=== PATIENT | female | born 1955 | race Caucasian/White ===

== ENCOUNTER → 2019-12-09 11:30 | Outpatient (BNVA) | payer MEDICARE, SELFPAY | PROVIDERS: Family Provider Physician Assistant Medical; Visit Provider Nurse Practitioner Family | DX: E11.9 Type 2 diabetes mellitus without complications (principal); I10 Essential (primary) hypertension; E78.2 Mixed hyperlipidemia; E55.9 Vitamin D deficiency, unspecified; E03.9 Hypothyroidism, unspecified; F32.9 Major depressive disorder, single episode, unspecified | CPT/HCPCS: 80053; 80061; 81001; 82306; 83036; 84443; 85025 ==

== ENCOUNTER → 2020-02-29 11:05 | Outpatient (BNVA) | payer MEDICARE, SELFPAY | PROVIDERS: Family Provider Physician Assistant Medical; Visit Provider Nurse Practitioner Family | DX: E03.9 Hypothyroidism, unspecified (principal); E11.65 Type 2 diabetes mellitus with hyperglycemia; Z79.4 Long term (current) use of insulin; M19.90 Unspecified osteoarthritis, unspecified site; E78.2 Mixed hyperlipidemia | CPT/HCPCS: 80053; 80061; 83036; 84443; 84550; 85025 ==

== ENCOUNTER → 2020-07-15 10:08 | Outpatient (BNVA) | payer MEDICARE, SELFPAY | PROVIDERS: Family Provider Physician Assistant Medical; PCP Nurse Practitioner Family; Visit Provider Nurse Practitioner Family | DX: M10.9 Gout, unspecified (principal); E03.9 Hypothyroidism, unspecified; E11.9 Type 2 diabetes mellitus without complications; M19.90 Unspecified osteoarthritis, unspecified site; K21.9 Gastro-esophageal reflux disease without esophagitis; Z79.4 Long term (current) use of insulin | CPT/HCPCS: 80053; 83036; 84443; 84550; 85025 ==

== ENCOUNTER → 2020-09-12 10:08 | Outpatient (BNVA) | payer MEDICARE, SELFPAY | PROVIDERS: Family Provider Physician Assistant Medical; PCP Nurse Practitioner Family; Visit Provider Family Medicine | DX: M06.9 Rheumatoid arthritis, unspecified (principal); M19.90 Unspecified osteoarthritis, unspecified site; M26.629 Arthralgia of temporomandibular joint, unspecified side; M72.0 Palmar fascial fibromatosis [Dupuytren] | CPT/HCPCS: 73120; 85651; 86431 ==

== ENCOUNTER → 2020-12-28 13:26 | Outpatient (BNVA) | payer MEDICARE, SELFPAY | PROVIDERS: Family Provider Physician Assistant Medical; PCP Nurse Practitioner Family; Visit Provider Nurse Practitioner Family | DX: R32 Unspecified urinary incontinence (principal); F32.9 Major depressive disorder, single episode, unspecified | CPT/HCPCS: 81003 ==

== ENCOUNTER → 2021-02-28 11:36 | Outpatient (BNVA) | payer MEDICARE, SELFPAY | PROVIDERS: Family Provider Physician Assistant Medical; PCP Nurse Practitioner Family; Visit Provider Nurse Practitioner Family | DX: F32.9 Major depressive disorder, single episode, unspecified (principal); E78.2 Mixed hyperlipidemia; E11.65 Type 2 diabetes mellitus with hyperglycemia; Z79.4 Long term (current) use of insulin; B37.3 Candidiasis of vulva and vagina; N39.0 Urinary tract infection, site not specified; Z12.31 Encounter for screening mammogram for malignant neoplasm of breast; E55.9 Vitamin D deficiency, unspecified; M10.9 Gout, unspecified; E03.9 Hypothyroidism, unspecified | CPT/HCPCS: 80053; 80061; 81003; 82306; 83036; 84443; 84550; 85025; 87086 ==

== ENCOUNTER 2021-03-02 10:25 | Outpatient (CLI) | payer MEDICARE, SELFPAY ==
--- NOTE | 2021-03-02 11:00 | MM_ITS ---
WS: [id number] BILATERAL SCREENING DIGITAL MAMMOGRAM WITH CAD HISTORY: Z12.31 - Encounter for screening mammogram for malignant ... COMPARISON: 10/07/2018 and 09/03/2018 Bilateral CC and MLO views submitted. Computer aided detection analyzed. Breast composition: There are scattered areas of fibroglandular density. No suspicious masses, microc alcifications or architectural distortion. Stable 6 mm nodule in the anterior RIGHT breast. MM/[place] [id number] IMPRESSION: BI-RADS: 2-Benign FOLLOW UP: 1 Year Follow-up
== END 2021-03-02 10:26 | disposition home or self-care (01) ==
LOC: RADSHAW 10:31
PROVIDERS: Family Provider Physician Assistant Medical; PCP Nurse Practitioner Family; Visit Provider Nurse Practitioner Family
DX: Z12.31 Encounter for screening mammogram for malignant neoplasm of breast (principal)
CPT/HCPCS: 77067

== ENCOUNTER → 2021-03-28 11:27 | Outpatient (BNVA) | payer MEDICARE, SELFPAY | PROVIDERS: Family Provider Physician Assistant Medical; PCP Nurse Practitioner Family; Visit Provider Nurse Practitioner Family | DX: I10 Essential (primary) hypertension (principal); E03.9 Hypothyroidism, unspecified; E78.2 Mixed hyperlipidemia; F32.9 Major depressive disorder, single episode, unspecified; M10.9 Gout, unspecified; E55.9 Vitamin D deficiency, unspecified; E11.65 Type 2 diabetes mellitus with hyperglycemia; R10.9 Unspecified abdominal pain; M06.9 Rheumatoid arthritis, unspecified; Z79.4 Long term (current) use of insulin | CPT/HCPCS: 74018 ==

== ENCOUNTER 2021-06-03 14:39 | Inpatient (IN) | payer MEDICARE, SELFPAY ==
--- NOTE | 2021-06-03 14:42 | CTR_ITS ---
PROCEDURE INFORMATION: Exam: CT Head Without Contrast Exam date and time: 06/03/2021 2:42 PM Age: 66 years old Clinical indication: Altered mental status/memory loss; Confusion or disorientation; Patient HX: AMS; Additional info: AMS, headache TECHNIQUE: Imaging protocol: Computed tomography of the head without contrast. Radiation optimization: All CT scans at this facility use at least one of these dose optimization techniques: automated exposure control; mA and/or kV adjustment per patient size (includes targeted exams where dose is matched to clinical indication); or iterative reconstruction. COMPARISON: No relevant prior studies available. RADIATION DOSE METRICS: Total DLP (mGy-cm): 798.51 FINDINGS: Brain: No intracranial hemorrhage. Atrophy and mild patchy decreased attenuation of the periventricular white matter which is nonspecific but compatible with chronic microvascular ischemic change. Normal barreto-white differentiation. No abnormal mass effect or midline shift. No extra-axial fluid collection. Cerebral ventricles: Mild ventriculomegaly in the setting of atrophy. No evidence of acute hydrocephalus. Paranasal sinuses: Visualized sinuses are unremarkable. No fluid levels. Mastoid air cells: Visualized mastoid air cells are well aerated. Bones/joints: No acute fracture. Soft tissues: Unremarkable. CT/CT head wo con* [id number] IMPRESSION: 1. No acute findings. 2. Periventricular white matter changes consistent with chronic microvascular ischemic change. Radiation Dose CTDIVOL = (mGy): DLP = 798.51 (mGy-cm)
--- NOTE | 2021-06-03 14:43 | ECG_ITS ---
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 Measurements Intervals [place] Rate: 81 P: 56 WV: 144 QRS: 63 QRSD: 96 T: 90 QT: 399 QTc: 466 Interpretive Statements SINUS RHYTHM ANTEROSEPTAL MYOCARDIAL INFARCTION , PROBABLY OLD [40+ ms Q WAVE IN V1-V4] Compared to ECG 01/07/2018 13:08:07 No significant changes Electronically Signed On 06-05-2021 19:16:55 CDT by Marimar Luevano M.D. [id number]
--- NOTE | 2021-06-03 14:47 | CTR_ITS ---
PROCEDURE INFORMATION: Exam: CT Abdomen And Pelvis With Contrast Exam date and time: 06/03/2021 2:47 PM Age: 66 years old Clinical indication: Nausea and vomiting; Prior surgery; Surgery date: 6+ months; Surgery type: Cabg; Patient HX: C/O abd pain w n/v; Additional info: Evaluate for abd pathologies TECHNIQUE: Imaging protocol: Computed tomography of the abdomen and pelvis with contrast. Radiation optimization: All CT scans at this facility use at least one of these dose optimization techniques: automated exposure control; mA and/or kV adjustment per patient size (includes targeted exams where dose is matched to clinical indication); or iterative reconstruction. Contrast material: OMNI 300; Contrast volume: 95 ml; Contrast route: INTRAVENOUS (IV); COMPARISON: CR XR KUB [id number] 03/28/2021 11:50 AM RADIATION DOSE METRICS: Total DLP (mGy-cm): 1857.51 FINDINGS: Limitations: The study is limited due to patient respiratory motion. Lungs: The lung bases appear unremarkable. Liver: Irregularity of the liver, consistent with hepatic cirrhosis. No focal liver lesion demonstrated. Gallbladder and bile ducts: The gallbladder is surgically absent. No biliary dilatation. Pancreas: The pancreas is normal in appearance. No pancreatic duct dilatation. Spleen: There is splenomegaly present. The spleen measures 17 cm in length. Adrenal glands: The adrenal glands appear within normal limits. Kidneys and ureters: 2.3 cm simple appearing left renal cyst. No solid renal masses. No hydronephrosis. Stomach and bowel: No acute gastric abnormality demonstrated. The small bowel is unremarkable as demonstrated. No acute abnormality/inflammatory change of the colon. Appendix: No evidence of appendicitis. Intraperitoneal space: No pneumoperitoneum. No significant fluid collection. Vasculature: The aorta is atherosclerotic. No aortic aneurysm. Lymph nodes: No pathologically enlarged lymph nodes are demonstrated. Urinary bladder: The urinary bladder is unremarkable in appearance. The urinary bladder is unremarkable in appearance. Reproductive: Uterus and adnexa appear unremarkable. Bones/joints: Degenerative spine changes are noted. No fracture or other acute osseous abnormality. Soft tissues: Diastasis of the rectus muscles noted creating a shallow umbilical hernia. There is no bowel obstruction associated. CT/CT abdomen pelvis w con* [id number] IMPRESSION: 1. The study is limited due to patient respiratory motion. 2. Irregularity of the liver, consistent with hepatic cirrhosis. No focal liver lesion demonstrated. Portal vein is patent. Mild splenomegaly splenomegaly. No ascites. 3. There is splenomegaly present. The spleen measures 17 cm in length. 4. Diastasis of the rectus muscles noted creating a shallow umbilical hernia. There is no bowel obstruction associated. COMMENTS: Consistent with the [employer]'s Incidental Findings Committee white paper (J Am Jonathan Radiol 2018): Any incidental renal lesion less than 1 cm or classified as too small to characterize, or any incidental cystic renal lesion characterized as simple-appearing, is likely benign. No follow-up imaging is recommended for these lesions per consensus recommendations based on imaging criteria. Radiation Dose CTDIVOL = (mGy): DLP = 1857.51 (mGy-cm)
[2021-06-03 14:53] VITALS: BP 162/94; PULSE 91; RESP 15; TEMP 36.4; O2SAT 94; BMI 35.4
--- NOTE | 2021-06-03 14:54 | W.ED.GENADLT ---
HPI - General Adult General: Chief complaint: General Medical Stated complaint: high blood sugar, abd pain, HASSAN Time Seen by Provider: 06/03/21 14:40 History of Present Illness: HPI narrative: Patient is a 66-year-old female with history of diabetes, hypertension, CHF, CABG who presents the emergency room with complaints of abdominal pain and headache. Patient says that both symptoms started 3 days ago. It is unclear how they started. Patient says that he has been having diffuse abdominal pain worse in the left lower quadrant. Patient says that she has had multiple episodes nausea and vomiting. Since then, patient endorses severe headache around the same time. Denies any falls or injuries. Patient says that the headache is worse compared to her prior headaches. Patient denies any melena or hematochezia, is not on blood thinners. No complaints of chest pain shortness of breath, malaise, or other or abdominal complaints. Called EMS earlier today in room, patient had a glucose of 370. Onset: 3 days ago Duration:3 days Location:home Severity:severe Review of Systems Narrative: Constitutional: No fever, no chills. HEENT: No vision changes CV: No chest pain, no palpitations PULM: no cough, no dyspnea. GI: +abdominal pain, +N/+V/-D. : No dysuria MSKEL: No muscle pain SKIN: No new rashes, no lesions. NEURO:+headache, no focal weakness. HEME: No visible bruises PSYCH: Normal mood PFSH ED PFSH: Medical History Abdominal pain Anticoagulated Anxiety and depression Arthritis Breast cancer screening by mammogram Diabetes mellitus, type II Essential hypertension GERD (gastroesophageal reflux disease) Gout Hypothyroid Infected abrasion of thumb Mixed hyperlipidemia Mixed hyperlipidemia Type 2 diabetes mellitus with hyperglycemia Urinary tract infection Vaginal yeast infection Yeast vaginitis Surgical History History of arthroscopy of left shoulder History of open heart surgery quad bypass Social History Smoking and tobacco status: never smoked Second hand smoke exposure: No Smoking risk assessment/counseling performed?: No Alcohol intake: never Desire information about alcohol rehabilitation?: No Counseling given: No Desire information about substance/drug rehabilitation?: No Counseling given: No Female Reproductive History: Date of last menstrual period: 12/15/20 Physical Exam Narrative: EXAM NARRATIVE: Head: Atraumatic Eyes: PERRL, conjunctiva without injection ENT: Mucous membrane moist NECK: Supple, ROM intact LUNGS: LCTAB, no crackles/rhonchi CV: RRR ABDOMEN: Soft, nontender in all quadrants EXTREMITY: Normal ROM SKIN: No rash or erythema NEURO: Awake and alert, no focal motor deficits, 5-5 in all extremities, neurovascular sensation intact distally, cranial nerves II through XII intact PSYCH: Normal mood and affect Course Vital Signs: Vital signs: Vital Signs Temperature 98.6 F 06/05/21 12:46 Pulse Rate 73 06/05/21 12:46 Respiratory Rate 17 06/05/21 12:46 Blood Pressure 168/72 06/05/21 12:46 Pulse Oximetry 94 06/05/21 12:46 MDM - General Adult MDM Narrative: Medical decision making narrative: Male with a history of diabetes, hypertension, CHF, CABG presenting to the emergency room with acute onset of diffuse abdominal pain and headache. On exam, patient is hemodynamically stable. Patient is noted to be hypoxemic satting at 90% on room air. Lungs appear to be decreased on exam. She has diffuse tenderness worse in the left lower quadrant. Neuro exam intact. Given consternation of symptoms, differential diagnosis broad. Will work-up patient for altered mental status and intra-abdominal pathologies. Patient is placed on 2 L oxygen with improvement in O2 sat greater than 95% EKG showing regular sinus rhythm at HT of [81]. Normal axis. No ST elevations/depressions to suggest coronary occlusion. Normal [place], QRS, QT intervals. Troponin is noted to be [address] brain negative for any acute intracranial bleed. CT of the pelvis showed cirrhosis. Ammonia level within normal limit today. Patient is UA is did not show any signs of leukocytosis. At this point time, patient continues to be altered. It is unclear what is the source of altered mental status. Disposition: Admission for serial reevaluation. Lab Data: Labs: Lab Results 06/03/21 06/03/21 06/03/21 Range/Units 16:00 16:00 16:26 WBC 4.8 (4.0-10.0) 10^3/ uL RBC 4.36 (4.1-5.3) 10^6/u L Hgb 11.6 (11.5-15.3) g/dL Hct 35.6 L (37.0-47.0) % MCV 81.7 (81-99) fl MCH 26.6 L (28.0-34.0) pg MCHC 32.6 (30.0-36.0) g/dL RDW 14.4 (12.1-15.1) % Plt Count 131 (130-400) 10^3/c mm MPV 9.8 (7.4-10.4) fL Neut % (Auto) 74.1 % Lymph % (Auto) 18.4 % Whitfield % (Auto) 5.0 % Eos % (Auto) 1.7 % Baso % (Auto) 0.6 % Neut # (Auto) 3.54 (1.8-7.7) 10^3/u L Lymph # (Auto) 0.9 (0.8-4.8) 10^3/u L Whitfield # (Auto) 0.2 (0.2-0.9) 10^3/u L Eos # (Auto) 0.1 (0.0-0.8) 10^3/u L Baso # (Auto) 0.0 (0.0-0.1) 10^3/u L Nucleated RBC % (a uto) 0 % Nucleated RBCs # 0.0 /100WBC PT (12.1-14.9) SECO NDS INR (0.8-1.2) APTT (23.9-36.7) SECO NDS Sodium (136-145) mmol/L Potassium (3.5-5.1) mmol/L Chloride (98-107) mmol/L Carbon Dioxide (22-29) mmol/L Anion Gap (5-19) BUN (8-23) mg/dL Creatinine (0.5-0.9) mg/dL GFR Calculation (90-130) mL/min Glucose (65-115) mg/dL Calculated Osmolal ity (285-295) mOsm/k g Lactate (0.5-2.2) mmol/L Calcium (8.5-10.5) mg/dL Total Bilirubin (0.15-1.2) mg/dL AST (0-32) U/L ALT (0-33) U/L Alkaline Phosphata se (35-105) IU/L Ammonia (11-51) umol/L Troponin T Gen 5 n g/L (0-10) ng/L Troponin T Baselin e (0-10) ng/L Total Protein (6.6-8.7) g/dL Albumin (3.5-5.2) g/dL Globulin (1.3-4.6) g/dL Lipase (13-60) U/L TSH (0.27-4.20) uIU/ mL Urine Color (Yellow) Urine Appearance (CLEAR) Urine pH (5-7) Ur Specific Gravit y (1.005-1.030) Urine Protein (Negative) Urine Glucose (UA) (Normal) Urine Ketones (Negative) Urine Blood (Negative) Urine Nitrate (Negative) Urine Bilirubin (Negative) Urine Urobilinogen (Negative) mg/dL Ur Leukocyte Elda ase (Negative) Urine RBC (0-2) /hpf Urine WBC (0-5) /hpf Ur Squamous Epith Cells (0-5) /hpf Amorphous Sediment Urine Bacteria (NONE) /hpf Urine Yeast /hpf Urine Opiates Scre en (Negative) ng/mL Ur Barbiturates Sc reen (Negative) ng/mL Ur Phencyclidine S crn (Negative) ng/mL Ur Amphetamines Sc reen (Negative) ng/mL U Benzodiazepines Scrn (Negative) ng/mL Urine Cocaine Scre en (Negative) ng/mL U Marijuana (THC) Screen (Negative) ng/mL Ethyl Alcohol (0-10) mg/dL SARS-CoV-2 RNA (RT -PCR) Not detected (NOT DETECTED) SARS-CoV-2 Ag (Rap id) Negative (Negative) 06/03/21 06/03/21 06/03/21 Range/Units 16:26 16:26 16:26 WBC (4.0-10.0) 10^3/ uL RBC (4.1-5.3) 10^6/u L Hgb (11.5-15.3) g/dL Hct (37.0-47.0) % MCV (81-99) fl MCH (28.0-34.0) pg MCHC (30.0-36.0) g/dL RDW (12.1-15.1) % Plt Count (130-400) 10^3/c mm MPV (7.4-10.4) fL Neut % (Auto) % Lymph % (Auto) % Whitfield % (Auto) % Eos % (Auto) % Baso % (Auto) % Neut # (Auto) (1.8-7.7) 10^3/u L Lymph # (Auto) (0.8-4.8) 10^3/u L Whitfield # (Auto) (0.2-0.9) 10^3/u L Eos # (Auto) (0.0-0.8) 10^3/u L Baso # (Auto) (0.0-0.1) 10^3/u L Nucleated RBC % (a uto) % Nucleated RBCs # /100WBC PT 14.30 (12.1-14.9) SECO NDS INR 1.08 (0.8-1.2) APTT 29.4 (23.9-36.7) SECO NDS Sodium 139 (136-145) mmol/L Potassium 3.4 L (3.5-5.1) mmol/L Chloride 98 (98-107) mmol/L Carbon Dioxide 27 (22-29) mmol/L Anion Gap 17.4 (5-19) BUN 9 (8-23) mg/dL Creatinine 0.6 (0.5-0.9) mg/dL GFR Calculation 100.0 (90-130) mL/min Glucose 292 H (65-115) mg/dL Calculated Osmolal ity 297 H (285-295) mOsm/k g Lactate 2.0 (0.5-2.2) mmol/L Calcium 8.4 L (8.5-10.5) mg/dL Total Bilirubin 1.1 (0.15-1.2) mg/dL AST 22 (0-32) U/L ALT 10 (0-33) U/L Alkaline Phosphata se 129 H (35-105) IU/L Ammonia (11-51) umol/L Troponin T Gen 5 n g/L (0-10) ng/L Troponin T Baselin e (0-10) ng/L Total Protein 6.3 L (6.6-8.7) g/dL Albumin 3.6 (3.5-5.2) g/dL Globulin 2.7 (1.3-4.6) g/dL Lipase 55 (13-60) U/L TSH (0.27-4.20) uIU/ mL Urine Color (Yellow) Urine Appearance (CLEAR) Urine pH (5-7) Ur Specific Gravit y (1.005-1.030) Urine Protein (Negative) Urine Glucose (UA) (Normal) Urine Ketones (Negative) Urine Blood (Negative) Urine Nitrate (Negative) Urine Bilirubin (Negative) Urine Urobilinogen (Negative) mg/dL Ur Leukocyte Elda ase (Negative) Urine RBC (0-2) /hpf Urine WBC (0-5) /hpf Ur Squamous Epith Cells (0-5) /hpf Amorphous Sediment Urine Bacteria (NONE) /hpf Urine Yeast /hpf Urine Opiates Scre en (Negative) ng/mL Ur Barbiturates Sc reen (Negative) ng/mL Ur Phencyclidine S crn (Negative) ng/mL Ur Amphetamines Sc reen (Negative) ng/mL U Benzodiazepines Scrn (Negative) ng/mL Urine Cocaine Scre en (Negative) ng/mL U Marijuana (THC) Screen (Negative) ng/mL Ethyl Alcohol (0-10) mg/dL SARS-CoV-2 RNA (RT -PCR) (NOT DETECTED) SARS-CoV-2 Ag (Rap id) (Negative) 06/03/21 06/03/21 06/03/21 Range/Units 16:26 18:45 18:45 WBC (4.0-10.0) 10^3/ uL RBC (4.1-5.3) 10^6/u L Hgb (11.5-15.3) g/dL Hct (37.0-47.0) % MCV (81-99) fl MCH (28.0-34.0) pg MCHC (30.0-36.0) g/dL RDW (12.1-15.1) % Plt Count (130-400) 10^3/c mm MPV (7.4-10.4) fL Neut % (Auto) % Lymph % (Auto) % Whitfield % (Auto) % Eos % (Auto) % Baso % (Auto) % Neut # (Auto) (1.8-7.7) 10^3/u L Lymph # (Auto) (0.8-4.8) 10^3/u L Whitfield # (Auto) (0.2-0.9) 10^3/u L Eos # (Auto) (0.0-0.8) 10^3/u L Baso # (Auto) (0.0-0.1) 10^3/u L Nucleated RBC % (a uto) % Nucleated RBCs # /100WBC PT (12.1-14.9) SECO NDS INR (0.8-1.2) APTT (23.9-36.7) SECO NDS Sodium (136-145) mmol/L Potassium (3.5-5.1) mmol/L Chloride (98-107) mmol/L Carbon Dioxide (22-29) mmol/L Anion Gap (5-19) BUN (8-23) mg/dL Creatinine (0.5-0.9) mg/dL GFR Calculation (90-130) mL/min Glucose (65-115) mg/dL Calculated Osmolal ity (285-295) mOsm/k g Lactate (0.5-2.2) mmol/L Calcium (8.5-10.5) mg/dL Total Bilirubin (0.15-1.2) mg/dL AST (0-32) U/L ALT (0-33) U/L Alkaline Phosphata se (35-105) IU/L Ammonia (11-51) umol/L Troponin T Gen 5 n g/L (0-10) ng/L Troponin T Baselin e 56 H (0-10) ng/L Total Protein (6.6-8.7) g/dL Albumin (3.5-5.2) g/dL Globulin (1.3-4.6) g/dL Lipase (13-60) U/L TSH (0.27-4.20) uIU/ mL Urine Color Yellow (Yellow) Urine Appearance Clear (CLEAR) Urine pH 6 (5-7) Ur Specific Gravit y 1.015 (1.005-1.030) Urine Protein 1+ H (Negative) Urine Glucose (UA) 4+ H (Normal) Urine Ketones 1+ H (Negative) Urine Blood Trace H (Negative) Urine Nitrate Negative (Negative) Urine Bilirubin Neg (Negative) Urine Urobilinogen 1 H (Negative) mg/dL Ur Leukocyte Elda ase Negative (Negative) Urine RBC None (0-2) /hpf Urine WBC 0-4 H (0-5) /hpf Ur Squamous Epith Cells 5-10 H (0-5) /hpf Amorphous Sediment Not Reportable Urine Bacteria Trace (NONE) /hpf Urine Yeast 1+ H /hpf Urine Opiates Scre en Negative (Negative) ng/mL Ur Barbiturates Sc reen Negative (Negative) ng/mL Ur Phencyclidine S crn Negative (Negative) ng/mL Ur Amphetamines Sc reen Negative (Negative) ng/mL U Benzodiazepines Scrn Negative (Negative) ng/mL Urine Cocaine Scre en Negative (Negative) ng/mL U Marijuana (THC) Screen Negative (Negative) ng/mL Ethyl Alcohol (0-10) mg/dL SARS-CoV-2 RNA (RT -PCR) (NOT DETECTED) SARS-CoV-2 Ag (Rap id) (Negative) 06/03/21 06/03/21 06/03/21 Range/Units 20:05 20:13 20:13 WBC (4.0-10.0) 10^3/ uL RBC (4.1-5.3) 10^6/u L Hgb (11.5-15.3) g/dL Hct (37.0-47.0) % MCV (81-99) fl MCH (28.0-34.0) pg MCHC (30.0-36.0) g/dL RDW (12.1-15.1) % Plt Count (130-400) 10^3/c mm MPV (7.4-10.4) fL Neut % (Auto) % Lymph % (Auto) % Whitfield % (Auto) % Eos % (Auto) % Baso % (Auto) % Neut # (Auto) (1.8-7.7) 10^3/u L Lymph # (Auto) (0.8-4.8) 10^3/u L Whitfield # (Auto) (0.2-0.9) 10^3/u L Eos # (Auto) (0.0-0.8) 10^3/u L Baso # (Auto) (0.0-0.1) 10^3/u L Nucleated RBC % (a uto) % Nucleated RBCs # /100WBC PT (12.1-14.9) SECO NDS INR (0.8-1.2) APTT (23.9-36.7) SECO NDS Sodium (136-145) mmol/L Potassium (3.5-5.1) mmol/L Chloride (98-107) mmol/L Carbon Dioxide (22-29) mmol/L Anion Gap (5-19) BUN (8-23) mg/dL Creatinine (0.5-0.9) mg/dL GFR Calculation (90-130) mL/min Glucose (65-115) mg/dL Calculated Osmolal ity (285-295) mOsm/k g Lactate (0.5-2.2) mmol/L Calcium (8.5-10.5) mg/dL Total Bilirubin (0.15-1.2) mg/dL AST (0-32) U/L ALT (0-33) U/L Alkaline Phosphata se (35-105) IU/L Ammonia 34 (11-51) umol/L Troponin T Gen 5 n g/L 54 H (0-10) ng/L Troponin T Baselin e (0-10) ng/L Total Protein (6.6-8.7) g/dL Albumin (3.5-5.2) g/dL Globulin (1.3-4.6) g/dL Lipase (13-60) U/L TSH 2.40 (0.27-4.20) uIU/ mL Urine Color (Yellow) Urine Appearance (CLEAR) Urine pH (5-7) Ur Specific Gravit y (1.005-1.030) Urine Protein (Negative) Urine Glucose (UA) (Normal) Urine Ketones (Negative) Urine Blood (Negative) Urine Nitrate (Negative) Urine Bilirubin (Negative) Urine Urobilinogen (Negative) mg/dL Ur Leukocyte Elda ase (Negative) Urine RBC (0-2) /hpf Urine WBC (0-5) /hpf Ur Squamous Epith Cells (0-5) /hpf Amorphous Sediment Urine Bacteria (NONE) /hpf Urine Yeast /hpf Urine Opiates Scre en (Negative) ng/mL Ur Barbiturates Sc reen (Negative) ng/mL Ur Phencyclidine S crn (Negative) ng/mL Ur Amphetamines Sc reen (Negative) ng/mL U Benzodiazepines Scrn (Negative) ng/mL Urine Cocaine Scre en (Negative) ng/mL U Marijuana (THC) Screen (Negative) ng/mL Ethyl Alcohol < 10 (0-10) mg/dL SARS-CoV-2 RNA (RT -PCR) (NOT DETECTED) SARS-CoV-2 Ag (Rap id) (Negative) Discharge Plan Discharge Patient Disposition: Admitted As Inpatient Admit Provider: Luann Pop Clinical Impression: Altered mental status, Elevated troponin, Hyperglycemia Condition: Stable Discharge Diet: Cardiac and Low Fat Discharge Activity: Increase activity as tolerated Coding Level of Care Code ED Soda Drier Feeder for Page Kelly
--- NOTE | 2021-06-03 15:14 | XRR_ITS ---
PROCEDURE INFORMATION: Exam: XR Chest Exam date and time: 06/03/2021 3:14 PM Age: 66 years old Clinical indication: Dyspnea; Additional info: Oxygen TECHNIQUE: Imaging protocol: XR of the chest. Views: 1 view. COMPARISON: CR XR KUB [id number] 03/28/2021 11:50 AM FINDINGS: Lungs: Unremarkable. No consolidation. Pleural spaces: Unremarkable. No pleural effusion. No pneumothorax. Heart/Mediastinum: Unremarkable. No cardiomegaly. Bones/joints: Median sternotomy wires. XR/XR chest 1V portable [id number] IMPRESSION: No acute radiographic findings.
[2021-06-03] MEDS: diphenhydrAMINE 50 mg/mL SDV 1mL IVP (16:08)
[2021-06-03] MEDS: sodium chloride 0.9% 500 ML IV (16:09)
[2021-06-03] MEDS: metoclopramide 5 mg/mL SDV 2 mL IVP (16:09)
[2021-06-03] MEDS: famotidine 20 mg/2 mL INJ IVP (16:09)
[2021-06-03] MEDS: magnesium sulfate premix 2 GM/50 ML PIGGYBACK IV (16:09)
[2021-06-03 16:47] LABS: Basophils % 0.6 %; Eosinophils # 0.1 10^3/uL (0.0-0.8); Eosinophils % 1.7 %; Hematocrit 35.6 % (37.0-47.0); Hemoglobin 11.6 g/dL (11.5-15.3); Lymphocytes # 0.9 10^3/uL (0.8-4.8); Lymphocytes % 18.4 %; Mean Corpuscular HGB Conc 32.6 g/dL (30.0-36.0); Mean Corpuscular Hemoglobin 26.6 pg (28.0-34.0); Mean Corpuscular Volume 81.7 fl (81-99); Mean Platelet Volume 9.8 fL (7.4-10.4); Monocytes # 0.2 10^3/uL (0.2-0.9); Neutrophils # 3.54 10^3/uL (1.8-7.7); Neutrophils % 74.1 %; Nucleated Red Blood Cells % 0 %; Platelet Count 131 10^3/cmm (130-400); Red Blood Count 4.36 10^6/uL (4.1-5.3); Red Cell Distribution Width 14.4 % (12.1-15.1); White Blood Count 4.8 10^3/uL (4.0-10.0)
[2021-06-03 16:53] LABS: INR 1.08 (0.8-1.2)
[2021-06-03 16:55] LABS: Partial Thromboplastin Time 29.4 SECONDS (23.9-36.7)
[2021-06-03 17:01] LABS: Troponin(5th) Baseline 56 ng/L (0-10)
[2021-06-03 17:09] LABS: Alanine Aminotransferase 10 U/L (0-33); Albumin Level 3.6 g/dL (3.5-5.2); Alkaline Phosphatase 129 IU/L (35-105); Anion Gap 17.4 (5-19); Aspartate Amino Transferase 22 U/L (0-32); Blood Urea Nitrogen 9 mg/dL (8-23); Calcium 8.4 mg/dL (8.5-10.5); Carbon Dioxide 27 mmol/L (22-29); Chloride 98 mmol/L (98-107); Globulin 2.7 g/dL (1.3-4.6); Glucose 292 mg/dL (65-115); Lipase 55 U/L (13-60); Osmolality Calculated 297 mOsm/kg (285-295); Potassium 3.4 mmol/L (3.5-5.1); Sodium 139 mmol/L (136-145); Total Bilirubin 1.1 mg/dL (0.15-1.2); Total Protein 6.3 g/dL (6.6-8.7)
[2021-06-03 17:47] LABS: SARS Covid-2 Antigen Negative (Negative)
--- NOTE | 2021-06-03 17:47 | PC.NURSE ---
pt would not tolerate CT well at all. pt tried to roll off CT table. appears very anxious. ED provider notified and medication orders received.
[2021-06-03] MEDS: LORazepam 2 mg/mL INJ 1 mL IVP ×2 (17:50→21:31)
[2021-06-03] MEDS: iohexol 300 mg/mL 100 mL Btl IV (18:28)
[2021-06-03 19:09] LABS: Glucose Urine UA 4+ (Normal); Ketones Urine 1+ (Negative); Protein Urine 1+ (Negative); Specific Gravity, Urine 1.015 (1.005-1.030); Urine Appearance Clear (CLEAR); Urine Color Yellow (Yellow); pH Urine 6 (5-7)
[2021-06-03 19:10] LABS: Add Urine Microscopic? YES; Bilirubin Urine Neg (Negative); Blood Urine Trace (Negative); Leukocyte Esterase Urine Negative (Negative); Nitrate Urine Negative (Negative); Urobilinogen Urine 1 mg/dL (Negative)
[2021-06-03 19:14] LABS: Bacteria Urine TRACE /hpf; WBC Urine 0-4 /hpf (0-5)
[2021-06-03 19:15] LABS: Add Urine Culture? No
[2021-06-03 19:25] VITALS: BP 161/101; PULSE 88; RESP 20; O2SAT 96
[2021-06-03 20:27] LABS: Ammonia 34 umol/L (11-51)
[2021-06-03 20:50] LABS: Troponin T (5th) Once 54 ng/L (0-10)
--- NOTE | 2021-06-03 21:07 | PC.NURSE ---
patient found naked tring to get up screaming with legs in bwteen rails, patient complaining of feet itching, charge nurse informed of need for sitter due to fall risk saftey concern. dr also updated,
[2021-06-03 21:34] VITALS: BP 141/99; PULSE 78; RESP 14; O2SAT 94
--- NOTE | 2021-06-03 21:35 | PC.NURSE ---
patient 02 sats 87% on RA, placed on 2 lt via nc. provider updated.
--- NOTE | 2021-06-03 21:39 | PC.NURSE ---
patient daughter on phone reports mom fell today and had +loc,
--- NOTE | 2021-06-03 21:45 | PC.NURSE ---
daughter updated on plan to admit.
--- NOTE | 2021-06-03 21:59 | PC.NURSE ---
verbal consent for lp from and daughter via phone
[2021-06-03 22:01] LABS: ABG PCO2 42.5 mmHg (35-45); ABG PH Result 7.43 (7.35-7.45); Alveolar-Arterial Oxygen Gradi 4.6 mmHg (5-10); Base Excess ABG 3.2 mmol/L (-2.0-2.0); Blood Gas Sample Site Brachial, right; Blood Gas Sample Type Arterial; Carboxyhemoglobin 1.8 %THgb (0.4-20.1); HGB O2 Sat 91.1 % (95-100); Ionized Calcium Level - ABG 1.1 mmol/L (1.1-1.4); Methemoglobin 0.8 % (0.4-1.5); Oxygen Device ROOM AIR; Oxygen Saturation ABG 93.4; PO2 ABG 62.6 mmHg (80.0-100.0); Potassium Level - ABG 3.1 mmol/L (3.5-5.0); Total Hemoglobin 12.1 g/dL (12-16)
[2021-06-03] MEDS: haloperidol inj 5 mg/mL INJ 1 mL IVP (22:06)
--- NOTE | 2021-06-03 22:09 | PC.NURSE ---
patient found standing on bed. charge nurse and dr updated. Lakhani given.
--- NOTE | 2021-06-03 23:02 | PC.NURSE ---
charge nurse notified of one on one status for conscious sedation
--- NOTE | 2021-06-03 23:14 | PC.NURSE ---
provider canceled lp and conscious sedation.
[2021-06-03 23:19] VITALS: BP 167/103; PULSE 88; RESP 20; O2SAT 94
[2021-06-03 23:57] VITALS: PULSE 84; BMI 36.3
--- NOTE | 2021-06-03 23:58 | PC.NURSE ---
Pt arrived to unit in ER bed transferred to Med surge bed. Patient lethargic and uncooperative. Vitals stable.
[2021-06-04] VITALS (11 sets, daily range): BP systolic 115–161; BP diastolic 57–80; PULSE 66–84; RESP 16–18; TEMP 36.1–37.8; O2SAT 91–98
--- NOTE | 2021-06-04 01:30 | PM.HP ---
Providers/Chief Complaint Admitting Physician: Luann Pop MD Primary Care Provider: LUBNA Meek Chief Complaint: HIGH BLOOD SUGAR History of Present Illness History is obtained by chart review and by talking to patient's daughter as patient currently unable to participate. Linda Joiner is a 66 year old female with a past medical history of arthritis, diabetes, hypertension, hypothyroidism, recurrent UTIs who was brought to the emergency room today with chief complaint of altered mental status. Per her daughter, patient was in her usual state of health until last evening when after eating a dinner of steak she started to complain of left lower quadrant abdominal discomfort and developed nausea and vomiting. No diarrhea. No fever. At around 3 PM today she was getting ready to go to her daughter's house, when she did not emerge from the room for a few minutes, her went in to check in on her and found her slumped on the floor unresponsive. EMS was called and by the time EMS got there patient was able to open her eyes and moving all of her extremities however was extremely confused and not making sense. Per discussion with the ER physician her chief complaint after presenting here with abdominal pain and a headache. She was confused, however noted to be moving all extremities. There was no reported head injury. CT of the abdomen was performed which did not show any acute abnormalities. Ammonia level was within normal limit, incidentally noted cirrhosis onset CT. No recent URI illness, no noted rashes recently. CT head was normal. At the time of my assessment, patient is asleep, difficult to awaken, she has recently received sedation to attempt lumbar puncture, however this attempt was unsuccessful. She is vaccinated for COVID-19 in January 2021. Review of Systems General: Reports: ROS unobtainable due to mental status Medications/Allergies Home Medications Medication Instructions Recorded Confirmed Last Taken Type tizanidine 4 mg tablet mg PO 12/09/19 03/28/21 Unknown History acetaminophen 650 mg 650 mg PO Q12H 11/23/20 03/28/21 Unknown History tablet,extended release blood-glucose meter #1 ea 02/28/21 03/28/21 Unknown Rx allopurinol 100 mg tablet See Rx Instructions .ROUTE 03/28/21 03/28/21 Unknown Rx .COMPLEX 90 Days #90 tab carvedilol 6.25 mg tablet 6.25 mg PO BID 90 Days #180 tab 03/28/21 03/28/21 Unknown Rx cholecalciferol (vitamin D3) 1,250 50,000 unit PO .weekly 90 Days #13 03/28/21 03/28/21 Unknown Rx mcg (50,000 unit) capsule cap clopidogrel 75 mg tablet 75 mg PO DAILY 90 Days #90 tab 03/28/21 03/28/21 Unknown Rx fluconazole 150 mg tablet 150 mg PO DAILY #5 tab 03/28/21 03/28/21 Unknown Rx furosemide 40 mg tablet 40 mg PO BID 90 Days #180 tab 03/28/21 03/28/21 Unknown Rx glipizide 5 mg tablet See Rx Instructions .ROUTE 03/28/21 03/28/21 Unknown Rx .COMPLEX 90 Days #180 tab insulin detemir U-100 100 unit/mL See Rx Instructions .ROUTE 03/28/21 03/28/21 Unknown Rx (3 mL) subcutaneous pen .COMPLEX 90 Days #45 ml isosorbide mononitrate 30 mg See Rx Instructions .ROUTE 03/28/21 03/28/21 Unknown Rx tablet,extended release 24 hr .COMPLEX #90 tab levothyroxine 150 mcg tablet See Rx Instructions .ROUTE 03/28/21 03/28/21 Unknown Rx .COMPLEX #90 tab lisinopril 2.5 mg tablet See Rx Instructions .ROUTE 03/28/21 03/28/21 Unknown Rx .COMPLEX #90 tab lovastatin 40 mg tablet 40 mg PO DAILY 90 Days #90 tab 03/28/21 03/28/21 Unknown Rx metformin 1,000 mg tablet See Rx Instructions .ROUTE 03/28/21 03/28/21 Unknown Rx .COMPLEX #180 tab nabumetone 500 mg tablet 500 mg PO BID PRN 30 Days #60 tab 03/28/21 03/28/21 Unknown Rx pantoprazole 40 mg tablet,delayed See Rx Instructions .ROUTE 03/28/21 03/28/21 Unknown Rx release .COMPLEX #90 tab potassium chloride 10 mEq See Rx Instructions .ROUTE 03/28/21 03/28/21 Unknown Rx capsule,extended release .COMPLEX 90 Days #270 cap sertraline 50 mg tablet 50 mg PO DAILY 90 Days #90 tab 03/28/21 03/28/21 Unknown Rx sitagliptin 50 mg tablet 50 mg PO DAILY 30 Days #30 tab 03/28/21 03/28/21 Unknown Rx Allergies Allergy/AdvReac Type Severity Reaction Status Date / Time cefaclor [From Ceclor] Allergy unknown Verified 03/28/21 10:17 Penicillins Allergy unknown Verified 03/28/21 10:17 Sulfa (Sulfonamide Allergy unknown Verified 03/28/21 10:17 Antibiotics) ciprofloxacin [From Cipro] AdvReac rash Verified 03/28/21 10:17 PFSH Acute PFSH: Medical History Abdominal pain Anticoagulated Anxiety and depression Arthritis Breast cancer screening by mammogram Diabetes mellitus, type II Essential hypertension GERD (gastroesophageal reflux disease) Gout Hypothyroid Infected abrasion of thumb Mixed hyperlipidemia Mixed hyperlipidemia Type 2 diabetes mellitus with hyperglycemia Urinary tract infection Vaginal yeast infection Yeast vaginitis Surgical History History of arthroscopy of left shoulder History of open heart surgery quad bypass Social History Smoking and tobacco status: never smoked Second hand smoke exposure: No Smoking risk assessment/counseling performed?: No Alcohol intake: never Desire information about alcohol rehabilitation?: No Counseling given: No Desire information about substance/drug rehabilitation?: No Counseling given: No Female Reproductive History: Date of last menstrual period: 12/15/20 Vitals/I&O/Wt Last Vital Signs Temp 98.0 F 06/04/21 00:10 Pulse 84 06/04/21 00:10 Resp 18 06/04/21 00:10 BP 122/68 06/04/21 00:10 Pulse Ox 98 06/04/21 00:10 06/03/21 06/03/21 06/04/21 14:59 22:59 06:59 Intake Total 550 / 550 Balance 550 / 550 Weight last 48 hrs Weight 92.986 kg Weight 90.718 kg Physical Exam Narrative: EXAM NARRATIVE: GEN: lethargic,opens eyes to calling name, somnolent CVS: S1S2 N RS: CTA B/L all areas Abd: Soft, nt/nd , bs+ 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 CT head without any acute intracranial events,, chronic microvascular changes noted. Sodium within range at 139, ammonia level not elevated. ABG without hypercapnia Check TSH, urine drug screen, serum alcohol level blood culture and RPR. Patient has no past history of seizure disorder, family did not note any tongue bite, frothing, urinary or bowel incontinence. Possible unwitnessed seizure with postictal state cannot be completely excluded at this time. Monitor closely with serial neuro checks. Check prolactin with a.m. labs Given acuity of symptoms, appears less likely to be encephalitis. LP was attempted, however remained unsuccessful. If no significant improvement in mentation over the next 24 to 48 hours, this may need to be reattempted. Patient had complained of abdominal symptoms prior to presentation, however CT of the abdomen and pelvis without any acute abnormalities. Covid rapid antigen negative, PCR pending, no abnormalities noted on chest x-ray, vaccinated January 2021. Status: Acute (2) Elevated troponin: No acute ST-T wave changes on EKG. Troponin 56, 2-hour at 54, negative delta. Status: Acute Additional A&P Information Diabetes mellitus: Insulin sliding scale Hypothyroidism: Continue home dose of levothyroxine 150 mcg daily, check TSH History of coronary artery disease: Continue carvedilol, clopidogrel, Imdur. Holding Lasix for now, IV hydration with normal saline at 75 cc/h given excessive nausea vomiting, closely monitor volume status. DVT prophylaxis: Lovenox Full code Attestations Medical Necessity Statement*: anticipate >2midnight admission for above care Coding Level of Care Code Acute Financial Sales Consultant for g Fwd Diagnoses Altered mental status R41.82 Elevated troponin R77.8
[2021-06-04 01:47] LABS: Alcohol Level < 10 mg/dL (0-10)
--- NOTE | 2021-06-04 02:50 | CTR_ITS ---
PROCEDURE INFORMATION: Exam: CT Angiography Head With Contrast, Arteriography Exam date and time: 06/04/2021 2:50 AM Age: 66 years old Clinical indication: Other: AMS, dizzy; Additional info: Altered mental status TECHNIQUE: Imaging protocol: Computed tomography angiography of the head with contrast. Exam focused on the arteries. 3D rendering (Not supervised by radiologist): MIP and/or 3D reconstructed images were created by the technologist. Radiation optimization: All CT scans at this facility use at least one of these dose optimization techniques: automated exposure control; mA and/or kV adjustment per patient size (includes targeted exams where dose is matched to clinical indication); or iterative reconstruction. Contrast material: OMNI 350; Contrast volume: 95 ml; Contrast route: INTRAVENOUS (IV); COMPARISON: CT head wo con* [id number] 06/03/2021 6:09 PM RADIATION DOSE METRICS: Total DLP (mGy-cm): 2729.88 FINDINGS: ANTERIOR CIRCULATION: Right internal carotid artery: There is calcification of the carotid siphon with mild stenosis. No aneurysm. Right middle cerebral artery: Unremarkable. No occlusion or significant stenosis. No aneurysm. Right anterior cerebral artery: Unremarkable. No occlusion or significant stenosis. No aneurysm. Left internal carotid artery: There is calcification of the carotid siphon with mild stenosis No aneurysm. Left middle cerebral artery: Unremarkable. No occlusion or significant stenosis. No aneurysm. Left anterior cerebral artery: Unremarkable. No occlusion or significant stenosis. No aneurysm. POSTERIOR CIRCULATION: Right vertebral artery: Unremarkable. No occlusion or significant stenosis. No aneurysm. Left vertebral artery: Unremarkable. No occlusion or significant stenosis. No aneurysm. Basilar artery: Unremarkable. No occlusion or significant stenosis. No aneurysm. Right posterior cerebral artery: Unremarkable. No occlusion or significant stenosis. No aneurysm. Left posterior cerebral artery: Unremarkable. No occlusion or significant stenosis. No aneurysm. Brain: No definite mass, mass effect, or midline shift. Cerebral ventricles: No ventriculomegaly. Bones/joints: Unremarkable. No acute fracture. Soft tissues: Unremarkable. IMPRESSION: There is calcification of the internal carotid artery siphons bilaterally with mild stenosis. No other significant stenosis occlusion or aneurysm seen. PROCEDURE INFORMATION: Exam: CT Angiography Neck With Contrast Exam date and time: 06/04/2021 2:50 AM Age: 66 years old Clinical indication: Other: AMS, dizzy; Additional info: Altered mental status TECHNIQUE: Imaging protocol: Computed tomography angiography of the neck with contrast. 3D rendering (Not supervised by radiologist): MIP and/or 3D reconstructed images were created by the technologist. Radiation optimization: All CT scans at this facility use at least one of these dose optimization techniques: automated exposure control; mA and/or kV adjustment per patient size (includes targeted exams where dose is matched to clinical indication); or iterative reconstruction. Contrast material: OMNI 350; Contrast volume: 95 ml; Contrast route: INTRAVENOUS (IV); COMPARISON: CT head wo con* [id number] 06/03/2021 6:09 PM RADIATION DOSE METRICS: Total DLP (mGy-cm): 2729.88 FINDINGS: Right common carotid artery: No stenosis. No dissection or occlusion. Right internal carotid artery: Mild calcification at the origin but no significant stenosis. No dissection or occlusion. Right external carotid artery: No occlusion or stenosis of the origin. Left common carotid artery: No stenosis. No dissection or occlusion. Left internal carotid artery: Mild calcification at the origin but no significant stenosis. No dissection or occlusion. Left external carotid artery: No occlusion or stenosis of the origin. Right vertebral artery: No stenosis. No dissection or occlusion. Left vertebral artery: No stenosis. No dissection or occlusion. Soft tissues: Normal. No significant soft tissue swelling. Bones/joints: No acute fracture. Heart: There is calcification of the coronary arteries. CT/CT angio headneck* [id number] IMPRESSION: No carotid or vertebral artery stenosis or occlusion. REFERENCES: NASCET CRITERIA. The degree of internal carotid artery stenosis is based on NASCET criteria. Normal is no stenosis. Mild is less than 50% stenosis. Moderate is 50-69% stenosis. Severe is 70% to 99% stenosis. Total occlusion is no detectable patent lumen. Radiation Dose CTDIVOL = (mGy): DLP = 2729.88~2729.88 (mGy-cm)
[2021-06-04] MEDS: sodium chloride 0.9% 1,000 ML 75 ML IV ×2 (03:36→17:33)
[2021-06-04] MEDS: enoxaparin 40 mg/0.4 mL Syringe SUBCUT (03:36)
--- NOTE | 2021-06-04 05:12 | PC.NURSE ---
Shift Report: Patient lethargic majority of shift. woke up once due to incontinence with mild agitation and severe confusion.
[2021-06-04 06:12] LABS: Basophils % 0.7 %; Eosinophils # 0.2 10^3/uL (0.0-0.8); Eosinophils % 4.3 %; Hematocrit 34.2 % (37.0-47.0); Hemoglobin 10.9 g/dL (11.5-15.3); Lymphocytes # 1.5 10^3/uL (0.8-4.8); Lymphocytes % 33.6 %; Mean Corpuscular HGB Conc 31.9 g/dL (30.0-36.0); Mean Corpuscular Hemoglobin 26.6 pg (28.0-34.0); Mean Corpuscular Volume 83.4 fl (81-99); Mean Platelet Volume 9.9 fL (7.4-10.4); Monocytes # 0.3 10^3/uL (0.2-0.9); Monocytes % 6.5 %; Neutrophils # 2.43 10^3/uL (1.8-7.7); Neutrophils % 54.7 %; Nucleated Red Blood Cells % 0 %; Platelet Count 153 10^3/cmm (130-400); Red Cell Distribution Width 14.8 % (12.1-15.1); White Blood Count 4.4 10^3/uL (4.0-10.0)
[2021-06-04 06:38] LABS: Alanine Aminotransferase 8 U/L (0-33); Albumin Level 3.3 g/dL (3.5-5.2); Alkaline Phosphatase 124 IU/L (35-105); Anion Gap 17.3 (5-19); Aspartate Amino Transferase 20 U/L (0-32); Blood Urea Nitrogen 6 mg/dL (8-23); Calcium 8.3 mg/dL (8.5-10.5); Carbon Dioxide 25 mmol/L (22-29); Chloride 100 mmol/L (98-107); Globulin 2.8 g/dL (1.3-4.6); Glomerular Filtration Rate 123.4 mL/min (90-130); Glucose 268 mg/dL (65-115); Osmolality Calculated 295 mOsm/kg (285-295); Potassium 3.3 mmol/L (3.5-5.1); Sodium 139 mmol/L (136-145); Total Bilirubin 1.3 mg/dL (0.15-1.2); Total Protein 6.1 g/dL (6.6-8.7)
[2021-06-04 06:44] LABS: NT Pro B Type Natriuretic Pept 682 pg/mL (0-125)
[2021-06-04 06:47] LABS: Rapid Plasma Reagin Syphilis Nonreactive (Nonreactive)
[2021-06-04 08:34] LABS: Glucose Point of Care 346 mg/dL (70-110)
[2021-06-04] MEDS: isosorbide mononitrate ER 30 mg Tablet PO (09:01)
[2021-06-04] MEDS: clopidogrel 75 mg Tablet PO (09:01)
[2021-06-04] MEDS: carvedilol 6.25 mg Tablet PO ×2 (09:01→17:38)
[2021-06-04] MEDS: pantoprazole DR 40 mg Tablet PO (09:01)
[2021-06-04 09:02] LABS: Prolactin 15.63 ng/mL (4.8-23.3)
[2021-06-04] MEDS: atorvastatin 40 mg Tablet PO (09:02)
[2021-06-04] MEDS: lisinopril 2.5 mg Tablet PO (09:02)
[2021-06-04 10:11] LABS: Amphetamines Screen Urine Negative (Negative); Barbiturates Screen Urine Negative (Negative); Benzodiazepines Screen Urine Negative (Negative); Cocaine Screen Urine Negative (Negative); Opiate Screen Urine Negative (Negative); PCP Screen Urine Negative (Negative); THC Screen Urine Negative (Negative)
[2021-06-04] MEDS: iohexol 350 mg/mL 100 mL Btl IV (10:36)
[2021-06-04 11:08] LABS: Glucose Point of Care 308 mg/dL (70-110)
--- NOTE | 2021-06-04 11:29 | P.PN_ITS ---
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 [facility] She is able to tell me that she came in because of worse abdominal pain and h eadache, she is endorsing headache and frontal area, she is also endorsing tooth infection however no abscess or dental infection noted She was able to get up walk to the bathroom Sandra's Brudzinski sign negative No active neurological deficits Overnight H&P labs and imaging reviewed She endorsed diarrhea and couple of episode of emesis, no fever, endorsing vaccination for COVID-19 Vitals/I&O/Wt Last Vital Signs Temp 100.0 F H 06/04/21 08:00 Pulse 82 06/04/21 09:54 Resp 18 06/04/21 08:00 BP 150/79 06/04/21 08:00 Pulse Ox 91 06/04/21 09:54 06/03/21 06/04/21 06/04/21 22:59 06:59 14:59 Intake Total 550 / 550 Balance 550 / 550 Weight last 48 hrs Weight 92.986 kg Weight 90.718 kg Physical Exam Narrative: EXAM NARRATIVE: Patient is awake alert oriented x3 GCS 15 Extremely lethargic and fatigued No neurological deficit Brudzinski Kernig signs negative No signs of encephalopathy at the time my evaluation Patient is very sensitive to touch, she complains of pain whenever I touch her extremities, Abdomen is soft however she screams in pain at any contact with her skin She is moving all 4 extremities Able to follow my commands S1, S2 sinus rhythm Bilateral breath sounds without adventitious rhonchi or crackles Your extremity no edema Data : 06/04/21 05:21 06/04/21 05:21 Micro: Microbiology 06/04/21 05:25 Blood Culture - Preliminary Blood SPECIMEN COLLECTED 06/04/21 05:21 Blood Culture - Preliminary Blood SPECIMEN COLLECTED A&P Assessment and plan (1) Liver cirrhosis: Status: Acute (2) Hepatosplenomegaly: Status: Acute (3) Altered mental status: Status: Acute (4) Abdominal pain: Status: Acute (5) Headache: Status: Acute (6) Type 2 diabetes mellitus with hyperglycemia: Status: Acute Qualifiers: Diabetes mellitus predatory animal exterminator insulin use: with predatory animal exterminator use Qualified Code(s): E11.65 - Type 2 diabetes mellitus with hyperglycemia; Z79.4 - superintendent container terminal (current) use of insulin Additional A&P Information Metabolic encephalopathy Improved No signs of active neurological deficit No signs of meningitis, or encephalitis, this morning she is awake and alert able to follow my commands NIH is 0 extremely sensitive to pain all over fibromyalgia? We will add rifaximin mean and request C. difficile panel Patient is complaining of diarrhea and headache I do not think MRI head would have any merit at this point She is able to walk to the bathroom on her own independently No signs of myasthenia gravis, or Guillain-Velazquez?, her breathing is fine on room air saturating well She does have diagnosis of hepatosplenomegaly with liver cirrhosis ammonia level is normal I would hold off on lactulose because of diarrhea for now and add ceftriaxone for portal hypertension I would request lumbar puncture only if she becomes febrile, I did notice temperature 100.0 however when this temperature was retook without giving her any Tylenol oral temperature was 98.3 Prolactin normal less likely to be seizure Normal TSH Headache patient is stating that she had some dental infection however I do not see any abscess or pus around her front teeth she is wearing dentures No active runny nose or rhinorrhea I would hold off on adding any antibiotics for now Abdominal pain likely secondary to organomegaly no acute pathological findings noted other than umbilical hernia without any signs of obstruction I do believe her pain is related to neuropathy versus fibromyalgia Alk phosphatase is high with bilirubin will request PABLO and AMA Type 2 diabetes Hyperglycemia noted will start consistent carb diet along insulin sliding scale Full code Consistent carb cardiac diet DVT prophylaxis Lovenox Attestations Medical Necessity Statement*: Anticipating stay in the hospital cross more than 2 midnights Time Spent in Patient Care: 16 - 35 minutes Coding Level of Care Code Acute Ball Assembler for Светланаg Fwd Diagnoses Liver cirrhosis K74.60 Hepatosplenomegaly R16.2 Altered mental status R41.82 Abdominal pain R10.9 Headache R51.9 Type 2 diabetes mellitus with hyperglycemia E11.65; Z79.4 Diabetes mellitus snf insulin use: with predatory animal exterminator use
[2021-06-04 12:14] LABS: Tumor Marker Alpha Fetoprotein 1.8 ng/mL (0-8.3)
[2021-06-04] MEDS: cefTRIAXone 1,000 MG in sodium chloride 0.9% (plus) 50 ML 100 MG IV (12:42)
[2021-06-04] MEDS: duloxetine 30 mg Capsule PO (12:42)
[2021-06-04 12:44] LABS: Estmated Average Glucose 292; Hemoglobin A1C 11.8 % (4.0-6.0)
[2021-06-04] MEDS: acetaminophen 325 mg Tablet 650 MG PO ×2 (15:44→23:35)
[2021-06-04 17:04] LABS: Glucose Point of Care 328 mg/dL (70-110)
[2021-06-04 20:48] LABS: Glucose Point of Care 413 mg/dL (70-110)
[2021-06-05] MEDS: enoxaparin 40 mg/0.4 mL Syringe SUBCUT (02:54)
[2021-06-05 04:00] VITALS: BP 156/82; PULSE 72; RESP 18; TEMP 36.5; O2SAT 89
[2021-06-05] MEDS: levothyroxine 150 mcg Tablet PO (05:45)
[2021-06-05] MEDS: sodium chloride 0.9% 1,000 ML 75 ML IV (05:46)
[2021-06-05 06:22] LABS: Glucose Point of Care 346 mg/dL (70-110)
[2021-06-05 07:36] LABS: Basophils # 0.1 10^3/uL (0.0-0.1); Basophils % 1.2 %; Eosinophils # 0.2 10^3/uL (0.0-0.8); Eosinophils % 5.7 %; Hematocrit 33.1 % (37.0-47.0); Hemoglobin 10.5 g/dL (11.5-15.3); Lymphocytes # 1.6 10^3/uL (0.8-4.8); Lymphocytes % 38.7 %; Mean Corpuscular HGB Conc 31.7 g/dL (30.0-36.0); Mean Corpuscular Hemoglobin 26.8 pg (28.0-34.0); Mean Corpuscular Volume 84.4 fl (81-99); Monocytes # 0.2 10^3/uL (0.2-0.9); Neutrophils # 1.93 10^3/uL (1.8-7.7); Neutrophils % 48.2 %; Nucleated Red Blood Cells % 0 %; Platelet Count 117 10^3/cmm (130-400); Red Blood Count 3.92 10^6/uL (4.1-5.3); Red Cell Distribution Width 15.1 % (12.1-15.1)
[2021-06-05 08:00] VITALS: BP 174/80; PULSE 76; RESP 16; TEMP 36.8; O2SAT 92
[2021-06-05 08:14] LABS: Procalcitonin 0.14 ng/mL (0-0.5)
[2021-06-05 08:26] LABS: Alanine Aminotransferase 8 U/L (0-33); Albumin Level 3.3 g/dL (3.5-5.2); Alkaline Phosphatase 105 IU/L (35-105); Anion Gap 17.3 (5-19); Aspartate Amino Transferase 19 U/L (0-32); Blood Urea Nitrogen 8 mg/dL (8-23); C Reactive Protein 18.3 mg/L (0.0-4.9); Calcium 8.2 mg/dL (8.5-10.5); Carbon Dioxide 22 mmol/L (22-29); Chloride 101 mmol/L (98-107); Globulin 2.7 g/dL (1.3-4.6); Glomerular Filtration Rate 123.4 mL/min (90-130); Glucose 289 mg/dL (65-115); Osmolality Calculated 293 mOsm/kg (285-295); Potassium 3.3 mmol/L (3.5-5.1); Sodium 137 mmol/L (136-145); Total Bilirubin 1.1 mg/dL (0.15-1.2)
[2021-06-05] MEDS: atorvastatin 40 mg Tablet PO (08:42)
[2021-06-05] MEDS: lisinopril 2.5 mg Tablet PO (08:42)
[2021-06-05] MEDS: carvedilol 6.25 mg Tablet PO (08:42)
[2021-06-05] MEDS: pantoprazole DR 40 mg Tablet PO (08:43)
[2021-06-05] MEDS: isosorbide mononitrate ER 30 mg Tablet PO (08:43)
[2021-06-05] MEDS: clopidogrel 75 mg Tablet PO (08:43)
[2021-06-05] MEDS: duloxetine 30 mg Capsule PO (08:43)
[2021-06-05 10:57] LABS: Glucose Point of Care 421 mg/dL (70-110)
[2021-06-05 11:35] VITALS: BP 168/72; PULSE 73; RESP 17; TEMP 37; O2SAT 94
--- NOTE | 2021-06-05 11:39 | PM.DCS ---
Discharge Providers Date of Admission: 06/03/21 21:00 Date of Discharge: June 05, 2021 Attending Provider at Admission: Luann Pop MD Attending Provider at Discharge: Terry Guerra MD Primary Care Provider: LUBNA Meek Diagnoses at Discharge Discharge Diagnosis (1) Liver cirrhosis: Status: Acute (2) Hepatosplenomegaly: Status: Acute (3) Altered mental status: Status: Acute (4) Abdominal pain: Status: Acute (5) Headache: Status: Acute (6) Type 2 diabetes mellitus with hyperglycemia: Status: Acute Qualifiers: Diabetes mellitus assisted insulin use: with remote computer terminal operator use Qualified Code(s): E11.65 - Type 2 diabetes mellitus with hyperglycemia; Z79.4 - terminal clerk (current) use of insulin Reason for Visit Reason for Visit: HIGH BLOOD SUGAR Hospital Course Hospital Course History of Present Illness by Dr. Pop History is obtained by chart review and by talking to patient's daughter as patient currently unable to participate. Linda Joiner is a 66 year old female with a past medical history of arthritis, diabetes, hypertension, hypothyroidism, recurrent UTIs who was brought to the emergency room today with chief complaint of altered mental status. Per her daughter, patient was in her usual state of health until last evening when after eating a dinner of steak she started to complain of left lower quadrant abdominal discomfort and developed nausea and vomiting. No diarrhea. No fever. At around 3 PM today she was getting ready to go to her daughter's house, when she did not emerge from the room for a few minutes, her went in to check in on her and found her slumped on the floor unresponsive. EMS was called and by the time EMS got there patient was able to open her eyes and moving all of her extremities however was extremely confused and not making sense. Per discussion with the ER physician her chief complaint after presenting here with abdominal pain and a headache. She was confused, however noted to be moving all extremities. There was no reported head injury. CT of the abdomen was performed which did not show any acute abnormalities. Ammonia level was within normal limit, incidentally noted cirrhosis onset CT. No recent URI illness, no noted rashes recently. CT head was normal. At the time of my assessment, patient is asleep, difficult to awaken, she has recently received sedation to attempt lumbar puncture, however this attempt was unsuccessful. She is vaccinated for COVID-19 in January 2021. Hospital course patient was admitted for management of altered mental status. However at the time of my evaluation next day patient mentation improved she was able to answer my question appropriately, she did not meet any criteria for meningitis or encephalitis, she did have multiple tender points all over her body. Her mentation improved,& her energy was much better on 06/05, no neurological deficits, she remained afebrile, she was diagnosed with liver cirrhosis and splenomegaly I requested hepatitis panel, alpha-fetoprotein level, updated to follow-up with a research soil scientist outpatient. Her ammonia level was normal. Prolactin unremarkable. I do suspect her encephalopathy was related to underlying liver cirrhosis. Cdiff ruled out Rifaximin was added along ceftriaxone during hospitalization. Antimitochondrial antibody and PABLO pending. She did experience hyperglycemia however no signs of DKA, patient was eager to go home on 06/05, after discussing her hospital course with her decision was made to discharge her home. Covid PCR is pending, she is vaccinated and does not have any signs of COVID-19 pneumonia, she is not requiring oxygen and remained afebrile. Her isolated reading of Temp 100.0 was a false reading. Physical Exam Narrative: EXAM NARRATIVE: Patient is awake alert oriented x3 GCS 15 No neurological deficit Brudzinski Kernig signs negative No signs of encephalopathy at the time my evaluation Patient is very sensitive to touch, she complains of pain whenever I touch her extremities, Abdomen is soft however she screams in pain at any contact with her skin She is moving all 4 extremities Able to follow my commands S1, S2 sinus rhythm Bilateral breath sounds without adventitious rhonchi or crackles conversive good mood Discharge Data Data Completed and Pending: Completed Studies During Hospitalization Category Date Time Status CT abdomen pelvis w con* [id number] Urge nt Cat Scan 06/03/21 14:[address] angio headneck * [id number] Rout ine Cat Scan 06/04/21 02:[address] head wo con* [id number] Urgent Cat Scan 06/03/21 14:42 Completed XR chest 1V bella ble [id number] Urgent Exams 06/03/21 15:14 Completed Pending at discharge Category Date Time Status Blood Culture AM LABS Lab 06/04/21 05:25 Results Hepatitis Panel C omprehensive Routi ne Lab 06/05/21 11:34 Ordered Mitochondrial AB Screen Stat Lab 06/04/21 05:21 Received [facility] PABLO Profile S tat Lab 06/04/21 05:21 Received [facility] SARS-CoV-2 RNA Routine Lab 06/03/21 16:00 Received Labs from last 24 hours 06/05/21 06/05/21 06/05/21 10:50 06:57 06:57 WBC 4.0 RBC 3.92 L Hgb 10.5 L Hct 33.1 L MCV 84.4 MCH 26.8 L MCHC 31.7 RDW 15.1 Plt Count 117 L MPV 10.0 Neut % (Auto) 48.2 Lymph % (Auto) 38.7 Lander % (Auto) 6.0 Eos % (Auto) 5.7 Baso % (Auto) 1.2 Neut # (Auto) 1.93 Lymph # (Auto) 1.6 Lander # (Auto) 0.2 Eos # (Auto) 0.2 Baso # (Auto) 0.1 Nucleated RBC % (a uto) 0 Nucleated RBCs # 0.0 Sodium 137 Potassium 3.3 L Chloride 101 Carbon Dioxide 22 Anion Gap 17.3 BUN 8 Creatinine 0.5 GFR Calculation 123.4 Glucose 289 H POC Glucose 421 H Estimat Average Gl ucose Hemoglobin A1c Calculated Osmolal ity 293 Calcium 8.2 L Total Bilirubin 1.1 AST 19 ALT 8 Alkaline Phosphata se 105 C-Reactive Protein 18.3 H Total Protein 6.0 L Albumin 3.3 L Globulin 2.7 Tumor Marker AFP Procalcitonin 0.14 SS-A/Ro IgG Antibo dy SS-B/La IgG Antibo dy Anti-nRNP/Sm IgG A b Scl-70 Scleroderma Ab Mitochondrial DNA Scrn 06/05/21 06/04/21 06/04/21 06:16 20:39 16:57 WBC RBC Hgb Hct MCV MCH MCHC RDW Plt Count MPV Neut % (Auto) Lymph % (Auto) Lander % (Auto) Eos % (Auto) Baso % (Auto) Neut # (Auto) Lymph # (Auto) Lander # (Auto) Eos # (Auto) Baso # (Auto) Nucleated RBC % (a uto) Nucleated RBCs # Sodium Potassium Chloride Carbon Dioxide Anion Gap BUN Creatinine GFR Calculation Glucose POC Glucose 346 H 413 H 328 H Estimat Average Gl ucose Hemoglobin A1c Calculated Osmolal ity Calcium Total Bilirubin AST ALT Alkaline Phosphata se C-Reactive Protein Total Protein Albumin Globulin Tumor Marker AFP Procalcitonin SS-A/Ro IgG Antibo dy SS-B/La IgG Antibo dy Anti-nRNP/Sm IgG A b Scl-70 Scleroderma Ab Mitochondrial DNA Scrn 06/04/21 06/04/21 06/04/21 05:21 05:21 05:21 WBC RBC Hgb Hct MCV MCH MCHC RDW Plt Count MPV Neut % (Auto) Lymph % (Auto) Lander % (Auto) Eos % (Auto) Baso % (Auto) Neut # (Auto) Lymph # (Auto) Lander # (Auto) Eos # (Auto) Baso # (Auto) Nucleated RBC % (a uto) Nucleated RBCs # Sodium Potassium Chloride Carbon Dioxide Anion Gap BUN Creatinine GFR Calculation Glucose POC Glucose Estimat Average Gl ucose Hemoglobin A1c Calculated Osmolal ity Calcium Total Bilirubin AST ALT Alkaline Phosphata se C-Reactive Protein Total Protein Albumin Globulin Tumor Marker AFP 1.8 Procalcitonin SS-A/Ro IgG Antibo dy Pending SS-B/La IgG Antibo dy Pending Anti-nRNP/Sm IgG A b Pending Scl-70 Scleroderma Ab Pending Mitochondrial DNA Scrn Pending 06/04/21 05:21 WBC RBC Hgb Hct MCV MCH MCHC RDW Plt Count MPV Neut % (Auto) Lymph % (Auto) Lander % (Auto) Eos % (Auto) Baso % (Auto) Neut # (Auto) Lymph # (Auto) Lander # (Auto) Eos # (Auto) Baso # (Auto) Nucleated RBC % (a uto) Nucleated RBCs # Sodium Potassium Chloride Carbon Dioxide Anion Gap BUN Creatinine GFR Calculation Glucose POC Glucose Estimat Average Gl ucose 292 Hemoglobin A1c 11.8 H Calculated Osmolal ity Calcium Total Bilirubin AST ALT Alkaline Phosphata se C-Reactive Protein Total Protein Albumin Globulin Tumor Marker AFP Procalcitonin SS-A/Ro IgG Antibo dy SS-B/La IgG Antibo dy Anti-nRNP/Sm IgG A b Scl-70 Scleroderma Ab Mitochondrial DNA Scrn Vitals: Last Vital Signs Temp 98.6 F 06/05/21 11:35 Pulse 73 06/05/21 11:35 Resp 17 06/05/21 11:35 BP 168/72 06/05/21 11:35 Pulse Ox 94 06/05/21 11:35 Discharge Plan Discharge Patient Disposition: Home Condition: Stable Prescriptions: New Xifaxan 550 mg Tablet 550 mg PO BID 30 Days Qty: 60 RF: 0 lactulose 10 gram packet 10 g PO BID Qty: 30 RF: 0 potassium chloride 10 mEq capsule, extended release 10 meq PO DAILY 4 Days Qty: 4 RF: 0 Continued acetaminophen [Tylenol Arthritis Pain] 650 mg tablet extended release 650 mg PO Q12H RF: 0 (DME) blood-glucose meter Kit See Rx Instructions .ROUTE .MEDSUPPLY Qty: 1 RF: 0 clopidogrel 75 mg tablet 75 mg PO DAILY 90 Days Qty: 90 RF: 1 carvedilol 6.25 mg tablet 6.25 mg PO BID 90 Days Qty: 180 RF: 1 allopurinol 100 mg tablet See Rx Instructions .ROUTE .COMPLEX 90 Days Qty: 90 RF: 1 cholecalciferol (vitamin D3) 1,250 mcg (50,000 unit) capsule 50,000 unit PO .weekly 90 Days Qty: 13 RF: 1 Levemir FlexTouch U-100 Insuln 100 unit/mL (3 mL) insulin pen See Rx Instructions .ROUTE .COMPLEX 90 Days Qty: 45 RF: 2 isosorbide mononitrate 30 mg tablet extended release 24 hr See Rx Instructions .ROUTE .COMPLEX Qty: 90 RF: 1 levothyroxine 150 mcg tablet See Rx Instructions .ROUTE .COMPLEX Qty: 90 RF: 1 lisinopril 2.5 mg tablet See Rx Instructions .ROUTE .COMPLEX Qty: 90 RF: 1 lovastatin 40 mg tablet 40 mg PO DAILY 90 Days Qty: 90 RF: 1 metformin 1,000 mg tablet See Rx Instructions .ROUTE .COMPLEX Qty: 180 RF: 1 nabumetone 500 mg tablet 500 mg PO BID PRN (Reason: pain (scale score 4-6)) 30 Days Qty: 60 RF: 0 pantoprazole 40 mg tablet,delayed release (DR/EC) See Rx Instructions .ROUTE .COMPLEX Qty: 90 RF: 1 potassium chloride 10 mEq capsule, extended release See Rx Instructions .ROUTE .COMPLEX 90 Days Qty: 270 RF: 1 sertraline 50 mg tablet 50 mg PO DAILY 90 Days Qty: 90 RF: 1 Januvia 50 mg tablet 50 mg PO DAILY 30 Days Qty: 30 RF: 0 Changed furosemide 40 mg tablet 40 mg PO DAILY 90 Days Qty: 180 RF: 1 Discontinued glipizide 5 mg tablet See Rx Instructions .ROUTE .COMPLEX 90 Days Qty: 180 RF: 1 Discharge Orders: Discharge Order (Routine); Ordered 06/05/21 Ordered By: Terry Guerra Referrals: DL Love, [facility] [Primary Care Provider] - 06/09/21 10:15 am Discharge Diet: Cardiac and Low Fat Discharge Activity: Increase activity as tolerated Patient Instructions: Potassium Chloride (By mouth), Lactulose (By mouth), Rifaximin (By mouth), Opioid Safety Activity Restrictions/Additional Instructions: You have liver cirrhosis for which I have started you on rifaximin and lactulose to prevent toxin buildup which can cause mentation change, Your hepatitis panel and PABLO, AMA panel is pending Discharge Attestations Time Spent in Discharge Care*: less than 30 min Quality Metrics Clinical Quality Measures During this hospital stay, did patient experience: None Coding Level of Care Code Acute Chg FW DC note Diagnoses Liver cirrhosis K74.60 Hepatosplenomegaly R16.2 Altered mental status R41.82 Abdominal pain R10.9 Headache R51.9 Type 2 diabetes mellitus with hyperglycemia E11.65; Z79.4 Diabetes mellitus assisted insulin use: with assisted use
[2021-06-05 12:46] VITALS: BP 168/72; PULSE 73; RESP 17; TEMP 37; O2SAT 94
[2021-06-05 12:56] LABS: Hepatitis A Antibody IgM Non-Reactive (Nonreactive); Hepatitis B Core AB, Total Non-Reactive (Nonreactive); Hepatitis B Surface Antigen Non-Reactive (Nonreactive); Hepatitis C Virus Antibody Non-Reactive (Nonreactive)
[2021-06-05 12:57] LABS: Hepatitis B Surface AB < 3.5 (11.5-1000)
[2021-06-05 14:02] LABS: Quest SARS-CoV-2 RNA NOT DETECTED (NOT DETECTED)
--- NOTE | 2021-06-05 23:44 | PC.NURSE ---
Home medications: Per Sonia in ER the pt home medications have been found in the ED. They will call the pt and arrange picking them up.
--- NOTE | 2021-06-06 10:07 | PC.SOCIAL ---
discharge follow up call made. patient reports she is having some confusion, but feeling better. patient reports she had a fall at home, no loss of consciousness, has bruising to her arms and abrasions. Nurse practitioner came to the pts house to assess pt. Patient was seen in our ED, discharged back home. Patient is taking medications as prescribed from hospital discharge. Patient is aware of follow up appointment with PCP. Patient denies any needs or concerns.
[2021-06-06 16:11] LABS: Anti-Double Strand DNA AB <1 IU/mL; Jo-1 Antibody <1.0 NEG AI (<1.0 NEG); SM/RNP Antibodies <1.0 NEG AI (<1.0 NEG); SS-B/LA IGG <1.0 NEG AI (<1.0 NEG); Scleroderma Ab(Scl-70) Ab <1.0 NEG AI (<1.0 NEG); Ss-A/Ro Igg <1.0 NEG AI (<1.0 NEG)
--- NOTE | 2021-06-06 16:33 | PC.SOCIAL ---
Attempted PA on Xifaxin and it was approved but co pay is over $400 pt not able to get medication. Lactulose was sent in as Kristalose since packets ordered and not approved by insurance. Asked that lactulose be filled as liquid form and insurance should cover. Dr Guerra updated on this information and agreeable. Patient indicated can not afford Xifaxin copay and wont be taking it. She will check with [facility] to see if Lactulose liquid will be covered and will discuss with DL on Saturday at appt regarding medications and what she was not able to take.
== END 2021-06-05 12:55 | disposition home or self-care (01) | DRG 441 ==
LOC: ER 21:34 → MEDSURG 22:14
PROVIDERS: Admitting Provider Student in an Organized Health Care Education/Training Program; Emergency Provider Emergency Medicine; PCP Nurse Practitioner Family; Visit Provider Internal Medicine
DX: K72.90 Hepatic failure, unspecified without coma (principal); G92 Toxic encephalopathy; K76.6 Portal hypertension; E11.65 Type 2 diabetes mellitus with hyperglycemia; I11.0 Hypertensive heart disease with heart failure; I50.9 Heart failure, unspecified; Z95.1 Presence of aortocoronary bypass graft; F41.8 Other specified anxiety disorders; K21.9 Gastro-esophageal reflux disease without esophagitis; M10.9 Gout, unspecified; E03.9 Hypothyroidism, unspecified; E78.2 Mixed hyperlipidemia; Z87.440 Personal history of urinary (tract) infections; M19.90 Unspecified osteoarthritis, unspecified site; R16.2 Hepatomegaly with splenomegaly, not elsewhere classified; R51.9 Headache, unspecified; Z79.02 Long term (current) use of antithrombotics/antiplatelets; Z79.84 Long term (current) use of oral hypoglycemic drugs
CPT/HCPCS: 36415; 36416; 70450; 70496; 70498; 71045; 74177; 80051; 80053; 80306; 80307; 81001; 82105; 82140; 82330; 82805; 82962; 83036; 83516; 83605; 83690; 83880; 84145; 84146; 84443; 84484; 85025; 85610; 85730; 86140; 86225; 86235; 86592; 86705; 86706; 86709; 86803; 87040; 87340; 87426; 87493; 87635; 93005; 96365; 96372; 96375; 96376; 99285; J0696; J1200; J1630; J1650; J1815; J2060; J2765; J3475; J3490; J7030; J7040; Q9967

== ENCOUNTER 2021-07-06 03:32 | Inpatient (IN) | payer MEDICARE, SELFPAY ==
[2021-07-06] VITALS (39 sets, daily range): BP systolic 85–126; BP diastolic 40–81; PULSE 67–86; RESP 15–33; TEMP 36.8–37.8; O2SAT 90–100; BMI 42.5; BMI 36.1
--- NOTE | 2021-07-06 03:35 | ED_ITS ---
Documented by User: Elbert Sommers MD 07/08/21 04:43 HPI - Altered Mental Status General: Chief Complaint: Altered Mental Status Stated Complaint: hyperglycemia Time Seen by Provider: 07/06/21 03:34 History of Present Illness: HPI narrative: Ms. Barakat is a 66-year-old lady with complex past medical history including hypertension, hyperlipidemia, thyroid disorder, diabetes on insulin who presents emergency department due to altered mental status. Upon initial arrival patient's mental status prohibits significant history. Per EMS report they found her to be hyperglycemic and hypotensive, 1 L of Plasma-Lyte in route. Supplemental history provided by family indicates that she does have a history of episodes of confusion however now has never been this bad. Overall the course of symptoms has been worsening. Intensity is moderate to severe. No other known specific exacerbating or alleviating factors identified. Review of Systems General: Reports: 10 or more systems reviewed and unremarkable except in HPI and below PFSH ED PFSH: Medical History Abdominal pain Anticoagulated Anxiety and depression Arthritis Breast cancer screening by mammogram Diabetes mellitus, type II Essential hypertension GERD (gastroesophageal reflux disease) Gout Hypothyroid Infected abrasion of thumb Mixed hyperlipidemia Mixed hyperlipidemia Type 2 diabetes mellitus with hyperglycemia Urinary tract infection Vaginal yeast infection Yeast vaginitis Surgical History History of arthroscopy of left shoulder History of open heart surgery quad bypass Social History Second hand smoke exposure: No Smoking risk assessment/counseling performed?: No Alcohol intake: never Desire information about alcohol rehabilitation?: No Counseling given: No Desire information about substance/drug rehabilitation?: No Counseling given: No Female Reproductive History: Date of last menstrual period: 12/15/20 Physical Exam Narrative: EXAM NARRATIVE: GENERAL/CONSTITUTIONAL -ill appearance appearing. No acute distress Eyes - PERRL, no conjunctival injection ENMT - Atraumatic external nose and ears. Moist mucous membranes NECK - supple. trachea midline CARDIOVASCULAR - regular rate and rhythm. Peripheral pulses 2+ and equal RESPIRATORY -coarse to auscultation bilaterally. ABDOMEN/GI - Nontender, Nondistended. MSK - Extremities without obvious deformity or tenderness to palpation SKIN - Warm, Dry NEURO - alert but disoriented. Cranial nerves II through XII intact. Moves all extremities equally. PSYCH -impaired cognition and memory. Course ED course: - Patient was seen and evaluated by me at bedside - Patient placed on cardiac monitors, IV access obtained - Initial evaluation notable for confused, somewhat ill appearance, low blood pressure. -Fluids ordered - Labs notable for leukopenia. Metabolic panel with mild evidence of dehydration. Urinalysis concerning for urinary tract infection - Imaging notable for left lower lung opacity. CT head negative. -Antibiotics and fluids given - Upon serial reexamination after treatment the patient was mildly improved with improvement in blood pressure - Based on patient history, evaluation, labs, and imaging as interpreted the most likely cause of the patient's condition is urosepsis - The results of ED evaluation were discussed with the patient including plan for admission due to requirement for level of care not available if discharged to prevent significant worsening/deterioration. -Hospitalist service contacted and agreed admit the patient. - Patient was admitted without further deterioration or significant events. Vital Signs: Vital signs: Vital Signs Temperature 99.0 F 07/08/21 03:58 Pulse Rate 68 07/08/21 03:58 Respiratory Rate 16 07/08/21 03:58 Blood Pressure 130/84 07/08/21 03:58 Pulse Oximetry 93 07/08/21 03:58 MDM - Altered Mental Status Medical Records: Attestation: I reviewed the patient's medical records. Lab Data: Attestation: I reviewed the patient's lab results. Labs: Lab Results 07/06/21 07/06/21 07/06/21 03:41 03:41 03:41 WBC 3.8 10^3/uL L 10^ 3/uL (4.0-10.0) RBC 4.89 10^6/uL 10^6 /uL (4.1-5.3) Hgb 13.0 g/dL g/dL (11.5-15.3) Hct 39.5 % % (37.0-47.0) MCV 80.8 fl L fl (81-99) MCH 26.6 pg L pg (28.0-34.0) MCHC 32.9 g/dL g/dL (30.0-36.0) RDW 15.1 % % (12.1-15.1) Plt Count 150 10^3/cmm 10^3 /cmm (130-400) MPV 11.3 fL H fL (7.4-10.4) Neut % (Auto) 87.5 % % Lymph % (Auto) 9.4 % % [place] % (Auto) 0.8 % % Eos % (Auto) 1.3 % % Baso % (Auto) 0.5 % % Neut # (Auto) 3.35 10^3/uL 10^3 /uL (1.8-7.7) Lymph # (Auto) 0.4 10^3/uL L 10^ 3/uL (0.8-4.8) [place] # (Auto) 0.0 10^3/uL L 10^ 3/uL (0.2-0.9) Eos # (Auto) 0.1 10^3/uL 10^3/ uL (0.0-0.8) Baso # (Auto) 0.0 10^3/uL 10^3/ uL (0.0-0.1) Nucleated RBC % (a uto) 0 % % Nucleated RBCs # 0.0 /100WBC /100W BC Specimen Type Sample Site ABG pH ABG pCO2 ABG pO2 ABG HCO3 ABG Base Excess Abilio Test Hematocrit O2 Delivery Device O2 Liters/Min FiO2 [employer] Consultant ID Sodium 127 mmol/L L mmol /L (136-145) Potassium 3.0 mmol/L L mmol /L (3.5-5.1) Chloride 80 mmol/L L mmol/ L (98-107) Carbon Dioxide 24 mmol/L mmol/L (22-29) Anion Gap 26.0 H (5-19) BUN 31 mg/dL H mg/dL (8-23) Creatinine 1.3 mg/dL H mg/dL (0.5-0.9) GFR Calculation 41.0 mL/min L mL/ min (90-130) Glucose 510 mg/dL H* mg/d L (65-115) Serum Osmolality Calculated Osmolal ity 293 mOsm/kg mOsm/ kg (285-295) Lactate 3.4 mmol/L H mmol /L (0.5-2.2) Calcium 9.3 mg/dL mg/dL (8.5-10.5) Phosphorus 1.5 mg/dL L mg/dL (2.5-4.5) Magnesium 1.2 mg/dL L mg/dL (1.7-2.3) Total Bilirubin 3.8 mg/dL H mg/dL (0.15-1.2) AST 35 U/L H U/L (0-32) ALT 16 U/L U/L (0-33) Alkaline Phosphata se 244 IU/L H IU/L (35-105) Ammonia Troponin T Baselin e Total Protein 6.4 g/dL L g/dL (6.6-8.7) Albumin 3.6 g/dL g/dL (3.5-5.2) Globulin 2.8 g/dL g/dL (1.3-4.6) TSH 2.62 uIU/mL uIU/m L (0.27-4.20) Urine Color Urine Appearance Urine pH Ur Specific Gravit y Urine Protein Urine Glucose (UA) Urine Ketones Urine Blood Urine Nitrate Urine Bilirubin Urine Urobilinogen Ur Leukocyte Elda ase Urine RBC Urine WBC Ur Squamous Epith Cells Amorphous Sediment Urine Bacteria Salicylates < 0.3 mg/dL L mg/ dL (3-10) Acetaminophen < 5.0 ug/mL L ug/ mL (10-30) Ethyl Alcohol < 10 mg/dL mg/dL (0-10) Serum Ketones SARS-CoV-2 Ag (Rap id) 07/06/21 07/06/21 07/06/21 03:41 03:41 03:41 WBC RBC Hgb Hct MCV MCH MCHC RDW Plt Count MPV Neut % (Auto) Lymph % (Auto) [place] % (Auto) Eos % (Auto) Baso % (Auto) Neut # (Auto) Lymph # (Auto) [place] # (Auto) Eos # (Auto) Baso # (Auto) Nucleated RBC % (a uto) Nucleated RBCs # Specimen Type Sample Site ABG pH ABG pCO2 ABG pO2 ABG HCO3 ABG Base Excess Abilio Test Hematocrit O2 Delivery Device O2 Liters/Min FiO2 [employer] Consultant ID Sodium Potassium Chloride Carbon Dioxide Anion Gap BUN Creatinine GFR Calculation Glucose Serum Osmolality 303 mOsm/kg mOsm/ kg (278-305) Calculated Osmolal ity Lactate Calcium Phosphorus Magnesium Total Bilirubin AST ALT Alkaline Phosphata se Ammonia Troponin T Baselin e 258 ng/L H* ng/L (0-10) Total Protein Albumin Globulin TSH Urine Color Urine Appearance Urine pH Ur Specific Gravit y Urine Protein Urine Glucose (UA) Urine Ketones Urine Blood Urine Nitrate Urine Bilirubin Urine Urobilinogen Ur Leukocyte Elda ase Urine RBC Urine WBC Ur Squamous Epith Cells Amorphous Sediment Urine Bacteria Salicylates Acetaminophen Ethyl Alcohol Serum Ketones Negative (Negative) SARS-CoV-2 Ag (Rap id) 07/06/21 07/06/21 07/06/21 04:10 04:35 05:15 WBC RBC Hgb Hct MCV MCH MCHC RDW Plt Count MPV Neut % (Auto) Lymph % (Auto) [place] % (Auto) Eos % (Auto) Baso % (Auto) Neut # (Auto) Lymph # (Auto) [place] # (Auto) Eos # (Auto) Baso # (Auto) Nucleated RBC % (a uto) Nucleated RBCs # Specimen Type Arterial Sample Site Radial, left ABG pH 7.47 H (7.35-7.45) ABG pCO2 42.8 mmHg mmHg (35-45) ABG pO2 114.0 mmHg H mmHg (80.0-100.0) ABG HCO3 31.3 mmol/L H mmo l/L (22-26) ABG Base Excess 6.9 mmol/L H mmol /L (-2.0-2.0) Abilio Test Pos Hematocrit 36.8 % L % (37-47) O2 Delivery Device Nc O2 Liters/Min 2.0 % % FiO2 28.0 % % [employer] Consultant ID Rieri Sodium Potassium Chloride Carbon Dioxide Anion Gap BUN Creatinine GFR Calculation Glucose Serum Osmolality Calculated Osmolal ity Lactate Calcium Phosphorus Magnesium Total Bilirubin AST ALT Alkaline Phosphata se Ammonia 35 umol/L umol/L (11-51) Troponin T Baselin e Total Protein Albumin Globulin TSH Urine Color Yellow (Yellow) Urine Appearance Hazy A (CLEAR) Urine pH 5 (5-7) Ur Specific Gravit y 1.005 (1.005-1.030) Urine Protein 3+ H (Negative) Urine Glucose (UA) 4+ H (Normal) Urine Ketones Negative (Negative) Urine Blood 3+ H (Negative) Urine Nitrate Negative (Negative) Urine Bilirubin Neg (Negative) Urine Urobilinogen Norm mg/dL mg/dL (Negative) Ur Leukocyte Elda ase Negative (Negative) Urine RBC 10-15 /hpf H /hpf (0-2) Urine WBC >100 /hpf H /hpf (0-5) Ur Squamous Epith Cells 0-4 /hpf H /hpf (0-5) Amorphous Sediment Not Reportable Urine Bacteria 4+ /hpf H /hpf (NONE) Salicylates Acetaminophen Ethyl Alcohol Serum Ketones SARS-CoV-2 Ag (Rap id) 07/06/21 05:20 WBC RBC Hgb Hct MCV MCH MCHC RDW Plt Count MPV Neut % (Auto) Lymph % (Auto) [place] % (Auto) Eos % (Auto) Baso % (Auto) Neut # (Auto) Lymph # (Auto) [place] # (Auto) Eos # (Auto) Baso # (Auto) Nucleated RBC % (a uto) Nucleated RBCs # Specimen Type Sample Site ABG pH ABG pCO2 ABG pO2 ABG HCO3 ABG Base Excess Abilio Test Hematocrit O2 Delivery Device O2 Liters/Min FiO2 [employer] Consultant ID Sodium Potassium Chloride Carbon Dioxide Anion Gap BUN Creatinine GFR Calculation Glucose Serum Osmolality Calculated Osmolal ity Lactate Calcium Phosphorus Magnesium Total Bilirubin AST ALT Alkaline Phosphata se Ammonia Troponin T Baselin e Total Protein Albumin Globulin TSH Urine Color Urine Appearance Urine pH Ur Specific Gravit y Urine Protein Urine Glucose (UA) Urine Ketones Urine Blood Urine Nitrate Urine Bilirubin Urine Urobilinogen Ur Leukocyte Elda ase Urine RBC Urine WBC Ur Squamous Epith Cells Amorphous Sediment Urine Bacteria Salicylates Acetaminophen Ethyl Alcohol Serum Ketones SARS-CoV-2 Ag (Rap id) Negative (Negative) EKG Data^: EKG 1: Attestation: I personally reviewed and interpreted this EKG as follows: EKG interpretation date: 07/06/21 EKG interpretation time: 04:15 Interpretation: Twelve-lead EKG shows a regular rhythm at a rate of 84. WA interval 136, QRS duration 94, QTc 415. Interpretation normal axis. Sinus rhythm EKG 2: Attestation: I personally reviewed and interpreted this EKG as follows: EKG interpretation date: 07/06/21 EKG interpretation time: 06:30 Interpretation: Twelve-lead EKG shows a regular rhythm at a rate of 51. WA interval 160, QRS duration 94, QTc 553. Normal axis. Interpretation: Sinus rhythm. Similar to prior. Discharge Plan Discharge Admit Provider: Zo Echols Coding Level of Care Code ED Actuarial Internship for Chg Fwd Documented by User: Zo Echols MD 07/06/21 05:59 HPI - Altered Mental Status General: Chief Complaint: Altered Mental Status Stated Complaint: hyperglycemia Time Seen by Provider: 07/06/21 03:34 PFSH ED PFSH: Medical History Abdominal pain Anticoagulated Anxiety and depression Arthritis Breast cancer screening by mammogram Diabetes mellitus, type II Essential hypertension GERD (gastroesophageal reflux disease) Gout Hypothyroid Infected abrasion of thumb Mixed hyperlipidemia Mixed hyperlipidemia Type 2 diabetes mellitus with hyperglycemia Urinary tract infection Vaginal yeast infection Yeast vaginitis Surgical History History of arthroscopy of left shoulder History of open heart surgery quad bypass Social History Second hand smoke exposure: No Smoking risk assessment/counseling performed?: No Alcohol intake: never Desire information about alcohol rehabilitation?: No Counseling given: No Desire information about substance/drug rehabilitation?: No Counseling given: No Course Vital Signs: Vital signs: Vital Signs Temperature 99.0 F 07/08/21 03:58 Pulse Rate 68 07/08/21 03:58 Respiratory Rate 16 07/08/21 03:58 Blood Pressure 130/84 07/08/21 03:58 Pulse Oximetry 93 07/08/21 03:58 MDM - Altered Mental Status Lab Data: Labs: Lab Results 07/06/21 07/06/21 07/06/21 03:41 03:41 03:41 WBC 3.8 10^3/uL L 10^ 3/uL (4.0-10.0) RBC 4.89 10^6/uL 10^6 /uL (4.1-5.3) Hgb 13.0 g/dL g/dL (11.5-15.3) Hct 39.5 % % (37.0-47.0) MCV 80.8 fl L fl (81-99) MCH 26.6 pg L pg (28.0-34.0) MCHC 32.9 g/dL g/dL (30.0-36.0) RDW 15.1 % % (12.1-15.1) Plt Count 150 10^3/cmm 10^3 /cmm (130-400) MPV 11.3 fL H fL (7.4-10.4) Neut % (Auto) 87.5 % % Lymph % (Auto) 9.4 % % [place] % (Auto) 0.8 % % Eos % (Auto) 1.3 % % Baso % (Auto) 0.5 % % Neut # (Auto) 3.35 10^3/uL 10^3 /uL (1.8-7.7) Lymph # (Auto) 0.4 10^3/uL L 10^ 3/uL (0.8-4.8) [place] # (Auto) 0.0 10^3/uL L 10^ 3/uL (0.2-0.9) Eos # (Auto) 0.1 10^3/uL 10^3/ uL (0.0-0.8) Baso # (Auto) 0.0 10^3/uL 10^3/ uL (0.0-0.1) Nucleated RBC % (a uto) 0 % % Nucleated RBCs # 0.0 /100WBC /100W BC Specimen Type Sample Site ABG pH ABG pCO2 ABG pO2 ABG HCO3 ABG Base Excess Abilio Test Hematocrit O2 Delivery Device O2 Liters/Min FiO2 [employer] S[employer] Consultant ID Sodium 127 mmol/L L mmol /L (136-145) Potassium 3.0 mmol/L L mmol /L (3.5-5.1) Chloride 80 mmol/L L mmol/ L (98-107) Carbon Dioxide 24 mmol/L mmol/L (22-29) Anion Gap 26.0 H (5-19) BUN 31 mg/dL H mg/dL (8-23) Creatinine 1.3 mg/dL H mg/dL (0.5-0.9) GFR Calculation 41.0 mL/min L mL/ min (90-130) Glucose 510 mg/dL H* mg/d L (65-115) Serum Osmolality Calculated Osmolal ity 293 mOsm/kg mOsm/ kg (285-295) Lactate 3.4 mmol/L H mmol /L (0.5-2.2) Calcium 9.3 mg/dL mg/dL (8.5-10.5) Phosphorus 1.5 mg/dL L mg/dL (2.5-4.5) Magnesium 1.2 mg/dL L mg/dL (1.7-2.3) Total Bilirubin 3.8 mg/dL H mg/dL (0.15-1.2) AST 35 U/L H U/L (0-32) ALT 16 U/L U/L (0-33) Alkaline Phosphata se 244 IU/L H IU/L (35-105) Ammonia Troponin T Baselin e Total Protein 6.4 g/dL L g/dL (6.6-8.7) Albumin 3.6 g/dL g/dL (3.5-5.2) Globulin 2.8 g/dL g/dL (1.3-4.6) TSH 2.62 uIU/mL uIU/m L (0.27-4.20) Urine Color Urine Appearance Urine pH Ur Specific Gravit y Urine Protein Urine Glucose (UA) Urine Ketones Urine Blood Urine Nitrate Urine Bilirubin Urine Urobilinogen Ur Leukocyte Elda ase Urine RBC Urine WBC Ur Squamous Epith Cells Amorphous Sediment Urine Bacteria Salicylates < 0.3 mg/dL L mg/ dL (3-10) Acetaminophen < 5.0 ug/mL L ug/ mL (10-30) Ethyl Alcohol < 10 mg/dL mg/dL (0-10) Serum Ketones SARS-CoV-2 Ag (Rap id) 07/06/21 07/06/21 07/06/21 03:41 03:41 03:41 WBC RBC Hgb Hct MCV MCH MCHC RDW Plt Count MPV Neut % (Auto) Lymph % (Auto) [place] % (Auto) Eos % (Auto) Baso % (Auto) Neut # (Auto) Lymph # (Auto) [place] # (Auto) Eos # (Auto) Baso # (Auto) Nucleated RBC % (a uto) Nucleated RBCs # Specimen Type Sample Site ABG pH ABG pCO2 ABG pO2 ABG HCO3 ABG Base Excess Abilio Test Hematocrit O2 Delivery Device O2 Liters/Min FiO2 [employer] Sourcing Consultant ID Sodium Potassium Chloride Carbon Dioxide Anion Gap BUN Creatinine GFR Calculation Glucose Serum Osmolality 303 mOsm/kg mOsm/ kg (278-305) Calculated Osmolal ity Lactate Calcium Phosphorus Magnesium Total Bilirubin AST ALT Alkaline Phosphata se Ammonia Troponin T Baselin e 258 ng/L H* ng/L (0-10) Total Protein Albumin Globulin TSH Urine Color Urine Appearance Urine pH Ur Specific Gravit y Urine Protein Urine Glucose (UA) Urine Ketones Urine Blood Urine Nitrate Urine Bilirubin Urine Urobilinogen Ur Leukocyte Elda ase Urine RBC Urine WBC Ur Squamous Epith Cells Amorphous Sediment Urine Bacteria Salicylates Acetaminophen Ethyl Alcohol Serum Ketones Negative (Negative) SARS-CoV-2 Ag (Rap id) 07/06/21 07/06/21 07/06/21 04:10 04:35 05:15 WBC RBC Hgb Hct MCV MCH MCHC RDW Plt Count MPV Neut % (Auto) Lymph % (Auto) [place] % (Auto) Eos % (Auto) Baso % (Auto) Neut # (Auto) Lymph # (Auto) [place] # (Auto) Eos # (Auto) Baso # (Auto) Nucleated RBC % (a uto) Nucleated RBCs # Specimen Type Arterial Sample Site Radial, left ABG pH 7.47 H (7.35-7.45) ABG pCO2 42.8 mmHg mmHg (35-45) ABG pO2 114.0 mmHg H mmHg (80.0-100.0) ABG HCO3 31.3 mmol/L H mmo l/L (22-26) ABG Base Excess 6.9 mmol/L H mmol /L (-2.0-2.0) Abilio Test Pos Hematocrit 36.8 % L % (37-47) O2 Delivery Device Nc O2 Liters/Min 2.0 % % FiO2 28.0 % % Strategic Sourcing Consultant ID Rieri Sodium Potassium Chloride Carbon Dioxide Anion Gap BUN Creatinine GFR Calculation Glucose Serum Osmolality Calculated Osmolal ity Lactate Calcium Phosphorus Magnesium Total Bilirubin AST ALT Alkaline Phosphata se Ammonia 35 umol/L umol/L (11-51) Troponin T Baselin e Total Protein Albumin Globulin TSH Urine Color Yellow (Yellow) Urine Appearance Hazy A (CLEAR) Urine pH 5 (5-7) Ur Specific Gravit y 1.005 (1.005-1.030) Urine Protein 3+ H (Negative) Urine Glucose (UA) 4+ H (Normal) Urine Ketones Negative (Negative) Urine Blood 3+ H (Negative) Urine Nitrate Negative (Negative) Urine Bilirubin Neg (Negative) Urine Urobilinogen Norm mg/dL mg/dL (Negative) Ur Leukocyte Elda ase Negative (Negative) Urine RBC 10-15 /hpf H /hpf (0-2) Urine WBC >100 /hpf H /hpf (0-5) Ur Squamous Epith Cells 0-4 /hpf H /hpf (0-5) Amorphous Sediment Not Reportable Urine Bacteria 4+ /hpf H /hpf (NONE) Salicylates Acetaminophen Ethyl Alcohol Serum Ketones SARS-CoV-2 Ag (Rap id) 07/06/21 05:20 WBC RBC Hgb Hct MCV MCH MCHC RDW Plt Count MPV Neut % (Auto) Lymph % (Auto) [place] % (Auto) Eos % (Auto) Baso % (Auto) Neut # (Auto) Lymph # (Auto) [place] # (Auto) Eos # (Auto) Baso # (Auto) Nucleated RBC % (a uto) Nucleated RBCs # Specimen Type Sample Site ABG pH ABG pCO2 ABG pO2 ABG HCO3 ABG Base Excess Abilio Test Hematocrit O2 Delivery Device O2 Liters/Min FiO2 Strategic Sourcing Consultant ID Sodium Potassium Chloride Carbon Dioxide Anion Gap BUN Creatinine GFR Calculation Glucose Serum Osmolality Calculated Osmolal ity Lactate Calcium Phosphorus Magnesium Total Bilirubin AST ALT Alkaline Phosphata se Ammonia Troponin T Baselin e Total Protein Albumin Globulin TSH Urine Color Urine Appearance Urine pH Ur Specific Gravit y Urine Protein Urine Glucose (UA) Urine Ketones Urine Blood Urine Nitrate Urine Bilirubin Urine Urobilinogen Ur Leukocyte Elda ase Urine RBC Urine WBC Ur Squamous Epith Cells Amorphous Sediment Urine Bacteria Salicylates Acetaminophen Ethyl Alcohol Serum Ketones SARS-CoV-2 Ag (Rap id) Negative (Negative) Discharge Plan Discharge Admit Provider: Zo Echols Coding Level of Care Code ED Actuarial Internship for g Leticia
--- NOTE | 2021-07-06 03:40 | XRR_ITS ---
PROCEDURE INFORMATION: Exam: XR Chest Exam date and time: 07/06/2021 3:40 AM Age: 66 years old Clinical indication: Prior surgery; Surgery type: Open heart; Patient HX: AMS. Hyperglycemic and hypotensive. TECHNIQUE: Imaging protocol: XR of the chest. Views: 1 view. COMPARISON: CR (CHEST, ) 06/03/2021 3:30 PM FINDINGS: Lungs: Pulmonary vascularity appears upper range of normal, no definite pulmonary edema. Mild left lower lung opacities could represent atelectasis and/or pneumonitis. Visible lungs otherwise appear essentially clear. Pleural spaces: No visible pneumothorax. No definite pleural fluid. Heart/Mediastinum: Heart size is upper range of normal. Bones/joints: Prior median sternotomy. XR/XR chest 1V portable [id number] IMPRESSION: 1. Mild left lower lung opacities could represent atelectasis and/or pneumonitis. 2. Pulmonary vascularity upper range of normal. 3. Other findings discussed above. Radiation Dose CTDIVOL = (mGy): DLP = (mGy-cm)
--- NOTE | 2021-07-06 03:40 | CTR_ITS ---
PROCEDURE INFORMATION: Exam: CT Head Without Contrast Exam date and time: 07/06/2021 3:40 AM Age: 66 years old Clinical indication: Altered mental status/memory loss; Confusion or disorientation; Patient HX: AMS. Lethargy. PT appears somewhat confused. Hypotensive and hyperglycemic. TECHNIQUE: Imaging protocol: Computed tomography of the head without contrast. Radiation optimization: All CT scans at this facility use at least one of these dose optimization techniques: automated exposure control; mA and/or kV adjustment per patient size (includes targeted exams where dose is matched to clinical indication); or iterative reconstruction. COMPARISON: CT head wo con* [id number] 06/03/2021 6:09 PM RADIATION DOSE METRICS: Total DLP (mGy-cm): 1380.65 FINDINGS: Brain: No acute intracranial hemorrhage or mass effect. There is decreased attenuation in the periventricular white matter, likely from microvascular disease. There is a small old lacunar in the left periventricular white matter. No definite acute infarct by CT. MRI could be more sensitive/specific for detection, as clinically directed. Cerebral ventricles: Ventricle size is normal for age. Paranasal sinuses: Included paranasal sinuses are essentially clear. Mastoid air cells: No significant acute finding. Vasculature: Vascular calcifications in the internal carotid and vertebral basilar systems. Bones/joints: No definite acute skull fracture. CT/CT head wo con* [id number] IMPRESSION: 1. No acute intracranial hemorrhage or mass effect. 2. 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 3. No definite acute infarct by CT, see above. 4. Other findings discussed above. Radiation Dose CTDIVOL = (mGy): DLP = 1380.65 (mGy-cm)
--- NOTE | 2021-07-06 03:41 | ECG_ITS ---
[facility] Test Date: 2021-07-06 Pat Name: Linda Joiner Department: Room: Gender: Female [employer] Worker: : 1955 Requested By: Elbert Sommers Order Number: [id number] Sylvie MD: Kin Montero M.D. Measurements Intervals [place] Rate: 84 P: 11 ND: 136 QRS: 29 QRSD: 94 T: 37 QT: 436 QTc: 515 Interpretive Statements SINUS RHYTHM ANTEROSEPTAL MYOCARDIAL INFARCTION , OF INDETERMINATE AGE [40+ ms Q WAVE IN V1-V4] Compared to ECG 06/03/2021 16:37:57 No significant changes Electronically Signed On 07-07-2021 18:38:33 CDT by Kin Montero M.D. [id number]
[2021-07-06 04:07] LABS: Basophils % 0.5 %; Eosinophils # 0.1 10^3/uL (0.0-0.8); Eosinophils % 1.3 %; Hematocrit 39.5 % (37.0-47.0); Lymphocytes # 0.4 10^3/uL (0.8-4.8); Lymphocytes % 9.4 %; Mean Corpuscular HGB Conc 32.9 g/dL (30.0-36.0); Mean Corpuscular Hemoglobin 26.6 pg (28.0-34.0); Mean Corpuscular Volume 80.8 fl (81-99); Mean Platelet Volume 11.3 fL (7.4-10.4); Monocytes % 0.8 %; Neutrophils # 3.35 10^3/uL (1.8-7.7); Neutrophils % 87.5 %; Nucleated Red Blood Cells % 0 %; Platelet Count 150 10^3/cmm (130-400); Red Blood Count 4.89 10^6/uL (4.1-5.3); Red Cell Distribution Width 15.1 % (12.1-15.1); White Blood Count 3.8 10^3/uL (4.0-10.0)
[2021-07-06] MEDS: sodium chloride 0.9% 1,000 ML 999 ML IV ×2 (04:11→06:17)
[2021-07-06 04:17] LABS: Ketone (Acetest) Serum Negative (Negative)
[2021-07-06 04:20] LABS: ABG PCO2 42.8 mmHg (35-45); ABG PH Result 7.47 (7.35-7.45); Arterial Blood Gas Hematocrit 36.8 % (37-47); Base Excess ABG 6.9 mmol/L (-2.0-2.0); Blood Gas Allen Test Pos; Blood Gas Sample Site Radial, left; Blood Gas Sample Type Arterial; HCO3 ABG 31.3 mmol/L (22-26); Oxygen Device NC
[2021-07-06 04:25] LABS: Lactate (Lactic Acid level) 3.4 mmol/L (0.5-2.2)
[2021-07-06 04:29] LABS: Alanine Aminotransferase 16 U/L (0-33); Albumin Level 3.6 g/dL (3.5-5.2); Alkaline Phosphatase 244 IU/L (35-105); Aspartate Amino Transferase 35 U/L (0-32); Blood Urea Nitrogen 31 mg/dL (8-23); Calcium 9.3 mg/dL (8.5-10.5); Carbon Dioxide 24 mmol/L (22-29); Chloride 80 mmol/L (98-107); Globulin 2.8 g/dL (1.3-4.6); Magnesium 1.2 mg/dL (1.7-2.3); Osmolality Calculated 293 mOsm/kg (285-295); Phosphorus 1.5 mg/dL (2.5-4.5); Sodium 127 mmol/L (136-145); Total Bilirubin 3.8 mg/dL (0.15-1.2); Total Protein 6.4 g/dL (6.6-8.7)
[2021-07-06 04:30] LABS: Acetaminophen < 5.0 ug/mL (10-30); Alcohol Level < 10 mg/dL (0-10); Glucose 510 mg/dL (65-115); Salicylate < 0.3 mg/dL (3-10); Troponin(5th) Baseline 258 ng/L (0-10)
[2021-07-06 04:34] LABS: Thyroid Stimulating Hormone 2.62 uIU/mL (0.27-4.20)
[2021-07-06 04:53] LABS: Ammonia 35 umol/L (11-51)
--- NOTE | 2021-07-06 05:11 | CTR_ITS ---
PROCEDURE INFORMATION: Exam: CT Chest With Contrast; Diagnostic Exam date and time: 07/06/2021 5:11 AM Age: 66 years old Clinical indication: Abnormal findings; Abnormal lab test; Abnormal function test of other organs/systems; Abnormal diagnostic tests; Abnormal wbc and abnormal ekg; Prior surgery; Surgery type: Open heart. Gb; Patient HX: Patient AMS. Troponin of 258. Decreased wbc. Glucose of 510. Creatinine of 1.3. Hypotensive. Sadler in place. Patient would not keep arms above head or keep legs supine. Increased tech factors to reduce artifact. ; Additional info: AMS, sepsis TECHNIQUE: Imaging protocol: Diagnostic computed tomography of the chest with contrast. Radiation optimization: All CT scans at this facility use at least one of these dose optimization techniques: automated exposure control; mA and/or kV adjustment per patient size (includes targeted exams where dose is matched to clinical indication); or iterative reconstruction. Contrast material: VISI 320; Contrast volume: 95 ml; Contrast route: INTRAVENOUS (IV); COMPARISON: CR (CHEST, ) 07/06/2021 3:47 AM RADIATION DOSE METRICS: Total DLP (mGy-cm): 3339.86 FINDINGS: Lungs: No consolidation. No masses. Pleural spaces: Unremarkable. No pneumothorax. No pleural effusion. Heart: No cardiomegaly. No pericardial effusion. Aorta: No aortic aneurysm. Lymph nodes: Unremarkable. No enlarged lymph nodes. Bones/joints: Previous median sternotomy. Soft tissues: Unremarkable. IMPRESSION: No acute findings. PROCEDURE INFORMATION: Exam: CT Abdomen And Pelvis With Contrast Exam date and time: 07/06/2021 5:11 AM Age: 66 years old Clinical indication: Abnormal findings; Abnormal lab test; Abnormal function test of other organs/systems; Abnormal diagnostic tests; Abnormal wbc and abnormal ekg; Prior surgery; Surgery type: Open heart. Gb; Patient HX: Patient AMS. Troponin of 258. Decreased wbc. Glucose of 510. Creatinine of 1.3. Hypotensive. Sadler in place. Patient would not keep arms above head or keep legs supine. Increased tech factors to reduce artifact. ; Additional info: AMS, sepsis TECHNIQUE: Imaging protocol: Computed tomography of the abdomen and pelvis with contrast. Radiation optimization: All CT scans at this facility use at least one of these dose optimization techniques: automated exposure control; mA and/or kV adjustment per patient size (includes targeted exams where dose is matched to clinical indication); or iterative reconstruction. Contrast material: VISI 320; Contrast volume: 95 ml; Contrast route: INTRAVENOUS (IV); COMPARISON: CR (CHEST, ) 07/06/2021 3:47 AM RADIATION DOSE METRICS: Total DLP (mGy-cm): 3339.86 FINDINGS: Tubes, catheters and devices: There is a Sadler catheter within the bladder which is collapsed. Liver: Nodular contour of the liver which may be seen with cirrhosis. Gallbladder and bile ducts: Status post cholecystectomy. Pancreas: No ductal dilation. Spleen: Splenomegaly. Adrenal glands: Normal. No mass. Kidneys and ureters: 2 cm simple appearing left renal cyst, no follow up necessary. No hydronephrosis. Stomach and bowel: Minimal scattered air-fluid levels in nondilated loops of small bowel. Findings may be seen with ileus. No high-grade bowel obstruction. Appendix: The appendix is not identified. There are no pericecal or right lower quadrant inflammatory changes. Intraperitoneal space: No free air. No significant fluid collection. Vasculature: Atherosclerotic changes of the aorta. Lymph nodes: No enlarged lymph nodes. Urinary bladder: Unremarkable as visualized. Reproductive: Unremarkable as visualized. Bones/joints: Unremarkable. No acute fracture. Soft tissues: Unremarkable. Other findings: Motion limited examination. CT/CT chest abd pel w con* IMPRESSION: 1. Nodular contour of the liver which may be seen with cirrhosis. 2. Minimal scattered air-fluid levels in nondilated loops of small bowel. Findings may be seen with ileus. COMMENTS: Consistent with the [employer]'s Incidental Findings Committee white paper (J Am Jonathan Radiol 2018): Any incidental renal lesion less than 1 cm or classified as too small to characterize, or any incidental cystic renal lesion characterized as simple-appearing, is likely benign. No follow-up imaging is recommended for these lesions per consensus recommendations based on imaging criteria. Radiation Dose CTDIVOL = (mGy): DLP = 3339.86~3339.86 (mGy-cm)
--- NOTE | 2021-07-06 05:29 | PC.NURSE ---
Removed wet clothing and bed linens. Placed pt in gown and new linens on bed. Initiated hernandez catheter per MD verbal order. Urine sent to lab. Pt continues to be confused; follows directions after multiple requests. in room.
--- NOTE | 2021-07-06 05:41 | ECG_ITS ---
[facility] Test Date: 2021-07-06 Pat Name: Linda Joiner Department: Room: Gender: Female Line Walker: : 1955 Requested By: Elbert Sommers Order Number: [id number] Sylvie MD: Marimar Luevano M.D. Measurements Intervals [place] Rate: 81 P: 29 ME: 160 QRS: 49 QRSD: 94 T: 55 QT: 475 QTc: 553 Interpretive Statements SINUS RHYTHM ANTEROSEPTAL MYOCARDIAL INFARCTION , OF INDETERMINATE AGE [40+ ms Q WAVE IN V1-V4] Compared to ECG 07/06/2021 04:05:23 No significant changes Electronically Signed On 07-07-2021 5:53:33 CDT by Marimar Luevano M.D. [id number]
[2021-07-06 05:53] LABS: Add Urine Culture? Yes; Add Urine Microscopic? YES; Bacteria Urine 4+ /hpf; Bilirubin Urine Neg (Negative); Blood Urine 3+ (Negative); Glucose Urine UA 4+ (Normal); Ketones Urine Negative (Negative); Leukocyte Esterase Urine Negative (Negative); Nitrate Urine Negative (Negative); Protein Urine 3+ (Negative); Specific Gravity, Urine 1.005 (1.005-1.030); Squamous Epithelial Cell Urine 0-4 /hpf (0-5); Urine Appearance Hazy (CLEAR); Urine Color Yellow (Yellow); Urobilinogen Urine Norm (Negative); WBC Urine >100 /hpf (0-5); pH Urine 5 (5-7)
[2021-07-06 06:05] LABS: SARS Covid-2 Antigen Negative (Negative)
[2021-07-06] MEDS: iodixanol 320 mg/mL 100mL Btl IV (06:13)
[2021-07-06] MEDS: insulin regular-human 100 units/1 mL 10 UNIT IVP (06:15)
[2021-07-06] MEDS: lidocaine 1% 5 ML in potassium chloride premix 100 ML 25 ML IV ×2 (06:16→17:22)
[2021-07-06] MEDS: cefTRIAXone 1,000 MG in sodium chloride 0.9% (plus) 50 ML 100 MG IV (06:17)
[2021-07-06] MEDS: magnesium sulfate premix 2 GM/50 ML PIGGYBACK IV ×2 (06:31→17:22)
[2021-07-06 07:12] LABS: Troponin 5 2HR 377.2 ng/L (0-10); Troponin 5 2HR Delta 119.2 ABS# (0-10)
--- NOTE | 2021-07-06 07:51 | PC.NURSE ---
Dr. Carr notified at this time of critical troponin of 377.
[2021-07-06 08:10] LABS: Glucose Point of Care 517 mg/dL (70-110)
[2021-07-06] MEDS: sodium chloride 0.9% 500 ML 999 ML IV (08:21)
--- NOTE | 2021-07-06 09:16 | USCV_ITS ---
Linda Joiner Age: 66 Gender: F : 1955 Exam Date: 07/06/2021 13:20 Ordering Phys: Samuel Carr MD Technologist: Norma Sánchez Exam Location: [facility] Indication: NSTEMI BP: 132 / 90 HR: 70 Rhythm: Sinus Technical Quality: Technically difficult study MEASUREMENTS (Male / Female) Normal Values 2D ECHO LV Diastolic Diameter PLAX 3.7 cm 4.2 - 5.9 / 3.9 - 5.3 cm LV Systolic Diameter PLAX 2.5 cm IVS Diastolic Thickness 1.3 cm 0.6 - 1.0 / 0.6 - 0.9 cm IVS Systolic Thickness 1.8 cm LVPW Diastolic Thickness 1.4 cm 0.6 - 1.0 / 0.6 - 0.9 cm LVPW Systolic Thickness 1.8 cm RV Chamber Size 2.9 cm LVOT Diameter 2.0 cm LV Ejection Fraction 2D Teich 61.0 % LV Ejection Fraction MOD 2C 57.6 % LV Ejection Fraction 2C AL 56.3 % LA Diameter 3.3 cm LA Width 3.8 cm LA Height 5.1 cm RA Width 3.8 cm RA Height 4.2 cm Aorta at Sinotubular Diameter 1.7 cm DOPPLER AV Peak Velocity 157.0 cm/s LVOT Peak Velocity 143.0 cm/s AV Area Cont Eq vti 2.5 cm squared AV Area Cont Eq pk 2.9 cm squared MV Area PHT 5.0 cm squared Mitral E to A Ratio 2.2 MV E' Velocity 58.5 cm/s Mitral E to MV E' Ratio 15.5 Mitral E to LV E' Lateral Ratio 18.0 Mitral E to LV E' Septal Ratio 13.6 TR Peak Velocity 219.7 cm/s TR Peak Gradient 19.3 mmHg TV Peak E Velocity 73.0 cm/s Right Atrial Pressure 8.0 mmHg Pulmonary Artery Systolic Pressu 27.3 mmHg PV Peak Velocity 108.0 cm/s RV Acceleration Time 0.1 s RV Ejection Time 0.3 s RV AcT/ET 0.5 FINDINGS Left Ventricle Normal left ventricular size. Poor ultrasonic windows. Grossly LV systolic function is normal with septal bounce consistent with prior cardiac surgery. Grade 3 diastolic dysfunction. Right Ventricle The right ventricle is normal in size and function. Right Atrium The right atrium is normal in size. Left Atrium The left atrium is normal in size. Mitral Valve Moderate mitral annular calcification without significant stenosis or prolapse. There is trace mitral regurgitation. Aortic Valve Calcified aortic valve without stenosis. There is mild aortic regurgitation. Tricuspid Valve Structurally normal tricuspid valve without significant stenosis or regurgitation. Insufficient TR jet to calculate RVSP. Pulmonic Valve Structurally normal pulmonic valve without significant stenosis. There is no pulmonic regurgitation. Pericardium Normal pericardium without effusion. Aorta Normal ascending aorta dimension. CONCLUSIONS Technically difficult with poor ultrasonic windows. LV systolic function is grossly normal Grade 3 diastolic dysfunction is seen. Trace mitral regurgitation is noted. Mild aortic regurgitation is seen. No current studies are available for comparison Kin Montero MD (Electronically Signed) Final Date: 06 July 2021 18:08 S
--- NOTE | 2021-07-06 09:23 | PM.HP ---
Providers/Chief Complaint Admitting Physician: Zo Echols Primary Care Provider: LUBNA Meek Chief Complaint: hyperglycemia History of Present Illness Linda Joiner is a 66 year old female who presented to the emergency department with confusion. Patient cannot give a history currently. From ER record apparently she was hyperglycemic and hypotensive in route, and received multiple boluses of fluid, starting in route to the hospital. She has had previous hospitalizations for confusion and last discharge June 05. There was concern at that time that it was secondary to hepatic encephalopathy, although I do not believe ammonia was significantly elevated. Family indicates that she has been confused at least 1 week. Blood sugar had ranged high on the meter. She has had some chills but no fever. She has been sleeping a lot and hurting all over. She vomited two or three times yesterday. does not believe she has had any chest pain. No diarrhea. No Covid exposure he is aware of. Review of Systems General: Reports: ROS unobtainable due to mental status (Patient confused and minimally responsive, only opening her eyes to stimula) Medications/Allergies Home Medications Medication Instructions Recorded Confirmed Last Taken Type acetaminophen 650 mg 650 mg PO Q12H 11/23/20 06/09/21 Unknown History tablet,extended release blood-glucose meter #1 ea 02/28/21 06/09/21 Unknown Rx carvedilol 6.25 mg tablet 6.25 mg PO BID 90 Days #180 tab 03/28/21 06/09/21 Unknown Rx clopidogrel 75 mg tablet 75 mg PO DAILY 90 Days #90 tab 03/28/21 06/09/21 Unknown Rx lisinopril 2.5 mg tablet See Rx Instructions .ROUTE 03/28/21 06/09/21 Unknown Rx .COMPLEX #90 tab lovastatin 40 mg tablet 40 mg PO DAILY 90 Days #90 tab 03/28/21 06/09/21 Unknown Rx metformin 1,000 mg tablet See Rx Instructions .ROUTE 03/28/21 06/09/21 Unknown Rx .COMPLEX #180 tab nabumetone 500 mg tablet 500 mg PO BID PRN 30 Days #60 tab 03/28/21 06/09/21 Unknown Rx pantoprazole 40 mg tablet,delayed See Rx Instructions .ROUTE 03/28/21 06/09/21 Unknown Rx release .COMPLEX #90 tab potassium chloride 10 mEq See Rx Instructions .ROUTE 03/28/21 06/09/21 Unknown Rx capsule,extended release .COMPLEX 90 Days #270 cap sertraline 50 mg tablet 50 mg PO DAILY 90 Days #90 tab 03/28/21 06/09/21 Unknown Rx sitagliptin 50 mg tablet 50 mg PO DAILY 30 Days #30 tab 03/28/21 06/09/21 Unknown Rx furosemide 40 mg PO DAILY 90 Days #180 tab 06/05/21 06/09/21 Unknown Rx hydrocodone 5 mg-acetaminophen 325 1 tab PO .q6-8 hrs PRN 5 Days #20 06/09/21 06/09/21 Unknown Rx mg tablet tab allopurinol 100 mg PO DAILY 07/06/21 07/06/21 Unknown History cholecalciferol (vitamin D3) 50,000 unit PO Q7D 07/06/21 07/06/21 Unknown History glipizide 5 mg PO BID 07/06/21 07/06/21 Unknown History insulin detemir U-100 [Levemir 40 unit SUBCUT BID 07/06/21 07/06/21 Unknown History FlexTouch U-100 Insuln] isosorbide mononitrate 30 mg PO DAILY 07/06/21 07/06/21 Unknown History levothyroxine 150 mcg PO DAILY 07/06/21 07/06/21 Unknown History magnesium 1 tab PO DAILY 07/06/21 07/06/21 Unknown History zinc 1 cap PO DAILY 07/06/21 07/06/21 Unknown History Allergies Allergy/AdvReac Type Severity Reaction Status Date / Time cefaclor [From Ceclor] Allergy unknown Verified 06/09/21 10:44 Penicillins Allergy unknown Verified 06/09/21 10:44 Sulfa (Sulfonamide Allergy unknown Verified 06/09/21 10:44 Antibiotics) ciprofloxacin [From Cipro] AdvReac rash Verified 06/09/21 10:44 PFSH Acute PFSH: Medical History Abdominal pain Anticoagulated Anxiety and depression Arthritis Breast cancer screening by mammogram Diabetes mellitus, type II Essential hypertension GERD (gastroesophageal reflux disease) Gout Hypothyroid Infected abrasion of thumb Mixed hyperlipidemia Mixed hyperlipidemia Type 2 diabetes mellitus with hyperglycemia Urinary tract infection Vaginal yeast infection Yeast vaginitis Surgical History History of arthroscopy of left shoulder History of open heart surgery quad bypass Social History Second hand smoke exposure: No Smoking risk assessment/counseling performed?: No Alcohol intake: never Desire information about alcohol rehabilitation?: No Counseling given: No Desire information about substance/drug rehabilitation?: No Counseling given: No Female Reproductive History: Date of last menstrual period: 12/15/20 Vitals/I&O/Wt Last Vital Signs Temp 98.2 F 07/06/21 07:47 Pulse 77 07/06/21 07:47 Resp 18 07/06/21 07:47 BP 94/60 07/06/21 08:38 Pulse Ox 95 07/06/21 07:47 07/05/21 07/06/21 07/06/21 22:59 06:59 14:59 Intake Total 1050 / 1050 1550 / 1550 Balance 1050 / 1050 1550 / 1550 Weight last 48 hrs Weight 108.862 kg Physical Exam Narrative: EXAM NARRATIVE: General exam, opens eyes briefly and then goes back to sleep. Appears confused. Minimally responsive. HEENT: Pupils equally round. Oropharynx clear. Neck is supple no lymphadenopathy or thyromegaly Cardiovascular regular rate and rhythm, no murmur Lungs clear without wheezing or crackles Abdomen is soft. Positive bowel sounds. No obvious organomegaly. exam is deferred Extremities cap refill brisk. Skin no rash Neuro not cooperative but no obvious focal deficits. Sepsis: Is patient septic: Yes Focused sepsis exam performed: Yes Date exam was performed: 07/06/21 Time exam was performed: 09:34 Data : 07/06/21 03:41 07/06/21 03:41 Micro: Microbiology 07/06/21 03:50 Blood Culture - Preliminary Blood SPECIMEN COLLECTED 07/06/21 03:40 Blood Culture - Preliminary Blood SPECIMEN COLLECTED Other data: ABG with pH 7.47, PCO2 42, PO2 of 114 on 2 L Lactate 3.4 Phosphorus 1.5 Magnesium 1.2 Total bili 3.8 AST 35 ALT 16 Alk phos 244 Troponin II 58 with repeat of 377 Ammonia 35 TSH 2.62 Urinalysis greater than 100 white blood cells, 10-15 reds, 4+ bacteria Salicylates and Tylenol level negative. Alcohol level negative. Rapid Covid negative. A&P Assessment and plan (1) Sepsis associated hypotension: Presentation consistent with septic shock. Source of infection is urine. Patient hypotensive. Lactate level elevated. Somewhat leukopenic. Evidence of organ dysfunction with confusion, acute kidney injury. It appears she got multiple boluses of fluid by EMS as well as the emergency department. She is receiving another bolus currently. For now saline at 100 cc an hour Initiate norepinephrine as needed Evaluation with noninvasive monitoring to determine if she is fluid responsive IV antibiotics currently of vancomycin and Primaxin. She is penicillin allergic. Cultures have been drawn. Urine culture has been ordered. Status: Acute (2) Hyperglycemic hyperosmolar nonketotic coma: Insulin drip D5 when appropriate Status: Acute (3) Urinary tract infection: Urine culture Primaxin Status: Acute (4) Non-ST elevation myocardial infarction (NSTEMI): Full dose anticoagulation Aspirin, Plavix No beta-stefania currently secondary to hypotension Cardiology consultation Check echocardiogram Will need cardiac evaluation once sepsis has resolved Check CK, if normal initiate statin. Status: Acute (5) Coronary artery disease: See notations above Status: Acute (6) Hypokalemia: Supplemented in the emergency department. Recheck this afternoon Status: Acute (7) Hypomagnesemia: Supplemented in the emergency department, recheck this afternoon Status: Acute (8) Liver cirrhosis: Ammonia level not elevated Status: Acute Qualifiers: Hepatic cirrhosis type: unspecified hepatic cirrhosis Ascites presence: without ascites Qualified Code(s): K74.60 - Unspecified cirrhosis of liver Additional A&P Information Acute kidney injury. Hydrate. Continue to follow closely. Place Sadler. Full code Lovenox will suffice for DVT prophylaxis Attestations Medical Necessity Statement*: Will need greater than two midnight stay for evaluation and treatment of sepsis with septic shock. Time Spent in Patient Care: Greater than 35 minutes Critical Care Time: Critical Care Time (min): 67 Other Attestations: The high probability of a clinically significant, sudden or life threatening deterioration of the patient's [infectious disease, renal, cardiac, endocrine] system(s) required my full and direct attention, intervention and personal management. The critical care time is as shown. This time is in addition to time spent performing any reported procedures but includes the following: [x] Data and vital sign review and interpretation [x] Patient assessment, examination and intervention [x] Documentation [x] Medication orders and management Coding Level of Care Code Acute [facility] Fwd Diagnoses Sepsis associated hypotension A41.9; I95.9 Hyperglycemic hyperosmolar nonketotic coma E11.01 Urinary tract infection N39.0 Non-ST elevation myocardial infarction (NSTEMI) I21.4 Coronary artery disease I25.10 Hypokalemia E87.6 Hypomagnesemia E83.42 Liver cirrhosis K74.60 Hepatic cirrhosis type: unspecified hepatic cirrhosis Ascites presence: without ascites
--- NOTE | 2021-07-06 09:41 | ECG_ITS ---
[facility] Test Date: 2021-07-06 Pat Name: Linda Joiner Department: Room: [facility] Gender: Female Manager Gaming: : 1955 Requested By: Elbert Sommers Order Number: [id number] Sylvie MD: Marimar Luevano M.D. Measurements Intervals [place] Rate: 76 P: 85 [place]: 153 QRS: 49 QRSD: 94 T: 49 QT: 454 QTc: 514 Interpretive Statements SINUS RHYTHM SEPTAL MYOCARDIAL INFARCTION , OF INDETERMINATE AGE [40+ ms Q WAVE IN V1/V2] Compared to ECG 07/06/2021 06:27:41 No significant changes Electronically Signed On 07-07-2021 5:50:29 CDT by Marimar Luevano M.D. [id number]
--- NOTE | 2021-07-06 09:52 | PC.PHAR ---
pt unable to verify her medications-pts states he knows what medications the pt takes -pts states the pt no longer takes januvia states it was dced-pts states the pt uses levemir flextouch u-100 and uses 40units bid rx last filled on 03/28/21 for 85 units bid-pts states the pt still takes lovastatin 40mg daily rx last filled on 03/29/21 30d/s-pts states the lactulose was dced last filled on 06/21/21-pts states the pt was in [facility] last week and states they discharged the pt with medication that they never filled-called [facility] [phone] medical records states the pt was in the hospital from 06-26-21 to 06-29-21 rabia from [facility] states they will fax what the rx the pt was discharged with still waiting for the fax will make another note if fax comes-notes are made in the pharamcy comments
--- NOTE | 2021-07-06 10:13 | PM.CONSULT ---
Providers/Reason For Consult Consulting Physician/Specialty*: Kin Montero MD/Cardiology Reason for Consult*: NSTEMI Requesting Physician: Dr Carr Attending Physician: Samuel Carr MD Primary Care Provider: LUBNA Meek History of Present Illness History of Present Illness Linda Joiner is a 66 year old female with PMH of CAD s/p CABG and PCIs in past, hypertension and diabetes presented to hospital with complaints of confusion. She had hypoglycemia and hypotension. Found to have sepsis with urinary source. Had similar admission with confusion a month ago as well. This time she has been confused for the last 1 week. Cardiology was consulted as patient had significant troponin elevation to 377. She denies chest pain but she is confused. EKG shows normal sinus rhythm with no acute ST T wave changes. Review of Systems General: Reports: ROS unobtainable due to mental status Meds/Allergies Home Medications and Allergies Home Medications Medication Instructions Recorded Confirmed Last Taken Type acetaminophen 650 mg 650 mg PO Q12H PRN 11/23/20 07/06/21 Unknown History tablet,extended release blood-glucose meter #1 ea 02/28/21 07/06/21 Unknown Rx carvedilol 6.25 mg tablet 6.25 mg PO BID 90 Days #180 tab 03/28/21 07/06/21 Unknown Rx clopidogrel 75 mg tablet 75 mg PO DAILY 90 Days #90 tab 03/28/21 07/06/21 Unknown Rx sertraline 50 mg tablet 50 mg PO DAILY 90 Days #90 tab 03/28/21 07/06/21 Unknown Rx furosemide 40 mg PO DAILY 90 Days #180 tab 06/05/21 07/06/21 Unknown Rx hydrocodone 5 mg-acetaminophen 325 1 tab PO .q6-8 hrs PRN 5 Days #20 06/09/21 07/06/21 Unknown Rx mg tablet tab allopurinol 100 mg PO DAILY 07/06/21 07/06/21 Unknown History cholecalciferol (vitamin D3) 50,000 unit PO Q7D 07/06/21 07/06/21 Unknown History glipizide 5 mg PO BID 07/06/21 07/06/21 Unknown History insulin detemir U-100 [Levemir 40 unit SUBCUT BID 07/06/21 07/06/21 Unknown History FlexTouch U-100 Insuln] isosorbide mononitrate 30 mg PO DAILY 07/06/21 07/06/21 Unknown History levothyroxine 150 mcg PO DAILY 07/06/21 07/06/21 Unknown History lisinopril 2.5 mg PO DAILY 07/06/21 07/06/21 Unknown History lovastatin 40 mg PO DAILY 07/06/21 07/06/21 Unknown History magnesium 1 tab PO DAILY 07/06/21 07/06/21 Unknown History metformin 1,000 mg PO BID 07/06/21 07/06/21 Unknown History pantoprazole 40 mg PO DAILY 07/06/21 07/06/21 Unknown History potassium chloride 10 meq PO DAILY 07/06/21 07/06/21 Unknown History zinc 1 cap PO DAILY 07/06/21 07/06/21 Unknown History Allergies Allergy/AdvReac Type Severity Reaction Status Date / Time cefaclor [From Ceclor] Allergy unknown Verified 07/06/21 09:52 Penicillins Allergy unknown Verified 07/06/21 09:52 Sulfa (Sulfonamide Allergy unknown Verified 07/06/21 09:52 Antibiotics) ciprofloxacin [From Cipro] AdvReac rash Verified 07/06/21 09:52 PFSH Acute PFSH: Medical History Abdominal pain Anticoagulated Anxiety and depression Arthritis Breast cancer screening by mammogram Diabetes mellitus, type II Essential hypertension GERD (gastroesophageal reflux disease) Gout Hypothyroid Infected abrasion of thumb Mixed hyperlipidemia Mixed hyperlipidemia Type 2 diabetes mellitus with hyperglycemia Urinary tract infection Vaginal yeast infection Yeast vaginitis Surgical History History of arthroscopy of left shoulder History of open heart surgery quad bypass Social History Second hand smoke exposure: No Smoking risk assessment/counseling performed?: No Alcohol intake: never Desire information about alcohol rehabilitation?: No Counseling given: No Desire information about substance/drug rehabilitation?: No Counseling given: No Female Reproductive History: Date of last menstrual period: 12/15/20 Vitals/I&O/Wt Last Vital Signs Temp 98.2 F 07/06/21 07:47 Pulse 77 07/06/21 07:47 Resp 18 07/06/21 07:47 BP 94/60 07/06/21 08:38 Pulse Ox 95 07/06/21 07:47 07/05/21 07/06/21 07/06/21 22:59 06:59 14:59 Intake Total 1050 / 1050 1550 / 1550 Balance 1050 / 1050 1550 / 1550 Weight last 48 hrs Weight 240 lb Physical Exam Narrative: EXAM NARRATIVE: General: Confused Neck:No lymphadenopathy Cardiovascular: Regular rate and rhythm, grade 2/6 systolic murmur Lungs: clear to auscultation bilaterally Abdomen: Soft exam is deferred Extremities: Has palpable pulses Urinary Catheter Management^: Sadler: Cath Placed During This Visit: yes Reason for Continuing Indwelling Catheter: Accurate Measurement of Urinary Output in Critically Ill Patients Urinary Catheter Date of Insertion: 07/06/21 Data Micro: Micro: Microbiology 07/06/21 03:50 Blood Culture - Pr eliminary Blood SPECIMEN [facility] 07/06/21 03:40 Blood Culture - Pr eliminary Blood SPECIMEN [facility] A&P Assessment and plan (1) Non-ST elevation myocardial infarction (NSTEMI): Status: Acute (2) Sepsis associated hypotension: Status: Acute (3) Hypokalemia: Status: Acute (4) Diabetes mellitus, type II: Status: Acute Qualifiers: Diabetes mellitus complication status: without complication Diabetes mellitus terminologist insulin use: with terminologist use Qualified Code(s): E11.9 - Type 2 diabetes mellitus without complications; Z79.4 - senior care (current) use of insulin (5) Essential hypertension: Status: Acute Patient has presented with sepsis and UTI. Troponin elevation is significant, can be secondary to demand ischemia but likelihood of significant underlying CAD is high. Continue medical managment of NSTEMI with aspirin, plavix and Lovenox Order echocardiogram Once patient's other conditions improve, will have discussion regarding angiogram with possible PCI Thank you for involving us with care of this patient. We will continue to follow. Please call with questions. 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
[2021-07-06 11:11] LABS: INR 1.26 (0.8-1.2)
[2021-07-06] MEDS: D5-NS 0.45% + KCL 20 mEq 20 MEQ/1,000 ML BAG 100 MEQ IV (11:19)
[2021-07-06] MEDS: sodium chloride 0.9% 1,000 ML 100 ML IV (11:19)
[2021-07-06] MEDS: enoxaparin 120 mg/0.8 mL Syringe 110 MG SUBCUT ×2 (11:21→23:50)
[2021-07-06] MEDS: famotidine 20 mg/2 mL INJ IVP ×2 (11:21→20:51)
[2021-07-06 11:26] LABS: Creatine Phosphokinase 182 U/L (26-192); Lactate (Lactic Acid level) 2.4 mmol/L (0.5-2.2)
[2021-07-06 11:32] LABS: Troponin 5 6HR 295.3 ng/L (0-10); Troponin 5 6HR Delta 37.3 ng/L (0-12)
[2021-07-06] MEDS: vancomycin 1,500 MG/300 ML PIGGYBACK 200 MG IV (11:35)
[2021-07-06 11:43] LABS: Glucose Point of Care 496 mg/dL (70-110)
[2021-07-06] MEDS: insulin regular-human 250 UNIT in sodium chloride 0.9% 250 ML 13.23 UNIT IV (11:59)
--- NOTE | 2021-07-06 12:31 | PC.NURSE ---
)955: Pt arrived to IU.. OTher staff tucked her into bed. 1015: VSS. Iv fluids and K-cheryl infusing without difficulty. Pt drowsy. SR and normotensive noted on monitor 1120: 0930 medications administer now, Pt not in ICU at time meds were due. 1145: Dr Koch, at bedside. Pt more alert requesting drink and food. Notified of critical 6 hrTroponins and Delta values. 1155: Insulin gtt started now.
[2021-07-06] MEDS: acetaminophen 325 mg Tablet 650 MG PO ×2 (13:07→21:12)
[2021-07-06 15:05] LABS: Glucose Point of Care 411 mg/dL (70-110)
[2021-07-06 15:05] LABS: Glucose Point of Care 400 mg/dL (70-110)
[2021-07-06 15:05] LABS: Glucose Point of Care 527 mg/dL (70-110)
[2021-07-06 16:37] LABS: Glucose Point of Care 289 mg/dL (70-110)
[2021-07-06 16:44] LABS: Anion Gap 19.8 (5-19); Blood Urea Nitrogen 32 mg/dL (8-23); Calcium 8.1 mg/dL (8.5-10.5); Carbon Dioxide 24 mmol/L (22-29); Chloride 91 mmol/L (98-107); Glomerular Filtration Rate 44.9 mL/min (90-130); Glucose 297 mg/dL (65-115); Magnesium 1.5 mg/dL (1.7-2.3); Osmolality Calculated 292 mOsm/kg (285-295); Phosphorus 1.7 mg/dL (2.5-4.5); Sodium 132 mmol/L (136-145)
[2021-07-06 16:52] LABS: Potassium 2.8 mmol/L (3.5-5.1)
[2021-07-06] MEDS: oxyCODONE 5 mg IR Tab/Cap PO (18:03)
--- NOTE | 2021-07-06 18:11 | PC.NURSE ---
Blood sugar less than 200mg/dl, D5 0.45NS with potassium IVF started as ordered.
[2021-07-06 18:12] LABS: Glucose Point of Care 193 mg/dL (70-110)
[2021-07-06 18:12] LABS: Glucose Point of Care 229 mg/dL (70-110)
--- NOTE | 2021-07-06 18:33 | PC.NURSE ---
Shift Note: Pt to ICU from low B/P and hyperglycemia today. She has been resting with eyes closed most of shift. She is ore alert, she remembers the day of the week now. She c\o of back pain but continues to scoot down to the lower protion of the bed with the HOB elevated. She had positive blood cultures today and elevated troponins. She is currently reciving IV magnesium and potassium replacements. She is on insulin gtt. She has belched twice but no nausea or vomiting since arrival to ICU. She has had adequate urine output of 900ml/hr, dark yellow in color. Frequent safety and comfort rounds continue. Orders and/or nursing care completed as indicated. Patient monitored for response to intervention and treatment(s). Education provided includes hyperglycemia, infection, insulin, clear liquid diet, gastroparesis. Patient and/or artist representative verbalized understanding.. Will continue to monitor.
--- NOTE | 2021-07-06 19:07 | PC.NURSE ---
No change in insulin gtt rate.
[2021-07-06 20:10] LABS: Glucose Point of Care 180 mg/dL (70-110)
[2021-07-06 20:10] LABS: Glucose Point of Care 173 mg/dL (70-110)
[2021-07-06 22:47] LABS: Anion Gap 16.4 (5-19); Blood Urea Nitrogen 30 mg/dL (8-23); Calcium 8.1 mg/dL (8.5-10.5); Carbon Dioxide 25 mmol/L (22-29); Chloride 96 mmol/L (98-107); Glomerular Filtration Rate 55.5 mL/min (90-130); Glucose 125 mg/dL (65-115); Osmolality Calculated 286 mOsm/kg (285-295); Potassium 3.4 mmol/L (3.5-5.1); Sodium 134 mmol/L (136-145)
[2021-07-07] VITALS (23 sets, daily range): BP systolic 101–139; BP diastolic 58–85; PULSE 62–79; RESP 15–30; TEMP 36.3–36.9; O2SAT 88–95
[2021-07-07] MEDS: insulin glargine 100 units/1 mL 10 UNIT SUBCUT ×2 (00:11→08:19)
[2021-07-07] MEDS: oxyCODONE 5 mg IR Tab/Cap PO (02:19)
[2021-07-07 02:33] LABS: Glucose Point of Care 152 mg/dL (70-110)
[2021-07-07 02:33] LABS: Glucose Point of Care 118 mg/dL (70-110)
[2021-07-07 02:33] LABS: Glucose Point of Care 140 mg/dL (70-110)
[2021-07-07 02:33] LABS: Glucose Point of Care 142 mg/dL (70-110)
[2021-07-07 02:33] LABS: Glucose Point of Care 157 mg/dL (70-110)
[2021-07-07 02:33] LABS: Glucose Point of Care 130 mg/dL (70-110)
[2021-07-07] MEDS: ondansetron 2 mg/ML SDV 2 mL 4 MG IVP ×2 (03:09→11:07)
[2021-07-07 03:53] LABS: Glucose Point of Care 291 mg/dL (70-110)
[2021-07-07 05:02] LABS: Basophils # 0.1 10^3/uL (0.0-0.1); Basophils % 0.6 %; Eosinophils # 0.2 10^3/uL (0.0-0.8); Eosinophils % 2.2 %; Hematocrit 37.1 % (37.0-47.0); Hemoglobin 11.6 g/dL (11.5-15.3); Lymphocytes # 1.2 10^3/uL (0.8-4.8); Lymphocytes % 11.8 %; Mean Corpuscular HGB Conc 31.3 g/dL (30.0-36.0); Mean Corpuscular Hemoglobin 26.7 pg (28.0-34.0); Mean Corpuscular Volume 85.5 fl (81-99); Mean Platelet Volume 11.6 fL (7.4-10.4); Monocytes # 0.6 10^3/uL (0.2-0.9); Monocytes % 6.2 %; Neutrophils # 7.69 10^3/uL (1.8-7.7); Neutrophils % 77.9 %; Nucleated Red Blood Cells % 0 %; Platelet Count 156 10^3/cmm (130-400); Red Blood Count 4.34 10^6/uL (4.1-5.3); Red Cell Distribution Width 15.7 % (12.1-15.1); White Blood Count 9.9 10^3/uL (4.0-10.0)
[2021-07-07 05:16] LABS: Alanine Aminotransferase 14 U/L (0-33); Albumin Level 2.8 g/dL (3.5-5.2); Alkaline Phosphatase 140 IU/L (35-105); Anion Gap 18.3 (5-19); Aspartate Amino Transferase 34 U/L (0-32); Blood Urea Nitrogen 28 mg/dL (8-23); Calcium 8.1 mg/dL (8.5-10.5); Carbon Dioxide 23 mmol/L (22-29); Chloride 95 mmol/L (98-107); Globulin 3.2 g/dL (1.3-4.6); Glomerular Filtration Rate 62.6 mL/min (90-130); Glucose 213 mg/dL (65-115); Magnesium 2.3 mg/dL (1.7-2.3); Osmolality Calculated 288 mOsm/kg (285-295); Potassium 3.3 mmol/L (3.5-5.1); Sodium 133 mmol/L (136-145); Total Bilirubin 1.6 mg/dL (0.15-1.2)
--- NOTE | 2021-07-07 05:40 | PC.NURSE ---
Shift Note Frequent safety and comfort rounds continue. Pt very confused off and on throughout the shift. Pt reported headache and pain in her left hip, pain medication was given. Orders and nursing care completed as indicated. Patient monitored for response to intervention and treatment. Education provided includes pain management. Patient verbalized understanding. Will continue to monitor.
[2021-07-07] MEDS: potassium chloride ER 20 mEq Tablet 40 MEQ PO (08:02)
[2021-07-07] MEDS: sodium chloride 0.9% 1,000 ML 50 ML IV (08:03)
[2021-07-07] MEDS: insulin lispro 100 unit/1 mL SUBCUT ×3 (08:03→22:12)
--- NOTE | 2021-07-07 08:22 | PC.NURSE ---
0820 10units of lantus given r.u. arm. scan was done on a d/c lantus, label had been put in sharps.
[2021-07-07] MEDS: clopidogrel 75 mg Tablet PO (08:45)
[2021-07-07] MEDS: carvedilol 6.25 mg Tablet PO ×2 (08:45→18:41)
[2021-07-07] MEDS: atorvastatin 40 mg Tablet 20 MG PO (08:45)
[2021-07-07] MEDS: pantoprazole DR 40 mg Tablet PO (08:45)
[2021-07-07] MEDS: aspirin 325 mg EC Tablet PO (08:45)
[2021-07-07] MEDS: sertraline 50 mg Tablet PO (08:45)
[2021-07-07] MEDS: acetaminophen 325 mg Tablet 650 MG PO ×2 (08:52→23:19)
[2021-07-07 09:00] LABS: Glucose Point of Care 305 mg/dL (70-110)
[2021-07-07] MEDS: levothyroxine 150 mcg Tablet PO (09:23)
--- NOTE | 2021-07-07 09:50 | P.PN_ITS ---
Subjective Subjective: Interval history: Linda reports she is doing better. No severe pain. Seems slightly confused. Medications: Reviewed: Yes Vitals/I&O/Wt Last Vital Signs Temp 98.3 F 07/07/21 08:00 Pulse 74 07/07/21 09:30 Resp 18 07/07/21 09:30 BP 121/69 07/07/21 09:00 Pulse Ox 90 07/07/21 08:00 07/06/21 07/07/21 07/07/21 22:59 06:59 14:59 Intake Total 1503.294 / 3518.968 1682.842 / 5201.810 Output Total 1750 / 1750 500 / 2250 Balance -246.706 / 0240.477 4636.842 / 2951.810 Weight last 48 hrs Weight 87.725 kg Weight 92.669 kg Weight 108.862 kg Physical Exam Narrative: EXAM NARRATIVE: General exam, alert and oriented but not to month. Appears mildly confused. Neck is supple no lymphadenopathy or thyromegaly Cardiovascular regular rate and rhythm, no murmur Lungs clear without wheezing or crackles Abdomen is soft. Positive bowel sounds. No obvious organomegaly. exam is deferred Extremities cap refill brisk. Urinary Catheter Management^: Sadler: Cath Placed During This Visit: yes Reason for Continuing Indwelling Catheter: Accurate Measurement of Urinary Output in Critically Ill Patients Urinary Catheter Date of Insertion: 07/06/21 Data : 07/07/21 04:20 07/07/21 04:20 Micro: Microbiology 07/06/21 03:50 Blood Culture - Preliminary Blood NEGATIVE TO DATE 07/06/21 03:40 Blood Culture - Preliminary Blood Gram Negative Rods A&P Assessment and plan (1) Sepsis associated hypotension: Presentation consistent with septic shock. Source of infection is urine. Patient hypotensive. Lactate level elevated. Somewhat leukopenic. Evidence of organ dysfunction with confusion, acute kidney injury. It appears she got multiple boluses of fluid by EMS as well as the emergency department. She is receiving another bolus currently. For now saline at 100 cc an hour Initiate norepinephrine as needed Evaluation with noninvasive monitoring to determine if she is fluid responsive IV antibiotics currently of vancomycin and Primaxin. She is penicillin allergic. Cultures have been drawn. Urine culture has been ordered. Today she has markedly improved. No longer hypotensive. Not on norepinephrine. Blood culture growing gram-negative mena. Currently on vancomycin and Primaxin. Awaiting identification. When available discontinue vancomycin. Status: Acute (2) Hyperglycemic hyperosmolar nonketotic coma: Resolved. Discontinue insulin drip Long-acting insulin Sliding scale Status: Acute (3) Urinary tract infection: Urine culture pending Continue Primaxin Status: Acute (4) Non-ST elevation myocardial infarction (NSTEMI): Full dose anticoagulation Continue aspirin and Plavix. Change aspirin to lower dose Resume beta-stefania at this time. Appreciate cardiology consultation Echocardiogram checked, EF preserved. 3/4 diastolic dysfunction When sepsis has resolved completely consider angiogram Initiate statin. CK was normal Repeat blood cultures tomorrow Status: Acute (5) Coronary artery disease: See notations above Status: Acute (6) Hypokalemia: Supplement Status: Acute (7) Hypomagnesemia: Resolved after supplementation Status: Acute (8) Liver cirrhosis: Ammonia level not elevated Status: Acute Qualifiers: Hepatic cirrhosis type: unspecified hepatic cirrhosis Ascites presence: without ascites Qualified Code(s): K74.60 - Unspecified cirrhosis of liver Additional A&P Information Acute kidney injury. With hydration renal function has returned to normal. Full code Lovenox will suffice for DVT prophylaxis Attestations Medical Necessity Statement*: Needs continued hospitalization for IV antibiotics secondary to sepsis and bacteremia. 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
[2021-07-07] MEDS: enoxaparin 100 mg/mL Syringe 90 MG SUBCUT ×2 (10:55→22:33)
[2021-07-07] MEDS: vancomycin 1,500 MG/300 ML PIGGYBACK 150 MG IV (10:56)
--- NOTE | 2021-07-07 11:28 | PC.CHAP ---
Pastoral Care Encounter/Spiritual Assessment Type of Contact [] Declined senior billing consultant visit [] Patient/Family/Request visit [] Outpatient visit [] Follow-up visit [] Physician referral [] Code/Alert [x] Routine visit [] Staff referral [] Actively dying [] Patient sleeping [] Family support [] [] Out of room [] Palliative care [] [] Receiving care in room [] Pre-surgical visit [] Trauma [] Long length of stay [x] ICU visit Relational/Emotional Strength [] Patient feels connected with others/family/visitors/staff [] Distress [] Loneliness/isolation [] Abandonment Spirituality of Patient [] Person of Cielo [] Attends Roman Catholic of their [place]o [] Believes in Prayer [] Reads Bible or Shinto materials [] There are Spiritual issues to be addressed Video Editor Interventions [x] Prayer [x] Active listening [x] Non-anxious presence [x] Spiritual/emotional support [] Crisis/trauma care [] Spiritual counseling [] Bereavement support [] Provided bereavement packet [] Provided Bible/devotional materials [] Provided toy/stuffed animal, coloring book to patient or family member [] Provided Communion [] Anointing/[place] [] Salvation [x] Completed spiritual assessment [] Other: Impact on Illness or Injury [] Angry [] Fearful [] Anxious [] Often cries [] Exhaustion [] Unable to work [] Unable to attend oriental orthodox [] Unable to walk/stand [] Unable to read [] Unable to drive [] Unable to eat/drink [] Unable to sleep [] Unable to be with family [] Patient intubated [] Other: Summary patient setting in charge... didnt care for breakfast much.. praying for healing Time spent with patient 5 mn
--- NOTE | 2021-07-07 11:53 | PC.NURSE ---
transferred to [facility] per w/c with at bedside.
[2021-07-07 15:48] LABS: Osmolality Serum 303 mOsm/kg (278-305)
--- NOTE | 2021-07-07 16:29 | PM.PN ---
Subjective Subjective: Interval history: Patient has been transferred out of ICU. Feeling better. Still confused but better than yesterday. Denies chest pain Vitals/I&O/Wt Last Vital Signs Temp 97.4 F L 07/07/21 16:14 Pulse 67 07/07/21 16:14 Resp 18 07/07/21 16:14 BP 125/79 07/07/21 16:14 Pulse Ox 88 L 07/07/21 16:14 07/07/21 07/07/21 07/07/21 06:59 14:59 22:59 Intake Total 1682.842 / 5201.810 400 / 400 Output Total 500 / 2250 Balance 1182.842 / 2951.810 400 / 400 Weight last 48 hrs Weight 193 lb 6.4 oz Weight 204 lb 4.8 oz Weight 240 lb Physical Exam Narrative: EXAM NARRATIVE: General: Confused Neck:No lymphadenopathy Cardiovascular: Regular rate and rhythm, grade 2/6 systolic murmur Lungs: clear to auscultation bilaterally Abdomen: Soft exam is deferred Extremities: Has palpable pulses Urinary Catheter Management^: Sadler: Cath Placed During This Visit: yes Reason for Continuing Indwelling Catheter: Accurate Measurement of Urinary Output in Critically Ill Patients Urinary Catheter Date of Insertion: 07/06/21 Data : 07/07/21 04:20 07/07/21 04:20 Micro: Microbiology 07/06/21 03:50 Blood Culture - Preliminary Blood Gram Negative Rods 07/06/21 03:40 Blood Culture - Preliminary Blood Gram Negative Rods 07/06/21 05:15 Urine Culture - Preliminary Urine,Clean Catch Gram Negative Rods A&P Assessment and plan (1) Non-ST elevation myocardial infarction (NSTEMI): Status: Acute (2) Sepsis associated hypotension: Status: Acute (3) Hypokalemia: Status: Acute (4) Diabetes mellitus, type II: Status: Acute Qualifiers: Diabetes mellitus ad terminal makeup operator insulin use: with skilled nursing use Diabetes mellitus complication status: without complication Qualified Code(s): E11.9 - Type 2 diabetes mellitus without complications; Z79.4 - jail (current) use of insulin (5) Essential hypertension: Status: Acute Patient presented with sepsis and UTI. Troponin elevation is significant, can be secondary to demand ischemia but likelihood of significant underlying CAD is high. Continue medical managment of NSTEMI with aspirin, plavix and Lovenox ECHO showed normal LV systolic function with grade 3 diastolic dysfunction Patient will need discussion regarding angiogram once is no longer confused. Will also discuss with family Thank you for involving us with care of this patient. We will continue to follow. Please call with questions. Attestations Medical Necessity Statement*: Care expected to cross 2 midnights. 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
[2021-07-07 17:47] LABS: Glucose Point of Care 431 mg/dL (70-110)
--- NOTE | 2021-07-07 19:46 | PC.NURSE ---
07-06-21 0520 Verbal order for hernandez insertion by Dr. Sommers. 16 fr hernandez placed using sterile technique. Pt tolerated well. Secured to leg by stat lock.
[2021-07-07] MEDS: insulin glargine 100 units/1 mL 20 UNIT SUBCUT (22:12)
[2021-07-07 22:26] LABS: Glucose Point of Care 398 mg/dL (70-110)
[2021-07-08] VITALS (9 sets, daily range): BP systolic 127–152; BP diastolic 71–84; PULSE 67–79; RESP 16–20; TEMP 36.4–37.4; O2SAT 92–94
[2021-07-08 06:38] LABS: Glucose Point of Care 336 mg/dL (70-110)
[2021-07-08 07:14] LABS: Basophils # 0.1 10^3/uL (0.0-0.1); Basophils % 0.7 %; Eosinophils # 0.2 10^3/uL (0.0-0.8); Eosinophils % 2.7 %; Hematocrit 36.2 % (37.0-47.0); Hemoglobin 11.7 g/dL (11.5-15.3); Lymphocytes # 0.8 10^3/uL (0.8-4.8); Lymphocytes % 11.2 %; Mean Corpuscular HGB Conc 32.3 g/dL (30.0-36.0); Mean Corpuscular Hemoglobin 27.1 pg (28.0-34.0); Mean Corpuscular Volume 83.8 fl (81-99); Mean Platelet Volume 11.4 fL (7.4-10.4); Monocytes # 0.5 10^3/uL (0.2-0.9); Neutrophils # 5.68 10^3/uL (1.8-7.7); Neutrophils % 77.4 %; Nucleated Red Blood Cells % 0 %; Platelet Count 156 10^3/cmm (130-400); Red Blood Count 4.32 10^6/uL (4.1-5.3); Red Cell Distribution Width 15.7 % (12.1-15.1); White Blood Count 7.3 10^3/uL (4.0-10.0)
[2021-07-08] MEDS: levothyroxine 150 mcg Tablet PO (07:33)
[2021-07-08] MEDS: sertraline 50 mg Tablet PO (07:33)
[2021-07-08] MEDS: aspirin 81 mg EC Tablet PO (07:33)
[2021-07-08] MEDS: clopidogrel 75 mg Tablet PO (07:34)
[2021-07-08] MEDS: insulin lispro 100 unit/1 mL SUBCUT ×4 (07:34→21:44)
[2021-07-08] MEDS: atorvastatin 40 mg Tablet 20 MG PO (07:34)
[2021-07-08] MEDS: carvedilol 6.25 mg Tablet PO ×2 (07:34→17:26)
[2021-07-08] MEDS: pantoprazole DR 40 mg Tablet PO (07:34)
[2021-07-08 07:36] LABS: Alanine Aminotransferase 11 U/L (0-33); Albumin Level 2.7 g/dL (3.5-5.2); Alkaline Phosphatase 163 IU/L (35-105); Aspartate Amino Transferase 25 U/L (0-32); Blood Urea Nitrogen 26 mg/dL (8-23); Calcium 8.3 mg/dL (8.5-10.5); Carbon Dioxide 21 mmol/L (22-29); Chloride 94 mmol/L (98-107); Globulin 3.6 g/dL (1.3-4.6); Glomerular Filtration Rate 62.6 mL/min (90-130); Glucose 316 mg/dL (65-115); Osmolality Calculated 287 mOsm/kg (285-295); Sodium 130 mmol/L (136-145); Total Bilirubin 1.5 mg/dL (0.15-1.2); Total Protein 6.3 g/dL (6.6-8.7)
--- NOTE | 2021-07-08 08:23 | P.PN_ITS ---
Subjective Subjective: Interval history: Patient appears confused. Denies chest pain Vitals/I&O/Wt Last Vital Signs Temp 99.3 F 07/08/21 07:40 Pulse 78 07/08/21 07:40 Resp 20 H 07/08/21 07:40 BP 152/84 07/08/21 07:40 Pulse Ox 93 07/08/21 07:40 07/07/21 07/08/21 07/08/21 22:59 06:59 14:59 Intake Total 100 / 500 100 / 600 1000 / 1000 Output Total 1000 / 1000 Balance 100 / 500 -900 / -400 1000 / 1000 Weight last 48 hrs Weight 211 lb 11.2 oz Weight 193 lb 6.4 oz Weight 204 lb 4.8 oz Physical Exam Narrative: EXAM NARRATIVE: General: Confused Neck:No lymphadenopathy Cardiovascular: Regular rate and rhythm, grade 2/6 systolic murmur Lungs: clear to auscultation bilaterally Abdomen: Soft exam is deferred Extremities: Has palpable pulses Urinary Catheter Management^: Sadler: Cath Placed During This Visit: yes Reason for Continuing Indwelling Catheter: Accurate Measurement of Urinary Output in Critically Ill Patients Urinary Catheter Date of Insertion: 07/06/21 Data : 07/10/21 04:42 07/10/21 04:42 Micro: Microbiology 07/06/21 03:50 Blood Culture - Preliminary Blood Escherichia coli 07/06/21 03:40 Blood Culture - Preliminary Blood Escherichia coli 07/08/21 06:38 Blood Culture - Preliminary Blood SPECIMEN COLLECTED 07/08/21 05:52 Blood Culture - Preliminary Blood SPECIMEN COLLECTED 07/06/21 05:15 Urine Culture - Preliminary Urine,Clean Catch Gram Negative Rods A&P Assessment and plan (1) Non-ST elevation myocardial infarction (NSTEMI): Status: Acute (2) Sepsis associated hypotension: Status: Acute (3) Hypokalemia: Status: Acute (4) Diabetes mellitus, type II: Status: Acute Qualifiers: Diabetes mellitus moth exterminator insulin use: with moth exterminator use Diabetes mellitus complication status: without complication Qualified Code(s): E11.9 - Type 2 diabetes mellitus without complications; Z79.4 - care home (current) use of insulin (5) Essential hypertension: Status: Acute Patient presented with sepsis and UTI. Troponin elevation is significant, can be secondary to demand ischemia but likelihood of significant underlying CAD is high. Continue medical managment of NSTEMI with aspirin, plavix and Lovenox ECHO showed normal LV systolic function with grade 3 diastolic dysfunction Today appears to be more confused than before. Will discuss with patient adnd family the need for ischemic evaluation once other medical issues improve and mentation is at baseline Thank you for involving us with care of this patient. We will continue to follow. Please call with questions. Attestations Medical Necessity Statement*: Care expected to cross 2 midnights. 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
[2021-07-08] MEDS: ondansetron 2 mg/ML SDV 2 mL 4 MG IVP (09:33)
[2021-07-08] MEDS: enoxaparin 100 mg/mL Syringe 90 MG SUBCUT ×2 (10:41→23:50)
[2021-07-08 11:44] LABS: Glucose Point of Care 297 mg/dL (70-110)
--- NOTE | 2021-07-08 12:17 | P.PN_ITS ---
Subjective Subjective: Interval history: Seen and examined this morning. She is still confused. present at bedside and states that there is a questionable diagnosis of cirhossis and patient has been somewhat confused in a waxing waning situation since 1 month. Now with added sepsis, its worse. He is not aware of the patient ever being on lactulose. Patient did not know where she was and kept repeating the same sentence over and over again. Vitals/I&O/Wt Last Vital Signs Temp 98 F 07/08/21 11:46 Pulse 75 07/08/21 11:46 Resp 18 07/08/21 11:46 BP 138/77 07/08/21 11:46 Pulse Ox 93 07/08/21 11:46 07/07/21 07/08/21 07/08/21 22:59 06:59 14:59 Intake Total 100 / 500 100 / 600 1220 / 1220 Output Total 1000 / 1000 Balance 100 / 500 -900 / -400 1220 / 1220 Weight last 48 hrs Weight 96.026 kg Weight 87.725 kg Weight 92.669 kg Physical Exam Narrative: EXAM NARRATIVE: General: Alert but not oriented. HEENT: Normocephalic, atraumatic, EOMI, breathing room air Cardio: Regular rate rhythm, normal S1-S2, no murmurs rubs gallops Respiratory: Good bilateral air entry, no wheezes no rhonchi appreciated GI: Abdomen soft, nontender, nondistended, bowel sounds + Behavior: Confused Extremities: no edema, no cyanosis Urinary Catheter Management^: Sadler: Cath Placed During This Visit: yes Reason for Continuing Indwelling Catheter: Accurate Measurement of Urinary Output in Critically Ill Patients Urinary Catheter Date of Insertion: 07/06/21 Data : 07/08/21 05:52 07/08/21 05:52 Micro: Microbiology 07/06/21 05:15 Urine Culture - Final Urine,Clean Catch Escherichia coli 07/06/21 03:50 Blood Culture - Preliminary Blood Escherichia coli 07/06/21 03:40 Blood Culture - Preliminary Blood Escherichia coli 07/08/21 06:38 Blood Culture - Preliminary Blood SPECIMEN COLLECTED 07/08/21 05:52 Blood Culture - Preliminary Blood SPECIMEN COLLECTED A&P Assessment and plan (1) Essential hypertension: Status: Acute (2) Hyperglycemic hyperosmolar nonketotic coma: Status: Acute (3) Non-ST elevation myocardial infarction (NSTEMI): Status: Acute (4) Coronary artery disease: Status: Acute (5) Liver cirrhosis: Status: Acute Qualifiers: Hepatic cirrhosis type: unspecified hepatic cirrhosis Ascites presence: without ascites Qualified Code(s): K74.60 - Unspecified cirrhosis of liver (6) Sepsis associated hypotension: Status: Acute (7) Urinary tract infection: Status: Acute Additional A&P Information #Sepsis secondary to gram negative bacteremia with E.coli secondary to urinary source/UTI #Questionable Liver Cirhosis #Hx of CAD. NSTEMI this admission #Hyperglycemic hyperosmolar nonketotic coma #Altered mental status - Shock resolved - Off insulin drip, Hyperglyemic coma resolved - Continue patient on primaxin for now - Unsure of her altered mental status. Possibly secondary to underlying cirhosis and sepsis as an additive effect. Will order ammonia. Will check liver ultrasound. - Cardiology following. Patient needs ischemic eval with angiogram prior to discharge. - Will neurologic evaluation after discussion with Dr. Valentino. Will check b12, folate, ammonia, TSH. does state this is sort of her new baseline since 1 month. F: None indicated at this time E: Replete as needed N: Cardiac diet A: As tolerated DVT PPX: Lovenox Attestations Medical Necessity Statement*: Requires inpatient stay for next 48-72 hours for investigation of altered mental status. Will also need angio prior to DC Time Spent in Patient Care: 16 - 35 minutes (>than 50% of time spent in counselling and/or direct pt care on unit) . Coding Level of Care Code Acute Demolition Specialist for [facility] Fwd Diagnoses Essential hypertension I10 Hyperglycemic hyperosmolar nonketotic coma E11.01 Non-ST elevation myocardial infarction (NSTEMI) I21.4 Coronary artery disease I25.10 Liver cirrhosis K74.60 Hepatic cirrhosis type: unspecified hepatic cirrhosis Ascites presence: without ascites Sepsis associated hypotension A41.9; I95.9 Urinary tract infection N39.0
[2021-07-08] MEDS: lanolin oint 7 gm 1 APPLIC TOPICAL (12:23)
[2021-07-08] MEDS: oxyCODONE 5 mg IR Tab/Cap PO (15:15)
[2021-07-08 17:18] LABS: Glucose Point of Care 259 mg/dL (70-110)
[2021-07-08 21:26] LABS: Glucose Point of Care 248 mg/dL (70-110)
[2021-07-08] MEDS: insulin glargine 100 units/1 mL 20 UNIT SUBCUT (21:44)
[2021-07-09] VITALS (8 sets, daily range): BP systolic 107–144; BP diastolic 67–90; PULSE 59–75; RESP 18–20; TEMP 36.4–37.8; O2SAT 92–94
[2021-07-09 06:36] LABS: Glucose Point of Care 251 mg/dL (70-110)
[2021-07-09 06:43] LABS: Basophils # 0.1 10^3/uL (0.0-0.1); Basophils % 0.8 %; Eosinophils # 0.2 10^3/uL (0.0-0.8); Eosinophils % 3.2 %; Hemoglobin 10.8 g/dL (11.5-15.3); Lymphocytes # 1.4 10^3/uL (0.8-4.8); Lymphocytes % 22.2 %; Mean Corpuscular HGB Conc 31.8 g/dL (30.0-36.0); Mean Corpuscular Hemoglobin 26.6 pg (28.0-34.0); Mean Corpuscular Volume 83.7 fl (81-99); Monocytes # 0.6 10^3/uL (0.2-0.9); Monocytes % 9.9 %; Neutrophils % 63.4 %; Nucleated Red Blood Cells % 0 %; Platelet Count 176 10^3/cmm (130-400); Red Blood Count 4.06 10^6/uL (4.1-5.3); Red Cell Distribution Width 15.7 % (12.1-15.1); White Blood Count 6.2 10^3/uL (4.0-10.0)
[2021-07-09 07:05] LABS: Ammonia 46 umol/L (11-51)
[2021-07-09 07:10] LABS: Anion Gap 16.6 (5-19); Blood Urea Nitrogen 18 mg/dL (8-23); Calcium 8.2 mg/dL (8.5-10.5); Carbon Dioxide 23 mmol/L (22-29); Chloride 96 mmol/L (98-107); Glomerular Filtration Rate 83.7 mL/min (90-130); Glucose 234 mg/dL (65-115); Osmolality Calculated 283 mOsm/kg (285-295); Potassium 3.6 mmol/L (3.5-5.1); Sodium 132 mmol/L (136-145)
[2021-07-09] MEDS: insulin lispro 100 unit/1 mL SUBCUT ×4 (07:54→20:54)
[2021-07-09] MEDS: pantoprazole DR 40 mg Tablet PO (08:00)
[2021-07-09] MEDS: atorvastatin 40 mg Tablet 20 MG PO (08:00)
[2021-07-09] MEDS: carvedilol 6.25 mg Tablet PO ×2 (08:01→18:10)
[2021-07-09] MEDS: levothyroxine 150 mcg Tablet PO (08:01)
[2021-07-09] MEDS: clopidogrel 75 mg Tablet PO (08:01)
[2021-07-09] MEDS: sertraline 50 mg Tablet PO (08:01)
[2021-07-09] MEDS: aspirin 81 mg EC Tablet PO (08:01)
[2021-07-09 08:22] LABS: Vitamin B12 358 pg/mL (232-1245)
--- NOTE | 2021-07-09 08:29 | PM.PN ---
Subjective Subjective: Interval history: Seen and examined this morning. Patient still appears to be slightly confused but at least can tell me today that she is in the hospital. says she has a waxing waning picture with confusion. B12 was slightly on the lower side so she was ordered subcu today. Medications: Reviewed: Yes Vitals/I&O/Wt Last Vital Signs Temp 98.4 F 07/09/21 07:35 Pulse 64 07/09/21 07:35 Resp 18 07/09/21 07:35 BP 144/85 07/09/21 07:35 Pulse Ox 93 07/09/21 07:35 07/08/21 07/09/21 07/09/21 22:59 06:59 14:59 Intake Total 640 / 1860 Output Total 800 / 800 400 / 1200 Balance -160 / 1060 -400 / 660 Weight last 48 hrs Weight 94.483 kg Weight 96.026 kg Physical Exam Narrative: EXAM NARRATIVE: General: Alert and oriented x2. HEENT: Normocephalic, atraumatic, EOMI, breathing room air Cardio: Regular rate rhythm, normal S1-S2, no murmurs rubs gallops Respiratory: Good bilateral air entry, no wheezes no rhonchi appreciated GI: Abdomen soft, nontender, nondistended, bowel sounds + Behavior: Confused Extremities: no edema, no cyanosis Urinary Catheter Management^: Sadler: Cath Placed During This Visit: yes Reason for Continuing Indwelling Catheter: Accurate Measurement of Urinary Output in Critically Ill Patients Urinary Catheter Date of Insertion: 07/06/21 Data : 07/09/21 06:27 07/09/21 06:27 Micro: Microbiology 07/08/21 06:38 Blood Culture - Preliminary Blood NEGATIVE TO DATE 07/08/21 05:52 Blood Culture - Preliminary Blood NEGATIVE TO DATE 07/06/21 05:15 Urine Culture - Final Urine,Clean Catch Escherichia coli 07/06/21 03:50 Blood Culture - Preliminary Blood Escherichia coli 07/06/21 03:40 Blood Culture - Preliminary Blood Escherichia coli A&P Assessment and plan (1) Essential hypertension: Status: Acute (2) Hyperglycemic hyperosmolar nonketotic coma: Status: Acute (3) Non-ST elevation myocardial infarction (NSTEMI): Status: Acute (4) Coronary artery disease: Status: Acute (5) Liver cirrhosis: Status: Acute Qualifiers: Hepatic cirrhosis type: unspecified hepatic cirrhosis Ascites presence: without ascites Qualified Code(s): K74.60 - Unspecified cirrhosis of liver (6) Sepsis associated hypotension: Status: Acute (7) Urinary tract infection: Status: Acute Additional A&P Information #Sepsis secondary to gram negative bacteremia with E.coli secondary to urinary source/UTI #Questionable Liver Cirhosis #Hx of CAD. NSTEMI this admission #Hyperglycemic hyperosmolar nonketotic coma #Altered mental status - Shock resolved - Off insulin drip, Hyperglyemic coma resolved - Continue patient on primaxin for now - Unsure of her altered mental status. Possibly secondary to underlying cirhosis and sepsis as an additive effect. Ammonia negative. CT abdomen record reviewed. There is possibility of cirrhosis. Hepatitis panel ordered today. - Cardiology following. Patient needs ischemic eval with angiogram prior to discharge. - Will neurologic evaluation at discharge. I discussed the case with Dr. Valentino over the phone. Will order lumbar puncture inpatient into CSF studies. As an outpatient when patient gets discharged she will need MRI brain without contrast and an outpatient EEG. She will then follow-up with Dr. Valentino as an outpatient in her clinic. #Diabetes mellitus -Sliding scale insulin at this time. F: None indicated at this time E: Replete as needed N: Cardiac diet A: As tolerated DVT PPX: Lovenox Attestations Medical Necessity Statement*: Continue IV antibiotics. Needs angio prior to discharge. Anticipate greater than 48-hour stay at this point. 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
--- NOTE | 2021-07-09 09:36 | PC.SOCIAL ---
IMM UPdate Page 2 of [facility] updated and reviewed. Initialed, timed and dated. Copy left in pts chart.
[2021-07-09] MEDS: cyanocobalamin 1,000 mcg/mL SDV 1000 MCG IM (09:45)
[2021-07-09] MEDS: enoxaparin 100 mg/mL Syringe 90 MG SUBCUT ×2 (10:17→23:05)
[2021-07-09] MEDS: acetaminophen 325 mg Tablet 650 MG PO ×2 (10:18→18:13)
[2021-07-09 12:08] LABS: Glucose Point of Care 228 mg/dL (70-110)
[2021-07-09 13:12] LABS: Hepatitis A Antibody IgM Non-Reactive (Nonreactive); Hepatitis B Core AB, Total Non-Reactive (Nonreactive); Hepatitis B Surface AB 3.5 (11.5-1000); Hepatitis B Surface Antigen Non-Reactive (Nonreactive); Hepatitis C Virus Antibody Non-Reactive (Nonreactive)
[2021-07-09 17:42] LABS: Glucose Point of Care 242 mg/dL (70-110)
--- NOTE | 2021-07-09 20:32 | P.PN_ITS ---
Subjective Subjective: Interval history: Appears less confused Vitals/I&O/Wt Last Vital Signs Temp 98.3 F 07/09/21 16:00 Pulse 75 07/09/21 16:00 Resp 18 07/09/21 16:00 BP 110/67 07/09/21 16:00 Pulse Ox 94 07/09/21 16:00 07/09/21 07/09/21 07/09/21 06:59 14:59 22:59 Intake Total 100 / 1960 220 / 220 100 / 320 Output Total 400 / 1200 650 / 650 Balance -300 / 760 220 / 220 -550 / -330 Weight last 48 hrs Weight 208 lb 4.8 oz Weight 211 lb 11.2 oz Physical Exam Narrative: EXAM NARRATIVE: General: Confused Neck:No lymphadenopathy Cardiovascular: Regular rate and rhythm, grade 2/6 systolic murmur Lungs: clear to auscultation bilaterally Abdomen: Soft exam is deferred Extremities: Has palpable pulses Urinary Catheter Management^: Sadler: Cath Placed During This Visit: yes Reason for Continuing Indwelling Catheter: Accurate Measurement of Urinary Output in Critically Ill Patients Urinary Catheter Date of Insertion: 07/06/21 Data : 07/10/21 04:42 07/10/21 04:42 Micro: Microbiology 07/08/21 06:38 Blood Culture - Preliminary Blood NEGATIVE TO DATE 07/08/21 05:52 Blood Culture - Preliminary Blood NEGATIVE TO DATE A&P Assessment and plan (1) Non-ST elevation myocardial infarction (NSTEMI): Status: Acute (2) Sepsis associated hypotension: Status: Acute (3) Hypokalemia: Status: Acute (4) Diabetes mellitus, type II: Status: Acute Qualifiers: 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 Troponin elevation is significant, can be secondary to demand ischemia but likelihood of significant underlying CAD is high. Continue medical managment of NSTEMI with aspirin, plavix. On Lovenox ECHO showed normal LV systolic function with grade 3 diastolic dysfunction Today appears to be less confused than before. However still does not understand the complete discussion. Will have discussion with patient and family regarding ischemic workup Thank you for involving us with care of this patient. We will continue to follow. Please call with questions. Attestations Medical Necessity Statement*: Care expected to cross 2 midnights. Coding Level of Care Code Acute Traffic I Manager for [employer] Diagnoses Non-ST elevation myocardial infarction (NSTEMI) I21.4 Sepsis associated hypotension A41.9; I95.9 Hypokalemia E87.6 Diabetes mellitus, type II E11.9; Z79.4 Diabetes mellitus [facility] insulin use: with vermin exterminator use Diabetes mellitus complication status: without complication Essential hypertension I10
[2021-07-09 20:36] LABS: Glucose Point of Care 221 mg/dL (70-110)
[2021-07-09] MEDS: insulin glargine 100 units/1 mL 20 UNIT SUBCUT (20:54)
[2021-07-10] VITALS (7 sets, daily range): BP systolic 118–160; BP diastolic 74–84; PULSE 64–82; RESP 18–22; TEMP 36.7–36.9; O2SAT 94–96
[2021-07-10] MEDS: oxyCODONE 5 mg IR Tab/Cap PO (04:45)
[2021-07-10 05:06] LABS: Basophils # 0.1 10^3/uL (0.0-0.1); Basophils % 0.8 %; Eosinophils # 0.3 10^3/uL (0.0-0.8); Eosinophils % 3.8 %; Hematocrit 36.9 % (37.0-47.0); Hemoglobin 11.3 g/dL (11.5-15.3); Lymphocytes # 1.6 10^3/uL (0.8-4.8); Lymphocytes % 24.4 %; Mean Corpuscular HGB Conc 30.6 g/dL (30.0-36.0); Mean Corpuscular Hemoglobin 26.7 pg (28.0-34.0); Mean Corpuscular Volume 87.2 fl (81-99); Mean Platelet Volume 10.6 fL (7.4-10.4); Monocytes # 0.6 10^3/uL (0.2-0.9); Monocytes % 8.8 %; Neutrophils # 4.05 10^3/uL (1.8-7.7); Neutrophils % 61.4 %; Nucleated Red Blood Cells % 0 %; Platelet Count 177 10^3/cmm (130-400); Red Blood Count 4.23 10^6/uL (4.1-5.3); Red Cell Distribution Width 15.8 % (12.1-15.1); White Blood Count 6.6 10^3/uL (4.0-10.0)
[2021-07-10 05:41] LABS: Anion Gap 15.5 (5-19); Blood Urea Nitrogen 15 mg/dL (8-23); Calcium 8.6 mg/dL (8.5-10.5); Carbon Dioxide 24 mmol/L (22-29); Chloride 99 mmol/L (98-107); Glomerular Filtration Rate 83.7 mL/min (90-130); Glucose 187 mg/dL (65-115); Osmolality Calculated 286 mOsm/kg (285-295); Potassium 3.5 mmol/L (3.5-5.1); Sodium 135 mmol/L (136-145)
[2021-07-10 07:01] LABS: Glucose Point of Care 209 mg/dL (70-110)
[2021-07-10] MEDS: insulin lispro 100 unit/1 mL SUBCUT ×4 (07:52→20:43)
--- NOTE | 2021-07-10 08:17 | PM.PN ---
Subjective Subjective: Interval history: Patient is doing well. No complaints of chest pain. Her confusion has resolved. She agreed to undergo left heart cath. Vitals/I&O/Wt Last Vital Signs Temp 98.1 F 07/10/21 04:00 Pulse 64 07/10/21 05:42 Resp 18 07/10/21 04:45 BP 160/82 07/10/21 04:00 Pulse Ox 95 07/10/21 04:00 07/09/21 07/10/21 07/10/21 22:59 06:59 14:59 Intake Total 100 / 320 200 / 520 Output Total 650 / 650 450 / 1100 Balance -550 / -330 -250 / -580 Weight last 48 hrs Weight 207 lb 1.6 oz Weight 208 lb 4.8 oz Physical Exam Narrative: EXAM NARRATIVE: General: Confused Neck:No lymphadenopathy Cardiovascular: Regular rate and rhythm, grade 2/6 systolic murmur Lungs: clear to auscultation bilaterally Abdomen: Soft exam is deferred Extremities: Has palpable pulses Urinary Catheter Management^: Sadler: Cath Placed During This Visit: yes Reason for Continuing Indwelling Catheter: Acute Urinary Retention or Obstruction Urinary Catheter Date of Insertion: 07/06/21 Data : 07/11/21 05:11 07/12/21 04:20 Micro: Microbiology 07/08/21 06:38 Blood Culture - Preliminary Blood NEGATIVE TO DATE 07/08/21 05:52 Blood Culture - Preliminary Blood NEGATIVE TO DATE A&P Assessment and plan (1) Non-ST elevation myocardial infarction (NSTEMI): Status: Acute (2) Sepsis associated hypotension: Status: Acute (3) Hypokalemia: Status: Acute (4) Diabetes mellitus, type II: Status: Acute Qualifiers: Diabetes mellitus snf insulin use: with snf use Diabetes mellitus complication status: without complication Qualified Code(s): E11.9 - Type 2 diabetes mellitus without complications; 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 Troponin elevation is significant, can be secondary to demand ischemia but likelihood of significant underlying CAD is high. Continue medical managment of NSTEMI with aspirin, plavix. On Lovenox. Had a detailed discussion with the patient and her regarding the need of ischemic work-up with angiogram given elevated troponin levels. After discussion they have agreed to it. We will perform angiogram tomorrow. ECHO showed normal LV systolic function with grade 3 diastolic dysfunction Her confusion has improved significantly today. Thank you for involving us with care of this patient. We will continue to follow. Please call with questions. Attestations Medical Necessity Statement*: Care expected to cross 2 midnights. 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
[2021-07-10] MEDS: atorvastatin 40 mg Tablet 20 MG PO (08:18)
[2021-07-10] MEDS: cyanocobalamin 1,000 mcg/mL SDV 1000 MCG IM (08:20)
[2021-07-10] MEDS: pantoprazole DR 40 mg Tablet PO (08:20)
[2021-07-10] MEDS: sertraline 50 mg Tablet PO (08:20)
[2021-07-10] MEDS: carvedilol 6.25 mg Tablet PO ×2 (08:20→17:41)
[2021-07-10] MEDS: levothyroxine 150 mcg Tablet PO (08:20)
[2021-07-10] MEDS: clopidogrel 75 mg Tablet PO (10:58)
[2021-07-10] MEDS: enoxaparin 100 mg/mL Syringe 90 MG SUBCUT (10:58)
[2021-07-10] MEDS: aspirin 81 mg EC Tablet PO (10:58)
[2021-07-10 12:02] LABS: Glucose Point of Care 216 mg/dL (70-110)
--- NOTE | 2021-07-10 12:05 | P.PN_ITS ---
Subjective Subjective: Interval history: This morning patient was awake and alert oriented to time place and person, This patient was evaluated by myself last month when she came in with altered me ntal status, she was diagnosed with grade 1 hepatic encephalopathy She could not afford rifaximin, was discharged on lactulose at home compliance with medication is questionable Lumbar puncture has been canceled, patient is stating that she would like to go for an angiogram later but not during this visit, will follow up with cardiology Hemoglobin A1c around 11.8, normal TSH Alpha-fetoprotein level normal, B12 low normal, autoimmune work-up unremarkable hepatitis surface antibodies positive, 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 Vitals/I&O/Wt Last Vital Signs Temp 98.3 F 07/10/21 08:00 Pulse 65 07/10/21 08:00 Resp 18 07/10/21 08:00 BP 143/78 07/10/21 08:00 Pulse Ox 94 07/10/21 08:00 07/09/21 07/10/21 07/10/21 22:59 06:59 14:59 Intake Total 100 / 320 200 / 520 Output Total 650 / 650 450 / 1100 Balance -550 / -330 -250 / -580 Weight last 48 hrs Weight 93.939 kg Weight 94.483 kg Physical Exam Narrative: EXAM NARRATIVE: Patient was awake and alert this morning No neurological deficit No asterixis GCS 15 No focal deficit EOMI, PERRLA Answering my questions appropriately S1, S2 Abdomen soft with ascites Hepatosplenomegaly Lower extremity trace edema EOMI, PERRLA No signs of meningitis or recurrent colitis Breathing well on room air Urinary Catheter Management^: Sadler: Cath Placed During This Visit: yes, but has since been removed by the nurse Reason for Continuing Indwelling Catheter: Acute Urinary Retention or Obstruction Urinary Catheter Date of Insertion: 07/06/21 Date Urinary Catheter Removed: 07/10/21 Time Urinary Catheter Discontinued: 11:00 Data : 07/10/21 04:42 07/10/21 04:42 Micro: Microbiology 07/08/21 06:38 Blood Culture - Preliminary Blood NEGATIVE TO DATE 07/08/21 05:52 Blood Culture - Preliminary Blood NEGATIVE TO DATE A&P Assessment and plan (1) Hepatic encephalopathy: Status: Acute (2) Non-ST elevation myocardial infarction (NSTEMI): Status: Acute (3) Hyperglycemic hyperosmolar nonketotic coma: Status: Acute (4) Coronary artery disease: Status: Acute (5) Liver cirrhosis: Status: Acute Qualifiers: Hepatic cirrhosis type: unspecified hepatic cirrhosis Ascites presence: without ascites Qualified Code(s): K74.60 - Unspecified cirrhosis of liver (6) Hepatosplenomegaly: Status: Acute Additional A&P Information Altered mental status secondary to grade 1 hepatic encephalopathy Improved No signs of meningitis or encephalitis, autoimmune work-up negative Alpha-fetoprotein level unremarkable History of liver cirrhosis with hepatosplenomegaly Her ammonia level seems to be normal, I do suspect use of antidepressants and opioids to be the cause of altered mental status with underlying liver cirrhosis She did presented with similar presentation a month ago could not afford rifaximin, at home she has been taking lactulose, compliance with medications questionable, Hemoglobin A1c is around 12 No active chest pain Patient is complaining of right and left lower quadrant pain, no worsening of leukocytosis, no fever patient does show low-grade temperature 100.0 We will discontinue Primaxin, urine analysis unremarkable TSH normal, low normal B12, RPR negative, does not need CSF studies at this point Consistent carb diet, sliding scale, NSTEMI: Significant troponin leak, cardiology on board, patient does not want to go for any kind of angiogram at this point, will follow up with cardiology recommendation, she is chest pain-free Full code, remove Sadler catheter today Attestations Medical Necessity Statement*: Plan to discharge her tomorrow Time Spent in Patient Care: 16 - 35 minutes Coding Level of Care Code Acute Cash Room Clerk for [facility] Fwd Diagnoses Hepatic encephalopathy K72.90 Non-ST elevation myocardial infarction (NSTEMI) I21.4 Hyperglycemic hyperosmolar nonketotic coma E11.01 Coronary artery disease I25.10 Liver cirrhosis K74.60 Hepatic cirrhosis type: unspecified hepatic cirrhosis Ascites presence: without ascites Hepatosplenomegaly R16.2
[2021-07-10] MEDS: magnesium hydroxide 30 mL UDC PO (12:55)
[2021-07-10] MEDS: lactulose oral liq 20 gm/30 mL UDC 30 GM PO ×2 (12:55→16:23)
[2021-07-10] MEDS: acetaminophen 325 mg Tablet 650 MG PO ×2 (13:11→23:58)
[2021-07-10 13:17] LABS: Procalcitonin 11.49 ng/mL (0-0.5)
[2021-07-10] MEDS: metoclopramide 5 mg/mL SDV 2 mL 10 MG IVP (16:33)
[2021-07-10 17:21] LABS: Glucose Point of Care 317 mg/dL (70-110)
[2021-07-10 20:11] LABS: Glucose Point of Care 363 mg/dL (70-110)
[2021-07-10] MEDS: insulin glargine 100 units/1 mL 25 UNIT SUBCUT (20:46)
[2021-07-11] VITALS (34 sets, daily range): BP systolic 102–178; BP diastolic 62–90; PULSE 52–98; RESP 14–28; TEMP 36.3–37.2; O2SAT 91–97
[2021-07-11] MEDS: levoFLOXacin 750 mg Tablet PO (05:25)
[2021-07-11 05:58] LABS: Basophils % 0.5 %; Eosinophils # 0.3 10^3/uL (0.0-0.8); Eosinophils % 3.3 %; Hematocrit 35.7 % (37.0-47.0); Hemoglobin 11.4 g/dL (11.5-15.3); Lymphocytes % 27.1 %; Mean Corpuscular HGB Conc 31.9 g/dL (30.0-36.0); Mean Corpuscular Hemoglobin 26.6 pg (28.0-34.0); Mean Corpuscular Volume 83.2 fl (81-99); Mean Platelet Volume 10.6 fL (7.4-10.4); Monocytes # 0.5 10^3/uL (0.2-0.9); Monocytes % 7.1 %; Neutrophils # 4.51 10^3/uL (1.8-7.7); Neutrophils % 60.3 %; Nucleated Red Blood Cells % 0 %; Platelet Count 197 10^3/cmm (130-400); Red Blood Count 4.29 10^6/uL (4.1-5.3); Red Cell Distribution Width 15.5 % (12.1-15.1); White Blood Count 7.5 10^3/uL (4.0-10.0)
[2021-07-11 06:22] LABS: Anion Gap 15.4 (5-19); Blood Urea Nitrogen 11 mg/dL (8-23); C Reactive Protein 91.8 mg/L (0.0-4.9); Calcium 9.1 mg/dL (8.5-10.5); Carbon Dioxide 25 mmol/L (22-29); Chloride 98 mmol/L (98-107); Glucose 226 mg/dL (65-115); Osmolality Calculated 286 mOsm/kg (285-295); Potassium 3.4 mmol/L (3.5-5.1); Sodium 135 mmol/L (136-145)
[2021-07-11 07:07] LABS: Glucose Point of Care 266 mg/dL (70-110)
[2021-07-11] MEDS: ondansetron 2 mg/ML SDV 2 mL 4 MG IVP (08:58)
[2021-07-11] MEDS: atorvastatin 40 mg Tablet 20 MG PO (09:15)
[2021-07-11] MEDS: carvedilol 6.25 mg Tablet PO (09:15)
[2021-07-11] MEDS: sertraline 50 mg Tablet PO (09:15)
[2021-07-11] MEDS: pantoprazole DR 40 mg Tablet PO (09:15)
[2021-07-11] MEDS: cyanocobalamin 1,000 mcg/mL SDV 1000 MCG IM (09:15)
[2021-07-11] MEDS: clopidogrel 75 mg Tablet PO (09:15)
[2021-07-11] MEDS: levothyroxine 150 mcg Tablet PO (09:15)
[2021-07-11] MEDS: acetaminophen 325 mg Tablet 650 MG PO (11:20)
[2021-07-11 11:48] LABS: Glucose Point of Care 299 mg/dL (70-110)
--- NOTE | 2021-07-11 12:13 | PC.SOCIAL ---
IMM update IMM updated with patient. Copy Pg 2 provided. Verbalized an understanding. Initialled, dated, timed, and placed in chart.
--- NOTE | 2021-07-11 13:41 | P.PN_ITS ---
Subjective Subjective: Interval history: Patient was very eager to go home, her angiogram is scheduled on 430, she had breakfast this morning, she will be n.p.o. 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 check with her pharmacy and insurance rifaximin is around 300 for 30-day supply under [employer] B plan Vitals/I&O/Wt Last Vital Signs Temp 98.0 F 07/11/21 11:07 Pulse 63 07/11/21 11:07 Resp 17 07/11/21 11:07 BP 170/78 07/11/21 11:07 Pulse Ox 93 07/11/21 11:07 07/10/21 07/11/21 07/11/21 22:59 06:59 14:59 Intake Total 100 / 340 240 / 580 100 / 100 Balance 100 / 340 240 / 580 100 / 100 Weight last 48 hrs Weight 93.621 kg Weight 93.939 kg Physical Exam Narrative: EXAM NARRATIVE: Patient was resting comfortably in her bed Saturating well on room air Awake alert oriented x3 GCS 15 No active neurological deficit S1, S2 Hepatosplenomegaly Distended abdomen Lower extremity no edema No active asterixis Urinary Catheter Management^: Sadler: Cath Placed During This Visit: yes, but has since been removed by the nurse Reason for Continuing Indwelling Catheter: Acute Urinary Retention or Obs truction Urinary Catheter Date of Insertion: 07/06/21 Date Urinary Catheter Removed: 07/10/21 Time Urinary Catheter Discontinued: 11:00 Data : 07/11/21 05:11 07/11/21 05:11 Micro: Microbiology 07/06/21 03:50 Blood Culture - Final Blood Escherichia coli 07/06/21 03:40 Blood Culture - Final Blood Escherichia coli A&P Assessment and plan (1) Hepatic encephalopathy: Status: Acute (2) Hypokalemia: Status: Acute (3) Non-ST elevation myocardial infarction (NSTEMI): Status: Acute (4) Hyperglycemic hyperosmolar nonketotic coma: Status: Acute (5) Hepatosplenomegaly: Status: Acute (6) Liver cirrhosis: Status: Acute Qualifiers: Hepatic cirrhosis type: unspecified hepatic cirrhosis Ascites presence: without ascites Qualified Code(s): K74.60 - Unspecified cirrhosis of liver (7) Bacteremia: Status: Acute Additional A&P Information Encephalopathy: Related to grade 1 hepatic encephalopathy improved withUse of lactulose and rifaximin Bacteremia: Resolved blood culture -07/08, currently on p.o. Levaquin, plan to discharge on 6-week regimen NSTEMI: Finished ACS protocol, plan for angiogram today Hyperglycemia: I did increase her Lantus however she states hyperglycemia, Liver cirrhosis with hepatosplenomegaly hemoglobin stable N.p.o., resume diet after the procedure DVT prophylaxis Lovenox Hypokalemia: Repleted Attestations Medical Necessity Statement*: Anticipating discharge tomorrow Time Spent in Patient Care: less than 15 minutes Coding Level of Care Code Acute Braille And Talking Books Clerk for [facility] Fwd Diagnoses Hepatic encephalopathy K72.90 Hypokalemia E87.6 Non-ST elevation myocardial infarction (NSTEMI) I21.4 Hyperglycemic hyperosmolar nonketotic coma E11.01 Hepatosplenomegaly R16.2 Liver cirrhosis K74.60 Hepatic cirrhosis type: unspecified hepatic cirrhosis Ascites presence: without ascites Bacteremia R78.81
--- NOTE | 2021-07-11 16:13 | XACV_ITS ---
Exam Room: [facility] Ht: 160 cm Wt: 93 kg BSA: 2.08 m2 Gender: Female : 1955 Any Known Allergies: Other Exam Priority: Routine Procedure(s): Procedure Description: Diagnostic procedure Procedure Description: Left Heart Catheterization Procedure Description: Coronary angiogram Diagnostic Cath Status: Elective Diagnostic Findings * Left main artery: Patent. LAD is mid vessel occlusion. Mid to distal vessel has occluded stents. Left circumflex artery has significant mid to distal vessel diffuse disease. RCA is a small caliber vessel but is patent. PDA is occluded. SVG to PDA is patent. ESPINOZA to LAD is patent. OM likely was not grafted.. * Coronary angiography shows right dominance. Conclusions 1. Severe multivessel [place] coronary artery disease. 2. Patent ESPINOZA to LAD and patent SVG to PDA. 3. Left circumflex artery is not grafted but has diffuse disease from mid to distal vessel. 4. Patient has prior CABG. Recommendations * Aggressive risk factor modification. * Continue aspirin and statin therapy. * Outpatient cardiology follow up in 4 weeks. Interventional RX Recommendation: medical therapy and/or counseling Diagnostic RX Recommendation: medical therapy and/or counseling Pressures Phase:Rest AO : 143 / 37 ( 74 ) @ 4:10:00 PM LV : 138 / -3 / 21 @ 4:09:00 PM 136 / -6 / 19 @ 4:09:00 PM Clinical Evaluation EBL: 5mL-10mL Procedural Details Procedure Consent Obtained. Admit Source: In Patient. Pre-Procedure Time Out. Identified patient by full name and date of as verbalized by the patient/guarantor. Does the consent match the physician's order: Yes. Accurate & Complete Informed Consent: Yes. Inpatient/Outpatient History & Physical on Chart: Yes. If H&P is completed, is and addenduem needed: N/A; If yes, is the addendum complete: N/A. Visualize and Verify Site with Patient/Guarantor: N/A. Relevant Radiology Images available: N/A. Pre-op teaching completed and patient verbalized understanding. The risks, benefits, and alternatives of sedation and/or procedure were discussed by physician. The patient agrees to continue. Procedure started. Correct patient, site and procedure confirmed by cath team. PERRLA. Strong, equal hand project scientist bilaterally. Lungs clear x 5 lobes. IV Site on Arrival: 20 gauge in the right hand. Oxygen started at 2liters/min via nasal canula. bilateral groins was prepped with chloroprep then draped in the usual sterile fashion. right radial was prepped with chloroprep then draped in the usual sterile fashion. Physician notified. Baseline sample Acquired. HR: 58 BPM. Physician arrived. [facility] Clinical Fraility Score: 4: Vulnerable. Chest Pain Symptom Assessment: Atypical Angina. Cardiovascular Instability: No,. Manager Business Planning Indications: NSTEMI. Physician scrubbed in. Immediate Pre-Procedure Time Out. Correct Patient: Yes; Correct Procedure: Yes; Correct Site: Yes; Correct Patient Position: Yes; Correct Supplies: Yes; Dried Flammable Prep: Yes; Blood Products Available: N/A;. Lidocaine 1% infiltrated to the right groin. Arterial access obtained with micropuncture set. A 6 greenlandic JL4 catheter in over wire. Multiple views taken of left coronary artery. Catheter out. A 6 greenlandic JR4 catheter in over wire. Multiple views taken of right coronary artery. SVG's to RCA visualized and patent. ESPINOZA to LAD visualized. EDP Sample taken: LV 136/-7,19; HR: 56 BPM; SpO2: 98%. Pullback taken: LV Off; AO Off; Mean: , Peak to Peak: , SEP: ; HR: 57 BPM; SpO2: 98%. Catheter out. Angioseal placed without complications. No signs or symptoms of hematoma noted. Sterile dressing applied per usual sterile fashion. LOT# [id number]. manual pressure held. Post Procedure: Pulses reassessed and unchanged. PERRLA. Strong, equal hand project scientist bilaterally. No VTE prophylaxis required. Medication's Wasted: Lidocaine 1% = 11 mL. Medication's Wasted: Heparin = 1000 units. Total IV fluids: 75 mL. Contrast type used: Omnipaque 300 mgI/mL, 500 mL bottle. Contrast Material : Omnipaque 153 ml. Post-op diagnosis: severe multivessel [place] CAD. Complications: none. Estimated blood loss: 5mL-10mL. A Angio-Seal VIP ([place]) was successful obtaining hemostatsis at the Right Femoral artery insertion site. Procedure completed. Patient transferred by bed to 1st floor. Vital chart was stopped. Access Site Site: Right Femoral artery Sheath Size: 6 Fr Hemostasis Method: Angio-Seal VIP ([place]) Hemostasis Success: Successful Procedure Medications Start: 4:35 PM Stop: 4:35 PM Medication: Fentanyl Amount: 50 mcg Route: I.V. Start: 4:38 PM Stop: 4:38 PM Medication: Benadryl Amount: 50 mg Route: I.V. Start: 4:40 PM Stop: 4:40 PM Medication: Versed Amount: 1 mg Route: I.V. Start: 4:41 PM Stop: 4:41 PM Medication: Fentanyl Amount: 50 mcg Route: I.V. Start: 4:54 PM Stop: 4:54 PM Medication: Versed Amount: 1 mg Route: I.V. Start: 5:06 PM Stop: 5:06 PM Medication: Fentanyl Amount: 50 mcg Route: I.V. Start: 5:13 PM Stop: 5:13 PM Medication: Fentanyl Amount: 50 mcg Route: I.V. I, the attending physician, have reviewed and verified all procedure medications. Yes, all medications given per verbal order History/Risk Factors Hypertension: Yes Dyslipidemia: Yes Tobacco Use: Never Prior Interventions CABG: Yes Report Signatures Finalized by Kin Montero MD on 07/27/2021 11:26 AM
--- NOTE | 2021-07-11 16:23 | PC.NURSE ---
Report to Henny RYAN on CSU at this time.
--- NOTE | 2021-07-11 16:29 | PC.NURSE ---
Patient to mobile home laborer at this time. Patient will go to CSU RM 105 after Graphics Software Engineer.
--- NOTE | 2021-07-11 16:41 | W.PM.OPSUD ---
Surgery/Procedure H&P Update DATE OF PROCEDURE: July 11, 2021 DATE H&P PERFORMED: 07/06/21 H&P UPDATE INFORMATION: I have reviewed H&P completed within last 30 days, I have examined patient prior to procedure and No changes to prior documentation PREOP DIAGNOSIS: NSTEMI PRIMARY INDICATION FOR PROCEDURE: NSTEMI PLANNED PROCEDURE: Left heart cath with possible percutaneous coronary intervention PATIENT REASSESSED PRIOR TO SEDATION, WITH NO CHANGE NOTED: Yes PHYSICAL EXAM: alert, oriented x 3, clear to auscultation bilaterally and regular rate & rhythm AIRWAY EVAL/ANESTHESIA PLAN: normal airway, ASA III, Monitored Anesthesia, Local Anesthesia, Risks, benefits & alternatives of sedation and/or procedure discussed and Patient agrees to continue as planned
--- NOTE | 2021-07-11 19:27 | PC.NURSE ---
received into room 105 from cardiac public works laborer.report received.pt is alert and awake.denies pain at present.sr-sb on monitor.right femoral sheath was pulled by public works laborer and angioseal applied.right groin drsg is dry and intact.right leg is warm and dry to touch and has brisk capillary refill.palpable dp pulse noted.pt instructed in activity restrictions s/p femoral artery procedure..and instructed to notify staff for any bleeding,pain,numbness,back pain,cp or for any concerns at all.pt verb understanding of instructions.
--- NOTE | 2021-07-11 19:45 | PM.PN ---
Subjective Subjective: Interval history: Patient is doing well. No complaints of chest pain. Patient underwent coronary angiogram today. ESPINOZA to LAD was patent. SVG to RCA was patent. Distal left circumflex artery/OM has diffuse disease. Vitals/I&O/Wt Last Vital Signs Temp 98.4 F 07/11/21 16:00 Pulse 57 L 07/11/21 19:30 Resp 20 H 07/11/21 19:30 BP 142/62 07/11/21 19:30 Pulse Ox 93 07/11/21 19:30 07/11/21 07/11/21 07/11/21 06:59 14:59 22:59 Intake Total 240 / 580 100 / 100 240 / 340 Balance 240 / 580 100 / 100 240 / 340 Weight last 48 hrs Weight 206 lb 6.4 oz Weight 207 lb 1.6 oz Physical Exam Narrative: EXAM NARRATIVE: General: Alert and oriented x3 Neck:No lymphadenopathy Cardiovascular: Regular rate and rhythm, grade 2/6 systolic murmur Lungs: clear to auscultation bilaterally Abdomen: Soft exam is deferred Extremities: Has palpable pulses Urinary Catheter Management^: Sadler: Cath Placed During This Visit: yes, but has since been removed by the nurse Reason for Continuing Indwelling Catheter: Acute Urinary Retention or Obstruction Urinary Catheter Date of Insertion: 07/06/21 Date Urinary Catheter Removed: 07/10/21 Time Urinary Catheter Discontinued: 11:00 Data : 07/11/21 05:11 07/12/21 04:20 Micro: Microbiology 07/06/21 03:50 Blood Culture - Final Blood Escherichia coli 07/06/21 03:40 Blood Culture - Final Blood Escherichia coli A&P Assessment and plan (1) Non-ST elevation myocardial infarction (NSTEMI): Status: Resolved (2) Sepsis associated hypotension: Status: Resolved (3) Hypokalemia: Status: Resolved (4) Diabetes mellitus, type II: Status: Acute Qualifiers: Diabetes mellitus complication status: without complication Diabetes mellitus nursing home insulin use: with nursing home use Qualified Code(s): E11.9 - Type 2 diabetes mellitus without complications; Z79.4 - skilled nursing (current) use of insulin (5) Essential hypertension: Patient presented with sepsis and UTI. Troponin elevation was noted. Given her prior significant coronary artery disease history, she underwent coronary angiogram today which showed patent ESPINOZA to LAD and SVG to RCA. SVG to OM was occluded however left circumflex artery was diffusely diseased.. Medical management for now. Continue Plavix Aggressive risk factor control ECHO showed normal LV systolic function with grade 3 diastolic dysfunction Thank you for involving us with care of this patient. We will continue to follow. Please call with questions. Attestations Medical Necessity Statement*: Care expected to cross 2 midnights. Coding Level of Care Code Acute Pill Machine Operator for [facility] Diagnoses Non-ST elevation myocardial infarction (NSTEMI) I21.4 Sepsis associated hypotension A41.9; I95.9 Hypokalemia E87.6 Diabetes mellitus, type II E11.9; Z79.4 Diabetes mellitus complication status: without complication Diabetes mellitus nursing home insulin use: with nursing home use Essential hypertension I10
[2021-07-11 21:02] LABS: Glucose Point of Care 354 mg/dL (70-110)
[2021-07-11] MEDS: insulin lispro 100 unit/1 mL SUBCUT (21:14)
[2021-07-11] MEDS: lactulose oral liq 20 gm/30 mL UDC 30 GM PO (21:14)
[2021-07-11] MEDS: insulin glargine 100 units/1 mL 30 UNIT SUBCUT (21:15)
[2021-07-12] VITALS (15 sets, daily range): BP systolic 140–167; BP diastolic 75–98; PULSE 61–91; RESP 13–30; TEMP 36.6–36.9; O2SAT 90–98
[2021-07-12] MEDS: ondansetron 2 mg/ML SDV 2 mL 4 MG IVP (00:55)
[2021-07-12] MEDS: acetaminophen 325 mg Tablet 650 MG PO (03:48)
[2021-07-12 05:09] LABS: Anion Gap 16.2 (5-19); Blood Urea Nitrogen 8 mg/dL (8-23); Calcium 8.7 mg/dL (8.5-10.5); Carbon Dioxide 25 mmol/L (22-29); Chloride 99 mmol/L (98-107); Glomerular Filtration Rate 71.8 mL/min (90-130); Glucose 229 mg/dL (65-115); Osmolality Calculated 290 mOsm/kg (285-295); Potassium 3.2 mmol/L (3.5-5.1); Sodium 137 mmol/L (136-145)
[2021-07-12] MEDS: levoFLOXacin 750 mg Tablet PO (05:57)
[2021-07-12 06:46] LABS: Glucose Point of Care 240 mg/dL (70-110)
[2021-07-12] MEDS: pantoprazole DR 40 mg Tablet PO (07:41)
[2021-07-12] MEDS: atorvastatin 40 mg Tablet 20 MG PO (07:41)
[2021-07-12] MEDS: carvedilol 6.25 mg Tablet PO (07:41)
[2021-07-12] MEDS: clopidogrel 75 mg Tablet PO (07:41)
[2021-07-12] MEDS: levothyroxine 150 mcg Tablet PO (07:41)
[2021-07-12] MEDS: aspirin 81 mg EC Tablet PO (07:41)
[2021-07-12] MEDS: sertraline 50 mg Tablet PO (07:41)
[2021-07-12] MEDS: insulin lispro 100 unit/1 mL SUBCUT ×2 (07:42→11:23)
[2021-07-12] MEDS: lactulose oral liq 20 gm/30 mL UDC 30 GM PO (07:42)
[2021-07-12] MEDS: cyanocobalamin 1,000 mcg/mL SDV 1000 MCG IM (07:43)
--- NOTE | 2021-07-12 08:45 | PC.NURSE ---
0700 Report received. Assessment completed. Resting in bed. No c/o pain or SOB. VSS. Cath site to R groin soft and nontender. AAOx4. Denies any needs. Will monitor.
--- NOTE | 2021-07-12 08:54 | PM.PN ---
Subjective Subjective: Interval history: Patient is doing well. She denies any chest pain. Had coronary angiogram yesterday that showed patent ESPINOZA to LAD and SVG to RCA. Left circumflex artery was diffusely diseased and the SVG to OM was occluded. Vitals/I&O/Wt Last Vital Signs Temp 98.5 F 07/12/21 07:00 Pulse 61 07/12/21 07:00 Resp 18 07/12/21 07:00 BP 160/75 07/12/21 07:00 Pulse Ox 98 07/12/21 07:00 07/11/21 07/12/21 07/12/21 22:59 06:59 14:59 Intake Total 440 / 540 360 / 360 Output Total 550 / 550 950 / 1500 Balance -110 / -10 -950 / -960 360 / 360 Weight last 48 hrs Weight 206 lb Weight 206 lb 6.4 oz Physical Exam Narrative: EXAM NARRATIVE: General: Alert and oriented x3 Neck:No lymphadenopathy Cardiovascular: Regular rate and rhythm, grade 2/6 systolic murmur Lungs: clear to auscultation bilaterally Abdomen: Soft exam is deferred Extremities: Has palpable pulses Urinary Catheter Management^: Sadler: Cath Placed During This Visit: yes, but has since been removed by the nurse Reason for Continuing Indwelling Catheter: Acute Urinary Retention or Obstruction Urinary Catheter Date of Insertion: 07/06/21 Date Urinary Catheter Removed: 07/10/21 Time Urinary Catheter Discontinued: 11:00 Data : 07/11/21 05:11 07/12/21 04:20 Micro: Microbiology 07/06/21 03:50 Blood Culture - Final Blood Escherichia coli 07/06/21 03:40 Blood Culture - Final Blood Escherichia coli A&P Assessment and plan (1) Non-ST elevation myocardial infarction (NSTEMI): Status: Resolved (2) Sepsis associated hypotension: Status: Resolved (3) Hypokalemia: Status: Resolved (4) Diabetes mellitus, type II: Status: Acute Qualifiers: Diabetes mellitus longterm insulin use: with computer terminal operator use Diabetes mellitus complication status: without complication Qualified Code(s): E11.9 - Type 2 diabetes mellitus without complications; Z79.4 - USP (current) use of insulin (5) Essential hypertension: Patient presented with sepsis and UTI. Troponin elevation was noted. Given her prior significant coronary artery disease history, she underwent coronary angiogram yesterday which showed patent ESPINOZA to LAD and SVG to RCA. SVG to OM was occluded however left circumflex artery was diffusely diseased. No plans for intervention Medical management for now. Continue Plavix Aggressive risk factor control ECHO showed normal LV systolic function with grade 3 diastolic dysfunction Antibiotic therapy per primary team Thank you for involving us with care of this patient. Patient is stable to be discharged from cardiology standpoint. Please call with questions. Attestations Medical Necessity Statement*: Care expected to cross 2 midnights. Coding Level of Care Code Acute Infusion Therapy Nurse for [facility] Diagnoses Non-ST elevation myocardial infarction (NSTEMI) I21.4 Sepsis associated hypotension A41.9; I95.9 Hypokalemia E87.6 Diabetes mellitus, type II E11.9; Z79.4 Diabetes mellitus longterm insulin use: with computer terminal operator use Diabetes mellitus complication status: without complication Essential hypertension I10
[2021-07-12 11:00] LABS: Glucose Point of Care 263 mg/dL (70-110)
[2021-07-12] MEDS: enoxaparin 40 mg/0.4 mL Syringe SUBCUT (11:23)
--- NOTE | 2021-07-12 11:58 | P.DS_ITS ---
Discharge Providers Date of Admission: 07/06/21 06:03 Date of Discharge: July 12, 2021 Attending Provider at Admission: Zo Echols Attending Provider at Discharge: Terry Guerra MD Primary Care Provider: LUBNA Meek Diagnoses at Discharge Discharge Diagnosis (1) Non-ST elevation myocardial infarction (NSTEMI): Status: Acute (2) Sepsis associated hypotension: Status: Acute (3) Hypokalemia: Status: Acute (4) Diabetes mellitus, type II: Status: Acute Qualifiers: Diabetes mellitus care home insulin use: with care home use Diabetes mellitus complication status: without complication Qualified Code(s): E11.9 - Type 2 diabetes mellitus without complications; Z79.4 - long-term (current) use of insulin (5) Essential hypertension: Status: Acute Reason for Visit Reason for Visit: hyperglycemia Hospital Course Hospital Course 66-year-old female with history of coronary artery disease status post CABG, liver cirrhosis, most recently discharged from the hospital after management of altered mental status which was deemed secondary to hepatic encephalopathy however ammonia level was not high, she does have hepatosplenomegaly without significant ascites, on previous visit her encephalopathy improved with conservative management and use of lactulose rifaximin. This time on 07/06 she presented with chief complaint of worsening confusion. She was diagnosed with sepsis associated with UTI. She was also diagnosed with NSTEMI, hyperglycemia without DKA. She was started on Primaxin, she became bacteremic with E. coli which was pansensitive 07/06, echo did not show any vegetations. Source of E. coli was most likely urinary tract infection. CT abdomen pelvis did not show any infected stone or signs of pyelonephritis. SBP less likely as there is no ascitic fluid. Repeat blood cultures negative to date 07/08. She has remained afebrile. Her coronary angiogram was delayed secondary to her spells of confusion in the hospital however on 07/10 patient mentation improved, at that time lumbar puncture was scheduled which was canceled. Patient did not show any signs of stroke or meningoencephalitis. Asterixis absent throughout hospitalization. She underwent coronary angiogram on 07/11, Dr. Montero mentioned that ESPINOZA to LAD was patent. SVG to RCA was patent. Distal left circumflex artery/OM has diffuse disease Medical management was recommended. Patient is already taking coreg, lisinopril Plavix and statins. Patient does not want to use prolonged IV antibiotics for her bacteremia, decision was made to avoid PICC line placement & use p.o. Levaquin for 4 weeks instead. Of note, her insurance is not providing coverage for rifaximin, she will be discharged on lactulose, Levaquin, she can continue her home medications, I have discontinued glipizide, SSRI, will give her 7-day supply of magnesium supplementation Continue Lasix along with potassium supplementation At the time of discharge she is awake and alert oriented x3 GCS 15 no neurological focal deficit noted Ammonia level unremarkable during this hospitalization, CT abdomen pelvis did reveal ileus however with use of lactulose her symptoms of abdominal pain resolved, she never experienced any nausea or vomiting Physical Exam Narrative: EXAM NARRATIVE: Patient was resting comfortably in her bed Saturating well on room air Awake alert oriented x3 GCS 15 No active neurological deficit S1, S2 Hepatosplenomegaly, Distended abdomen Lower extremity no edema No active asterixis Urinary Catheter Management^: Sadler: Cath Placed During This Visit: yes, but has since been removed by the nurse Reason for Continuing Indwelling Catheter: Acute Urinary Retention or Obstruction Urinary Catheter Date of Insertion: 07/06/21 Date Urinary Catheter Removed: 07/10/21 Time Urinary Catheter Discontinued: 11:00 Discharge Data 2 Data Completed and Pending: Completed Studies During Hospitalization Category Date Time Status CT chest abd pel w con* Urgent Cat Scan 07/06/21 05:[address] head wo con* 7 0450 Urgent Cat Scan 07/06/21 03:40 Completed XR chest 1V bella ble [id number] Urgent Exams 07/06/21 03:40 Completed CV. echo complete * [id number] Routine Ultrasound 07/06/21 09:16 Completed Pending at discharge Category Date Time Status SHAVING MACHINE OPERATOR request for service Routin e Exams 07/11/21 16:13 Taken Albumin CSF Routi ne Lab 07/09/21 15:32 Uncollected Blood Culture AM LABS Lab 07/08/21 06:38 Results CSF Analysis + Ce ll Count Routine Lab 07/09/21 15:32 Uncollected CSF Culture & Gra m Stain Routine Lab 07/09/21 15:32 Uncollected CSF Specific Grav ity Routine Lab 07/09/21 15:32 Uncollected Glucose CSF Routi ne Lab 07/09/21 15:32 Uncollected Total Protein CSF Routine Lab 07/09/21 15:32 Uncollected VDRL on CSF Routi ne Lab 07/09/21 15:32 Uncollected [place] (Serum) Routine Lab 07/09/21 10:05 Received Labs from last 24 hours 07/12/21 07/12/21 07/12/21 10:55 06:39 04:20 Sodium 137 Potassium 3.2 L Chloride 99 Carbon Dioxide 25 Anion Gap 16.2 BUN 8 Creatinine 0.8 GFR Calculation 71.8 L Glucose 229 H POC Glucose 263 H 240 H Calculated Osmolal ity 290 Calcium 8.7 Procalcitonin 2.90 H 07/11/21 19:50 Sodium Potassium Chloride Carbon Dioxide Anion Gap BUN Creatinine GFR Calculation Glucose POC Glucose 354 H Calculated Osmolal ity Calcium Procalcitonin Vitals: Last Vital Signs Temp 98.5 F 07/12/21 07:00 Pulse 61 07/12/21 07:00 Resp 18 07/12/21 07:00 BP 160/75 07/12/21 07:00 Pulse Ox 98 07/12/21 07:00 Discharge Plan Discharge Patient Disposition: Home Condition: Stable Prescriptions: New levofloxacin 750 mg tablet 750 mg PO DAILY 28 Days Qty: 30 RF: 0 lactulose 10 gram/15 mL (15 mL) solution 10 g PO TID Qty: 1440 RF: 0 magnesium chloride 64 mg magnesium tablet 64 mg PO DAILY Qty: 7 RF: 0 Continued acetaminophen [Tylenol Arthritis Pain] 650 mg tablet extended release 650 mg PO Q12H PRN (Reason: Pain) RF: 0 (DME) blood-glucose meter Kit See Rx Instructions .ROUTE .MEDSUPPLY Qty: 1 RF: 0 clopidogrel 75 mg tablet 75 mg PO DAILY 90 Days Qty: 90 RF: 1 carvedilol 6.25 mg tablet 6.25 mg PO BID 90 Days Qty: 180 RF: 1 hydrocodone-acetaminophen 5-325 mg tablet 1 tab PO .q6-8 hrs PRN (Reason: pain) 5 Days Qty: 20 RF: 0 furosemide 40 mg tablet 40 mg PO DAILY 90 Days Qty: 180 RF: 1 isosorbide mononitrate 30 mg tablet extended release 24 hr 30 mg PO DAILY RF: 0 allopurinol 100 mg tablet 100 mg PO DAILY RF: 0 levothyroxine 150 mcg tablet 150 mcg PO DAILY RF: 0 Levemir FlexTouch U-100 Insuln 100 unit/mL (3 mL) insulin pen 40 unit SUBCUT BID RF: 0 cholecalciferol (vitamin D3) 1,250 mcg (50,000 unit) capsule 50,000 unit PO Q7D RF: 0 zinc 1 cap PO DAILY RF: 0 potassium chloride 10 mEq capsule, extended release 10 meq PO DAILY RF: 0 pantoprazole 40 mg tablet,delayed release (DR/EC) 40 mg PO DAILY RF: 0 metformin 1,000 mg tablet 1,000 mg PO BID RF: 0 lisinopril 2.5 mg tablet 2.5 mg PO DAILY RF: 0 lovastatin 40 mg tablet 40 mg PO DAILY 30 Days Qty: 30 RF: 0 Discontinued sertraline 50 mg tablet 50 mg PO DAILY 90 Days Qty: 90 RF: 1 glipizide 5 mg tablet 5 mg PO BID RF: 0 magnesium 1 tab PO DAILY RF: 0 Discharge Orders: Discharge Order (Routine); Ordered 07/12/21 Ordered By: Terry Guerra Referrals: [facility] [Outside] Discharge Diet: Cardiac Discharge Activity: Resume usual activity Patient Instructions: Opioid Safety Discharge Attestations Time Spent in Discharge Care*: less than 30 min Quality Metrics Clinical Quality Measures During this hospital stay, did patient experience: None Coding Level of Care Code Acute [facility] note Diagnoses Non-ST elevation myocardial infarction (NSTEMI) I21.4 Sepsis associated hypotension A41.9; I95.9 Hypokalemia E87.6 Diabetes mellitus, type II E11.9; Z79.4 Diabetes mellitus care home insulin use: with long term acute care registered nurse use Diabetes mellitus complication status: without complication Essential hypertension I10
--- NOTE | 2021-07-12 12:35 | PC.NURSE ---
Discharge Note Patient discharged to personal vehicle via accompanied by this nurse. Discharge instructions reviewed with patient and/or underwriting sales representative. Mobile pharmacy medications and/or prescriptions provided. Belongings/home sent with . Iv removed, cathlon intact.
== END 2021-07-12 12:30 | disposition home health service (06) | DRG 871 ==
LOC: ER 04:38 → MEDSURG 06:40 → ICU 09:26 → MEDSURG 07-07 11:40 → CSU 07-11 17:25
PROVIDERS: Internal Medicine; Admitting Provider Hospitalist; Emergency Provider Emergency Medicine; PCP Nurse Practitioner Family; Visit Provider Internal Medicine
PROC: B2151ZZ Fluoroscopy of Left Heart using Low Osmolar Contrast (ICD-10-PCS; principal; 2021-07-11 16:30)
DX: A41.9 Sepsis, unspecified organism (principal); E11.00 Type 2 diabetes mellitus with hyperosmolarity without nonketotic hyperglycemic-hyperosmolar coma (NKHHC); I21.A1 Myocardial infarction type 2; K72.00 Acute and subacute hepatic failure without coma; T82.855A Stenosis of coronary artery stent, initial encounter; N17.9 Acute kidney failure, unspecified; N39.0 Urinary tract infection, site not specified; I25.10 Atherosclerotic heart disease of native coronary artery without angina pectoris; Z95.5 Presence of coronary angioplasty implant and graft; Z95.1 Presence of aortocoronary bypass graft; Y71.1 Therapeutic (nonsurgical) and rehabilitative cardiovascular devices associated with adverse incidents; I10 Essential (primary) hypertension; I95.9 Hypotension, unspecified; E11.65 Type 2 diabetes mellitus with hyperglycemia; F41.9 Anxiety disorder, unspecified; K21.9 Gastro-esophageal reflux disease without esophagitis; M10.9 Gout, unspecified; E03.9 Hypothyroidism, unspecified; E78.2 Mixed hyperlipidemia; Z87.440 Personal history of urinary (tract) infections; E87.6 Hypokalemia; E83.42 Hypomagnesemia; Z79.84 Long term (current) use of oral hypoglycemic drugs; Z79.4 Long term (current) use of insulin; Z79.891 Long term (current) use of opiate analgesic; Z79.02 Long term (current) use of antithrombotics/antiplatelets; B96.20 Unspecified Escherichia coli [E. coli] as the cause of diseases classified elsewhere
CPT/HCPCS: 36415; 36416; 36600; 51702; 70450; 71045; 71260; 74177; 80048; 80053; 80307; 81001; 82009; 82140; 82533; 82550; 82607; 82746; 82803; 82962; 83605; 83735; 83930; 84100; 84145; 84443; 84484; 85025; 85610; 86140; 86705; 86706; 86709; 86788; 86789; 86803; 87040; 87077; 87086; 87186; 87205; 87340; 87426; 93005; 93306; 93459; 96365; 96366; 96367; 96372; 96375; 99285; C1760; C1769; C1887; C1894; J0696; J0743; J1200; J1644; J1650; J1815 ×2; J2250; J2405; J2765; J3010; J3370; J3420; J3475; J3480; J3490; J7030; J7040; J7050; Q9967

== ENCOUNTER 2021-09-25 14:42 | Emergency (ER) | payer MEDICARE, SELFPAY ==
[2021-09-25 15:21] VITALS: PULSE 66; RESP 18; TEMP 37.2; O2SAT 97; BMI 34.9
--- NOTE | 2021-09-25 15:39 | ED_ITS ---
HPI - Fall General: Chief Complaint: Fall Stated Complaint: FALL/L FLANK PAIN Time Seen by Provider: 09/25/21 15:27 History of Present Illness: HPI Narrative: Patient states she fell a couple weeks ago. Had a bruise across her abdomen now at the end where the bruise was she is got a couple of knots in her skin that are more painful. Patient said she had tripped. Denies any other problems with health presently than what she usually has. MD complaint: fall Onset (ago): week(s) Fall from: standing Fall witnessed: yes, by family Place fall occurred: home Loss of consciousness: None Context: tripped/slipped Severity: mild Associated symptoms-after fall: Reports no associated symptoms; Denies abdominal pain, chest pain or headache(s) Review of Systems Const: Denies: fever(s), chills or body aches Eyes: Denies: change in vision or blurry vision ENMT: Denies: throat pain or nasal congestion Card: Denies: chest pain or dyspnea on exertion Resp: Denies: dyspnea, productive cough or non-productive cough GI: Denies: abdominal pain, nausea or vomiting Musc: Denies: extremity pain Skin/Breast: Reports: skin tenderness (Patient says she has a knot or 2 underneath her skin that is more tender no) and other (Said she had a large bruise from her fall 2 weeks ago.); Denies: rash Neuro: Denies: headache(s) Psych: Denies: anxiety or depression Waldemar/Lymph: Denies: easy bruising PFS ED PFSH: Medical History (Updated 09/25/21 @ 15:39 by LUBNA Garza) Abdominal pain Anticoagulated Anxiety and depression Arthritis Breast cancer screening by mammogram Coronary artery disease Diabetes mellitus, type II Essential hypertension GERD (gastroesophageal reflux disease) Gout Hepatic encephalopathy Hepatosplenomegaly Hypothyroid Infected abrasion of thumb Liver cirrhosis Mixed hyperlipidemia Mixed hyperlipidemia Type 2 diabetes mellitus with hyperglycemia Urinary tract infection Vaginal yeast infection Yeast vaginitis Surgical History History of arthroscopy of left shoulder History of open heart surgery quad bypass Social History Second hand smoke exposure: No Smoking risk assessment/counseling performed?: No Alcohol intake: never Desire information about alcohol rehabilitation?: No Counseling given: No Desire information about substance/drug rehabilitation?: No Counseling given: No Female Reproductive History: Date of last menstrual period: 12/15/20 Physical Exam Const: COMMON NORMALS: no acute distress and patient oriented x3 GENERAL APPEARANCE: cooperative Resp: COMMON NORMALS: normal respiratory effort Extremity: COMMON NORMALS: normal to inspection and full ROM Neuro: COMMON NORMALS: patient oriented x3 Psych: COMMON NORMALS: mental status grossly normal Skin: OTHER: Patient has an area in the third left rib in the subcutaneous tissue feels about size of pea that is tender at the end of worried she had a bruise went across her abdomen. Course Vital Signs: Vital signs: Vital Signs Temperature 98.9 F 09/25/21 15:21 Pulse Rate 66 09/25/21 15:21 Respiratory Rate 18 09/25/21 15:21 Pulse Oximetry 97 09/25/21 15:21 Discharge Plan Discharge Patient Disposition: Home Clinical Impression: Contusion Qualifiers: Encounter type: initial encounter Contusion area: thoracic wall Front or back of thoracic wall: front Thoracic wall location detail: bilateral Qualified Code(s): S20.213A - Contusion of bilateral front wall of thorax, initial encounter Condition: Stable Prescriptions: No Action acetaminophen [Tylenol Arthritis Pain] 650 mg tablet extended release 650 mg PO Q12H PRN (Reason: Pain) RF: 0 (DME) blood-glucose meter Kit See Rx Instructions .ROUTE .MEDSUPPLY Qty: 1 RF: 0 clopidogrel 75 mg tablet 75 mg PO DAILY 90 Days Qty: 90 RF: 1 carvedilol 6.25 mg tablet 6.25 mg PO BID 90 Days Qty: 180 RF: 1 hydrocodone-acetaminophen 5-325 mg tablet 1 tab PO .q6-8 hrs PRN (Reason: pain) 5 Days Qty: 20 RF: 0 glipizide 5 mg tablet 5 mg PO BID RF: 0 sennosides [Senokot] 8.6 mg tablet 8.6 mg PO DAILY RF: 0 sertraline 50 mg tablet 50 mg PO DAILY RF: 0 magnesium oxide 400 mg magnesium capsule 400 mg PO DAILY RF: 0 meclizine 25 mg tablet 25 mg PO TID RF: 0 Levemir FlexTouch U-100 Insuln 100 unit/mL (3 mL) insulin pen 40 unit SUBCUT BID Qty: 15 RF: 2 furosemide 40 mg tablet 40 mg PO DAILY 90 Days Qty: 180 RF: 1 isosorbide mononitrate 30 mg tablet extended release 24 hr 30 mg PO DAILY RF: 0 allopurinol 100 mg tablet 100 mg PO DAILY RF: 0 levothyroxine 150 mcg tablet 150 mcg PO DAILY RF: 0 cholecalciferol (vitamin D3) 1,250 mcg (50,000 unit) capsule 50,000 unit PO Q7D RF: 0 zinc 1 cap PO DAILY RF: 0 pantoprazole 40 mg tablet,delayed release (DR/EC) 40 mg PO DAILY RF: 0 metformin 1,000 mg tablet 1,000 mg PO BID RF: 0 lisinopril 2.5 mg tablet 2.5 mg PO DAILY RF: 0 lovastatin 40 mg tablet 40 mg PO DAILY 30 Days Qty: 30 RF: 0 potassium chloride 10 mEq capsule, extended release 10 meq PO TID RF: 0 Discharge Orders: Discharge ED (Routine); Ordered 09/25/21 Ordered By: Efrain Mccartney Referrals: DL Love, AUTOMOTIVE SHOP FOREMAN [Primary Care Provider] - Discharge Diet: Usual diet Discharge Activity: Increase activity as tolerated Patient Instructions: Contusion in Adults (ED) Activity Restrictions/Additional Instructions: Moist heat to area as needed. Can use Tylenol for discomfort. Follow-up your primary care provider if no significant improvement. Are you can return here. Coding Level of Care Code ED Ic Design Manager for Page Kelly
== END 2021-09-25 16:21 | disposition home or self-care (01) ==
PROVIDERS: Emergency Provider Nurse Practitioner Family; PCP Nurse Practitioner Family
DX: S20.213A Contusion of bilateral front wall of thorax, initial encounter (principal); Z79.84 Long term (current) use of oral hypoglycemic drugs; Z79.02 Long term (current) use of antithrombotics/antiplatelets; Z79.4 Long term (current) use of insulin; I25.10 Atherosclerotic heart disease of native coronary artery without angina pectoris; E11.9 Type 2 diabetes mellitus without complications; I10 Essential (primary) hypertension; E78.2 Mixed hyperlipidemia; W01.0XXA Fall on same level from slipping, tripping and stumbling without subsequent striking against object, initial encounter
CPT/HCPCS: 99281

== ENCOUNTER 2021-11-19 14:02 | Emergency (ER) | payer OTHER, MEDICARE, SELFPAY ==
[2021-11-19 14:15] VITALS: BP 155/64; PULSE 82; RESP 16; TEMP 36.5; O2SAT 94; BMI 33.1
--- NOTE | 2021-11-19 14:18 | CTR_ITS ---
PROCEDURE INFORMATION: Exam: CT Head Without Contrast Exam date and time: 11/19/2021 2:18 PM Age: 66 years old Clinical indication: Altered mental status/memory loss; Confusion or disorientation; Patient HX: Ams/confusion elev blood sugar - best images possible TECHNIQUE: Imaging protocol: Computed tomography of the head without contrast. Radiation optimization: All CT scans at this facility use at least one of these dose optimization techniques: automated exposure control; mA and/or kV adjustment per patient size (includes targeted exams where dose is matched to clinical indication); or iterative reconstruction. COMPARISON: CT head wo con* [id number] 07/06/2021 4:15 AM RADIATION DOSE METRICS: Total DLP (mGy-cm): 1592.17 FINDINGS: Brain: Cerebral volume loss is seen appropriate for age. No hemorrhage. Unremarkable white matter. No mass effect. Cerebral ventricles: Moderate asymmetric ventriculomegaly . The ventricular size is more pronounced than expected for the cerebellar atrophic changes. The ventricles appear increased in volume since prior examination. The potential for normal pressure hydrocephalus should be ruled out. Paranasal sinuses: Visualized sinuses are unremarkable. No fluid levels. Mastoid air cells: Visualized mastoid air cells are well aerated. Bones/joints: Unremarkable. No acute fracture. Soft tissues: There is excessive motion artifact seen. CT/CT head wo con* [id number] IMPRESSION: 1. No acute intracranial abnormality. 2. Asymmetric ventriculomegaly rule out normal pressure hydrocephalus. 3. Excessive motion artifact . 4. Otherwise negative examination
--- NOTE | 2021-11-19 14:18 | XRR_ITS ---
PROCEDURE INFORMATION: Exam: XR Chest Exam date and time: 11/19/2021 2:18 PM Age: 66 years old Clinical indication: Other: AMS TECHNIQUE: Imaging protocol: XR of the chest. Views: 1 view. COMPARISON: CT chest abd pel w con* 07/06/2021 5:56 AM FINDINGS: Lungs: Unremarkable. No consolidation. Pleural spaces: Unremarkable. No pleural effusion. No pneumothorax. Heart/Mediastinum: Unremarkable. No cardiomegaly. Bones/joints: Metallic sternotomy wires are in place. XR/XR chest 1V portable [id number] IMPRESSION: 1. No acute findings. 2. Metallic sternotomy wires are in place.
--- NOTE | 2021-11-19 14:18 | ECG_ITS ---
[facility] Test Date: 2021-11-19 Pat Name: Linda Joiner Department: Room: Gender: Female Coil Wrapper: : 1955 Requested By: Norman Driver Order Number: [id number] Reading MD: Kelsy Saleh M.D. Measurements Intervals [place] Rate: 78 P: 68 OR: 163 QRS: 62 QRSD: 87 T: 76 QT: 394 QTc: 451 Interpretive Statements SINUS RHYTHM SEPTAL MYOCARDIAL INFARCTION , PROBABLY OLD [40+ ms Q WAVE IN V1/V2] Compared to ECG 07/06/2021 10:16:36 No significant changes Electronically Signed On 11-19-2021 21:53:57 SILK SCREEN LAYOUT DRAFTER by Kelsy Saleh M.D. [email or web address]
[2021-11-19 14:20] LABS: Glucose Point of Care > 600 mg/dL (70-110)
[2021-11-19 14:31] LABS: Basophils % 0.7 %; Eosinophils # 0.1 10^3/uL (0.0-0.8); Eosinophils % 2.2 %; Hematocrit 39.4 % (37.0-47.0); Lymphocytes # 1.6 10^3/uL (0.8-4.8); Lymphocytes % 28.8 %; Mean Corpuscular Hemoglobin 27.3 pg (28.0-34.0); Mean Corpuscular Volume 82.8 fl (81-99); Mean Platelet Volume 10.1 fL (7.4-10.4); Monocytes # 0.3 10^3/uL (0.2-0.9); Monocytes % 5.2 %; Neutrophils # 3.48 10^3/uL (1.8-7.7); Neutrophils % 62.9 %; Nucleated Red Blood Cells % 0 %; Platelet Count 145 10^3/cmm (130-400); Red Blood Count 4.76 10^6/uL (4.1-5.3); Red Cell Distribution Width 14.8 % (12.1-15.1); White Blood Count 5.5 10^3/uL (4.0-10.0)
[2021-11-19] MEDS: sodium chloride 0.9% 1,000 ML 999 ML IV (14:31)
[2021-11-19 14:37] LABS: ABG PH Result 7.39 (7.35-7.45); Alveolar-Arterial Oxygen Gradi 2.1 mmHg (5-10); Arterial Blood Gas Hematocrit 38.3 % (37-47); Base Excess ABG 0.4 mmol/L (-2.0-2.0); Blood Gas Allen Test Pos; Blood Gas Sample Type Arterial; Carboxyhemoglobin 1.7 %THgb (0.4-20.1); HCO3 ABG 25.7 mmol/L (22-26); HGB O2 Sat 94.8 % (95-100); Methemoglobin 0.3 % (0.4-1.5); Oxygen Saturation ABG 96.7; PO2 ABG 81.3 mmHg (80.0-100.0); Potassium Level - ABG 3.7 mmol/L (3.5-5.0); Total Hemoglobin 12.5 g/dL (12-16)
[2021-11-19 14:38] LABS: Blood Gas Operator Identificat ED; Blood Gas Sample Site Radial, right; Oxygen Device ROOM AIR
[2021-11-19 14:41] LABS: Ketone (Acetest) Serum Negative (Negative)
[2021-11-19 14:50] LABS: Albumin Level 3.9 g/dL (3.5-5.2); Alkaline Phosphatase 152 IU/L (35-105); Blood Urea Nitrogen 12 mg/dL (8-23); Calcium 9.7 mg/dL (8.5-10.5); Carbon Dioxide 21 mmol/L (22-29); Chloride 90 mmol/L (98-107); Lipase 48 U/L (13-60); Sodium 128 mmol/L (136-145); Total Bilirubin 2.6 mg/dL (0.15-1.2); Total Protein 6.9 g/dL (6.6-8.7)
[2021-11-19 14:56] LABS: Add Urine Microscopic? NO; Charge for UA Resulting for Rev
[2021-11-19 15:00] LABS: Bilirubin Urine Neg (Negative); Blood Urine Neg (Negative); Glucose Urine UA 4+ (Normal); Ketones Urine Negative (Negative); Leukocyte Esterase Urine Negative (Negative); Nitrate Urine Negative (Negative); Protein Urine Neg (Negative); Urine Appearance Clear (CLEAR); Urine Color Straw (Yellow); Urobilinogen Urine Norm (Negative); pH Urine 5 (5-7)
[2021-11-19 15:14] LABS: Troponin T (5th) Once 16 ng/L (0-10)
[2021-11-19 15:27] LABS: Alanine Aminotransferase 12 U/L (0-33); Aspartate Amino Transferase 18 U/L (0-32)
[2021-11-19 15:28] LABS: Glucose 684 mg/dL (65-115); Osmolality Calculated 298 mOsm/kg (285-295)
--- NOTE | 2021-11-19 15:30 | USR_ITS ---
PROCEDURE INFORMATION: Exam: US Abdomen, Limited; Right Upper Quadrant Exam date and time: 11/19/2021 3:30 PM Age: 66 years old Clinical indication: Other: Blood work; Prior surgery; Surgery date: 6+ months; Surgery type: Gb removed; Patient HX: PT states to That she hasn't been taking meds as well as she should. ; Additional info: Please evaluate cbd size TECHNIQUE: Imaging protocol: US abdomen. Real time ultrasound with image documentation. Limited exam focused on the right upper quadrant. COMPARISON: CT chest abd pel w con* 07/06/2021 5:56 AM FINDINGS: Liver: There is hepatomegaly the liver span is 18 cm. No focal hepatic abnormalities Gallbladder: Cholecystectomy Common bile duct: Normal. No stones. 8.5 mm Pancreas: Visualized pancreas is unremarkable. Right kidney: Normal. No mass. No hydronephrosis. 9.8 cm x 5.2 cm x 5.5 cm US/US gall bladder [id number] IMPRESSION: 1. Hepatomegaly 2. Cholecystectomy. 3. Otherwise negative examination
[2021-11-19 15:49] VITALS: BP 155/64; PULSE 73; RESP 20; O2SAT 96
--- NOTE | 2021-11-19 15:50 | W.ED.GENADLT ---
HPI - General Adult General: Chief complaint: Urogenital-Female Stated complaint: high blood sugar Time Seen by Provider: 11/19/21 14:18 History of Present Illness: Patient is a 66-year-old female with history of type 2 diabetes not currently compliant on insulin presenting to the emergency room for concerns of elevated glucose. Per patient's , patient has been urinating more frequently in the last few days. In addition, noticed the patient was confused today. Patient's ports at baseline, patient is able to function well however since this morning, patient has become increasingly confused. Patient denies any nausea/vomiting, diarrhea/melena, hematochezia, abdominal complaints, chest pain, shortness breath, palpitation or lightheadedness. Patient has no cough, runny nose, sore throat, nasal congestion. At the urgent care clinic this morning, patient had a glucose over 600. Onset: earlier today Duration:ongoing Location:home Severity:moderate Associated symptoms: Deny chest pain, dyspnea, nausea, rash, palpitations or vomiting Review of Systems Const: Denies: fever(s) or chills Eyes: Denies: change in vision ENMT: Denies: mouth pain Card: Denies: chest pain or palpitations Resp: Denies: dyspnea or non-productive cough GI: Denies: abdominal pain, nausea, vomiting or diarrhea : Reports: other (+polyuria); Denies: dysuria Musc: Denies: extremity pain Skin/Breast: Denies: rash or new lesions Neuro: Denies: weakness in extremities Psych: Reports: other (Normal mood) Waldemar/Lymph: Denies: easy bruising PFSH ED PFSH: Medical History Abdominal pain Anticoagulated Anxiety and depression Arthritis Breast cancer screening by mammogram Coronary artery disease Diabetes mellitus, type II Essential hypertension GERD (gastroesophageal reflux disease) Gout Hepatic encephalopathy Hepatosplenomegaly Hypothyroid Infected abrasion of thumb Liver cirrhosis Mixed hyperlipidemia Mixed hyperlipidemia Type 2 diabetes mellitus with hyperglycemia Urinary tract infection Vaginal yeast infection Yeast vaginitis Surgical History History of arthroscopy of left shoulder History of open heart surgery quad bypass Social History Smoking and tobacco status: former smoker Second hand smoke exposure: No Smoking risk assessment/counseling performed?: No Alcohol intake: never Desire information about alcohol rehabilitation?: No Counseling given: No Desire information about substance/drug rehabilitation?: No Counseling given: No Female Reproductive History: Date of last menstrual period: 12/15/20 Physical Exam Const: COMMON NORMALS: alert HENMT: COMMON NORMALS: atraumatic HEAD & SCALP: atraumatic MOUTH: moist mucous membranes abnormal Eye: COMMON NORMALS: EOMs intact bilaterally and conjunctivae normal CONJUNCTIVA: Yes conjunctivae normal Neck/C-Spine: COMMON NORMALS: full ROM and supple Resp: COMMON NORMALS: normal respiratory effort and clear to auscultation bilaterally AUSCULTATION: clear to auscultation bilaterally Cardio: COMMON NORMALS: regular rate RATE: regular rate GI: COMMON NORMALS: Soft to palpation and non-tender PALPATION: Yes Soft to palpation Extremity: COMMON NORMALS: full ROM Neuro: SENSORIUM/ORIENTATION: Yes alert MOTOR EXAM: No Abnormal motor strength present and Other motor observations present (no focal motor deficits) OTHER: AAOx2, confused, answering questions properly and following commands Psych: COMMON NORMALS: speech normal SPEECH: Yes normal speech MOOD & AFFECT: Yes euthymic mood Skin: NARRATIVE SKIN EXAM: +erythema with whitish spots on the intertriginous skin folds of the groin Course Vital Signs: Vital signs: Vital Signs Temperature 97.7 F 11/19/21 14:15 Pulse Rate 73 11/19/21 15:49 Respiratory Rate 20 H 11/19/21 15:49 Blood Pressure 202/84 11/19/21 18:30 Pulse Oximetry 93 11/19/21 18:30 MDM - General Adult Medical Decision Making 86-year-old female with history of type 2 diabetes presenting to the emergency room with altered mental status, increased confusion, and polyuria in the setting of elevated glucose. Patient had a glucose over 600 in the field. Glucose of 682 per her blood work. No signs of DKA including normal gap and normal pH. Patient received 2 L fluid, 20 units of insulin with significant improvement in symptoms. Patient's glucose improved. Patient is now AAO x3, conversant and following commands after glucose improvement. On skin exam, patient is found to have tinea in the groin. Finding discussed with . On reassessment, patient becomes more awake and alert. Patient is AOx3, answering all questions, GCS 15. Latest glucose was 384. I have dsicussed with the patient and her that we usually do not discharge patient until glucose gets lower than 300. Upon hearing this, patient electing to leave AMA. Patient counseled regarding risks of leaving including severe morbidity, brain , hypoxia, arrythmia, , chest pain, or any other unwanted consequences of leaving against medical advice today. Patient verbalizes understanding of the risks and still wishes to leave AMA. Signed AMA paperwork. Patient advised that patient is welcome to return at any time. Was instructed that patient may come back if symptoms continue to persist and that emergent adverse conditions have not fully been ruled out. Patient is A&Ox3 and has capacity and is of sound mind to make decisions. Disposition: AMA Lab Data : 11/19/21 14:24 11/19/21 14:24 Radiology Impressions Chest X-Ray 11/19/21 14:18 IMPRESSION: 1. No acute findings. 2. Metallic sternotomy wires are in place. Head CT 11/19/21 14:18 IMPRESSION: 1. No acute intracranial abnormality. 2. Asymmetric ventriculomegaly rule out normal pressure hydrocephalus. 3. Excessive motion artifact . 4. Otherwise negative examination Gallbladder Ultrasound 11/19/21 15:30 IMPRESSION: 1. Hepatomegaly 2. Cholecystectomy. 3. Otherwise negative examination Laboratory Results WBC 5.5 10^3/uL (4.0-10.0) 11/19/21 14:24 RBC 4.76 10^6/uL (4.1-5.3) 11/19/21 14:24 Hgb 13.0 g/dL (11.5-15.3) 11/19/21 14:24 Hct 39.4 % (37.0-47.0) 11/19/21 14:24 MCV 82.8 fl (81-99) 11/19/21 14:24 MCH 27.3 pg (28.0-34.0) L 11/19/21 14:24 MCHC 33.0 g/dL (30.0-36.0) 11/19/21 14:24 RDW 14.8 % (12.1-15.1) 11/19/21 14:24 Plt Count 145 10^3/cmm (130-400) 11/19/21 14:24 MPV 10.1 fL (7.4-10.4) 11/19/21 14:24 Neut % (Auto) 62.9 % 11/19/21 14:24 Lymph % (Auto) 28.8 % 11/19/21 14:24 [place] % (Auto) 5.2 % 11/19/21 14:24 Eos % (Auto) 2.2 % 11/19/21 14:24 Baso % (Auto) 0.7 % 11/19/21 14:24 Neut # (Auto) 3.48 10^3/uL (1.8-7.7) 11/19/21 14:24 Lymph # (Auto) 1.6 10^3/uL (0.8-4.8) 11/19/21 14:24 [place] # (Auto) 0.3 10^3/uL (0.2-0.9) 11/19/21 14:24 Eos # (Auto) 0.1 10^3/uL (0.0-0.8) 11/19/21 14:24 Baso # (Auto) 0.0 10^3/uL (0.0-0.1) 11/19/21 14: Nucleated RBC % (auto) 0 % 11/19/21 14: Nucleated RBCs # 0.0 /100WBC 11/19/21 14:24 Specimen Type Arterial 11/19/21 14:27 Sample Site Radial, right 11/19/21 14:27 ABG pH 7.39 (7.35-7.45) 11/19/21 14: ABG pCO2 43.0 mmHg (35-45) 11/19/21 14:27 ABG pO2 81.3 mmHg (80.0-100.0) 11/19/21 14: ABG HCO3 25.7 mmol/L (22-26) 11/19/21 14: ABG O2 Saturation 96.7 11/19/21 14: ABG Base Excess 0.4 mmol/L (-2.0-2.0) 11/19/21 14:27 Abilio Test Pos 11/19/21 14:27 A-a O2 Gradient 2.1 mmHg (5-10) L 11/19/21 14: Hematocrit 38.3 % (37-47) 11/19/21 14:27 Hgb O2 Saturation 94.8 % (95-100) L 11/19/21 14:27 Carboxyhemoglobin 1.7 %THgb (0.4-20.1) 11/19/21 14:27 Methemoglobin 0.3 % (0.4-1.5) L 11/19/21 14:27 Total Hemoglobin 12.5 g/dL (12-16) 11/19/21 14:27 Sodium 133.0 mmol/L (131-143) 11/19/21 14:27 Potassium 3.7 mmol/L (3.5-5.0) 11/19/21 14:27 Glucose 659.0 mg/dL (70-115) H 11/19/21 14:27 O2 Delivery Device Room air 11/19/21 14:27 FiO2 21.0 % 11/19/21 14:27 Cooky Machine Operator ID Ed 11/19/21 14:27 Sodium 128 mmol/L (136-145) L 11/19/21 14:24 Potassium 4.0 mmol/L (3.5-5.1) 11/19/21 14:24 Chloride 90 mmol/L (98-107) L 11/19/21 14:24 Carbon Dioxide 21 mmol/L (22-29) L 11/19/21 14:24 Anion Gap 21.0 (5-19) H 11/19/21 14:24 BUN 12 mg/dL (8-23) 11/19/21 14:24 Creatinine 0.6 mg/dL (0.5-0.9) 11/19/21 14:24 GFR Calculation 100.0 mL/min (90-130) 11/19/21 14:24 Glucose 684 mg/dL (65-115) H* 11/19/21 14:24 POC Glucose 384 mg/dL (70-110) H 11/19/21 19:11 Calculated Osmolality 298 mOsm/kg (285-295) H 11/19/21 14:24 Calcium 9.7 mg/dL (8.5-10.5) 11/19/21 14:24 Total Bilirubin 2.6 mg/dL (0.15-1.2) H 11/19/21 14:24 AST 18 U/L (0-32) 11/19/21 14:24 ALT 12 U/L (0-33) 11/19/21 14:24 Alkaline Phosphatase 152 IU/L (35-105) H 11/19/21 14:24 Troponin T Gen 5 ng/L 16 ng/L (0-10) H 11/19/21 14:48 Total Protein 6.9 g/dL (6.6-8.7) 11/19/21 14:24 Albumin 3.9 g/dL (3.5-5.2) 11/19/21 14:24 Globulin 3.0 g/dL (1.3-4.6) 11/19/21 14:24 Lipase 48 U/L (13-60) 11/19/21 14:24 Ser , Semi-Qnt 0.50 mIU/mL 11/19/21 14:48 Urine Color Straw (Yellow) 11/19/21 14:40 Urine Appearance Clear (CLEAR) 11/19/21 14:40 Urine pH 5 (5-7) 11/19/21 14:40 Ur Specific [place] 1.010 (1.005-1.030) 11/19/21 14:40 Urine Protein Neg (Negative) 11/19/21 14:40 Urine Glucose (UA) 4+ (Normal) H 11/19/21 14:40 Urine Ketones Negative (Negative) 11/19/21 14:40 Urine Blood Neg (Negative) 11/19/21 14:40 Urine Nitrate Negative (Negative) 11/19/21 14:40 Urine Bilirubin Neg (Negative) 11/19/21 14:40 Urine Urobilinogen Norm mg/dL (Negative) 11/19/21 14:40 Ur Leukocyte Esterase Negative (Negative) 11/19/21 14:40 Serum Ketones Negative (Negative) 11/19/21 14:24 Discharge Plan Discharge Patient Disposition: Left Against Medical Advice Clinical Impression: Acute hyperglycemia, Acute confusion Condition: Stable Prescriptions: New Antifungal (clotrimazole) 1 % cream 1 applic topical BID 28 Days Qty: 30 0RF No Action acetaminophen [Tylenol Arthritis Pain] 650 mg tablet extended release 650 mg PO Q12H PRN (Reason: Pain) 0RF (DME) blood-glucose meter Kit See Rx Instructions .ROUTE .MEDSUPPLY Qty: 1 0RF Rx Instructions: As directed clopidogrel 75 mg tablet 75 mg PO DAILY 90 Days Qty: 90 1RF carvedilol 6.25 mg tablet 6.25 mg PO BID 90 Days Qty: 180 1RF hydrocodone-acetaminophen 5-325 mg tablet 1 tab PO .q6-8 hrs PRN (Reason: pain) 5 Days Qty: 20 0RF glipizide 5 mg tablet 5 mg PO BID 0RF sennosides [Senokot] 8.6 mg tablet 8.6 mg PO DAILY 0RF sertraline 50 mg tablet 50 mg PO DAILY 0RF magnesium oxide 400 mg magnesium capsule 400 mg PO DAILY 0RF meclizine 25 mg tablet 25 mg PO TID PRN (Reason: Dizziness) 0RF Levemir FlexTouch U-100 Insuln 100 unit/mL (3 mL) insulin pen 40 unit SUBCUT BID 90 Days Qty: 72 1RF Rx Instructions: 340 b furosemide 40 mg tablet 40 mg PO DAILY 90 Days Qty: 180 1RF isosorbide mononitrate 30 mg tablet extended release 24 hr 30 mg PO DAILY 0RF allopurinol 100 mg tablet 100 mg PO DAILY 0RF levothyroxine 150 mcg tablet 150 mcg PO DAILY 0RF cholecalciferol (vitamin D3) 1,250 mcg (50,000 unit) capsule 50,000 unit PO Q7D 0RF zinc 50 mg Tablet 50 mg PO DAILY Qty: 0 0RF pantoprazole 40 mg tablet,delayed release (DR/EC) 40 mg PO DAILY 0RF metformin 1,000 mg tablet 1,000 mg PO BID 0RF lisinopril 2.5 mg tablet 2.5 mg PO DAILY 0RF potassium chloride 10 mEq capsule, extended release 10 meq PO TID 0RF lovastatin 40 mg tablet 40 mg PO DAILY 0RF lactulose 10 gram/15 mL Solution 15 ml PO DAILY PRN (Reason: Constipation) 0RF Referrals: Ivan,DL, DRIER OPERATOR HELPER [Primary Care Provider] - Coding Level of Care Code ED Canvas Goods Fabricator for Chg Fwd Exam Comprehensive
[2021-11-19] MEDS: insulin lispro 100 unit/1 mL 10 UNIT SUBCUT (15:52)
[2021-11-19 17:07] LABS: Glucose Point of Care 530 mg/dL (70-110)
[2021-11-19] MEDS: insulin lispro 100 unit/1 mL 15 UNIT SUBCUT (17:39)
[2021-11-19 18:21] LABS: Glucose Point of Care 436 mg/dL (70-110)
[2021-11-19 18:30] VITALS: BP 202/84; O2SAT 93
[2021-11-19 19:15] LABS: Glucose Point of Care 384 mg/dL (70-110)
--- NOTE | 2021-11-19 19:39 | PC.NURSE ---
patient report received, patient and in room. states they need to go home. patient states wanting to go home. does not want to stay. notified.
== END 2021-11-19 20:06 | disposition left against medical advice (07) ==
PROVIDERS: Emergency Provider Emergency Medicine; PCP Nurse Practitioner Family
DX: E11.65 Type 2 diabetes mellitus with hyperglycemia (principal); R41.0 Disorientation, unspecified; Z79.4 Long term (current) use of insulin; Z79.84 Long term (current) use of oral hypoglycemic drugs; Z79.02 Long term (current) use of antithrombotics/antiplatelets; I25.10 Atherosclerotic heart disease of native coronary artery without angina pectoris; I10 Essential (primary) hypertension; E78.2 Mixed hyperlipidemia; Z87.891 Personal history of nicotine dependence
CPT/HCPCS: 36415; 36416; 36600; 70450; 71045; 76705; 80051; 80053; 81000; 81003; 82009; 82330; 82805; 82962; 83690; 84484; 84702; 85025; 93005; 96360; 96372; 99284; J1815; J7030

== ENCOUNTER → 2022-06-12 10:39 | Outpatient (BNVA) | payer MEDICARE, SELFPAY | PROVIDERS: PCP Nurse Practitioner Family; Visit Provider Podiatrist Foot & Ankle Surgery | DX: Z79.4 Long term (current) use of insulin (principal); Z79.84 Long term (current) use of oral hypoglycemic drugs; E11.42 Type 2 diabetes mellitus with diabetic polyneuropathy; L60.3 Nail dystrophy | CPT/HCPCS: 99204 ==

== ENCOUNTER → 2022-11-27 09:26 | Outpatient (BNVA) | payer MEDICARE, SELFPAY | PROVIDERS: PCP Nurse Practitioner Family; Visit Provider Podiatrist Foot & Ankle Surgery | DX: E11.42 Type 2 diabetes mellitus with diabetic polyneuropathy (principal); L60.3 Nail dystrophy; E11.65 Type 2 diabetes mellitus with hyperglycemia; E11.8 Type 2 diabetes mellitus with unspecified complications; Z79.4 Long term (current) use of insulin; Z89.421 Acquired absence of other right toe(s) | CPT/HCPCS: 11721; 11730; 99213 ==

== ENCOUNTER 2023-01-17 18:43 | Inpatient (IN) | payer MEDICARE, SELFPAY ==
[2023-01-17] VITALS (9 sets, daily range): BP systolic 121–208; BP diastolic 71–131; PULSE 75–117; RESP 13–20; TEMP 36.8; O2SAT 94–100; BMI 30.9
--- NOTE | 2023-01-17 18:58 | CTR_ITS ---
PROCEDURE INFORMATION: Exam: CT Head Without Contrast Exam date and time: 01/17/2023 9:13 PM Age: 67 years old Clinical indication: Altered mental status/memory loss; Additional info: AMS TECHNIQUE: Imaging protocol: Computed tomography of the head without contrast. Radiation optimization: All CT scans at this facility use at least one of these dose optimization techniques: automated exposure control; mA and/or kV adjustment per patient size (includes targeted exams where dose is matched to clinical indication); or iterative reconstruction. REPORTING DATA: Count of CT and Cardiac NM exams in prior 12 months: This patient has received 0 known CTs and 0 known cardiac nuclear medicine studies in the 12 months prior to the current study. COMPARISON: CT head wo con* [id number] 11/19/2021 2:56 PM RADIATION DOSE METRICS: Total DLP (mGy-cm): 1175.73 FINDINGS: Brain: There is mild cortical atrophy. Low-density changes in the white matter are consistent with nonspecific small vessel chronic ischemic change. There is no intracranial mass, hemorrhage or edema. Focal low-density in the left periventricular white matter is consistent with chronic lacunar infarct not significantly changed. Cerebral ventricles: No ventriculomegaly. Paranasal sinuses: Visualized sinuses are unremarkable. No fluid levels. Mastoid air cells: Visualized mastoid air cells are well aerated. Bones/joints: Unremarkable. No acute fracture. Soft tissues: Unremarkable. CT/CT head wo con* [id number] IMPRESSION: 1. Atrophy and old lacunar disease. 2. No acute intracranial finding.
--- NOTE | 2023-01-17 18:58 | W.ED.AMS ---
HPI - Altered Mental Status General: Chief Complaint: Altered Mental Status Stated Complaint: AMS Time Seen by Provider: 01/17/23 18:43 Source: EMS Mode of arrival: EMS Limitations: altered mental status History of Present Illness: 3 is limited to that which obtained from EMS crew. Apparently the patient started acting bizarre and having altered mental status approximately noon today. Family eventually called EMS approximately 5 PM and she was transported to our facility. She has a history of dementia as well as diabetes as well as cirrhosis of the liver. No history of trauma today.. MD complaint: altered mental status Onset (ago): hour(s) Review of Systems General: Reports: ROS unobtainable due to mental status PFSH ED PFSH: Medical History Abdominal pain Anticoagulated Anxiety and depression Arthritis Breast cancer screening by mammogram Coronary artery disease Diabetes mellitus, type II Essential hypertension GERD (gastroesophageal reflux disease) Gout Hepatic encephalopathy Hepatosplenomegaly Hypothyroid Infected abrasion of thumb Liver cirrhosis Mixed hyperlipidemia Mixed hyperlipidemia Type 2 diabetes mellitus with hyperglycemia Urinary tract infection Vaginal yeast infection Yeast vaginitis Surgical History History of arthroscopy of left shoulder History of open heart surgery quad bypass Family History Other Heart disease Social History Smoking and tobacco status: former smoker Second hand smoke exposure: No Smoking risk assessment/counseling performed?: No Alcohol intake: never Desire information about alcohol rehabilitation?: No Counseling given: No Substance/Drug Use: never Desire information about substance/drug rehabilitation?: No Counseling given: No Physical Exam Narrative: The patient is alert but will not answer any direct questions. She cries out in nonsensical language and intermittently yells and screams. Const: COMMON NORMALS: alert EXAM LIMITATIONS: altered mental status GENERAL APPEARANCE: combative and appears older than stated age ORIENTATION/CONSCIOUSNESS: Yes awake HENMT: COMMON NORMALS: normocephalic, Normal nasal mucous membranes and turbinates present, moist oral mucous membranes and oropharynx normal HEAD & SCALP: normocephalic NOSE: Normal nasal mucous membranes and turbinates present Eye: COMMON NORMALS: Equal, round and reactive pupils present, conjunctivae normal and no scleral icterus CONJUNCTIVA: Yes conjunctivae normal PUPIL: Yes Equal, round and reactive pupils present Neck/C-Spine: COMMON NORMALS: full ROM, supple and no meningeal signs Chest: COMMONS NORMALS: normal inspection of the chest Resp: COMMON NORMALS: normal respiratory effort, No use of accessory muscles and clear to auscultation bilaterally AUSCULTATION: clear to auscultation bilaterally Cardio: COMMON NORMALS: regular rate, regular rhythm, No murmurs present (Cardio) and Peripheral pulses 2+ throughout RATE: regular rate RHYTHM: regular rhythm HEART SOUNDS: Murmur heart sound present PERIPHERAL PULSES: Peripheral pulses 2+ throughout GI: COMMON NORMALS: Normal to inspection, nondistended, normoactive bowel sounds present, Soft to palpation, non-tender and no masses PALPATION: Yes Soft to palpation Back/Pelvis: COMMON NORMALS: thoracic and lumbar spine normal to inspection and no thoracic nor lumbar tenderness Extremity: COMMON NORMALS: normal to inspection, full ROM, capillary refill normal and no pedal edema Neuro: COMMON NORMALS: moves all extremities SENSORIUM/ORIENTATION: Yes alert and Yes fluctuating sensorium MENINGEAL SIGNS: Yes no meningeal signs GAIT: Yes Unable to assess gait Skin: COMMON NORMALS: no rashes or lesions noted, no wounds, turgor normal and no jaundice GENERAL SKIN EXAM: no rashes or lesions noted and turgor normal Procedures Intubation Time out performed: Yes sedative: Etomidate Mg Given: 25 paralytic: Rocuronium Mg Given: 120 Laryngoscope: fiber optic video scope ET Tube Size: 8 ET Tube Uncuffed: Yes Tube Secured Depth (cm): 21 Tube Secured Location: lips Tube Placement Confirmation: visualized tube passing through cords, equal breath sounds bilaterally, no breath sounds over epigastrium and confirmation by capnometry Patient Tolerated Procedure: well Intubation Complications: none Course Reevaluation(s): Reevaluation #1: Family has arrived and provides additional illuminating information. They state that she has some mild dementia and has had fluctuating sensorium over the years but not to the point she has displayed since approximately noon today. As noted previously her blood sugar was noted to be elevated in excess of 500. They are unaware of any other changes she has not currently an alcohol drinker, she is not any trauma, has not been recently ill. relates that she has been complaining of lower abdominal pain today as well. Patient continues to be uncontrollable, delirious and otherwise unevaluable at this time. I discussed plan for sedation and intubation to allow us to safely and successfully complete her evaluation. Family voiced understanding and agreed to proceed. Time: 20:02 Reevaluation #2: Patient successfully intubated and we will proceed with expedited work-up Time: 20:34 Reevaluation #3: Thus far is benign revealing as to any worrisome etiology to her acute delirium. Time: 22:43 Consultations: Consultation #1: Discussed current findings with Dr. Carr who agreed to evaluate the patient for possible admission. Time: 22:40 Vital Signs: Vital signs: Vital Signs Temperature 98.3 F 01/17/23 18:52 Pulse Rate 75 01/17/23 18:52 Respiratory Rate 14 01/17/23 20:53 Blood Pressure 162/71 01/17/23 18:52 Pulse Oximetry 98 01/17/23 20:53 Oxygen Delivery Me thod Room Air 01/17/23 18:52 Fraction of Inspir ed Oxygen 40 01/17/23 20:29 MDM - Altered Mental Status Medical Decision Making This patient was transported to our emergency department by EMS. She had a history given predominantly by family of progress even and fluctuating delirium and sensorium over the years but today seem to have a episode where she continues to be delirious and ultimately required notification of EMS to transport her to the emergency department. There have been no preceding history of fevers, trauma, substance abuse etc. that might of contributed to her current presentation. At presentation to the emergency department she was alert but nonsensical in her responses and completely unevaluable as to the potential etiology of her presentation. This is necessitated discussion with family regarding sedation and intubation to allow further and evaluation. This consent was obtained after risk-benefit discussion. She was successfully and uneventfully intubated and work-up was engaged. CT scan of the head chest abdomen pelvis did not reveal any obvious worrisome pathology to include no evidence of stroke, bowel obstruction, acute organ perforation etc. Her laboratories did not reveal any evidence of elevated ammonia, acute infection etc. No clear etiology to her delirium was discovered while in the emergency department but clearly she will need to be admitted to the facility for continued evaluation, and observation to see if her sensorium improves. Differential Diagnosis Likely delirium and dementia; Unlikely alcoholic intoxication, hypoglycemia, subarachnoid hemorrhage or sepsis Lab Data I reviewed the patient's lab results. 01/17/23 21:58 01/17/23 21:[address] 01/17/23 18:58 IMPRESSION: 1. Atrophy and old lacunar disease. 2. No acute intracranial finding. Chest X-Ray 01/17/23 20:31 IMPRESSION: 1. Satisfactory position of endotracheal tube. 2. Mild pulmonary vascular congestion. Chest/Abdomen/Pelvis CT 01/17/23 20:31 IMPRESSION: 1. Mild interstitial pulmonary edema. 2. Dependent atelectasis in the lungs bilaterally. 3. There is an endotracheal tube with the tip 2.2 cm above the nathan. 4. There is an enteric tube with the tip in the distal body of the stomach. 5. Incidental/nonacute findings are listed in the report. IMPRESSION: 1. Stable nodular contour of the liver. However, there is hepatomegaly that has decreased, and there is interval development of reticular enhancement in the liver which raises concern for worsening fibrotic changes in the liver. 2. Findings suggesting portal hypertension. There is mild splenomegaly that has decreased. Stable small caliber varices in the left abdomen. 3. There is an enteric tube with the tip in the distal body of the stomach. 4. Incidental/nonacute findings are listed in the report. COMMENTS: Consistent with the [employer]'s Incidental Findings Committee white paper (J Am Jonathan Radiol 2018): Any incidental renal lesion less than 1 cm or classified as too small to characterize, or any incidental cystic renal lesion characterized as simple-appearing, is likely benign. No follow-up imaging is recommended for these lesions per consensus recommendations based on imaging criteria. Laboratory Results WBC 8.5 10^3/uL (4.0-10.0) 01/17/23 21:58 RBC 5.58 10^6/uL (4.1-5.3) H 01/17/23 21:58 Hgb 16.1 g/dL (11.5-15.3) H 01/17/23 21:58 Hct 47.5 % (37.0-47.0) H 01/17/23 21:58 MCV 85.1 fl (81-99) 01/17/23 21:58 MCH 28.9 pg (28.0-34.0) 01/17/23 21:58 MCHC 33.9 g/dL (30.0-36.0) 01/17/23 21:58 RDW 12.9 % (12.1-15.1) 01/17/23 21:58 Plt Count 175 10^3/cmm (130-400) 01/17/23 21:58 MPV 9.8 fL (7.4-10.4) 01/17/23 21:58 Neut % (Auto) 61.6 % 01/17/23 21:58 Lymph % (Auto) 29.8 % 01/17/23 21:58 Cass % (Auto) 5.8 % 01/17/23 21:58 Eos % (Auto) 1.7 % 01/17/23 21:58 Baso % (Auto) 0.7 % 01/17/23 21:58 Neut # (Auto) 5.22 10^3/uL (1.8-7.7) 01/17/23 21:58 Lymph # (Auto) 2.5 10^3/uL (0.8-4.8) 01/17/23 21:58 Cass # (Auto) 0.5 10^3/uL (0.2-0.9) 01/17/23 21:58 Eos # (Auto) 0.1 10^3/uL (0.0-0.8) 01/17/23 21:58 Baso # (Auto) 0.1 10^3/uL (0.0-0.1) 01/17/23 21:58 Nucleated RBC % (auto) 0 % 01/17/23 21:58 Nucleated RBCs # 0.0 /100WBC 01/17/23 21:58 Specimen Type Arterial 01/17/23 20:34 Sample Site Brachial, right 01/17/23 20:34 ABG pH 7.40 (7.35-7.45) 01/17/23 20:34 ABG pCO2 41.1 mmHg (35-45) 01/17/23 20:34 ABG pO2 106.0 mmHg (80.0-100.0) H 01/17/23 20:34 ABG HCO3 25.5 mmol/L (22-26) 01/17/23 20:34 ABG Base Excess 0.6 mmol/L (-2.0-2.0) 01/17/23 20:34 Abilio Test N/a 01/17/23 20:34 Hematocrit 42.6 % (37-47) 01/17/23 20:34 O2 Delivery Device Vent 01/17/23 20:34 FiO2 40.0 % 01/17/23 20:34 PEEP 5.0 cmH20 01/17/23 20:34 Industrial Recruiter ID Alewe 01/17/23 20:34 Sodium 131 mmol/L (136-145) L 01/17/23 21:58 Potassium 3.1 mmol/L (3.5-5.1) L 01/17/23 21:58 Chloride 92 mmol/L (98-107) L 01/17/23 21:58 Carbon Dioxide 21 mmol/L (22-29) L 01/17/23 21:58 Anion Gap 21.1 (5-19) H 01/17/23 21:58 BUN 19 mg/dL (8-23) 01/17/23 21:58 Creatinine 0.6 mg/dL (0.5-0.9) 01/17/23 21:58 GFR Calculation 99.7 mL/min (90-130) 01/17/23 21:58 Glucose 308 mg/dL (65-115) H 01/17/23 21:58 POC Glucose 275 mg/dL (70-110) H 01/17/23 19:02 Calculated Osmolality 286 mOsm/kg (285-295) 01/17/23 21:58 Calcium 9.0 mg/dL (8.5-10.5) 01/17/23 21:58 Magnesium 1.3 mg/dL (1.7-2.3) L 01/17/23 21:58 Total Bilirubin 2.6 mg/dL (0.15-1.2) H 01/17/23 21:58 AST 27 U/L (0-32) 01/17/23 21:58 ALT 20 U/L (0-33) 01/17/23 21:58 Alkaline Phosphatase 160 U/L (35-105) H 01/17/23 21:58 Ammonia 22 umol/L (11-51) 01/17/23 21:58 Troponin T Gen 5 ng/L 73 ng/L (0-10) H 01/17/23 21:58 Total Protein 7.3 g/dL (6.6-8.7) 01/17/23 21:58 Albumin 3.9 g/dL (3.5-5.2) 01/17/23 21:58 Globulin 3.4 g/dL (1.3-4.6) 01/17/23 21:58 TSH 3.43 uIU/mL (0.27-4.20) 01/17/23 21:58 Salicylates < 0.3 mg/dL (3-10) L 01/17/23 21:58 Urine Opiates Screen Positive ng/mL (Negative) H 01/17/23 22:47 Acetaminophen < 5.0 ug/mL (10-30) L 01/17/23 21:58 Ur Barbiturates Screen Negative ng/mL (Negative) 01/17/23 22:47 Ur Phencyclidine Scrn Negative ng/mL (Negative) 01/17/23 22:47 Ur Amphetamines Screen Negative ng/mL (Negative) 01/17/23 22:47 U Benzodiazepines Scrn Negative ng/mL (Negative) 01/17/23 22:47 Urine Cocaine Screen Negative ng/mL (Negative) 01/17/23 22:47 U Marijuana (THC) Screen Negative ng/mL (Negative) 01/17/23 22:47 Ethyl Alcohol < 10 mg/dL (0-10) 01/17/23 21:58 Serum Ketones Negative (Negative) 01/17/23 21:58 Critical Care Time Critical Care Time: Critical Care Time: Yes Total Critical Care Time: 40 Attestation: Critical care time included evaluating the patient, evaluating laboratories, managing mechanical ventilation and medications to include IV drips. Also included obtaining alternative history from family and discussing with consultants. Discharge Plan Discharge Patient Disposition: Admitted As Inpatient Clinical Impression: Acute delirium Condition: Stable Coding Level of Care Code ED Stepdown Nurse for Page Kelly
[2023-01-17 19:16] LABS: Glucose Point of Care 275 mg/dL (70-110)
[2023-01-17] MEDS: etomidate 2 mg/mL INJ SDV 10 mL 24.49 MG IVP (20:16)
[2023-01-17] MEDS: rocuronium 10 mg/mL INJ 5mL IVP (20:19)
[2023-01-17] MEDS: propofol 1,000 MG/100 ML INJ 9.8 MG IV (20:27)
--- NOTE | 2023-01-17 20:31 | XRR_ITS ---
PROCEDURE INFORMATION: Exam: XR Chest Exam date and time: 01/17/2023 9:02 PM Age: 67 years old Clinical indication: Shortness of breath; Prior surgery; Additional info: Post intubation TECHNIQUE: Imaging protocol: Radiologic exam of the chest. Views: 1 view. COMPARISON: CR (CHEST, ) 11/19/2021 2:49 PM FINDINGS: Tubes, catheters and devices: Endotracheal tube is 2.5 cm above the nathan. There is a nasogastric tube extending into the stomach, the tip is not included on this examination. Lungs: There is mild pulmonary venous congestion. No focal infiltrate is identified. Pleural spaces: Unremarkable. No pleural effusion. No pneumothorax. Heart/Mediastinum: Heart is within normal limits of size. Bones/joints: Sternotomy wires and mediastinal surgical clips are present, consistent with previous coronary arterial bypass grafting. XR/XR chest 1V portable [id number] IMPRESSION: 1. Satisfactory position of endotracheal tube. 2. Mild pulmonary vascular congestion.
--- NOTE | 2023-01-17 20:31 | CTR_ITS ---
PROCEDURE INFORMATION: Exam: CT Chest With Contrast; Diagnostic Exam date and time: 01/17/2023 9:16 PM Age: 67 years old Clinical indication: Pain; Other: Unknown patient AMS when arrived; Other: Unknown, patient was AMS when arrived; Additional info: AMS and pain TECHNIQUE: Imaging protocol: Diagnostic computed tomography of the chest with contrast. Sagittal and coronal reformatted images were created and reviewed. Radiation optimization: All CT scans at this facility use at least one of these dose optimization techniques: automated exposure control; mA and/or kV adjustment per patient size (includes targeted exams where dose is matched to clinical indication); or iterative reconstruction. Contrast material: OMNI 350; Contrast volume: 100 ml; Contrast route: INTRAVENOUS (IV); REPORTING DATA: Count of CT and Cardiac NM exams in prior 12 months: This patient has received 0 known CTs and 0 known cardiac nuclear medicine studies in the 12 months prior to the current study. COMPARISON: 1. CT chest abdpel w/*[id number] 07/06/2021 5:56 AM 2. CR (CHEST, ) 01/17/2023 9:02 PM RADIATION DOSE METRICS: Total DLP (mGy-cm): 1540.79 FINDINGS: Tubes, catheters and devices: There is an endotracheal tube with the tip 2.2 cm above the nathan. There is an enteric tube with the tip in the distal body of the stomach. Trachea: Tracheobronchial structures are patent. Lungs: Dependent atelectasis in the lungs bilaterally. Mild interstitial pulmonary edema. Calcified granuloma in the left upper lobe. Pleural spaces: No pneumothorax. No pleural effusion. Heart: Stable moderate enlargement of the heart. Stable calcification of the aortic valve and mitral valve annulus. Coronary arteries: Stable moderate atherosclerotic calcification in the coronary arteries. Esophagus: The esophagus is unremarkable. Mediastinal space: No mediastinal hematoma. No pneumomediastinum. Lymph nodes: No lymphadenopathy. Vasculature: Stable mild atherosclerotic changes in the visualized arteries. No evidence for aortic aneurysm or aortic dissection. Pulmonary arteries are unremarkable. Pulmonary veins are unremarkable. Bones/joints: Multilevel degenerative changes of varying severity in the visualized spine. Poststernotomy changes in the chest. Osseous findings are stable. Soft tissues: No acute abnormality in the extrathoracic soft tissues. PROCEDURE INFORMATION: Exam: CT Abdomen And Pelvis With Contrast Exam date and time: 01/17/2023 9:16 PM Age: 67 years old Clinical indication: Pain; Other: Unknown patient AMS when arrived; Other: Unknown, patient was AMS when arrived; Additional info: AMS and pain TECHNIQUE: Imaging protocol: Computed tomography of the abdomen and pelvis with contrast. Sagittal and coronal reformatted images were created and reviewed. Radiation optimization: All CT scans at this facility use at least one of these dose optimization techniques: automated exposure control; mA and/or kV adjustment per patient size (includes targeted exams where dose is matched to clinical indication); or iterative reconstruction. Contrast material: OMNI 350; Contrast volume: 100 ml; Contrast route: INTRAVENOUS (IV); REPORTING DATA: Count of CT and Cardiac NM exams in prior 12 months: This patient has received 0 known CTs and 0 known cardiac nuclear medicine studies in the 12 months prior to the current study. COMPARISON: CT chest abdpel w/*[id number] 07/06/2021 5:56 AM RADIATION DOSE METRICS: Total DLP (mGy-cm): 1540.79 FINDINGS: Tubes, catheters and devices: There is an enteric tube with the tip in the distal body of the stomach. Liver: Stable nodular contour of the liver. Mild enlargement of the liver measuring 18.7 cm in length, previously measured 20.5 cm in length (series 19, image 29). Interval development of reticular enhancement in the liver. Gallbladder and bile ducts: Stable findings consistent with a previous cholecystectomy. Dilatation of the biliary ducts, not unexpected in a patient who has had a prior cholecystectomy. Pancreas: The pancreas is unremarkable. No pancreatic ductal dilatation. Spleen: Mild enlargement of the spleen measuring 16.8 cm, previously measured 18.4 cm in length (series 20, image 25). Adrenal glands: The right and left adrenal glands are unremarkable. Kidneys and ureters: Focal cortical scarring in the right and left kidneys. Simple cyst in the left kidney measuring 2.2 cm. Findings in the kidneys are stable. The right and left ureters are unremarkable. Stomach and bowel: No acute abnormality in the small bowel. No acute abnormality in the colon. Appendix: Appendix not definitely visualized. No inflammatory changes in the pericecal region however. Intraperitoneal space: No free intraperitoneal air. No ascites. No loculated fluid collections to suggest an abscess. Vasculature: Mild atherosclerotic changes in the visualized arteries. No evidence for aortic aneurysm or aortic dissection. Hepatic veins are poorly opacified and not well-visualized. Portal veins, splenic vein, and SMV are patent. Stable small caliber varices in the left abdomen. Lymph nodes: No lymphadenopathy. Urinary bladder: The bladder is decompressed by a Sadler catheter. Air in the bladder, likely related to Sadler catheter placement. Reproductive: The uterus, right ovary, and left ovary are unremarkable. Bones/joints: Degenerative changes in the spine, sacroiliac joints, and hips. Soft tissues: No acute abnormality in the extra-abdominal soft tissues. CT/CT chest abdpel w/*[id number] IMPRESSION: 1. Mild interstitial pulmonary edema. 2. Dependent atelectasis in the lungs bilaterally. 3. There is an endotracheal tube with the tip 2.2 cm above the nathan. 4. There is an enteric tube with the tip in the distal body of the stomach. 5. Incidental/nonacute findings are listed in the report. IMPRESSION: 1. Stable nodular contour of the liver. However, there is hepatomegaly that has decreased, and there is interval development of reticular enhancement in the liver which raises concern for worsening fibrotic changes in the liver. 2. Findings suggesting portal hypertension. There is mild splenomegaly that has decreased. Stable small caliber varices in the left abdomen. 3. There is an enteric tube with the tip in the distal body of the stomach. 4. Incidental/nonacute findings are listed in the report. COMMENTS: Consistent with the [employer]'s Incidental Findings Committee white paper (J Am Jonathan Radiol 2018): Any incidental renal lesion less than 1 cm or classified as too small to characterize, or any incidental cystic renal lesion characterized as simple-appearing, is likely benign. No follow-up imaging is recommended for these lesions per consensus recommendations based on imaging criteria.
--- NOTE | 2023-01-17 20:34 | PC.NURSE ---
Dr Scott at bedside, patient requiring intubation per Dr Scott. Etomidate and timur used and charted in nov. RT at bedside. OG, hernandez placed. Prop drip ordered for sedation. IV patent.
[2023-01-17] MEDS: sodium chloride 0.9% 500 ML IV (20:40)
[2023-01-17 20:46] LABS: ABG PCO2 41.1 mmHg (35-45); Arterial Blood Gas Hematocrit 42.6 % (37-47); Base Excess ABG 0.6 mmol/L (-2.0-2.0); Blood Gas Sample Site Brachial, right; Blood Gas Sample Type Arterial; HCO3 ABG 25.5 mmol/L (22-26); Oxygen Device VENT
[2023-01-17] MEDS: HYDROmorphone 1 mg/mL INJ 1 mL IVP (20:53)
[2023-01-17] MEDS: iohexol 350 mg/mL 500 mL Btl (per mL) IV (21:24)
[2023-01-17 22:05] LABS: Basophils # 0.1 10^3/uL (0.0-0.1); Basophils % 0.7 %; Eosinophils # 0.1 10^3/uL (0.0-0.8); Eosinophils % 1.7 %; Hematocrit 47.5 % (37.0-47.0); Hemoglobin 16.1 g/dL (11.5-15.3); Lymphocytes # 2.5 10^3/uL (0.8-4.8); Lymphocytes % 29.8 %; Mean Corpuscular HGB Conc 33.9 g/dL (30.0-36.0); Mean Corpuscular Hemoglobin 28.9 pg (28.0-34.0); Mean Corpuscular Volume 85.1 fl (81-99); Mean Platelet Volume 9.8 fL (7.4-10.4); Monocytes # 0.5 10^3/uL (0.2-0.9); Monocytes % 5.8 %; Neutrophils # 5.22 10^3/uL (1.8-7.7); Neutrophils % 61.6 %; Nucleated Red Blood Cells % 0 %; Platelet Count 175 10^3/cmm (130-400); Red Blood Count 5.58 10^6/uL (4.1-5.3); Red Cell Distribution Width 12.9 % (12.1-15.1); White Blood Count 8.5 10^3/uL (4.0-10.0)
[2023-01-17 22:23] LABS: Ammonia 22 umol/L (11-51)
[2023-01-17 22:33] LABS: Alanine Aminotransferase 20 U/L (0-33); Albumin Level 3.9 g/dL (3.5-5.2); Alkaline Phosphatase 160 U/L (35-105); Blood Urea Nitrogen 19 mg/dL (8-23); Carbon Dioxide 21 mmol/L (22-29); Chloride 92 mmol/L (98-107); Creatinine Clr Calc Pharmacy 70.5375; Globulin 3.4 g/dL (1.3-4.6); Glomerular Filtration Rate 99.7 mL/min (90-130); Glucose 308 mg/dL (65-115); Osmolality Calculated 286 mOsm/kg (285-295); Sodium 131 mmol/L (136-145); Thyroid Stimulating Hormone 3.43 uIU/mL (0.27-4.20); Total Bilirubin 2.6 mg/dL (0.15-1.2); Total Protein 7.3 g/dL (6.6-8.7)
[2023-01-17 22:35] LABS: Acetaminophen < 5.0 ug/mL (10-30); Alcohol Level < 10 mg/dL (0-10); Salicylate < 0.3 mg/dL (3-10)
[2023-01-17 22:36] LABS: Anion Gap 21.1 (5-19); Aspartate Amino Transferase 27 U/L (0-32); Potassium 3.1 mmol/L (3.5-5.1)
--- NOTE | 2023-01-17 22:42 | ECG_ITS ---
[facility] Test Date: 2023-01-18 Pat Name: Linda Joiner Department: Room: [facility] Gender: Female Set Painter: : 1955 Requested By: Samuel Stinson Order Number: [id number] Sylvie MD: Kelsy Saleh M.D. Measurements Intervals [place] Rate: 89 P: -13 AL: 174 QRS: 29 QRSD: 94 T: 63 QT: 410 QTc: 501 Interpretive Statements SINUS RHYTHM WITH OCCASIONAL VENTRICULAR PREMATURE COMPLEXES WITH OCCASIONAL SUPRAVENTRICULAR PREMATURE COMPLEXES LOW QRS VOLTAGE IN PRECORDIAL LEADS [QRS DEFLECTION < 1.0 mV IN CHEST LEADS] ANTEROSEPTAL MYOCARDIAL INFARCTION , OF INDETERMINATE AGE [40+ ms Q WAVE IN V1-V4] Compared to ECG 11/19/2021 14:42:44 Ventricular premature complex(es) now present Low QRS voltage now present Myocardial infarct finding still present Electronically Signed On 01-19-2023 16:30:30 CDT by Kelsy Saleh M.D. [id number]
[2023-01-17 22:54] LABS: Ketone (Acetest) Serum Negative (Negative)
[2023-01-17 23:02] LABS: Troponin T (5th) Once 73 ng/L (0-10)
[2023-01-17 23:03] LABS: Amphetamines Screen Urine Negative (Negative); Barbiturates Screen Urine Negative (Negative); Benzodiazepines Screen Urine Negative (Negative); Cocaine Screen Urine Negative (Negative); Opiate Screen Urine Positive (Negative); PCP Screen Urine Negative (Negative); THC Screen Urine Negative (Negative)
[2023-01-17 23:04] LABS: Magnesium 1.3 mg/dL (1.7-2.3)
[2023-01-17 23:10] LABS: Bilirubin Urine Neg (Negative); Blood Urine 2+ (Negative); Glucose Urine UA 4+ (Normal); Ketones Urine 1+ (Negative); Nitrate Urine Positive (Negative); Protein Urine 3+ (Negative); Specific Gravity, Urine 1.015 (1.005-1.030); Urine Appearance Hazy (CLEAR); Urine Color Yellow (Yellow); pH Urine 6 (5-7)
[2023-01-17 23:11] LABS: Add Urine Culture? Yes; Add Urine Microscopic? YES; Bacteria Urine 4+ /hpf; Leukocyte Esterase Urine Negative (Negative); Squamous Epithelial Cell Urine 0-4 /hpf (0-5); Urobilinogen Urine Neg (Negative); WBC Urine 15-25 /hpf (0-5)
--- NOTE | 2023-01-17 23:21 | P.HP_ITS ---
Providers/Chief Complaint Admitting Physician: Samuel Carr MD, hospitalist Primary Care Provider: Deandra Flores MD Chief Complaint: AMS History of Present Illness Linda Joiner is a 67 year old female with known underlying memory problems who presents to the emergency department with increasing agitation and confusion today. Family reports she has baseline confusion, often asking the same questions and significant short-term memory loss. However, today she kept standing up, sitting down and reported help me. She had been complaining lately of something sticking out down below . Family reports she got more and more agitated and was somewhat combative at home, so she was brought to the emergency department. At the emergency department she was intubated and sedated promptly. As patient is intubated I cannot get any history from her. Her family relates she did not seem to be in any chest discomfort lately. She was not weak on one side or the other. She did not appear short of breath. She had no recent infection. They report emotionally she can be somewhat paranoid at times, and has had emotional difficulties all of her life from a traumatic event as a child. They report this seems to be worse around the time of her birthday which is coming up. They do relate she has had some constipation lately. Review of Systems General: Reports: ROS unobtainable due to endotracheal tube Medications/Allergies Home Medications Medication Instructions Recorded Confirmed Last Taken Type blood-glucose meter #1 ea 02/28/21 11/27/22 Unknown Rx carvedilol 6.25 mg tablet 6.25 mg PO BID 90 days #180 tabs 03/28/21 11/27/22 Unknown Rx clopidogrel 75 mg tablet 75 mg PO DAILY 90 days #90 tabs 03/28/21 11/27/22 Unknown Rx furosemide 40 mg tablet 40 mg PO DAILY 90 days #180 tabs 06/05/21 11/27/22 Unkno wn Rx isosorbide mononitrate 30 mg 30 mg PO DAILY 07/06/21 11/27/22 Unknown History tablet,extended release 24 hr levothyroxine 150 mcg tablet 150 mcg PO DAILY 07/06/21 11/27/22 Unknown History lisinopril 2.5 mg tablet 2.5 mg PO DAILY 07/06/21 11/27/22 Unknown History glipizide 5 mg tablet 5 mg PO BID 07/28/21 11/27/22 Unknown History potassium chloride 10 mEq 10 meq PO TID 07/28/21 11/27/22 Unknown History capsule,extended release insulin detemir U-100 100 unit/mL 40 unit (0.4 mL) SUBCUT BID see 09/28/21 11/27/22 Unknown Rx (3 mL) subcutaneous pen (Levemir pharmacy comments 90 days #72 mL FlexTouch U-100 Insulin) lovastatin 40 mg tablet 40 mg PO DAILY 11/19/21 11/27/22 Unknown History aspirin 81 mg tablet,delayed 81 mg PO DAILY 04/05/22 11/27/22 Unknown History release (Ecotrin Low Strength) ergocalciferol (vitamin D2) 1,250 1,250 mcg PO DAILY 04/05/22 11/27/22 Unknown History mcg (50,000 unit) capsule nitroglycerin 0.4 mg sublingual 0.4 mg sublingual Q5M PRN 04/05/22 11/27/22 Unknown History tablet (Nitrostat) oxybutynin chloride 10 mg 10 mg PO DAILY 04/05/22 11/27/22 Unknown History tablet,extended release 24 hr (Ditropan XL) sertraline 50 mg tablet (Zoloft) 50 mg PO DAILY 04/05/22 11/27/22 Unknown Hi story insulin NPH isoph U-100 human 100 10 unit (0.1 mL) SUBCUT BID #10 mL 09/18/22 11/27/22 Unknown Rx unit/mL subcutaneous suspension (Novolin N NPH U-100 Insulin isophane) docusate sodium 100 mg capsule 100 mg PO BID #60 caps 09/19/22 11/27/22 Unknown Rx (Colace) semaglutide 3 mg tablet (Rybelsus) 3 mg PO DAILY 30 days #30 tabs 09/19/22 11/27/22 Unknown Rx doxycycline hyclate 100 mg capsule 100 mg PO BID #14 caps 11/27/22 11/27/22 Unknown Rx mupirocin 2 % topical ointment 1 applic topical BID #15 grams 11/27/22 11/27/22 Unknown Rx Allergies Allergy/AdvReac Type Severity Reaction Status Date / Time cefaclor [From [facility]] Allergy unknown Verified 01/17/23 18:55 cephalexin Allergy Unknown Verified 01/17/23 18:55 codeine Allergy ADR-Vomitin Verified 01/17/23 18:55 g Penicillins Allergy unknown Verified 01/17/23 18:55 Sulfa (Sulfonamide Allergy unknown Verified 01/17/23 18:55 Antibiotics) ciprofloxacin [From Cipro] AdvReac rash Verified 01/17/23 18:55 PFSH Acute PFSH: Medical History (Updated 01/17/23 @ 23:43 by Samuel Carr MD) Abdominal pain Anticoagulated Anxiety and depression Arthritis Breast cancer screening by mammogram Coronary artery disease Diabetes mellitus, type II Essential hypertension GERD (gastroesophageal reflux disease) Gout Hepatic encephalopathy Hepatosplenomegaly Hypothyroid Infected abrasion of thumb Liver cirrhosis Mixed hyperlipidemia Mixed hyperlipidemia Type 2 diabetes mellitus with hyperglycemia Urinary tract infection Vaginal yeast infection Yeast vaginitis Surgical History (Updated 01/17/23 @ 23:24 by Samuel Carr MD) History of arthroscopy of left shoulder History of coronary angioplasty History of open heart surgery quad bypass Family History Other Heart disease Social History Smoking and tobacco status: former smoker Second hand smoke exposure: No Smoking risk assessment/counseling performed?: No Alcohol intake: never Desire information about alcohol rehabilitation?: No Counseling given: No Substance/Drug Use: never Desire information about substance/drug rehabilitation?: No Counseling given: No Vitals/I&O/Wt Last Vital Signs Temp 98.3 F 01/17/23 18:52 Pulse 75 01/17/23 18:52 Resp 14 01/17/23 20:53 BP 162/71 01/17/23 18:52 Pulse Ox 98 01/17/23 20:53 O2 Del Method Room Air 01/17/23 18:52 FiO2 40 01/17/23 20:29 Weight last 48 hrs Weight 81.647 kg Physical Exam Narrative: General exam is an intubated and sedated female, who will move with stimulation. HEENT: Pupils equally round. Atraumatic and normocephalic. Endotracheal and oropharyngeal tube noted. Neck is supple no lymphadenopathy thyromegaly Cardiovascular regular rate and rhythm, no murmur Lungs clear no wheezing or crackles Abdomen is soft. Bowel sounds are noted. No obvious organomegaly. exam demonstrates Sadler. I was told by nursing that no evidence of vaginal prolapse, rectal prolapse was noted Extremities no cyanosis clubbing or edema, cap refill brisk Skin no rash Neuro: Sedated. From description from nursing no focal neurologic deficits were noted. Urinary Catheter Management: Sadler: Cath Placed During This Visit: yes Urinary Catheter Date of Insertion: 01/17/23 Data 01/17/23 21:58 01/17/23 21:58 Other Labs: ABG demonstrates pH 7.4, PCO2 41, PO2 106 on 40% with 5 of PEEP Magnesium which I ordered is low at 1.3. Total bilirubin 2.6. Alk phos 160. Rest of LFTs are normal. Ammonia is 22. Troponin 73 Albumin 3.9 Urinalysis is positive for nitrates, 5-10 reds 15-25 whites, 4+ bacteria Salicylate level is undetectable. Acetaminophen levels undetectable. Opiates are positive. Alcohol level less than 10. Serum ketones negative. CT of chest abdomen and pelvis demonstrated nodular contour of liver, possible portal hypertension Chest x-ray which I reviewed demonstrated satisfactory to position, prior bypass surgery Head CT no acute findings EKG is ordered TSH is normal A&P Assessment and plan (1) Acute delirium: It appears the patient arrived in acute delirium. She was promptly intubated on arrival to the emergency department. She is currently on propofol, and fentanyl for sedation. Will add Precedex, and try to wean the other medication prepping for possible extubation early tomorrow morning. Hopefully the Precedex will treat any potential severe agitation asso ciated with extubation. Ventilator settings were reviewed in detail and no significant adjustments need to occur. (2) Elevated troponin: Patient has an elevated troponin. Check serial troponins and EKG's (3) Urinary tract infection: Patient appears to have a UTI based on urinalysis Urine culture Initiate Rocephin This may contribute somewhat to her decompensation. (4) Dementia: Patient has underlying dementia, likely with behaviors. She may need to be on a medication regimen for this. TSH has been checked and normal B12 will be checked, level pending (5) Diabetes mellitus, type II: Initiate sliding scale insulin. 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 Attestations Medical Necessity Statement*: Will need greater than 2 midnight stay for evaluation and treatment of delirium, UTI requiring mechanical ventilation Critical Care Time: 66The high probability of a clinically significant, sudden or life threatening deterioration of the patient's [neurologic, cardiovascular, respiratory] s ystem(s) required my full and direct attention, intervention and personal management. The critical care time is as shown. This time is in addition to time spent performing any reported procedures but includes the following: [x] Data and vital sign review and interpretation [x] Patient assessment, examination and intervention [x] Documentation [x] Medication orders and management Coding Level of Care Code Critical Care >/= 30 minutes Critical care time (in minutes): 66 The high probability of a clinically significant, sudden or life threatening deterioration, as referenced in this documentation, required my full and direct attention, intervention and personal management. The critical care time shown is in addition to time spent performing any reported separately billable procedures and includes the following: [x] Data and vital sign review and interpretation [x ] Patient assessment, examination and intervention [x] Medication orders and management [x] Patient/Family updates as able [x] Care Coordination and Documentation. Diagnoses Acute delirium R41.0 Elevated troponin R77.8 Urinary tract infection N39.0 Dementia F03.90 Diabetes mellitus, type II E11.9; Z79.4 Diabetes mellitus correction insulin use: with correction use Diabetes mellitus complication status: without complication Time Spent (min) 66
[2023-01-18] VITALS (70 sets, daily range): BP systolic 73–162; BP diastolic 42–139; PULSE 69–103; RESP 14–53; TEMP 36.4–37.4; O2SAT 86–100
[2023-01-18 00:27] LABS: Vitamin B12 681 pg/mL (232-1245)
[2023-01-18 00:28] LABS: Folate Level 16.7 ng/mL (4.8-37.3)
[2023-01-18 00:35] LABS: Troponin 5 2HR Delta 345 ABS# (0-10)
[2023-01-18] MEDS: cefTRIAXone 1,000 MG in sodium chloride 0.9% (plus) 50 ML 100 MG IV ×2 (00:46→23:11)
--- NOTE | 2023-01-18 00:57 | USCV_ITS ---
Linda Joiner Age: 67 Gender: F : 1955 Exam Date: 01/18/2023 03:05 Ordering Phys: Samuel Carr MD Technologist: MAGED [place] [facility] [place]: CABG scar, hx dementia, cirrhosis, DM, on vent in ICU-4 BP: 123 / 74 HR: 80 Rhythm: Sinus Technical Quality: Adequate MEASUREMENTS (Male / Female) Normal Values 2D ECHO LV Diastolic Diameter PLAX 3.5 cm 4.2 - 5.9 / 3.9 - 5.3 cm LV Systolic Diameter PLAX 2.7 cm IVS Diastolic Thickness 1.8 cm 0.6 - 1.0 / 0.6 - 0.9 cm IVS Systolic Thickness 1.9 cm LVPW Diastolic Thickness 1.4 cm 0.6 - 1.0 / 0.6 - 0.9 cm LVPW Systolic Thickness 1.5 cm LVOT Diameter 1.7 cm LV Ejection Fraction 2D Teich 43.1 % LV Ejection Fraction MOD 2C 33.8 % LV Ejection Fraction 2C AL 30.5 % LA Diameter 5.1 cm LA Width 3.9 cm LA Height 5.6 cm RA Width 3.3 cm RA Height 4.5 cm Aorta at Sinotubular Diameter 2.5 cm IVC Diameter 1.9 cm M-MODE Aortic Annulus Diameter 2.5 cm LA Ao Ratio MM 2.0 MV E Point Septal Separation 1.2 cm DOPPLER AV Peak Velocity 113.0 cm/s LVOT Peak Velocity 91.0 cm/s AV Area Cont Eq vti 1.6 cm squared AV Area Cont Eq pk 1.8 cm squared MV Area PHT 3.0 cm squared Mitral E to A Ratio 1.2 MV E' Velocity 47.5 cm/s Mitral E to MV E' Ratio 15.8 Mitral E to LV E' Lateral Ratio 12.8 Mitral E to LV E' Septal Ratio 20.5 TR Peak Velocity 222.0 cm/s TR Peak Gradient 19.7 mmHg TV Peak E Velocity 41.0 cm/s Right Atrial Pressure 10.0 mmHg Pulmonary Artery Systolic Pressu 29.7 mmHg PV Peak Velocity 103.0 cm/s RV Acceleration Time 0.1 s RV Ejection Time 0.3 s RV AcT/ET 0.4 FINDINGS Left Ventricle The septum is severely hypokinetic and thinned out. Diffuse hypokinesia of the LV apex. Dyskinetic mid anteroseptum. LV ejection fraction of 34% Right Ventricle The right ventricle is normal in size and function. Right Atrium The right atrium is normal in size. Left Atrium Mildly increased left atrial size. Mitral Valve Thickened mitral valve. Aortic Valve Moderate aortic valve calcification. Tricuspid Valve Moderate eccentric tricuspid regurgitation Pulmonic Valve Trace pulmonary valve regurgitation. Pericardium Normal pericardium without effusion. Aorta Normal aortic annulus size. IVC Normal inferior vena cava. CONCLUSIONS The septum is severely hypokinetic and thinned out. Diffuse hypokinesia of the LV apex. Dyskinetic mid anteroseptum. LV ejection fraction of 34%. Mildly increased left atrial size. Thickened mitral valve. Moderate aortic valve calcification. Moderate eccentric tricuspid regurgitation. Estimated pulmonary artery peak systolic pressure of 30 mmHg There is no pericardial effusion. There are no intracardiac masses. Comparison with the previous study is difficult because of the difference in the technical quality. However the LV systolic dysfunction appears to be new Dr Kelsy Saleh MD FACC (Electronically Signed) Final Date: 18 January 2023 17:33 S
[2023-01-18] MEDS: magnesium sulfate premix 2 GM/50 ML PIGGYBACK IV (01:54)
--- NOTE | 2023-01-18 01:55 | ECG_ITS ---
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 Measurements Intervals [place] Rate: 81 P: -49 VA: 127 QRS: 22 QRSD: 91 T: 62 QT: 426 QTc: 497 Interpretive Statements SINUS RHYTHM WITH OCCASIONAL SUPRAVENTRICULAR PREMATURE COMPLEXES SEPTAL MYOCARDIAL INFARCTION , PROBABLY OLD [40+ ms Q WAVE IN V1/V2] Compared to ECG 01/18/2023 00:20:18 Ventricular premature complex(es) no longer present Myocardial infarct finding still present Electronically Signed On 01-19-2023 16:49:17 CDT by Kelsy Saleh M.D. [id number]
[2023-01-18] MEDS: enoxaparin 100 mg/mL Syringe 80 MG SUBCUT ×2 (01:56→12:21)
[2023-01-18] MEDS: dexmedetomidine 400 MCG in sodium chloride 0.9% (100 ml) 100 ML IV (02:49)
[2023-01-18] MEDS: sodium chloride 0.9% 1,000 ML 75 ML IV ×2 (02:51→13:15)
[2023-01-18] MEDS: lidocaine 1% 5 ML in potassium chloride premix 100 ML 25 ML IV (03:11)
[2023-01-18 04:16] LABS: ABG PH Result 7.45 (7.35-7.45); Alveolar-Arterial Oxygen Gradi 12.4 mmHg (5-10); Arterial Blood Gas Hematocrit 44.8 % (37-47); Base Excess ABG 0.5 mmol/L (-2.0-2.0); Blood Gas Operator Identificat JB; Blood Gas Sample Site Brachial, right; Blood Gas Sample Type Arterial; Carboxyhemoglobin 1.4 %THgb (0.4-20.1); HCO3 ABG 24.1 mmol/L (22-26); HGB O2 Sat 94.1 % (95-100); Ionized Calcium Level - ABG 1.2 mmol/L (1.1-1.4); Methemoglobin 0.2 % (0.4-1.5); Oxygen Device VENT; Oxygen Saturation ABG 95.7; PO2 ABG 72.9 mmHg (80.0-100.0); Potassium Level - ABG 3.6 mmol/L (3.5-5.0); Total Hemoglobin 14.6 g/dL (12-16)
[2023-01-18 04:44] LABS: Basophils # 0.1 10^3/uL (0.0-0.1); Basophils % 0.6 %; Eosinophils # 0.1 10^3/uL (0.0-0.8); Eosinophils % 1.7 %; Hematocrit 41.1 % (37.0-47.0); Hemoglobin 14.1 g/dL (11.5-15.3); Lymphocytes # 2.3 10^3/uL (0.8-4.8); Lymphocytes % 27.5 %; Mean Corpuscular HGB Conc 34.3 g/dL (30.0-36.0); Mean Corpuscular Hemoglobin 29.8 pg (28.0-34.0); Mean Corpuscular Volume 86.9 fl (81-99); Mean Platelet Volume 10.7 fL (7.4-10.4); Monocytes # 0.5 10^3/uL (0.2-0.9); Monocytes % 5.9 %; Neutrophils % 63.9 %; Nucleated Red Blood Cells % 0 %; Platelet Count 157 10^3/cmm (130-400); Red Blood Count 4.73 10^6/uL (4.1-5.3); Red Cell Distribution Width 13.2 % (12.1-15.1); White Blood Count 8.4 10^3/uL (4.0-10.0)
--- NOTE | 2023-01-18 05:09 | ECG_ITS ---
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 Measurements Intervals [place] Rate: 73 P: 257 WI: 114 QRS: 35 QRSD: 102 T: 48 QT: 454 QTc: 501 Interpretive Statements Sinus rhythm with frequent premature atrial contractions INFERIOR MYOCARDIAL INFARCTION , PROBABLY OLD [40+ ms Q WAVE AND/OR ST/T ABNORMALITY IN II/aVF] ANTEROSEPTAL MYOCARDIAL INFARCTION , OF INDETERMINATE AGE [40+ ms Q WAVE IN V1-V4] Compared to ECG 01/18/2023 01:55:02 Junctional rhythm now present Sinus rhythm no longer present Myocardial infarct finding still present Electronically Signed On 01-19-2023 16:50:17 CDT by Kelsy Saleh M.D. [id number]
[2023-01-18 05:35] LABS: Troponin 5 6HR 751.3 ng/L (0-10); Troponin 5 6HR Delta 678.3 ng/L (0-12)
[2023-01-18] MEDS: sodium chloride 0.9% 250 ML 999 ML IV (05:47)
--- NOTE | 2023-01-18 05:57 | XRR_ITS ---
PROCEDURE INFORMATION: Exam: XR Chest Exam date and time: 01/18/2023 5:05 AM Age: 67 years old Clinical indication: Other: Acute hypotension. Prior surgery; Surgery type: Cabg; Patient HX: Sudden vital change to acute hypotension with vomiting. Intubated. ; Additional info: Hemodynamic instability TECHNIQUE: Imaging protocol: Radiologic exam of the chest. Views: 1 view. COMPARISON: CT chest abdpel w/*[id number] 01/17/2023 9:16 PM FINDINGS: Tubes, catheters and devices: The endotracheal tube is appropriately positioned in the distal thoracic trachea with the tip above the nathan. The nasogastric tube extends beyond the diaphragmatic hiatus. The tip is not imaged. Lungs: There is no consolidation. Pleural spaces: There is no pleural effusion or pneumothorax. Heart/Mediastinum: There is mild enlargement of the cardiac silhouette. Bones/joints: Sternal wires are present. There is no displacement to suggest sternal dehiscence. No acute fracture. XR/XR chest 1V portable [id number] IMPRESSION: 1. Satisfactory endotracheal tube position. 2. NG tube is in the stomach. The tip is not imaged.
[2023-01-18 06:55] LABS: Alanine Aminotransferase 18 U/L (0-33); Albumin Level 3.5 g/dL (3.5-5.2); Alkaline Phosphatase 136 U/L (35-105); Aspartate Amino Transferase 42 U/L (0-32); Blood Urea Nitrogen 20 mg/dL (8-23); Calcium 8.6 mg/dL (8.5-10.5); Carbon Dioxide 18 mmol/L (22-29); Chloride 98 mmol/L (98-107); Glomerular Filtration Rate 83.5 mL/min (90-130); Glucose 378 mg/dL (65-115); Magnesium 1.8 mg/dL (1.7-2.3); Osmolality Calculated 290 mOsm/kg (285-295); Sodium 131 mmol/L (136-145); Total Bilirubin 2.1 mg/dL (0.15-1.2); Total Protein 6.5 g/dL (6.6-8.7)
[2023-01-18 06:59] LABS: Anion Gap 21.9 (5-19); Potassium 6.9 mmol/L (3.5-5.1)
[2023-01-18 07:34] LABS: Glucose Point of Care > 600 mg/dL (70-110)
[2023-01-18 07:34] LABS: Glucose Point of Care 436 mg/dL (70-110)
[2023-01-18] MEDS: insulin lispro 100 unit/1 mL SUBCUT ×4 (07:44→20:36)
[2023-01-18] MEDS: sodium chloride 0.9% 1,000 ML 999 ML IV (07:45)
--- NOTE | 2023-01-18 08:05 | PC.NURSE ---
pt agitated and confused this am .. all sedation off at this time . Dr here extubated at this time
--- NOTE | 2023-01-18 08:10 | PC.PHAR ---
Addendum entered by Radha Bravo 01/18/23 10:37: pts brought in medication bottles-pts states the pt doesnt take her medications like she should-pts states the pt hasnt taken plavix 75mg daily for months ext shows last filled 07/05/22 90d/s-most medication bottles brought in were mostly dated [id number] pts states he has been giving the pt 40 units at bedtime of levemir flextouch u-100 rx filled 07/31/23 90d/s 40 units bid and ext also shows 12/13/22 20 units hs-pts states the pt has been out of levothyroxine 150mcg daily rx last filled 07/05/23 90d/s-pts states the pt refuses to go to the dr to get refills-notes are made in the pharmacy comments Addendum entered by Radha Bravo 01/18/23 09:38: pts still not in room with meds Original Note: pts riky villaseñor [phone] states he will bring the pts medication to the hospital about 9:30-pts didnt want to verify medications over the phone
[2023-01-18 08:25] LABS: Ketone (Acetest) Serum Negative (Negative)
[2023-01-18 08:32] LABS: Anion Gap 20.8 (5-19); Blood Urea Nitrogen 21 mg/dL (8-23); Calcium 8.9 mg/dL (8.5-10.5); Carbon Dioxide 21 mmol/L (22-29); Chloride 96 mmol/L (98-107); Glomerular Filtration Rate 62.5 mL/min (90-130); Glucose 432 mg/dL (65-115); Osmolality Calculated 300 mOsm/kg (285-295); Potassium 3.8 mmol/L (3.5-5.1); Sodium 134 mmol/L (136-145)
[2023-01-18] MEDS: pantoprazole 40 mg SDV IVP (10:17)
--- NOTE | 2023-01-18 10:37 | P.PN_ITS ---
Subjective Subjective: H&P reviewed, labs reviewed, this morning patient was extubated successfully to room air However patient is not able to make eye contact, she is oriented to herself She is tossing in bed, follows commands to some extent Currently on ACS protocol for significant delta troponin Echo is pending I do not agree with junctional rhythm evident on EKG computer read She has sinus arrhythmia, rhythm is sinus for now Hyperglycemia without ketones, I have given her 15 units of NovoLog, 500 mL bolus Started dysphagia diet Repeat potassium is 3.8 give her IV potassium Patient experienced an episode of emesis after extubation which I think is secondary to gag reflex when we were taking her endotracheal tube out CT abdomen pelvis did not show any signs obstruction or ileus Vitals/I&O/Wt Last Vital Signs Temp 98.0 F 01/18/23 06:00 Pulse 92 01/18/23 10:00 Resp 53 H 01/18/23 10:00 BP 127/67 01/18/23 10:00 Pulse Ox 93 01/18/23 10:00 O2 Del Method Mechanical Ventilation 01/18/23 06:00 FiO2 40 01/18/23 10:00 01/17/23 01/18/23 01/18/23 22:59 06:59 14:59 Intake Total 722.596 / 376.373 1792 / 1355 Output Total 1000 / 1000 Balance -277.404 / -755.192 5747 / 1355 Weight last 48 hrs Weight 83.461 kg Weight 81.964 kg Weight 81.647 kg Physical Exam Narrative: Patient is oriented to herself Able to follow commands to some extent Not making eye contact Tossing in bed Moving her extremities Do not appreciate any focal deficits Pupils are equal in size Hemodynamically stable Currently on room air Intertrigo groin area with bug bite? Abdomen soft, bilateral breath sounds with mild rhonchi Urinary Catheter Management: Sadler: Cath Placed During This Visit: yes Reason for Continuing Indwelling Catheter: Accurate Measurement of Urinary Output in Critically Ill Patients Urinary Catheter Date of Insertion: 01/17/23 Data 01/18/23 04:00 01/18/23 08:04 A&P Assessment and plan (1) Urinary tract infection: (2) Acute delirium: (3) Noncompliance: (4) Coronary artery disease: (5) Essential hypertension: (6) Diabetic peripheral neuropathy associated with type 2 diabetes mellitus: (7) Dementia: (8) Nonalcoholic fatty liver disease: (9) Rheumatoid arthritis: (10) Anxiety and depression: (11) Portal hypertension: (12) Non-ST elevation myocardial infarction (NSTEMI): Plan Hyperactive delirium with underlying dementia Patient carries history of portal hypertension Currently suffering from UTI Continue ceftriaxone Would use Zyprexa if needed for her agitation Avoid Precedex because of bradycardic effect Avoid Ativan because of hepatic/portal hypertension CT head unremarkable CT abdomen pelvis unremarkable Respiratory failure requiring mechanical ventilation for airway protection Patient was intubated in the ER Patient was successfully extubated 01/18 to room air She is oriented to herself She carries history of dementia, she experienced an episode of emesis when we were taking on endotracheal tube, monitor for any febrile episodes, that might need anaerobic coverage with Augmentin versus Zosyn for aspiration pneumonia Hypokalemia: Repleted UTI Follow-up with urine culture Previous urine culture positive for E. coli No signs of stone or hydronephrosis Portal hypertension However ammonia level is normal she might have component of hepatic encephalopathy which got aggravated due to UTI Confusion could be related to hepatic encephalopathy However at this point I would avoid adding lactulose Continue ceftriaxone SBP less likely NSTEMI Delta troponin, will do echo Previous cath report showed patent ESPINOZA to LAD SVG to RCA patent, distal circumflex had diffuse disease at that point medical management was recommended by project administrative assistant We will make further decision after echo She will need cardiac evaluation depending on echo report Hyperglycemia without DKA She was given 15 units of NovoLog She was given 500 mL bolus as well off IV fluids Continue IV fluids at maintenance rate, I will give her Lantus 30 units along with sliding scale Family updated She remains full code I will start her on dysphagia diet Attestations Medical Necessity Statement*: She can be transferred out of ICU if bed is needed Diagnoses Urinary tract infection N39.0 Acute delirium R41.0 Noncompliance Z91.199 Coronary artery disease I25.10 Essential hypertension I10 Diabetic peripheral neuropathy associated with type 2 diabetes mellitus E11.42 Dementia F03.90 Nonalcoholic fatty liver disease K76.0 Rheumatoid arthritis M06.9 Anxiety and depression F41.9; F32.9 Portal hypertension K76.6 Non-ST elevation myocardial infarction (NSTEMI) I21.4
[2023-01-18] MEDS: lidocaine 1% 5 ML in potassium chloride premix 100 ML 26.25 ML IV (10:53)
[2023-01-18 11:14] LABS: Glucose Point of Care 356 mg/dL (70-110)
[2023-01-18 11:40] LABS: Estmated Average Glucose 306; Hemoglobin A1C 12.3 % (4.0-6.0)
[2023-01-18 17:10] LABS: Glucose Point of Care 335 mg/dL (70-110)
--- NOTE | 2023-01-18 17:47 | PC.NURSE ---
wasted all narcotics at this time with witness of Blair Santiago Rn
[2023-01-18 20:28] LABS: Glucose Point of Care 248 mg/dL (70-110)
[2023-01-18] MEDS: insulin glargine 100 units/1 mL 30 UNIT SUBCUT (20:36)
[2023-01-18] MEDS: nystatin cream 30 gm 1 APPLIC TOPICAL (20:37)
[2023-01-18] MEDS: LORazepam 2 mg/mL INJ 1 mL 1 MG IVP (23:53)
[2023-01-19] VITALS (22 sets, daily range): BP systolic 97–133; BP diastolic 54–81; PULSE 68–90; RESP 16–29; TEMP 36.2–37.3; O2SAT 90–98
[2023-01-19] MEDS: enoxaparin 100 mg/mL Syringe 80 MG SUBCUT ×3 (00:13→23:53)
[2023-01-19] MEDS: sodium chloride 0.9% 1,000 ML 75 ML IV ×2 (02:47→17:00)
[2023-01-19 04:52] LABS: Basophils % 0.6 %; Eosinophils # 0.1 10^3/uL (0.0-0.8); Eosinophils % 1.2 %; Hematocrit 43.1 % (37.0-47.0); Hemoglobin 13.8 g/dL (11.5-15.3); Lymphocytes # 1.9 10^3/uL (0.8-4.8); Lymphocytes % 27.6 %; Mean Corpuscular Hemoglobin 28.6 pg (28.0-34.0); Mean Corpuscular Volume 89.2 fl (81-99); Mean Platelet Volume 10.6 fL (7.4-10.4); Monocytes # 0.4 10^3/uL (0.2-0.9); Monocytes % 5.6 %; Neutrophils # 4.39 10^3/uL (1.8-7.7); Neutrophils % 64.7 %; Nucleated Red Blood Cells % 0 %; Platelet Count 119 10^3/cmm (130-400); Red Blood Count 4.83 10^6/uL (4.1-5.3); Red Cell Distribution Width 13.1 % (12.1-15.1); White Blood Count 6.8 10^3/uL (4.0-10.0)
[2023-01-19 05:05] LABS: Anion Gap 17.9 (5-19); Blood Urea Nitrogen 21 mg/dL (8-23); Calcium 8.5 mg/dL (8.5-10.5); Carbon Dioxide 21 mmol/L (22-29); Chloride 105 mmol/L (98-107); Glomerular Filtration Rate 83.5 mL/min (90-130); Glucose 261 mg/dL (65-115); Osmolality Calculated 302 mOsm/kg (285-295); Potassium 3.9 mmol/L (3.5-5.1); Sodium 140 mmol/L (136-145)
[2023-01-19 07:29] LABS: Glucose Point of Care 264 mg/dL (70-110)
--- NOTE | 2023-01-19 07:53 | PM.PN ---
Subjective Subjective: Family is in the room, patient remains confused. She is oriented to person. She denies any pain at this time. Does reports she is thirsty, she has been receiving ice chips. Nursing reports good urine output overnight. Vitals/I&O/Wt Last Vital Signs Temp 99.2 F 01/19/23 04:00 Pulse 77 01/19/23 06:00 Resp 24 H 01/19/23 06:00 BP 111/60 01/19/23 06:00 Pulse Ox 94 01/19/23 07:31 O2 Del Method Room Air 01/19/23 07:31 FiO2 40 01/18/23 14:00 01/18/23 01/19/23 01/19/23 22:59 06:59 14:59 Intake Total 1.404 / 2136.404 1000 / 3136.404 50 / 50 Output Total 1000 / 1000 450 / 1450 Balance -998.596 / 1136.404 550 / 1686.404 50 / 50 Weight last 48 hrs Weight 184 lb Weight 184 lb Weight 180 lb 11.2 oz Weight 180 lb Physical Exam Narrative: General: Cooperative patient in no apparent distress. Oriented to person only. HEENT: Normocephalic, Atraumatic. External ears normal. Nasal passages patent without drainage. MMM. Heart: RRR. Resp: LCTA. No respiratory distress, no use of accessory muscles. Abd: Soft, non-tender. Non-distended. Extremities: No edema. Skin: No rash or lesions on exposed areas. Urinary Catheter Management: Sadler: Cath Placed During This Visit: yes Reason for Continuing Indwelling Catheter: Accurate Measurement of Urinary Output in Critically Ill Patients Urinary Catheter Date of Insertion: 01/17/23 Data 01/19/23 03:47 01/19/23 03:47 A&P Assessment and plan (1) Urinary tract infection: (2) Acute delirium: (3) Noncompliance: (4) Coronary artery disease: (5) Essential hypertension: (6) Diabetic peripheral neuropathy associated with type 2 diabetes mellitus: (7) Dementia: (8) Nonalcoholic fatty liver disease: (9) Rheumatoid arthritis: (10) Anxiety and depression: (11) Portal hypertension: (12) Non-ST elevation myocardial infarction (NSTEMI): Plan Hyperactive delirium with underlying dementia Patient carries history of portal hypertension Currently suffering from UTI Continue ceftriaxone Would use Zyprexa if needed for her agitation Avoid Precedex because of bradycardic effect Avoid Ativan because of hepatic/portal hypertension CT head unremarkable CT abdomen pelvis unremarkable Respiratory failure requiring mechanical ventilation for airway protection Patient was intubated in the ER Patient was successfully extubated 01/18 to room air She is oriented to herself She carries history of dementia, she experienced an episode of emesis when we were taking on endotracheal tube, monitor for any febrile episodes, that might need anaerobic coverage with Augmentin versus Zosyn for aspiration pneumonia Hypokalemia: Repleted. Remains improved. UTI Urine culture is pending. We will continue ceftriaxone empirically until culture has resulted. Previous urine culture positive for E. coli No signs of stone or hydronephrosis Portal hypertension However ammonia level is normal she might have component of hepatic encephalopathy which got aggravated due to UTI Confusion could be related to hepatic encephalopathy However at this point I would avoid adding lactulose Continue ceftriaxone SBP less likely NSTEMI Echo is complete. EF is 34%. Septum is thinned and hypokinetic. Previous cath report showed patent ESPINOZA to LAD SVG to RCA patent, distal circumflex had diffuse disease at that point medical management was recommended by plastic parts fabricator trimmer. We will continue medical management at this point until she is a little more stable. Hyperglycemia without DKA Sugars were elevated overnight to the 300-400 range. They have improved today to 200s. Continue Lantus and sliding scale insulin. Code Status: Full IVF: NS at 75 ml/hr DVT PPx: Lovenox GI PPx: Protonix ABx: Ceftriaxone Diet: Dysphagia Discharge plan: SNF when appropriate. Attestations Medical Necessity Statement*: Will need continued inpatient monitoring for IV antibiotics, urine cultures, cardiac monitoring. Coding Level of Care Code Acute Code for Chg Fwd Moderate MDM includes number and complexity of problems actively addressed during encounter, amount and/or complexity of data reviewed/ordered and described risk of complication, morbidity or mortality of management as documented Diagnoses Urinary tract infection N39.0 Acute delirium R41.0 Noncompliance Z91.199 Coronary artery disease I25.10 Essential hypertension I10 Diabetic peripheral neuropathy associated with type 2 diabetes mellitus E11.42 Dementia F03.90 Nonalcoholic fatty liver disease K76.0 Rheumatoid arthritis M06.9 Anxiety and depression F41.9; F32.9 Portal hypertension K76.6 Non-ST elevation myocardial infarction (NSTEMI) I21.4
[2023-01-19] MEDS: insulin lispro 100 unit/1 mL SUBCUT ×4 (08:32→20:44)
[2023-01-19] MEDS: levothyroxine 75 mcg Tablet 150 MCG PO (08:32)
[2023-01-19] MEDS: aspirin 81 mg EC Tablet PO (08:32)
[2023-01-19] MEDS: clopidogrel 75 mg Tablet PO (08:32)
[2023-01-19] MEDS: pantoprazole 40 mg SDV IVP (08:32)
[2023-01-19] MEDS: sennosides-docusate Tablet 2 TAB PO (08:32)
[2023-01-19] MEDS: LORazepam 2 mg/mL INJ 1 mL 1 MG IVP ×4 (09:26→23:16)
[2023-01-19] MEDS: nystatin cream 30 gm 1 APPLIC TOPICAL ×2 (09:26→17:01)
--- NOTE | 2023-01-19 09:34 | PC.NURSE ---
confused but more awake this am family at bedside am breakfast feed small amt kicking feet and crawling out of bed . ativan given for severe restlessness and agitation
[2023-01-19 11:14] LABS: Glucose Point of Care 302 mg/dL (70-110)
[2023-01-19 16:51] LABS: Glucose Point of Care 200 mg/dL (70-110)
--- NOTE | 2023-01-19 17:46 | PC.NURSE ---
confused family here she pulled it out cath whole intact . risited right hand 20 gauge cath .
--- NOTE | 2023-01-19 17:57 | PC.NURSE ---
confused and restless pulled gown off throwin pillows on floor
[2023-01-19] MEDS: OLANZapine 5 mg ODT 2.5 MG PO ×2 (18:21→23:53)
[2023-01-19 20:44] LABS: Glucose Point of Care 217 mg/dL (70-110)
[2023-01-19] MEDS: insulin glargine 100 units/1 mL 30 UNIT SUBCUT (20:44)
[2023-01-19] MEDS: atorvastatin 40 mg Tablet PO (20:44)
[2023-01-19] MEDS: cefTRIAXone 1,000 MG in sodium chloride 0.9% (plus) 50 ML 100 MG IV (23:11)
[2023-01-20] VITALS (25 sets, daily range): BP systolic 134–165; BP diastolic 83–98; PULSE 80–102; RESP 13–35; TEMP 36.1–36.8; O2SAT 95–98
[2023-01-20 04:37] LABS: Basophils % 0.7 %; Eosinophils # 0.2 10^3/uL (0.0-0.8); Hematocrit 42.4 % (37.0-47.0); Hemoglobin 14.1 g/dL (11.5-15.3); Lymphocytes # 2.3 10^3/uL (0.8-4.8); Lymphocytes % 40.9 %; Mean Corpuscular HGB Conc 33.3 g/dL (30.0-36.0); Mean Corpuscular Hemoglobin 29.7 pg (28.0-34.0); Mean Corpuscular Volume 89.5 fl (81-99); Mean Platelet Volume 10.2 fL (7.4-10.4); Monocytes # 0.3 10^3/uL (0.2-0.9); Monocytes % 5.7 %; Neutrophils # 2.75 10^3/uL (1.8-7.7); Neutrophils % 49.3 %; Nucleated Red Blood Cells % 0 %; Platelet Count 121 10^3/cmm (130-400); Red Blood Count 4.74 10^6/uL (4.1-5.3); Red Cell Distribution Width 13.1 % (12.1-15.1); White Blood Count 5.6 10^3/uL (4.0-10.0)
[2023-01-20 04:49] LABS: Alanine Aminotransferase 14 U/L (0-33); Albumin Level 3.3 g/dL (3.5-5.2); Alkaline Phosphatase 118 U/L (35-105); Aspartate Amino Transferase 29 U/L (0-32); Blood Urea Nitrogen 18 mg/dL (8-23); Calcium 8.8 mg/dL (8.5-10.5); Carbon Dioxide 22 mmol/L (22-29); Chloride 103 mmol/L (98-107); Globulin 3.1 g/dL (1.3-4.6); Glomerular Filtration Rate 83.5 mL/min (90-130); Glucose 279 mg/dL (65-115); Osmolality Calculated 298 mOsm/kg (285-295); Sodium 138 mmol/L (136-145); Total Bilirubin 1.5 mg/dL (0.15-1.2); Total Protein 6.4 g/dL (6.6-8.7)
[2023-01-20] MEDS: LORazepam 2 mg/mL INJ 1 mL 1 MG IVP ×3 (04:58→20:46)
[2023-01-20 07:07] LABS: Glucose Point of Care 279 mg/dL (70-110)
[2023-01-20] MEDS: sodium chloride 0.9% 1,000 ML 75 ML IV ×2 (07:36→20:44)
[2023-01-20] MEDS: sennosides-docusate Tablet 2 TAB PO (08:09)
[2023-01-20] MEDS: clopidogrel 75 mg Tablet PO (08:09)
[2023-01-20] MEDS: OLANZapine 5 mg ODT 2.5 MG PO ×2 (08:09→14:15)
[2023-01-20] MEDS: aspirin 81 mg EC Tablet PO (08:09)
[2023-01-20] MEDS: levothyroxine 75 mcg Tablet 150 MCG PO (08:09)
[2023-01-20] MEDS: insulin lispro 100 unit/1 mL SUBCUT ×2 (08:10→12:50)
[2023-01-20] MEDS: pantoprazole 40 mg SDV IVP (08:10)
[2023-01-20] MEDS: nystatin cream 30 gm 1 APPLIC TOPICAL ×2 (08:35→17:16)
[2023-01-20 10:45] LABS: Glucose Point of Care 193 mg/dL (70-110)
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
[2023-01-20] MEDS: enoxaparin 100 mg/mL Syringe 80 MG SUBCUT (12:49)
--- NOTE | 2023-01-20 13:33 | PC.SOCIAL ---
IMM Update pg 2 of IMM updated and reviewed w/ patients daughter. Copy left @ BS and copy dated, initialed and placed in chart.
[2023-01-20 16:36] LABS: Glucose Point of Care 141 mg/dL (70-110)
--- NOTE | 2023-01-20 18:05 | P.CONIM_ITS ---
Providers/Reason For Consult Consulting Physician/Specialty*: JACOB Saleh MD/cardiology Reason for Consult*: Patient with history of coronary disease, admitted with altered mental status. Elevated troponin T Requesting Physician: Dr. Guerra Attending Physician: Terry Guerra MD Primary Care Provider: Deandra Flores MD History of Present Illness History of Present Illness Linda Joiner is a 67 year old female is admitted to the hospital through the emergency room where she presented with features of acute delirium. She got intubated in the emergency room. She was extubated yesterday. She has a history of diabetes, hypertension, dyslipidemia and dementia. She was found to have elevated troponin T with a significant delta. cardiology consult is requested for further cardiac evaluation recommendations. This patient is confused and disoriented at this time. Most of the information is from her daughter -Yady Simmons and also from the medical records. This patient has a history of uncontrolled blood sugar. Her blood sugar was in the 500 range on the day of the hospital admission. She was given extra dose of insulin as per instructions by the primary care provider. Apparently the blood sugar did not come down. She was found to be more agitated and confused. So she was brought to the emergency room by ambulance. She did not have any chest pain. No unusual shortness of breath. She has a history of coronary disease and had coronary artery bypass surgery approximately 5 years ago. She underwent a cardiac catheterization in 2020. She was found to have patent ESPINOZA to the LAD and saphenous venous graft to the PDA. She had severe three-vessel coronary artery disease. Based on the angiogram, it was decided to treat her medically at that time. As per her daughter, she was very poorly compliant with the medications and follow-up. She canceled many of her appointments. She has not been taking any of her cardiac medications?. According to the daughter, she had multiple ER visits to the [facility] emergency room in [place] for various complaints. She was found to have chronically elevated troponin T?. During the current hospital admission, her baseline troponin was 78. The 2-hour delta was 345 and the 6-hour delta was 678. Patient's mother had some heart problems. Her daughter had some congenital heart defects for which she underwent surgical correction during childhood. No other relevant family history. Review of Systems Narrative: CONSTITUTIONAL: No fever or chills. EYES: No blurring of vision or other visual disturbances lately. ENT: No hoarseness of voice, auditory disturbances or sore throat. CARDIOVASCULAR: As mentioned above. RESPIRATORY: No significant cough. GASTROINTESTINAL: No hematemesis or melena. GENITOURINARY: No dysuria or hematuria. INTEGUMENTARY: No skin rashes or history of skin cancer. NEURO: History of dementia PSYCHIATRIC: History of anxiety/depressive illness HEMATOLOGIC: No bleeding disorders or significant anemia. ENDOCRINE: Type 2 diabetes MUSCULOSKELETAL: No recent joint pain or swelling. ALLERGY/IMMUNOLOGY: As mentioned above. Medications/Allergies Home Medications Medication Instructions Recorded Confirmed Last Taken Type blood-glucose meter #1 ea 02/28/21 01/18/23 Unknown Rx carvedilol 6.25 mg tablet 6.25 mg PO BID 90 days #180 tabs 03/28/21 01/18/23 Unknown Rx lisinopril 2.5 mg tablet 1.25 - 2.5 mg PO DAILY PRN Blood 07/06/21 01/18/23 Unknown History Pressure glipizide 5 mg tablet 5 mg PO BID 07/28/21 01/18/23 Unknown History lovastatin 40 mg tablet 80 mg PO QPM 11/19/21 01/18/23 Unknown History nitroglycerin 0.4 mg sublingual 0.4 mg sublingual Q5M PRN Chest 04/05/22 01/18/23 Unknown History tablet (Nitrostat) Pain sertraline 50 mg tablet (Zoloft) 25 mg PO DAILY 04/05/22 01/18/23 Unknown History doxycycline hyclate 100 mg capsule 100 mg PO BID #14 caps 11/27/22 01/18/23 Unknown Rx mupirocin 2 % topical ointment 1 applic topical BID #15 grams 11/27/22 01/18/23 Unknown Rx cholecalciferol (vitamin D3) 50 50 mcg PO DAILY PRN unknown 01/18/23 01/18/23 Unknown History mcg (2,000 unit) capsule (Vitamin D3) furosemide 40 mg tablet 40 mg PO BID 01/18/23 01/18/23 Unknown History insulin detemir U-100 100 unit/mL 40 unit SUBCUT BEDTIME 01/18/23 01/18/23 Unknown History (3 mL) subcutaneous pen (Levemir FlexTouch U-100 Insulin) insulin lispro 100 unit/mL See Rx Instructions .Route .COMPLEX 01/18/23 01/18/23 Unknown History subcutaneous solution (Humalog U-100 Insulin) miconazole nitrate 2 % vaginal 1 applic vaginal PRN 01/18/23 01/18/23 Unknown Hi story cream (Monistat 7) phenylephrine 0.25 %-mineral oil 1 applic [place] DAILY PRN Hemorrhoids 01/18/23 01/18/23 Unknown History 14 %-petrolatm 74.9 % rectal ointment (Preparation H) potassium chloride 10 mEq 10 meq PO DAILY 01/18/23 01/18/23 Unknown History tablet,extended release sennosides 8.6 mg tablet 8.6 mg PO DAILY PRN Constipation 01/18/23 01/18/23 Unknown History (Vegetable Laxative) zinc acetate 50 mg (zinc) capsule 50 mg PO DAILY 01/18/23 01/18/23 Unknown History Allergies Allergy/AdvReac Type Severity Reaction Status Date / Time cefaclor [From Ceclor] Allergy unknown Verified 01/17/23 18:55 cephalexin Allergy Unknown Verified 01/17/23 18:55 codeine Allergy ADR-Vomitin Verified 01/17/23 18:55 g Penicillins Allergy unknown Verified 01/17/23 18:55 Sulfa (Sulfonamide Allergy unknown Verified 01/17/23 18:55 Antibiotics) ciprofloxacin [From Cipro] AdvReac rash Verified 01/17/23 18:55 Current Medications Generic Name Dose Route Start Last Admin Trade Name Freq PRN Reason Stop Dose Admin Aspirin 81 mg 01/18/23 09:00 01/20/23 08:09 Aspirin 81 Mg Ec Tablet PO 81 mg DAILY JYOTI Administration Atorvastatin Calcium 40 mg 01/18/23 21:00 01/19/23 20:44 Atorvastatin 40 Mg Tablet PO 40 mg BEDTIME JYOTI Administration Clopidogrel Bisulfate 75 mg 01/18/23 09:00 01/20/23 08:09 Clopidogrel 75 Mg Tablet PO 75 mg DAILY JYOTI Administration Enoxaparin Sodium 80 mg 01/18/23 00:45 01/20/23 12:49 Enoxaparin 100 Mg/Ml Syringe 1 mg/kg (80 mg) 80 mg SUBCUT Administration Q12H JYOTI Propofol 1,000 mg in 100 mls @ 0 mls/hr 01/17/23 20:15 01/18/23 17:46 Diprivan IV Infused .Q0M JYOTI Titration Protocol Per Protocol Fentanyl 2,500 mcg/ Sodium 250 mls @ 0 mls/hr 01/17/23 22:30 01/18/23 17:45 Chloride IV Infused .Q0M JYOTI Titration Protocol Per Protocol Ceftriaxone Sodium 1,000 mg/ 50 mls @ 100 mls/hr 01/17/23 23:30 01/19/23 23:41 Sodium Chloride IV Infused Q24H JYOTI Infusion Protocol Sodium Chloride 1,000 mls @ 75 mls/hr 01/18/23 00:57 01/20/23 07:36 Sodium Chloride 0.9% IV 75 mls/hr .[id number] JYOTI Administration Insulin Glargine 30 unit 01/18/23 21:00 01/19/23 20:44 Insulin Glargine 100 Units/1 Ml SUBCUT 30 unit BEDTIME JYOTI Administration Insulin Human Lispro 0 unit 01/18/23 08:00 01/20/23 16:32 Insulin Lispro 100 Unit/1 Ml SUBCUT Not Given WM&BEDTIME JYOTI Protocol Levothyroxine Sodium 150 mcg 01/18/23 09:00 01/20/23 08:09 Levothyroxine 75 Mcg Tablet PO 150 mcg DAILY JYOTI Administration Lorazepam 1 mg 01/18/23 06:51 01/20/23 13:44 Lorazepam 2 Mg/Ml Inj 1 Ml IVP 1 mg Q4H PRN Administration ANXIETY Nystatin 1 applic 01/18/23 18:00 01/20/23 17:16 Nystatin Cream 30 Gm TOPICAL 1 applic BID JYOTI Administration Olanzapine 2.5 mg 01/19/23 18:03 01/20/23 14:15 Olanzapine 5 Mg Odt PO 2.5 mg Q6H PRN Administration AGITATION Pantoprazole Sodium 40 mg 01/18/23 09:00 01/20/23 08:10 Pantoprazole 40 Mg Sdv IVP 40 mg DAILY JYOTI Administration Rocuronium [place] 0 mg 01/17/23 20:19 01/17/23 20:19 Rocuronium 10 Mg/Ml Inj 5ml IVP 120 mg Q1H PRN Administration RSI Senna/Docusate Sodium 2 tab 01/18/23 09:00 01/20/23 17:18 Sennosides-Docusate Tablet PO Not Given BID JYOTI PFSH Acute PFSH: Medical History Abdominal pain Anticoagulated Anxiety and depression Arthritis Breast cancer screening by mammogram Coronary artery disease Diabetes mellitus, type II Essential hypertension GERD (gastroesophageal reflux disease) Gout Hepatic encephalopathy Hepatosplenomegaly Hypothyroid Infected abrasion of thumb Liver cirrhosis Mixed hyperlipidemia Mixed hyperlipidemia Type 2 diabetes mellitus with hyperglycemia Urinary tract infection Vaginal yeast infection Yeast vaginitis Surgical History History of arthroscopy of left shoulder History of coronary angioplasty History of open heart surgery quad bypass Family History Other Heart disease Social History Smoking and tobacco status: former smoker Second hand smoke exposure: No Smoking risk assessment/counseling performed?: No Alcohol intake: never Desire information about alcohol rehabilitation?: No Counseling given: No Substance/Drug Use: never Desire information about substance/drug rehabilitation?: No Counseling given: No Vitals/I&O/Wt Last Vital Signs Temp 98.2 F 01/20/23 08:00 Pulse 88 01/20/23 18:00 Resp 20 H 01/20/23 18:00 BP 150/96 01/20/23 18:00 Pulse Ox 98 01/20/23 18:00 O2 Del Method Room Air 01/20/23 06:00 FiO2 40 01/20/23 18:00 01/20/23 01/20/23 01/20/23 06:59 14:59 22:59 Intake Total 50 / 1700 1600 / 1600 Output Total 650 / 1050 350 / 350 450 / 800 Balance -600 / 650 1250 / 1250 -450 / 800 Weight last 48 hrs Weight 189 lb 8 oz Weight 184 lb Physical Exam Narrative: GENERAL: The patient is alert but confused and disoriented. Not in any acute distress. HEENT: No significant pallor, icterus or lymphadenopathy.Oral cavity: There are no mucous membrane lesions. NECK: Trachea appears to be central. No masses noted. No JVD or thyromegaly appreciated. RESPIRATORY: Chest is symmetrical. No intercostals muscle retraction or any accessory muscle activation. There is no chest wall tenderness. Breath sounds are heard bilaterally. No rales or rhonchi heard. No evidence of any consolidation. BREASTS: Deferred. HEART: The heart sounds are normal. No S3 or S4. Short systolic murmur in the lower sternal border. No pericardial rub ABDOMEN: Vague tenderness in the right lower quadrant : Deferred. RECTAL: Deferred. LYMPHATIC: No lymphadenopathy noted in the neck. EXTREMITIES: No edema or cyanosis. No clubbing. Dorsalis pedis pulses are palpable and good volume and amplitude bilaterally. Posterior pedal pulses are weak but palpable. MUSCULOSKELETAL: No acute joint deformities or swelling SKIN: There are no significant rashes or ecchymosis NEUROPSYCHIATRIC: The patient confused and disoriented. But moves all the extremities. No focal motor deficits noted Urinary Catheter Management: Sadler: Cath Placed During This Visit: yes Reason for Continuing Indwelling Catheter: Accurate Measurement of Urinary Output in Critically Ill Patients Urinary Catheter Date of Insertion: 01/17/23 Data 01/21/23 04:14 01/21/23 04:14 Other Labs: Laboratory Last Values WBC 5.6 10^3/uL (4.0-10.0) 01/20/23 03:55 RBC 4.74 10^6/uL (4.1-5.3) 01/20/23 03:55 Hgb 14.1 g/dL (11.5-15.3) 01/20/23 03:55 Hct 42.4 % (37.0-47.0) 01/20/23 03:55 MCV 89.5 fl (81-99) 01/20/23 03:55 MCH 29.7 pg (28.0-34.0) 01/20/23 03:55 MCHC 33.3 g/dL (30.0-36.0) 01/20/23 03:55 RDW 13.1 % (12.1-15.1) 01/20/23 03:55 Plt Count 121 10^3/cmm (130-400) L 01/20/23 03:55 MPV 10.2 fL (7.4-10.4) 01/20/23 03:55 Neut % (Auto) 49.3 % 01/20/23 03:55 Lymph % (Auto) 40.9 % 01/20/23 03:55 [place] % (Auto) 5.7 % 01/20/23 03:55 Eos % (Auto) 3.0 % 04/30/23 03:55 Baso % (Auto) 0.7 % 01/20/23 03:55 Neut # (Auto) 2.75 10^3/uL (1.8-7.7) 01/20/23 03:55 Lymph # (Auto) 2.3 10^3/uL (0.8-4.8) 01/20/23 03:55 [place] # (Auto) 0.3 10^3/uL (0.2-0.9) 01/20/23 03:55 Eos # (Auto) 0.2 10^3/uL (0.0-0.8) 01/20/23 03:55 Baso # (Auto) 0.0 10^3/uL (0.0-0.1) 01/20/23 03:55 Nucleated RBC % (auto) 0 % 01/20/23 03:55 Nucleated RBCs # 0.0 /100WBC 01/20/23 03:55 Specimen Type Arterial 01/18/23 04:01 Sample Site Brachial, right 01/18/23 04:01 ABG pH 7.45 (7.35-7.45) 01/18/23 04:01 ABG pCO2 35.0 mmHg (35-45) 01/18/23 04:01 ABG pO2 72.9 mmHg (80.0-100.0) L 01/18/23 04:01 ABG HCO3 24.1 mmol/L (22-26) 01/18/23 04:01 ABG O2 Saturation 95.7 01/18/23 04:01 ABG Base Excess 0.5 mmol/L (-2.0-2.0) 01/18/23 04:01 Abilio Test N/a 01/18/23 04:01 A-a O2 Gradient 12.4 mmHg (5-10) H 01/18/23 04:01 Hematocrit 44.8 % (37-47) 01/18/23 04:01 Hgb O2 Saturation 94.1 % (95-100) L 01/18/23 04:01 Carboxyhemoglobin 1.4 %THgb (0.4-20.1) 01/18/23 04:01 Methemoglobin 0.2 % (0.4-1.5) L 01/18/23 04:01 Total Hemoglobin 14.6 g/dL (12-16) 01/18/23 04:01 Sodium 135.0 mmol/L (131-143) 01/18/23 04:01 Potassium 3.6 mmol/L (3.5-5.0) 01/18/23 04:01 Glucose 375.0 mg/dL (70-115) H 01/18/23 04:01 Ionized Calcium 1.2 mmol/L (1.1-1.4) 01/18/23 04:01 O2 Delivery Device Vent 01/18/23 04:01 FiO2 30.0 % 01/18/23 04:01 Tidal Volume 0.40 01/18/23 04:01 PEEP 5.0 cmH20 01/18/23 04:01 Transfer Iron Operator ID Macario 01/18/23 04:01 Sodium 138 mmol/L (136-145) 01/20/23 03:55 Potassium 3.0 mmol/L (3.5-5.1) L 01/20/23 03:55 Chloride 103 mmol/L (98-107) 01/20/23 03:55 Carbon Dioxide 22 mmol/L (22-29) 01/20/23 03:55 Anion Gap 16.0 (5-19) 01/20/23 03:55 BUN 18 mg/dL (8-23) 01/20/23 03:55 Creatinine 0.7 mg/dL (0.5-0.9) 01/20/23 03:55 GFR Calculation 83.5 mL/min (90-130) L 01/20/23 03:55 Glucose 279 mg/dL (65-115) H 01/20/23 03:55 POC Glucose 141 mg/dL (70-110) H 01/20/23 16:31 Estimat Average Glucose 306 01/18/23 04:00 Hemoglobin A1c 12.3 % (4.0-6.0) H 01/18/23 04:00 Calculated Osmolality 298 mOsm/kg (285-295) H 01/20/23 03:55 Calcium 8.8 mg/dL (8.5-10.5) 01/20/23 03:55 Magnesium 1.8 mg/dL (1.7-2.3) 01/18/23 06:28 Total Bilirubin 1.5 mg/dL (0.15-1.2) H 01/20/23 03:55 AST 29 U/L (0-32) 01/20/23 03:55 ALT 14 U/L (0-33) 01/20/23 03:55 Alkaline Phosphatase 118 U/L (35-105) H 01/20/23 03:55 Ammonia 22 umol/L (11-51) 01/17/23 21:58 Troponin T Gen 5 ng/L 73 ng/L (0-10) H 01/17/23 21:58 Troponin T 120 Minute 418.0 ng/L (0-10) H 01/17/23 23:58 Delta Troponin T 345 ABS# (0-10) H* 01/17/23 23:58 Troponin T Hi Sens 6Hr 751.3 ng/L (0-10) H 01/18/23 04:00 Troponin T Hi Sens 6Hr Delta 678.3 ng/L (0-12) H* 01/18/23 04:00 Total Protein 6.4 g/dL (6.6-8.7) L 01/20/23 03:55 Albumin 3.3 g/dL (3.5-5.2) L 01/20/23 03:55 Globulin 3.1 g/dL (1.3-4.6) 01/20/23 03:55 Vitamin B12 681 pg/mL (232-1245) 01/17/23 21:58 Folate 16.7 ng/mL (4.8-37.3) 01/17/23 21:58 TSH 3.43 uIU/mL (0.27-4.20) 01/17/23 21:58 Urine Color Yellow (Yellow) 01/17/23 22:47 Urine Appearance Hazy (CLEAR) A 01/17/23 22:47 Urine pH 6 (5-7) 01/17/23 22:47 Ur Specific [place] 1.015 (1.005-1.030) 01/17/23 22:47 Urine Protein 3+ (Negative) H 01/17/23 22:47 Urine Glucose (UA) 4+ (Normal) H 01/17/23 22:47 Urine Ketones 1+ (Negative) H 01/17/23 22:47 Urine Blood 2+ (Negative) H 01/17/23 22:47 Urine Nitrate Positive (Negative) H 01/17/23 22:47 Urine Bilirubin Neg (Negative) 01/17/23 22:47 Urine Urobilinogen Neg mg/dL (Negative) 01/17/23 22:47 Ur Leukocyte Esterase Negative (Negative) 01/17/23 22:47 Urine RBC 5-10 /hpf (0-2) H 01/17/23 22:47 Urine WBC 15-25 /hpf (0-5) H 01/17/23 22:47 Ur Squamous Epith Cells 0-4 /hpf (0-5) H 01/17/23 22:47 Amorphous Sediment Not Reportable 01/17/23 22:47 Urine Bacteria 4+ /hpf (NONE) H 01/17/23 22:47 Salicylates < 0.3 mg/dL (3-10) L 01/17/23 21:58 Urine Opiates Screen Positive ng/mL (Negative) H 01/17/23 22:47 Acetaminophen < 5.0 ug/mL (10-30) L 01/17/23 21:58 Ur Barbiturates Screen Negative ng/mL (Negative) 01/17/23 22:47 Ur Phencyclidine Scrn Negative ng/mL (Negative) 01/17/23 22:47 Ur Amphetamines Screen Negative ng/mL (Negative) 01/17/23 22:47 U Benzodiazepines Scrn Negative ng/mL (Negative) 01/17/23 22:47 Urine Cocaine Screen Negative ng/mL (Negative) 01/17/23 22:47 U Marijuana (THC) Screen Negative ng/mL (Negative) 01/17/23 22:47 Ethyl Alcohol < 10 mg/dL (0-10) 01/17/23 21:58 Serum Ketones Negative (Negative) 01/18/23 08:04 Micro: Microbiology 01/17/23 22:47 Urine Culture - Final Urine,Clean Catch Escherichia coli CT of the ches,t abdomen and pelvis: My impression: 1. ? Mild interstitial pulmonary edema. 2. ? Dependent atelectasis in the lungs bilaterally. 3. ? There is an endotracheal tube with the tip 2.2 cm above the nathan. 4. ? There is an enteric tube with the tip in the distal body of the stomach. 5. ? Incidental/nonacute findings are listed in the report. ? ? IMPRESSION: 1. ? Stable nodular contour of the liver. However, there is hepatomegaly that has decreased, and there is interval development of reticular enhancement in the liver which raises concern for worsening fibrotic changes in the liver. 2. ? Findings suggesting portal hypertension. There is mild splenomegaly that has decreased. Stable small caliber varices in the left abdomen. 3. ? There is an enteric tube with the tip in the distal body of the stomach. EKG 1: My Interpretation: Presents with the frequent PACs. Features of old inferior myocardial infarctio n. Poor R wave progression and features of old anteroseptal myocardial infarction. No acute ST-T changes noted. Other data: Cardiac catheterization in June 2021 Diagnostic Findings ? * Left main artery: Patent. LAD is mid vessel occlusion. Mid to distal vessel has occluded stents. Left circumflex artery has significant mid to distal vessel diffuse disease. RCA is a small caliber vessel but is patent. PDA is occluded. SVG to PDA is patent. ESPINOZA to LAD is patent. OM likely was not grafted.. ? * Coronary angiography shows right dominance. Conclusions ? 1. Severe multivessel [place] coronary artery disease. ? 2. Patent ESPINOZA to LAD and patent SVG to PDA. ? 3. Left circumflex artery is not grafted but has diffuse disease from mid to distal vessel. ? 4. Patient has prior CABG. Recommendations ? * Aggressive risk factor modification. ? * Continue aspirin and statin therapy. ? * Outpatient cardiology follow up in 4 weeks. A&P Assessment and plan (1) Acute non-ST elevation myocardial infarction (NSTEMI): The patient's clinical features are consistent with a non-ST elevation myocardial infarction. Hemodynamically she seems to be stable. She is already on subcu Lovenox, Plavix, aspirin, beta-stefania and statin. May continue on the current medications. I will echocardiogram would be helpful to evaluate LV function and rule out any other pathology. (2) Atherosclerosis of coronary artery of [place] heart without angina pectoris: This patient had two-vessel coronary bypass surgery approximately 5 years ago. She may require a repeat cardiac catheterization, to further evaluate her coronary status as well as the graft status. (3) Essential hypertension: The blood pressure is currently of stage II. The antihypertensive medications need to be optimized. (4) Urinary tract infection: Patient is on antibiotics. Management as per the primary. (5) Mixed hyperlipidemia: May continue on the current medications. (6) Diabetic peripheral neuropathy associated with type 2 diabetes mellitus: She seems to have poorly controlled diabetes. More aggressive management of diabetes would be appropriate. (7) Noncompliance: The family seems to understand the importance of compliance. Plan Her other problems are Hypokalemia Altered mental status based on the results of the above tests and the patient's clinical progress, further recommendations will be made. Thank you for the opportunity to evaluate this patient and make these recommendations Consult Attestations Medical Necessity Statement: Patient requires continued hospital stay for close monitoring and further management Coding Level of Care Code 36466 Diagnoses Acute non-ST elevation myocardial infarction (NSTEMI) I21.4 Atherosclerosis of coronary artery of [place] heart without angina pectoris I25.10 Essential hypertension I10 Urinary tract infection N39.0 Mixed hyperlipidemia E78.2 Diabetic peripheral neuropathy associated with type 2 diabetes mellitus E11.42 Noncompliance Z91.199 Time Spent (min) 75
[2023-01-20 20:39] LABS: Glucose Point of Care 116 mg/dL (70-110)
[2023-01-20] MEDS: atorvastatin 40 mg Tablet PO (20:48)
[2023-01-20] MEDS: insulin glargine 100 units/1 mL 10 UNIT SUBCUT (21:26)
[2023-01-20] MEDS: cefTRIAXone 1,000 MG in sodium chloride 0.9% (plus) 50 ML 100 MG IV (23:00)
[2023-01-21] VITALS (36 sets, daily range): BP systolic 96–170; BP diastolic 57–107; PULSE 71–99; RESP 18–38; TEMP 36.5–37.1; O2SAT 94–98
[2023-01-21] MEDS: enoxaparin 100 mg/mL Syringe 80 MG SUBCUT ×3 (00:01→23:37)
[2023-01-21] MEDS: ondansetron 2 mg/ML SDV 2 mL 4 MG IVP (00:03)
[2023-01-21] MEDS: LORazepam 2 mg/mL INJ 1 mL 1 MG IVP ×2 (00:46→21:48)
[2023-01-21 04:52] LABS: Basophils % 0.7 %; Eosinophils # 0.2 10^3/uL (0.0-0.8); Eosinophils % 2.8 %; Hematocrit 43.7 % (37.0-47.0); Hemoglobin 14.6 g/dL (11.5-15.3); Lymphocytes # 1.9 10^3/uL (0.8-4.8); Lymphocytes % 33.3 %; Mean Corpuscular HGB Conc 33.4 g/dL (30.0-36.0); Mean Corpuscular Hemoglobin 29.3 pg (28.0-34.0); Mean Corpuscular Volume 87.8 fl (81-99); Monocytes # 0.3 10^3/uL (0.2-0.9); Monocytes % 5.4 %; Neutrophils # 3.29 10^3/uL (1.8-7.7); Neutrophils % 57.5 %; Nucleated Red Blood Cells % 0 %; Platelet Count 137 10^3/cmm (130-400); Red Blood Count 4.98 10^6/uL (4.1-5.3); Red Cell Distribution Width 13.1 % (12.1-15.1); White Blood Count 5.7 10^3/uL (4.0-10.0)
[2023-01-21 04:59] LABS: INR 1.13 (0.8-1.2); Partial Thromboplastin Time 33.7 SECONDS (23.9-36.7)
[2023-01-21 05:00] LABS: Fibrinogen 534 mg/dL (174-498)
[2023-01-21 05:02] LABS: D Dimer 0.61 ug/mIFEU (0-0.59)
[2023-01-21 05:07] LABS: Alanine Aminotransferase 13 U/L (0-33); Albumin Level 3.1 g/dL (3.5-5.2); Alkaline Phosphatase 130 U/L (35-105); Anion Gap 16.8 (5-19); Aspartate Amino Transferase 25 U/L (0-32); Blood Urea Nitrogen 9 mg/dL (8-23); Calcium 8.4 mg/dL (8.5-10.5); Carbon Dioxide 22 mmol/L (22-29); Chloride 102 mmol/L (98-107); Globulin 3.2 g/dL (1.3-4.6); Glomerular Filtration Rate 123.1 mL/min (90-130); Glucose 172 mg/dL (65-115); Osmolality Calculated 289 mOsm/kg (285-295); Sodium 138 mmol/L (136-145); Total Bilirubin 2.1 mg/dL (0.15-1.2); Total Protein 6.3 g/dL (6.6-8.7)
[2023-01-21 05:16] LABS: Potassium 2.8 mmol/L (3.5-5.1)
[2023-01-21] MEDS: lidocaine 1% 5 ML in potassium chloride premix 100 ML 26.25 ML IV (05:41)
[2023-01-21 05:59] LABS: Magnesium 1.3 mg/dL (1.7-2.3)
[2023-01-21 07:12] LABS: Glucose Point of Care 180 mg/dL (70-110)
[2023-01-21] MEDS: insulin lispro 100 unit/1 mL SUBCUT ×4 (08:17→20:47)
[2023-01-21] MEDS: clopidogrel 75 mg Tablet PO (08:19)
[2023-01-21] MEDS: aspirin 81 mg EC Tablet PO (08:19)
[2023-01-21] MEDS: pantoprazole 40 mg SDV IVP (08:19)
[2023-01-21] MEDS: levothyroxine 75 mcg Tablet 150 MCG PO (08:19)
[2023-01-21] MEDS: sennosides-docusate Tablet 2 TAB PO (08:19)
[2023-01-21 11:07] LABS: Glucose Point of Care 207 mg/dL (70-110)
--- NOTE | 2023-01-21 12:15 | P.PN_ITS ---
Subjective Subjective: Hypokalemia noted we will get 80 meq She is n.p.o., cardiology consulted I spoke with Dr. Coreas this morning, I will let patient have mechanical soft diet until decision is in place for coronary angiogram patient will be able to lay flat, anesthesia evaluation might be needed Patient received Ativan around midnight, patient was in deep sleep this morning Vitals/I&O/Wt Last Vital Signs Temp 97.7 F 01/21/23 04:00 Pulse 71 01/21/23 12:00 Resp 26 H 01/21/23 12:00 BP 116/73 01/21/23 12:00 Pulse Ox 96 01/21/23 05:30 O2 Del Method Room Air 01/20/23 06:00 FiO2 40 01/20/23 18:00 01/20/23 01/21/23 01/21/23 22:59 06:59 14:59 Intake Total 1035 / 2635 50 / 2685 105 / 105 Output Total 950 / 1300 300 / 1600 Balance 85 / 1335 -250 / 1085 105 / 105 Weight last 48 hrs Weight 86.183 kg Weight 85.956 kg Physical Exam Narrative: Afebrile Hemodynamically stable Waxing and waning mentation Nonfocal neuro exam Intertrigo groin area bilaterally Abdomen soft Currently on room air S1, S2 No audible stridor or wheezing Urinary Catheter Management: Sadler: Cath Placed During This Visit: yes Reason for Continuing Indwelling Catheter: Accurate Measurement of Urinary Output in Critically Ill Patients Urinary Catheter Date of Insertion: 01/17/23 Data 01/21/23 04:14 01/21/23 04:14 Micro: Microbiology 01/17/23 22:47 Urine Culture - Final Urine,Clean Catch Escherichia coli A&P Assessment and plan (1) Acute non-ST elevation myocardial infarction (NSTEMI): (2) Atherosclerosis of coronary artery of [place] heart without angina pectoris: (3) Portal hypertension: (4) Urinary tract infection: (5) Acute delirium: (6) Noncompliance: (7) Coronary artery disease: (8) Nonalcoholic fatty liver disease: (9) Diabetes mellitus, type II: Qualifiers: Diabetes mellitus penitentiary insulin use: with penitentiary use Diabetes mellitus complication status: without complication Qualified Code(s): E11.9 - Type 2 diabetes mellitus without complications; Z79.4 - exterminator helper termite (current) use of insulin (10) Dementia: (11) Rheumatoid arthritis: (12) History of open heart surgery: Plan NSTEMI: Cardiology has been updated and consulted Family was agreeable for coronary angiogram however they are not sure whether patient will stay compliant with her medications, strategic marketing associate Dr. Coreas will speak with the family again Recent angiogram report was reviewed and results were posted in my previous note Currently patient is on ACS protocol Fluctuant mentation Metabolic encephalopathy related to acute delirium due to UTI: Gradual improvement noted She does have chronic dementia Family requesting longterm placement if she is still able UTI with E. coli: Continue IV ceftriaxone Blood cultures negative Heart failure with reduced ejection fraction: Mild decompensation, add low-dose Lasix Patient successfully extubated within 24 hours of admission to room air Hypothyroid: Continue levothyroxine For delirium with underlying dementia I have been using Zyprexa Please avoid Ativan Moderate dose sliding scale with insulin She can be [facility] Attestations Medical Necessity Statement*: Awaiting cardiology evaluation Diagnoses Acute non-ST elevation myocardial infarction (NSTEMI) I21.4 Atherosclerosis of coronary artery of [place] heart without angina pectoris I25.10 Portal hypertension K76.6 Urinary tract infection N39.0 Acute delirium R41.0 Noncompliance Z91.199 Coronary artery disease I25.10 Nonalcoholic fatty liver disease K76.0 Diabetes mellitus, type II E11.9; Z79.4 Diabetes mellitus penitentiary insulin use: with penitentiary use Diabetes mellitus complication status: without complication Dementia F03.90 Rheumatoid arthritis M06.9 History of open heart surgery Z98.890
--- NOTE | 2023-01-21 13:18 | PM.PN ---
Subjective Subjective: Patient is confused. Denies chest pain. Vitals/I&O/Wt Last Vital Signs Temp 97.7 F 01/21/23 04:00 Pulse 71 01/21/23 12:00 Resp 26 H 01/21/23 12:00 BP 116/73 01/21/23 12:00 Pulse Ox 96 01/21/23 05:30 O2 Del Method Room Air 01/20/23 06:00 FiO2 40 01/20/23 18:00 01/20/23 01/21/23 01/21/23 22:59 06:59 14:59 Intake Total 1035 / 2635 50 / 2685 105 / 105 Output Total 950 / 1300 300 / 1600 Balance 85 / 1335 -250 / 1085 105 / 105 Weight last 48 hrs Weight 190 lb Weight 189 lb 8 oz Physical Exam Narrative: GENERAL: Patient is alert, awake and oriented x3. [] NECK: No jugular vein distension. [] HEENT: No cyanosis. No icterus. No pallor. [] HEART: Regular S1 and S2. LUNGS: Clear to auscultate bilaterally. [] CENTRAL NERVOUS SYSTEM: Grossly nonfocal. [] EXTREMITIES: Lower extremities with 1+ edema bilaterally. Pulses palpable in the lower extremities, both dorsalis pedis and posterior tibial. [] Urinary Catheter Management: Sadler: Cath Placed During This Visit: yes Reason for Continuing Indwelling Catheter: Accurate Measurement of Urinary Output in Critically Ill Patients Urinary Catheter Date of Insertion: 01/17/23 Data 01/22/23 02:31 01/22/23 02:31 Micro: Microbiology 01/17/23 22:47 Urine Culture - Final Urine,Clean Catch Escherichia coli A&P Assessment and plan (1) Acute non-ST elevation myocardial infarction (NSTEMI): Continue medical therapy for ACS. Had coronary angiogram performed last year. LV systolic function appears to have decreased from before. Will discuss with family all options including medical therapy versus coronary angiogram. Patient is medical compliance also questionable once discharged. (2) Atherosclerosis of coronary artery of [place] heart without angina pectoris: Medical therapy versus coronary angiogram. Will discuss with family. (3) Essential hypertension: Continue antihypertensive regimen (4) Urinary tract infection: Patient is on antibiotics. Management as per the primary. (5) Mixed hyperlipidemia: May continue on the current medications. (6) Diabetic peripheral neuropathy associated with type 2 diabetes mellitus: Per primary team (7) Noncompliance: Plan Thank you for involving us with care of this patient. We will continue to follow. Please call with questions. Attestations Medical Necessity Statement*: Care expected to cross 2 midnights Coding Level of Care Code Acute Code for Chg Fwd Diagnoses Acute non-ST elevation myocardial infarction (NSTEMI) I21.4 Atherosclerosis of coronary artery of [place] heart without angina pectoris I25.10 Essential hypertension I10 Urinary tract infection N39.0 Mixed hyperlipidemia E78.2 Diabetic peripheral neuropathy associated with type 2 diabetes mellitus E11.42 Noncompliance Z91.199
[2023-01-21 17:31] LABS: Glucose Point of Care 214 mg/dL (70-110)
[2023-01-21 20:45] LABS: Glucose Point of Care 267 mg/dL (70-110)
[2023-01-21] MEDS: atorvastatin 40 mg Tablet PO (20:46)
[2023-01-21] MEDS: insulin glargine 100 units/1 mL 30 UNIT SUBCUT (20:47)
[2023-01-21] MEDS: OLANZapine 5 mg ODT 2.5 MG PO (21:48)
[2023-01-21] MEDS: cefTRIAXone 1,000 MG in sodium chloride 0.9% (plus) 50 ML 100 MG IV (22:30)
--- NOTE | 2023-01-21 22:46 | PC.NURSE ---
Attempted to place patient on monitor multiple times since beginning of shift. Patient continues to pull at blood pressure cable, ECG cable, O2 cable. Unable to keep on patient. States does not want to wear all this stuff .
[2023-01-22] VITALS (8 sets, daily range): BP systolic 98–142; BP diastolic 59–80; PULSE 75–86; RESP 18–21; TEMP 36.2–36.6; O2SAT 95–98; BMI 32.1
[2023-01-22 04:11] LABS: Basophils % 0.8 %; Eosinophils # 0.2 10^3/uL (0.0-0.8); Eosinophils % 2.9 %; Hematocrit 41.9 % (37.0-47.0); Hemoglobin 13.7 g/dL (11.5-15.3); Mean Corpuscular HGB Conc 32.7 g/dL (30.0-36.0); Mean Corpuscular Hemoglobin 28.8 pg (28.0-34.0); Mean Platelet Volume 10.7 fL (7.4-10.4); Monocytes # 0.3 10^3/uL (0.2-0.9); Monocytes % 5.5 %; Neutrophils # 2.74 10^3/uL (1.8-7.7); Neutrophils % 52.4 %; Nucleated Red Blood Cells % 0 %; Platelet Count 142 10^3/cmm (130-400); Red Blood Count 4.76 10^6/uL (4.1-5.3); White Blood Count 5.2 10^3/uL (4.0-10.0)
[2023-01-22 04:27] LABS: Anion Gap 16.1 (5-19); Blood Urea Nitrogen 14 mg/dL (8-23); Calcium 8.9 mg/dL (8.5-10.5); Carbon Dioxide 24 mmol/L (22-29); Chloride 105 mmol/L (98-107); Creatinine Clr Calc Pharmacy 72.4921; Glomerular Filtration Rate 99.7 mL/min (90-130); Glucose 217 mg/dL (65-115); Osmolality Calculated 301 mOsm/kg (285-295); Potassium 3.1 mmol/L (3.5-5.1); Sodium 142 mmol/L (136-145)
[2023-01-22 07:57] LABS: Glucose Point of Care 255 mg/dL (70-110)
--- NOTE | 2023-01-22 08:03 | P.PN_ITS ---
Subjective Subjective: Patient denies chest pain. Vitals/I&O/Wt Last Vital Signs Temp 97.2 F L 01/22/23 04:00 Pulse 79 01/22/23 04:00 Resp 20 H 01/22/23 04:00 BP 108/67 01/22/23 04:00 Pulse Ox 98 01/22/23 04:00 O2 Del Method Room Air 01/22/23 04:00 FiO2 40 01/20/23 18:00 01/21/23 01/22/23 01/22/23 22:59 06:59 14:59 Intake Total 900 / 1005 550 / 1555 Output Total 950 / 950 550 / 1500 Balance -50 / 55 0 / 55 Weight last 48 hrs Weight 187 lb 3 oz Weight 190 lb Physical Exam Narrative: GENERAL: Patient is alert, awake NECK: No jugular vein distension. [] HEENT: No cyanosis. No icterus. No pallor. [] HEART: Regular S1 and S2. LUNGS: Clear to auscultate bilaterally. [] CENTRAL NERVOUS SYSTEM: Grossly nonfocal. [] EXTREMITIES: Lower extremities with 1+ edema bilaterally. Urinary Catheter Management: Sadler: Cath Placed During This Visit: yes Reason for Continuing Indwelling Catheter: Accurate Measurement of Urinary Output in Critically Ill Patients Urinary Catheter Date of Insertion: 01/17/23 Data 01/22/23 02:31 01/23/23 04:43 A&P Assessment and plan (1) Acute non-ST elevation myocardial infarction (NSTEMI): Continue medical therapy for ACS. LV dysfunction is new for her. I had a discussion with patient family they want to proceed with coronary angiogram. N.p.o. past midnight. (2) Atherosclerosis of coronary artery of [place] heart without angina pectoris: Patient's family wants to have coronary angiogram and possible intervention if needed. (3) Essential hypertension: Continue antihypertensive regimen (4) Urinary tract infection: Patient is on antibiotics. Management as per the primary. (5) Mixed hyperlipidemia: May continue on the current medications. (6) Diabetic peripheral neuropathy associated with type 2 diabetes mellitus: Per primary team (7) Noncompliance: Plan Thank you for involving us with care of this patient. We will continue to follow. Please call with questions. Attestations Medical Necessity Statement*: Care expected to cross 2 midnights. Coding Level of Care Code Acute Code for Chg Fwd Diagnoses Acute non-ST elevation myocardial infarction (NSTEMI) I21.4 Atherosclerosis of coronary artery of [place] heart without angina pectoris I25.10 Essential hypertension I10 Urinary tract infection N39.0 Mixed hyperlipidemia E78.2 Diabetic peripheral neuropathy associated with type 2 diabetes mellitus E11.42 Noncompliance Z91.199
[2023-01-22] MEDS: insulin lispro 100 unit/1 mL SUBCUT ×4 (08:14→20:44)
[2023-01-22] MEDS: levothyroxine 75 mcg Tablet 150 MCG PO (08:14)
[2023-01-22] MEDS: sennosides-docusate Tablet 2 TAB PO ×2 (08:14→17:32)
[2023-01-22] MEDS: aspirin 81 mg EC Tablet PO (08:14)
[2023-01-22] MEDS: pantoprazole 40 mg SDV IVP (08:14)
[2023-01-22] MEDS: clopidogrel 75 mg Tablet PO (08:14)
[2023-01-22] MEDS: nystatin cream 30 gm 1 APPLIC TOPICAL ×2 (08:23→17:32)
--- NOTE | 2023-01-22 11:22 | PC.SOCIAL ---
IMM update IMM updated with patient and . Copy PG 2 provided. Verbalized an understanding. Initialled, dated, timed, and placed in chart.
[2023-01-22 11:53] LABS: Glucose Point of Care 244 mg/dL (70-110)
[2023-01-22] MEDS: enoxaparin 100 mg/mL Syringe 80 MG SUBCUT (11:56)
--- NOTE | 2023-01-22 12:22 | PM.PN ---
Subjective Subjective: This morning patient is much more awake and alert Reasonable and cooperative Spoke with her daughter who is stating that they would like to go with the angiogram, cardiology updated We will keep her n.p.o. after midnight Hemodynamically stable Potassium repleted Vitals/I&O/Wt Last Vital Signs Temp 97.2 F L 01/22/23 04:00 Pulse 79 01/22/23 04:00 Resp 20 H 01/22/23 04:00 BP 128/70 01/22/23 08:00 Pulse Ox 95 01/22/23 08:00 O2 Del Method Room Air 01/22/23 04:00 FiO2 40 01/20/23 18:00 01/21/23 01/22/23 01/22/23 22:59 06:59 14:59 Intake Total 900 / 1005 550 / 1555 Output Total 950 / 950 550 / 1500 Balance -50 / 55 0 / 55 Weight last 48 hrs Weight 84.907 kg Weight 86.183 kg Physical Exam Narrative: Nonfocal neuro exam Awake and alert GCS 15 Cooperative S1, S2 Signs of dehydration improving Currently doing well on room air Abdomen soft Groin intertrigo Sadler catheter draining concentrated urine Urinary Catheter Management: Sadler: Cath Placed During This Visit: yes Reason for Continuing Indwelling Catheter: Accurate Measurement of Urinary Output in Critically Ill Patients Urinary Catheter Date of Insertion: 01/17/23 Data 01/22/23 02:31 01/22/23 02:31 A&P Assessment and plan (1) Urinary tract infection: (2) Atherosclerosis of coronary artery of [place] heart without angina pectoris: (3) Acute non-ST elevation myocardial infarction (NSTEMI): (4) Portal hypertension: (5) Acute delirium: (6) Noncompliance: (7) Coronary artery disease: (8) Essential hypertension: (9) Nonalcoholic fatty liver disease: (10) Dementia: (11) History of open heart surgery: (12) Rheumatoid arthritis: (13) Diabetes mellitus, type II: Qualifiers: Diabetes mellitus [facility] insulin use: with medical terminologist use Diabetes mellitus complication status: without complication Qualified Code(s): E11.9 - Type 2 diabetes mellitus without complications; Z79.4 - 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 coli bacteria sensitive to cephalosporins Reduced ejection fraction heart failure patient was given low-dose Lasix yesterday I will hold Lasix for today in anticipation of angiogram tomorrow No acute signs of fluid overload currently doing well on room Successfully extubated doing well on room air Continue with thyroxine Moderate sliding scale for type 2 diabetes Patient will need alf placement after angiogram, correctional case records supervisor updated, prior authorization initiated today Attestations Medical Necessity Statement*: Angiogram tomorrow Diagnoses Urinary tract infection N39.0 Atherosclerosis of coronary artery of [place] heart without angina pectoris I25.10 Acute non-ST elevation myocardial infarction (NSTEMI) I21.4 Portal hypertension K76.6 Acute delirium R41.0 Noncompliance Z91.199 Coronary artery disease I25.10 Essential hypertension I10 Nonalcoholic fatty liver disease K76.0 Dementia F03.90 History of open heart surgery Z98.890 Rheumatoid arthritis M06.9 Diabetes mellitus, type II E11.9; Z79.4 Diabetes mellitus [facility] insulin use: with medical terminologist use Diabetes mellitus complication status: without complication
[2023-01-22 16:58] LABS: Glucose Point of Care 198 mg/dL (70-110)
[2023-01-22 20:14] LABS: Glucose Point of Care 243 mg/dL (70-110)
[2023-01-22] MEDS: atorvastatin 40 mg Tablet PO (20:44)
[2023-01-22] MEDS: insulin glargine 100 units/1 mL 30 UNIT SUBCUT (20:45)
[2023-01-23] VITALS (32 sets, daily range): BP systolic 101–179; BP diastolic 61–106; PULSE 64–85; RESP 14–31; TEMP 36.4–36.7; O2SAT 91–100
[2023-01-23] MEDS: cefTRIAXone 1,000 MG in sodium chloride 0.9% (plus) 50 ML 100 MG IV (00:26)
[2023-01-23 05:28] LABS: Anion Gap 12.8 (5-19); Blood Urea Nitrogen 9 mg/dL (8-23); Calcium 8.5 mg/dL (8.5-10.5); Carbon Dioxide 25 mmol/L (22-29); Chloride 107 mmol/L (98-107); Glomerular Filtration Rate 123.1 mL/min (90-130); Glucose 179 mg/dL (65-115); Osmolality Calculated 297 mOsm/kg (285-295); Sodium 142 mmol/L (136-145)
[2023-01-23 05:35] LABS: Potassium 2.8 mmol/L (3.5-5.1)
[2023-01-23] MEDS: potassium chloride ER 20 mEq Tablet 40 MEQ PO ×2 (06:09→09:44)
[2023-01-23 06:20] LABS: Glucose Point of Care 168 mg/dL (70-110)
--- NOTE | 2023-01-23 08:06 | PM.PN ---
Subjective Subjective: Patient underwent coronary angiogram today that showed patent ESPINOZA to LAD and SVG to RCA/PDA. However post anastamosis of the SVG graft [place] vessel has diffuse disease. No chest pain. Vitals/I&O/Wt Last Vital Signs Temp 97.9 F 01/23/23 04:50 Pulse 85 01/23/23 06:00 Resp 17 01/23/23 04:50 BP 101/61 01/23/23 04:50 Pulse Ox 94 01/23/23 04:50 O2 Del Method Room Air 01/22/23 04:00 FiO2 40 01/20/23 18:00 01/22/23 01/23/23 01/23/23 22:59 06:59 14:59 Intake Total 240 / 240 170 / 410 Output Total 1800 / 1800 Balance 240 / 240 -1630 / -1390 Weight last 48 hrs Weight 191 lb 6.4 oz Weight 187 lb 3 oz Physical Exam Narrative: GENERAL: Patient is alert, awake NECK: No jugular vein distension. [] HEENT: No cyanosis. No icterus. No pallor. [] HEART: Regular S1 and S2. LUNGS: Clear to auscultate bilaterally. [] CENTRAL NERVOUS SYSTEM: Grossly nonfocal. [] EXTREMITIES: Lower extremities with 1+ edema bilaterally. Urinary Catheter Management: Sadler: Cath Placed During This Visit: yes Reason for Continuing Indwelling Catheter: Accurate Measurement of Urinary Output in Critically Ill Patients Urinary Catheter Date of Insertion: 01/17/23 Data 01/22/23 02:31 01/23/23 04:43 A&P Assessment and plan (1) Acute non-ST elevation myocardial infarction (NSTEMI): Coronary angiogram shows patent SVG to RCA and ESPINOZA to LAD. After anastamosis of SVG to RCA, [place] PDA has significant diffuse disease. Medical therapy. (2) Atherosclerosis of coronary artery of [place] heart without angina pectoris: Medical therapy (3) Essential hypertension: Continue antihypertensive regimen (4) Urinary tract infection: Patient is on antibiotics. Management as per the primary. (5) Mixed hyperlipidemia: May continue on the current medications. (6) Diabetic peripheral neuropathy associated with type 2 diabetes mellitus: Per primary team (7) Noncompliance: Plan Thank you for involving us with care of this patient. We will continue to follow. Please call with questions. Attestations Medical Necessity Statement*: Care expected to cross 2 midnights. Coding Level of Care Code Acute Code for Chg Fwd Diagnoses Acute non-ST elevation myocardial infarction (NSTEMI) I21.4 Atherosclerosis of coronary artery of [place] heart without angina pectoris I25.10 Essential hypertension I10 Urinary tract infection N39.0 Mixed hyperlipidemia E78.2 Diabetic peripheral neuropathy associated with type 2 diabetes mellitus E11.42 Noncompliance Z91.199
[2023-01-23] MEDS: diphenhydrAMINE 50 mg Capsule PO (09:44)
[2023-01-23] MEDS: aspirin 325 mg Tablet PO (09:44)
[2023-01-23] MEDS: sodium chloride 0.9% 1,000 ML 50 ML IV (09:45)
[2023-01-23] MEDS: nystatin cream 30 gm 1 APPLIC TOPICAL (09:47)
--- NOTE | 2023-01-23 10:29 | XACV_ITS ---
Exam Room: [facility] Ht: 163 cm Wt: 87 kg BSA: 2.01 m2 Gender: Female : 1955 Any Known Allergies: Other Exam Priority: Routine Procedure(s): Procedure Description: Diagnostic procedure Procedure Description: Left Heart Catheterization Procedure Description: Coronary Angiography Diagnostic Cath Status: Elective Diagnostic Findings * INDICATION: NSTEMI/ LV dysfunction. * Left Main has no significant disease. * Right Coronary Artery is patent. PDA is occluded. * Bypass grafts:SVG to RCA: * Patent. At anastomosis with PDA, [place] PDA has a * diffuse severe disease * . ESPINOZA to LAD: * Patent * . * Proximal Left Anterior Descending: total occlusion, RAMAN: 0 flow. * Mid Circumflex: total occlusion, RAMAN: 0 flow. * Coronary angiography shows right dominance. PCI Status: Elective Conclusions 1. Patent ESPINOZA to LAD. Patent SVG to RCA however after anastomosis, [place] vessel has severe diffuse disease. No revascularization target.. 2. Patient has prior CABG. Recommendations * Aggressive risk factor modification. * Outpatient cardiology follow up in 4 weeks. Interventional RX Recommendation: medical therapy and/or counseling Diagnostic RX Recommendation: medical therapy and/or counseling Pressures Phase:Rest AO : 145 / 72 ( 101 ) @ 12:53:00 PM 140 / 67 ( 97 ) @ 12:56:00 PM 108 / 71 ( 89 ) @ 1:01:00 PM 127 / 61 ( 88 ) @ 1:05:00 PM 126 / 61 ( 88 ) @ 1:05:00 PM LV : 133 / -1 / 16 @ 1:05:00 PM 132 / 0 / 18 @ 1:05:00 PM Valves Phase:DefaultPhase AV : 6.0 @ 12:14:58 PM 6.0 @ 12:14:58 PM AV Mean Gradient: 11.0 @ 12:14:58 PM Clinical Evaluation EBL: 5mL-10mL Procedural Details Procedure Consent Obtained. Admit Source: In Patient. Pre-Procedure Time Out. Identified patient by full name and date of as verbalized by the patient/guarantor. Does the consent match the physician's order: Yes. Accurate & Complete Informed Consent: Yes. Inpatient/Outpatient History & Physical on Chart: Yes. If H&P is completed, is and addenduem needed: No; If yes, is the addendum complete: N/A. Visualize and Verify Site with Patient/Guarantor: N/A. Relevant Radiology Images available: N/A. The risks, benefits, and alternatives of sedation and/or procedure were discussed by physician. The patient agrees to continue. Procedure started. [facility] Clinical Fraility Score: 5: Mildly Frail. Cotton Chopper Indications: LV Dysfunction. Cotton Chopper Indications: NSTEMI. Chest Pain Symptom Assessment: Atypical Angina. Cardiovascular Instability: No. Correct patient, site and procedure confirmed by cath team. Current diagnosis: NSTEMI. PERRLA. Strong, equal hand dealmaker bilaterally. Lungs clear x 5 lobes. Pre Procedural Pulses: bilateral dorsalis pedis was 3+. Oxygen started at 2liters/min via nasal canula. left groin was prepped with chloroprep then draped in the usual sterile fashion. Baseline sample Acquired. HR: 79 BPM. Physician notified. A 20 gauge IV was started in the left anticubital using aseptic technique. Physician arrived. Physician scrubbed in. Immediate Pre-Procedure Time Out. Correct Patient: Yes; Correct Procedure: Yes; Correct Site: Yes; Correct Patient Position: Yes; Correct Supplies: Yes; Dried Flammable Prep: Yes; Blood Products Available: N/A;. Lidocaine 1% infiltrated to the left groin. Arterial access obtained with micropuncture set. A 5 [place] JL4 catheter in over wire. Multiple views taken of left coronary artery. Catheter out. A 5 [place] JR4 catheter in over wire. Multiple views taken of right coronary artery. Catherter redirecte to the bypass grafts. SVG's to PDA visualized and patent. ESPINOZA to LAD visualized. EDP Sample taken: LV 133/-2,16; HR: 74 BPM; SpO2: 98%. Pullback taken: LV 132/0,18; AO 127/61(88); Mean: 11mmHg, Peak to Peak: 6mmHg, SEP: 17sec/min; HR: 73 BPM; SpO2: 98%. Catheter out. A Left femoral angiogram was performed to determine safe placement of closure device. Post Procedure: Pulses reassessed and unchanged. PERRLA. Strong, equal hand dealmaker bilaterally. No VTE prophylaxis required. A Suture was successful obtaining hemostatsis at the Left Femoral artery insertion site. Post-op diagnosis: severe [place] artery CAD, patient ESPINOZA to LAD and SVG to RCA. Complications: none. Estimated blood loss: 5mL-10mL. Responsiveness - Normal response to verbal stimuli; alert and oriented, PERRLA. Airway - Unaffected, no intervention required; spontaneous ventilation. Circulation: W/N/L, pulses unchanged. Nausea/Vomiting: No. Medication's Wasted: Heparin = 4000 units. Medication's Wasted: Other = fentanyl 25 mcg. Total IV fluids: 40 mL. Procedure completed. Patient transferred by bed to ICU. Vital chart was stopped. Access Site Site: Left Femoral artery Sheath Size: 6 Fr Hemostasis Method: Suture Hemostasis Success: Successful Procedure Medications Start: 11:44 AM Stop: 11:44 AM Medication: Versed 1 mg and Fentanyl 25 mcg Amount: 1 Route: I.V. Start: 11:51 AM Stop: 11:51 AM Medication: Fentanyl Amount: 25 mcg Route: I.V. Start: 11:57 AM Stop: 11:57 AM Medication: Versed 1 mg and Fentanyl 25 mcg Amount: 1 Route: I.V. I, the attending physician, have reviewed and verified all procedure medications. Yes, all medications given per verbal order History/Risk Factors Hypertension: Yes Dyslipidemia: Yes Peripheral Arterial Disease (PAD): No Myocardial Infarction (GA): No Obesity: No Tobacco Use: Former Prior Interventions PCI: Yes CABG: Yes Valve Surgery: No Report Signatures Finalized by Kin Montero MD on 02/06/2023 05:29 PM
--- NOTE | 2023-01-23 11:29 | W.PM.OPSUD ---
Surgery/Procedure H&P Update DATE OF PROCEDURE: January 23, 2023 DATE H&P PERFORMED: 01/20/23 H&P UPDATE INFORMATION: I have reviewed H&P completed within last 30 days, I have examined patient prior to procedure and No changes to prior documentation PREOP DIAGNOSIS: NSTEMI/LV dysfunction PRIMARY INDICATION FOR PROCEDURE: NSTEMI/LV dysfunction PLANNED PROCEDURE: Left heart cath with possible percutaneous coronary intervention PATIENT REASSESSED PRIOR TO SEDATION, WITH NO CHANGE NOTED: Yes PHYSICAL EXAM: alert, oriented x 3, clear to auscultation bilaterally and regular rate & rhythm AIRWAY EVAL/ANESTHESIA PLAN: normal airway, ASA III, Local Anesthesia, Risks, benefits & alternatives of sedation and/or procedure discussed and Patient agrees to continue as planned ADDITIONAL INFORMATION: Moderate sedation
--- NOTE | 2023-01-23 12:28 | P.PN_ITS ---
Subjective Subjective: This morning patient is willing to go for the angiogram Cardiology updated Had a family discussion at the bedside Questions were answered to their satisfaction Potassium repleted Vitals/I&O/Wt Last Vital Signs Temp 98.1 F 01/23/23 08:00 Pulse 76 01/23/23 08:00 Resp 16 01/23/23 08:00 BP 119/72 01/23/23 08:00 Pulse Ox 94 01/23/23 08:00 O2 Del Method Room Air 01/22/23 04:00 FiO2 40 01/20/23 18:00 01/22/23 01/23/23 01/23/23 22:59 06:59 14:59 Intake Total 240 / 240 170 / 410 Output Total 1800 / 1800 Balance 240 / 240 -1630 / -1390 Weight last 48 hrs Weight 86.818 kg Weight 84.907 kg Physical Exam Narrative: Patient is awake and alert Much more cooperative She does not member that she had an angiogram last year She was asked about her father and mother however able to answer my question appropriately She is awake and alert GCS 15 Euvolemic Abdomen soft No active chest pain Currently on room air Hemodynamically stable Urinary Catheter Management: Sadler: Cath Placed During This Visit: yes Reason for Continuing Indwelling Catheter: Accurate Measurement of Urinary Output in Critically Ill Patients Urinary Catheter Date of Insertion: 01/17/23 Data 01/22/23 02:31 01/23/23 04:43 A&P Assessment and plan (1) Acute non-ST elevation myocardial infarction (NSTEMI): (2) Atherosclerosis of coronary artery of [place] heart without angina pectoris: (3) Portal hypertension: (4) Urinary tract infection: (5) Acute delirium: (6) Noncompliance: (7) Coronary artery disease: (8) Diabetes mellitus, type II: Qualifiers: Diabetes mellitus senior care insulin use: with senior care use Diabetes mellitus complication status: without complication Qualified Code(s): E11.9 - Type 2 diabetes mellitus without complications; 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 coli switch to cefpodoxime Dementia: Patient does have cognitive impairment and memory loss PT requested patient will be able to go to rehab We will reevaluate tomorrow morning Full code N.p.o. for now She can have consistent carb diet afterwards DVT prophylaxis on board Respiratory failure: Resolved patient was extubated to nasal cannula successful Attestations Medical Necessity Statement*: Awaiting placement after Diagnoses Acute non-ST elevation myocardial infarction (NSTEMI) I21.4 Atherosclerosis of coronary artery of [place] heart without angina pectoris I25.10 Portal hypertension K76.6 Urinary tract infection N39.0 Acute delirium R41.0 Noncompliance Z91.199 Coronary artery disease I25.10 Diabetes mellitus, type II E11.9; Z79.4 Diabetes mellitus joint terminal attack controller insulin use: with joint terminal attack controller use Diabetes mellitus complication status: without complication Nonalcoholic fatty liver disease K76.0 Dementia F03.90
[2023-01-23] MEDS: lidocaine 1% 5 ML in potassium chloride premix 100 ML 26.25 ML IV (13:30)
[2023-01-23] MEDS: enoxaparin 100 mg/mL Syringe 80 MG SUBCUT (13:33)
[2023-01-23] MEDS: haloperidol inj 5 mg/mL INJ 1 mL 2 MG IM (13:57)
[2023-01-23] MEDS: OLANZapine 5 mg ODT 2.5 MG PO ×2 (13:57→19:57)
--- NOTE | 2023-01-23 14:25 | PC.NURSE ---
From [facility] Pt brought from [facility] by [facility] staff. Pt is alert to self. Left femoral site checked with [facility] nurse. Site is soft, dressing is CDI. Pulses palpable.
--- NOTE | 2023-01-23 15:16 | PC.OT ---
OT TREATMENT HELD THIS DATE DUE TO PATIENT TRANSFER TO ICU FROM [facility]. WILL PERFORM OTR CHECK TOMORROW.
[2023-01-23 16:59] LABS: Partial Thromboplastin Time 34.2 SECONDS (23.9-36.7)
--- NOTE | 2023-01-23 19:34 | PC.NURSE ---
Pulling @lines: Pt is alert to self and location but is difficult to redirect. Since 1900 pt has ripped off cardiac leads, pulled at IV line, and bent left leg several times. See post cardiac flow sheath for site assessments. [facility] Nurse @bedside to sit with patient. Pt is not easy to redirect.
[2023-01-23] MEDS: ALPRAZolam 0.5 mg Tablet 0.25 MG PO (19:48)
[2023-01-23] MEDS: temazepam 15 mg Capsule PO (19:49)
[2023-01-23] MEDS: acetaminophen 325 mg Tablet 650 MG PO (19:49)
[2023-01-23 20:04] LABS: Glucose Point of Care 170 mg/dL (70-110)
[2023-01-23] MEDS: atorvastatin 40 mg Tablet PO (20:06)
[2023-01-23] MEDS: insulin lispro 100 unit/1 mL SUBCUT (20:06)
[2023-01-23] MEDS: fentaNYL 50 mcg/mL INJ 2mL IVP (20:57)
[2023-01-23] MEDS: insulin glargine 100 units/1 mL 30 UNIT SUBCUT (21:29)
--- NOTE | 2023-01-23 21:54 | PC.NURSE ---
Sheath Removal: Pt is connected to continuos cardiac monitoring. SBP less than 160, DBP less than 100. Patient IV connected to NS. PTT less than 45. Pt is not having any chest pain. No hemotoma felt. See MAR for administration of medication prior to pull. Two RN's at bedside. Sheath pulled @2107. Continuos firm pressure held for 15 minutes. No oozing noted from site. Dressing applied. Knee immobilizer applied due to need to frequently redirect pt. See post cardiac flow sheet for site assessment. Education on reportable signs/symptoms and safety given to pt. Pt verbalized understanding but will frequently reinforce education.
[2023-01-24] VITALS (10 sets, daily range): BP systolic 105–148; BP diastolic 59–84; PULSE 66–97; RESP 13–25; TEMP 35.8–37; O2SAT 94–98
--- NOTE | 2023-01-24 00:29 | PC.NURSE ---
Transfer to CSU: Transferred pt from ICU 6 to CSU 107 @0022 01/24/23.
[2023-01-24 05:11] LABS: Basophils % 0.8 %; Eosinophils # 0.1 10^3/uL (0.0-0.8); Eosinophils % 3.5 %; Hematocrit 38.3 % (37.0-47.0); Hemoglobin 12.7 g/dL (11.5-15.3); Lymphocytes # 1.8 10^3/uL (0.8-4.8); Lymphocytes % 46.8 %; Mean Corpuscular HGB Conc 33.2 g/dL (30.0-36.0); Mean Corpuscular Hemoglobin 29.6 pg (28.0-34.0); Mean Corpuscular Volume 89.3 fl (81-99); Monocytes # 0.3 10^3/uL (0.2-0.9); Monocytes % 6.9 %; Neutrophils # 1.57 10^3/uL (1.8-7.7); Neutrophils % 41.7 %; Nucleated Red Blood Cells % 0 %; Platelet Count 122 10^3/cmm (130-400); Red Blood Count 4.29 10^6/uL (4.1-5.3); Red Cell Distribution Width 13.1 % (12.1-15.1); White Blood Count 3.8 10^3/uL (4.0-10.0)
[2023-01-24 05:37] LABS: Anion Gap 11.6 (5-19); Blood Urea Nitrogen 9 mg/dL (8-23); Calcium 8.4 mg/dL (8.5-10.5); Carbon Dioxide 24 mmol/L (22-29); Chloride 108 mmol/L (98-107); Glomerular Filtration Rate 99.7 mL/min (90-130); Glucose 200 mg/dL (65-115); Osmolality Calculated 294 mOsm/kg (285-295); Potassium 3.6 mmol/L (3.5-5.1); Sodium 140 mmol/L (136-145)
[2023-01-24 06:08] LABS: Glucose Point of Care 177 mg/dL (70-110)
--- NOTE | 2023-01-24 07:18 | PM.PN ---
Subjective Subjective: Patient is doing well No chest pain. Vitals/I&O/Wt Last Vital Signs Temp 96.5 F L 01/24/23 06:23 Pulse 76 01/24/23 06:00 Resp 21 H 01/24/23 04:01 BP 148/83 01/24/23 04:01 Pulse Ox 97 01/24/23 04:01 O2 Del Method Room Air 01/24/23 02:00 FiO2 40 01/20/23 18:00 01/23/23 01/24/23 01/24/23 22:59 06:59 14:59 Intake Total 817.5 / 817.5 537.5 / 1355.0 Output Total 1000 / 1000 Balance -182.5 / -182.5 537.5 / 355.0 Weight last 48 hrs Weight 190 lb 3 oz Weight 191 lb 6.4 oz Physical Exam Narrative: GENERAL: Patient is alert, awake NECK: No jugular vein distension. [] HEENT: No cyanosis. No icterus. No pallor. [] HEART: Regular S1 and S2. LUNGS: Clear to auscultate bilaterally. [] CENTRAL NERVOUS SYSTEM: Grossly nonfocal. [] EXTREMITIES: Lower extremities with 1+ edema bilaterally. Urinary Catheter Management: Sadler: Cath Placed During This Visit: yes Reason for Continuing Indwelling Catheter: Accurate Measurement of Urinary Output in Critically Ill Patients Urinary Catheter Date of Insertion: 01/17/23 Data 01/24/23 04:35 01/24/23 04:35 A&P Assessment and plan (1) Acute non-ST elevation myocardial infarction (NSTEMI): Aggressive medical therapy. No revascularization targets (2) Atherosclerosis of coronary artery of [place] heart without angina pectoris: Medical therapy (3) Essential hypertension: Continue antihypertensive regimen (4) Urinary tract infection: Patient is on antibiotics. Management as per the primary. (5) Mixed hyperlipidemia: May continue on the current medications. (6) Diabetic peripheral neuropathy associated with type 2 diabetes mellitus: Per primary team (7) Noncompliance: Plan Thank you for involving us with care of this patient. Patient is stable to be discharged from cardiology standpoint. Please call with questions. Attestations Medical Necessity Statement*: Care expected to cross 2 midnights. Coding Level of Care Code Acute Code for [facility] Diagnoses Acute non-ST elevation myocardial infarction (NSTEMI) I21.4 Atherosclerosis of coronary artery of [place] heart without angina pectoris I25.10 Essential hypertension I10 Urinary tract infection N39.0 Mixed hyperlipidemia E78.2 Diabetic peripheral neuropathy associated with type 2 diabetes mellitus E11.42 Noncompliance Z91.199
--- NOTE | 2023-01-24 09:02 | PC.SOCIAL ---
IMM update IMM updated with patient and . Copy PG 2 provided. Verbalized an understanding. Initialled, dated, timed, and placed in chart.
--- NOTE | 2023-01-24 09:53 | PC.OT ---
OT TREATMENT ATTEMPTED; PATIENT SLEEPING SOUNDLY. WILL ATTEMPT AGAIN LATER TODAY
--- NOTE | 2023-01-24 11:04 | P.DS_ITS ---
Discharge Providers Date of Admission: 01/17/23 23:31 Date of Discharge: January 24, 2023 Attending Provider at Admission: Samuel Carr MD Attending Provider at Discharge: Terry Guerra MD Primary Care Provider: Deandra Flores MD Diagnoses at Discharge Discharge Diagnosis (1) Acute non-ST elevation myocardial infarction (NSTEMI): Status: Acute (2) Atherosclerosis of coronary artery of [place] heart without angina pectoris: Status: Acute (3) Essential hypertension: Status: Acute (4) Urinary tract infection: Status: Acute (5) Mixed hyperlipidemia: Status: Acute (6) Diabetic peripheral neuropathy associated with type 2 diabetes mellitus: Status: Acute (7) Noncompliance: Status: Acute Reason for Visit Reason for Visit: AMS Hospital Course Hospital Course 67-year female who was admitted for acute delirium patient was very combative it took us about 72 hours to control her delirium with antibiotics and fluids she required Haldol on frequent basis along Zyprexa, her delirium was associated with UTI, she also had NSTEMI for which she required ACS protocol throughout hospitalization, cardiology was consulted, angiogram showed patent ESPINOZA to LAD SVG to PDA is patent but after the graft [place] vessel has diffuse disease, no focal stenosis to stent, medical therapy was advised by green coffee blender. 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 Patient will be given aspirin, Plavix, and for dementia she will get Namenda, Aricept for UTI she will get levofloxacin. Family is not able to take care of her because of her dementia, she does have poor memory and cognitive impairment now however much more alert and awake and cooperative, she is agreeable to go to rehab for short-term, urine culture showing E. coli which is sensitive to penicillin however she is allergic that is why tetracycline has been selected. Considering her worsening of dementia she might need long-term placement at the SNF. CT head showing age-related changes. Please note her EF has been reduced to 34% from preserved ejection fraction, considering her dementia LifeVest was not recommended as her compliance with medication is still questionable Please note she does have portal hypertension related diabetes induced hepatosplenomegaly, there is mild component of hepatic encephalopathy, ammonia level was unremarkable Family was counseled extensively on her findings on the CT scan of abdomen pelvis. Patient lives with her who is not able to take care of her, daughter is also working full-time, she was questioning why her mother is so forgetful, I explained what dementia is and how it could be treated Physical Exam Narrative: Awake and alert GCS 15 Nonfocal neuro exam Currently on room air Abdomen soft Urinary Catheter Management: Sadler: Cath Placed During This Visit: yes Reason for Continuing Indwelling Catheter: Accurate Measurement of Urinary Output in Critically Ill Patients Urinary Catheter Date of Insertion: 01/17/23 Discharge Data Studies Completed and Pending Completed Studies During Hospitalization Category Date Time Status CT chest abdomen pelvis [CT chest abdpel w/*[id number] Cat Scan 01/17/23 20:31 Completed ] Stat CT head wo con* [id number] Stat Cat Scan 01/17/23 18:58 Completed XR chest 1V portable [id number] Stat Exams 01/17/23 20:31 Completed XR chest 1V portable [id number] Stat Exams 01/18/23 05:57 Completed CV. echo complete* [id number] Routine Ultrasound 01/18/23 00:57 Completed Pending at discharge Category Date Time Status [employer] request for service Routine Exams 01/23/23 10:29 Taken SARS Covid-2 Antigen Routine Lab 01/24/23 09:24 Uncollected Radiology Impressions Head CT 01/17/23 18:58 IMPRESSION: 1. Atrophy and old lacunar disease. 2. No acute intracranial finding. Chest/Abdomen/Pelvis CT 01/17/23 20:31 IMPRESSION: 1. Mild interstitial pulmonary edema. 2. Dependent atelectasis in the lungs bilaterally. 3. There is an endotracheal tube with the tip 2.2 cm above the nathan. 4. There is an enteric tube with the tip in the distal body of the stomach. 5. Incidental/nonacute findings are listed in the report. IMPRESSION: 1. Stable nodular contour of the liver. However, there is hepatomegaly that has decreased, and there is interval development of reticular enhancement in the liver which raises concern for worsening fibrotic changes in the liver. 2. Findings suggesting portal hypertension. There is mild splenomegaly that has decreased. Stable small caliber varices in the left abdomen. 3. There is an enteric tube with the tip in the distal body of the stomach. 4. Incidental/nonacute findings are listed in the report. COMMENTS: Consistent with the [employer]'s Incidental Findings Committee white paper (J Am Jonathan Radiol 2018): Any incidental renal lesion less than 1 cm or classified as too small to characterize, or any incidental cystic renal lesion characterized as simple-appearing, is likely benign. No follow-up imaging is recommended for these lesions per consensus recommendations based on imaging criteria. Chest X-Ray 01/18/23 05:57 IMPRESSION: 1. Satisfactory endotracheal tube position. 2. NG tube is in the stomach. The tip is not imaged. Laboratory Results WBC 3.8 10^3/uL (4.0-10.0) L 01/24/23 04:35 RBC 4.29 10^6/uL (4.1-5.3) 01/24/23 04:35 Hgb 12.7 g/dL (11.5-15.3) 01/24/23 04:35 Hct 38.3 % (37.0-47.0) 01/24/23 04:35 MCV 89.3 fl (81-99) 01/24/23 04:35 MCH 29.6 pg (28.0-34.0) 01/24/23 04:35 MCHC 33.2 g/dL (30.0-36.0) 01/24/23 04:35 RDW 13.1 % (12.1-15.1) 01/24/23 04:35 Plt Count 122 10^3/cmm (130-400) L 01/24/23 04:35 MPV 10.0 fL (7.4-10.4) 01/24/23 04:35 Neut % (Auto) 41.7 % 01/24/23 04:35 Lymph % (Auto) 46.8 % 01/24/23 04:35 Mcculloch % (Auto) 6.9 % 01/24/23 04:35 Eos % (Auto) 3.5 % 01/24/23 04:35 Baso % (Auto) 0.8 % 01/24/23 04:35 Neut # (Auto) 1.57 10^3/uL (1.8-7.7) L 01/24/23 04:35 Lymph # (Auto) 1.8 10^3/uL (0.8-4.8) 01/24/23 04:35 [place]ulloch # (Auto) 0.3 10^3/uL (0.2-0.9) 01/24/23 04:35 Eos # (Auto) 0.1 10^3/uL (0.0-0.8) 01/24/23 04:35 Baso # (Auto) 0.0 10^3/uL (0.0-0.1) 01/24/23 04:35 Nucleated RBC % (auto) 0 % 01/24/23 04:35 Nucleated RBCs # 0.0 /100WBC 01/24/23 04:35 PT 14.90 SECONDS (12.1-14.9) 01/21/23 04:14 INR 1.13 (0.8-1.2) 01/21/23 04:14 APTT 34.2 SECONDS (23.9-36.7) 01/23/23 16:19 Fibrinogen 534 mg/dL (174-498) H 01/21/23 04:14 Fibrin Degrad Products Neg, <10 ug/mL (NEG) 01/21/23 04:14 D-Dimer 0.61 ug/mIFEU (0-0.59) H 01/21/23 04:14 Specimen Type Arterial 01/18/23 04:01 Sample Site Brachial, right 01/18/23 04:01 ABG pH 7.45 (7.35-7.45) 01/18/23 04:01 ABG pCO2 35.0 mmHg (35-45) 01/18/23 04:01 ABG pO2 72.9 mmHg (80.0-100.0) L 01/18/23 04:01 ABG HCO3 24.1 mmol/L (22-26) 01/18/23 04:01 ABG O2 Saturation 95.7 01/18/23 04:01 ABG Base Excess 0.5 mmol/L (-2.0-2.0) 01/18/23 04:01 Abilio Test N/a 01/18/23 04:01 A-a O2 Gradient 12.4 mmHg (5-10) H 01/18/23 04:01 Hematocrit 44.8 % (37-47) 01/18/23 04:01 Hgb O2 Saturation 94.1 % (95-100) L 01/18/23 04:01 Carboxyhemoglobin 1.4 %THgb (0.4-20.1) 01/18/23 04:01 Methemoglobin 0.2 % (0.4-1.5) L 01/18/23 04:01 Total Hemoglobin 14.6 g/dL (12-16) 01/18/23 04:01 Sodium 135.0 mmol/L (131-143) 01/18/23 04:01 Potassium 3.6 mmol/L (3.5-5.0) 01/18/23 04:01 Glucose 375.0 mg/dL (70-115) H 01/18/23 04:01 Ionized Calcium 1.2 mmol/L (1.1-1.4) 01/18/23 04:01 O2 Delivery Device Vent 01/18/23 04:01 FiO2 30.0 % 01/18/23 04:01 Tidal Volume 0.40 01/18/23 04:01 PEEP 5.0 cmH20 01/18/23 04:01 Family Readiness Support Assistant ID Macario 01/18/23 04:01 Sodium 140 mmol/L (136-145) 01/24/23 04:35 Potassium 3.6 mmol/L (3.5-5.1) 01/24/23 04:35 Chloride 108 mmol/L (98-107) H 01/24/23 04:35 Carbon Dioxide 24 mmol/L (22-29) 01/24/23 04:35 Anion Gap 11.6 (5-19) 01/24/23 04:35 BUN 9 mg/dL (8-23) 01/24/23 04:35 Creatinine 0.6 mg/dL (0.5-0.9) 01/24/23 04:35 GFR Calculation 99.7 mL/min (90-130) 01/24/23 04:35 Glucose 200 mg/dL (65-115) H 01/24/23 04:35 POC Glucose 177 mg/dL (70-110) H 01/24/23 06:02 Estimat Average Glucose 306 01/18/23 04:00 Hemoglobin A1c 12.3 % (4.0-6.0) H 01/18/23 04:00 Calculated Osmolality 294 mOsm/kg (285-295) 01/24/23 04:35 Calcium 8.4 mg/dL (8.5-10.5) L 01/24/23 04:35 Magnesium 1.3 mg/dL (1.7-2.3) L 01/21/23 04:14 Total Bilirubin 2.1 mg/dL (0.15-1.2) H 01/21/23 04:14 AST 25 U/L (0-32) 01/21/23 04:14 ALT 13 U/L (0-33) 01/21/23 04:14 Alkaline Phosphatase 130 U/L (35-105) H 01/21/23 04:14 Ammonia 22 umol/L (11-51) 01/17/23 21:58 Troponin T Gen 5 ng/L 73 ng/L (0-10) H 01/17/23 21:58 Troponin T 120 Minute 418.0 ng/L (0-10) H 01/17/23 23:58 Delta Troponin T 345 ABS# (0-10) H* 01/17/23 23:58 Troponin T Hi Sens 6Hr 751.3 ng/L (0-10) H 01/18/23 04:00 Troponin T Hi Sens 6Hr Delta 678.3 ng/L (0-12) H* 01/18/23 04:00 Total Protein 6.3 g/dL (6.6-8.7) L 01/21/23 04:14 Albumin 3.1 g/dL (3.5-5.2) L 01/21/23 04:14 Globulin 3.2 g/dL (1.3-4.6) 01/21/23 04:14 Vitamin B12 681 pg/mL (232-1245) 01/17/23 21:58 Folate 16.7 ng/mL (4.8-37.3) 01/17/23 21:58 TSH 3.43 uIU/mL (0.27-4.20) 01/17/23 21:58 Urine Color Yellow (Yellow) 01/17/23 22:47 Urine Appearance Hazy (CLEAR) A 01/17/23 22:47 Urine pH 6 (5-7) 01/17/23 22:[address] [place] 1.015 (1.005-1.030) 01/17/23 22:47 Urine Protein 3+ (Negative) H 01/17/23 22:47 Urine Glucose (UA) 4+ (Normal) H 01/17/23 22:47 Urine Ketones 1+ (Negative) H 01/17/23 22:47 Urine Blood 2+ (Negative) H 01/17/23 22:47 Urine Nitrate Positive (Negative) H 01/17/23 22:47 Urine Bilirubin Neg (Negative) 01/17/23 22:47 Urine Urobilinogen Neg mg/dL (Negative) 01/17/23 22:47 Ur Leukocyte Esterase Negative (Negative) 01/17/23 22:47 Urine RBC 5-10 /hpf (0-2) H 01/17/23 22:47 Urine WBC 15-25 /hpf (0-5) H 01/17/23 22:47 Ur Squamous Epith Cells 0-4 /hpf (0-5) H 01/17/23 22:47 Amorphous Sediment Not Reportable 01/17/23 22:47 Urine Bacteria 4+ /hpf (NONE) H 01/17/23 22:47 Salicylates < 0.3 mg/dL (3-10) L 01/17/23 21:58 Urine Opiates Screen Positive ng/mL (Negative) H 01/17/23 22:47 Acetaminophen < 5.0 ug/mL (10-30) L 01/17/23 21:58 Ur Barbiturates Screen Negative ng/mL (Negative) 01/17/23 22:47 Ur Phencyclidine Scrn Negative ng/mL (Negative) 01/17/23 22:47 Ur Amphetamines Screen Negative ng/mL (Negative) 01/17/23 22:47 U Benzodiazepines Scrn Negative ng/mL (Negative) 01/17/23 22:47 Urine Cocaine Screen Negative ng/mL (Negative) 01/17/23 22:47 U Marijuana (THC) Screen Negative ng/mL (Negative) 01/17/23 22:47 Ethyl Alcohol < 10 mg/dL (0-10) 01/17/23 21:58 Serum Ketones Negative (Negative) 01/18/23 08:04 Vitals Last Vital Signs Temp 98.3 F 01/24/23 07:20 Pulse 68 01/24/23 07:20 Resp 20 H 01/24/23 07:20 BP 123/64 01/24/23 07:20 Pulse Ox 98 01/24/23 07:20 O2 Del Method Room Air 01/24/23 07:20 FiO2 40 01/20/23 18:00 Discharge Plan Discharge Patient Disposition: Xfer SNF Condition: Stable Prescriptions: New clopidogrel 75 mg Tablet 75 mg PO DAILY Qty: 30 0RF levofloxacin 750 mg tablet 750 mg PO DAILY 10 Days Qty: 10 0RF memantine [Namenda] 5 mg tablet 5 mg PO DAILY Qty: 30 0RF donepezil [Aricept] 5 mg tablet 5 mg PO DAILY Qty: 30 0RF Continued (DME) blood-glucose meter Kit See Rx Instructions .ROUTE .MEDSUPPLY Qty: 1 0RF Rx Instructions: As directed carvedilol 6.25 mg tablet 6.25 mg PO BID 90 Days Qty: 180 1RF glipizide 5 mg tablet 5 mg PO BID mupirocin 2 % ointment 1 applic topical BID Qty: 15 0RF sertraline [Zoloft] 50 mg tablet 25 mg PO DAILY nitroglycerin [Nitrostat] 0.4 mg tablet, sublingual 0.4 mg sublingual Q5M PRN (Reason: Chest Pain) Rx Instructions: do not exceed 3 doses per episode lovastatin 40 mg tablet 80 mg PO QPM Vegetable Laxative 8.6 mg Tablet 8.6 mg PO DAILY PRN (Reason: Constipation) zinc acetate 50 mg (zinc) Capsule 50 mg PO DAILY Monistat 7 2 % Cream 1 applic VAGINAL PRN Preparation H 0.25-14-74.9 % Ointment 1 applic IA DAILY PRN (Reason: Hemorrhoids) Levemir FlexTouch U-100 Insuln 100 unit/mL (3 mL) insulin pen 40 unit SUBCUT BEDTIME Rx Instructions: 340 b Humalog U-100 Insulin 100 unit/mL solution See Rx Instructions .ROUTE .COMPLEX Rx Instructions: START 5 UNITS SUBCUTANEOUSLY 3 TIMES DAILY BEFORE MEALS, THEN INCREASE DIRECTED BY DOCTOR Vitamin D3 50 mcg (2,000 unit) Capsule 50 mcg PO DAILY PRN (Reason: unknown) Changed lisinopril 2.5 mg tablet 5 mg PO DAILY PRN (Reason: Blood Pressure) Qty: 30 0RF furosemide 40 mg tablet 20 mg PO DAILY Qty: 30 0RF potassium chloride 10 mEq tablet extended release 10 meq PO DAILY PRN (Reason: with lasix only) Qty: 30 0RF Discontinued doxycycline hyclate 100 mg capsule 100 mg PO BID Qty: 14 0RF Rx Instructions: for 7 days (01/15/23) Discharge Orders: Discharge Order (Routine); Ordered 01/24/23 Ordered By: Terry Guerra Referrals: [facility] [Outside] DL Love, L[facility]NA [Referring] - Discharge Diet: Diabetic Patient Instructions: Opioid Safety Discharge Attestations Time Spent in Discharge Care*: greater than 30 min Quality Metrics Clinical Quality Measures [ No reported AMI, CVA or VTE this stay] Coding Level of Care Code Acute Code for [facility] Diagnoses Acute non-ST elevation myocardial infarction (NSTEMI) I21.4 Atherosclerosis of coronary artery of [place] heart without angina pectoris I25.10 Essential hypertension I10 Urinary tract infection N39.0 Mixed hyperlipidemia E78.2 Diabetic peripheral neuropathy associated with type 2 diabetes mellitus E11.42 Noncompliance Z91.199
[2023-01-24 12:02] LABS: SARS Covid-2 Antigen negative (Negative)
[2023-01-24 12:10] LABS: Glucose Point of Care 175 mg/dL (70-110)
[2023-01-24] MEDS: insulin lispro 100 unit/1 mL SUBCUT (12:36)
--- NOTE | 2023-01-24 13:34 | PC.NURSE ---
report called to Cassandra RYAN at [facility]
== END 2023-01-24 14:25 | disposition skilled nursing facility (03) | DRG 280 ==
LOC: ER 22:44 → ICU 23:50 → MEDSURG 01-22 16:11 → ICU 01-23 12:34 → CSU 01-24 00:18
PROVIDERS: Family Medicine; Internal Medicine; Admitting Provider Internal Medicine; Emergency Provider Emergency Medicine; PCP Family Medicine; Visit Provider Internal Medicine
PROC: 4A023N7 Measurement of Cardiac Sampling and Pressure, Left Heart, Percutaneous Approach (ICD-10-PCS; principal; 2023-01-23 11:00)
DX: I21.4 Non-ST elevation (NSTEMI) myocardial infarction (principal); I50.23 Acute on chronic systolic (congestive) heart failure; F05 Delirium due to known physiological condition; N39.0 Urinary tract infection, site not specified; F03.911 Unspecified dementia, unspecified severity, with agitation; K76.6 Portal hypertension; I25.10 Atherosclerotic heart disease of native coronary artery without angina pectoris; Z95.1 Presence of aortocoronary bypass graft; B96.20 Unspecified Escherichia coli [E. coli] as the cause of diseases classified elsewhere; Z88.0 Allergy status to penicillin; I11.0 Hypertensive heart disease with heart failure; E11.65 Type 2 diabetes mellitus with hyperglycemia; E11.40 Type 2 diabetes mellitus with diabetic neuropathy, unspecified; K76.82 Hepatic encephalopathy; K74.60 Unspecified cirrhosis of liver; Z79.84 Long term (current) use of oral hypoglycemic drugs; Z79.4 Long term (current) use of insulin; M06.9 Rheumatoid arthritis, unspecified; K76.0 Fatty (change of) liver, not elsewhere classified; E87.6 Hypokalemia; E83.42 Hypomagnesemia; Z87.891 Personal history of nicotine dependence; E78.2 Mixed hyperlipidemia; E03.9 Hypothyroidism, unspecified; M10.9 Gout, unspecified; K21.9 Gastro-esophageal reflux disease without esophagitis; F32.A Depression, unspecified; F41.9 Anxiety disorder, unspecified; K59.00 Constipation, unspecified
CPT/HCPCS: 31500; 36415; 36416; 36600; 51702; 70450; 71045; 71260; 74177; 80048; 80051; 80053; 80306; 80307; 81001; 82009; 82140; 82330; 82607; 82746; 82803; 82805; 82962; 83036; 83735; 84443; 84484; 85025; 85362; 85378; 85384; 85610; 85730; 87077; 87086; 87186; 87426; 93005; 93306; 93459; 94002; 94003; 94799; 96365; 96366; 96367; 96372; 96375; 96376; 97110; 97162; 97167; 97530; 97535; 99152; 99291; A4570; C1769; C1887; C1894; C9113; J0696; J1170; J1630; J1644; J1650; J1815; J2060; J2250; J2405; J2704; J3010; J3475; J3480; J3490; J7030; J7040; J7050; Q0163; Q9967

== ENCOUNTER 2023-04-07 10:32 | Inpatient (IN) | payer MEDICARE, SELFPAY ==
[2023-04-07] VITALS (9 sets, daily range): BP systolic 147–193; BP diastolic 78–94; PULSE 62–77; RESP 16–18; TEMP 36.3–37.1; O2SAT 96–99; BMI 29.9
--- NOTE | 2023-04-07 10:57 | XRR_ITS ---
PROCEDURE INFORMATION: Exam: XR Chest Exam date and time: 04/07/2023 11:07 AM Age: 68 years old Clinical indication: Other: AMS TECHNIQUE: Imaging protocol: Radiologic exam of the chest. Views: 1 view. COMPARISON: CR (CHEST, ) 01/18/2023 5:05 AM FINDINGS: Lungs: No pulmonary consolidation. Pleural spaces: No pleural effusion. No pneumothorax. Heart/Mediastinum: The cardiac silhouette is unchanged. No gross evidence of pneumomediastinum. Bones/joints: Median sternotomy wires are noted. No gross fracture. XR/XR chest 1V portable [id number] IMPRESSION: No acute cardiopulmonary abnormality identified.
--- NOTE | 2023-04-07 11:07 | PC.NURSE ---
Patient resting in stretcher, elevated BP remaining VSS, poor historian with confusion. AAOx2.
--- NOTE | 2023-04-07 11:20 | CTR_ITS ---
PROCEDURE INFORMATION: Exam: CT Head Without Contrast Exam date and time: 04/07/2023 12:01 PM Age: 68 years old Clinical indication: Weakness, extremity; Bilateral TECHNIQUE: Imaging protocol: Computed tomography of the head without contrast. Radiation optimization: All CT scans at this facility use at least one of these dose optimization techniques: automated exposure control; mA and/or kV adjustment per patient size (includes targeted exams where dose is matched to clinical indication); or iterative reconstruction. REPORTING DATA: Count of CT and Cardiac NM exams in prior 12 months: This patient has received 2 known CTs and 0 known cardiac nuclear medicine studies in the 12 months prior to the current study. COMPARISON: CT head wo con* [id number] 01/17/2023 9:13 PM RADIATION DOSE METRICS: Total DLP (mGy-cm): 1043.57 FINDINGS: Brain: No acute intracranial hemorrhage. 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 No mass, mass effect or midline shift. There is no evidence of acute large vessel infarct. There is mild patchy subcortical and periventricular hypodensity, most commonly associated with small vessel ischemic disease of indeterminate age. The posterior fossa is grossly unremarkable; however, it is partially obscurred by beam hardening artifact. Cerebral ventricles: The ventricles are prominent, compatible with moderate parenchymal volume loss. Paranasal sinuses: The visualized paranasal sinuses are clear. Mastoid air cells: No mastoid effusion. Orbital cavities: The visualized orbits are unremarkable. Bones/joints: No acute fracture is seen. CT/CT head wo con* [id number] IMPRESSION: 1. Aoth-eu-thnvthpe senescent changes as above. 2. No acute intracranial abnormality.
--- NOTE | 2023-04-07 11:31 | ED_ITS ---
HPI - Altered Mental Status General: Chief Complaint: Altered Mental Status Stated Complaint: AMS Time Seen by Provider: 04/07/23 11:19 History of Present Illness: 68 years old female brought to emergency room by EMS due to change in mentation. Patient with history of diabetes, hypertension, pression and UTIs. Upon present emergency room patient was confused but awake and able to answer few questions. Review of Systems General: Reports: 10 or more systems reviewed and unremarkable except in HPI and below Const: Reports: malaise; Denies: fever(s), chills or body aches Card: Denies: chest pain, palpitations, irregular heart rhythm, edema, swelling of feet/ankles, lightheadedness, syncope, pre-syncope, dyspnea on exertion or orthopnea Resp: Denies: dyspnea, productive cough, non-productive cough, wheezing, stridor, pain on inspiration or change in phlegm color GI: Denies: abdominal pain, nausea, vomiting, hematemesis, coffee ground emesis, dysphagia, heartburn, early satiety, diarrhea or constipation : Denies: flank pain, difficulty voiding, dysuria, urinary frequency, urinary urgency, urinary hesitancy, dribbling or urinary incontinence Neuro: Reports: confusion; Denies: headache(s), numbness in extremities, sensory changes, lack of coordination, difficulty walking, dizziness, vertigo, behavioral changes or difficulty communicating thoughts PFSH ED PFSH: Medical History Abdominal pain Acute delirium Acute non-ST elevation myocardial infarction (NSTEMI) Anticoagulated Anxiety and depression Arthritis Atherosclerosis of coronary artery of [place] heart without angina pectoris Breast cancer screening by mammogram Coronary artery disease Dementia Diabetes mellitus, type II Diabetic peripheral neuropathy associated with type 2 diabetes mellitus Essential hypertension GERD (gastroesophageal reflux disease) Gout Hepatic encephalopathy Hepatosplenomegaly Hypothyroid Infected abrasion of thumb Liver cirrhosis Mixed hyperlipidemia Mixed hyperlipidemia Nonalcoholic fatty liver disease Noncompliance Portal hypertension Rheumatoid arthritis Type 2 diabetes mellitus with hyperglycemia Urinary tract infection Vaginal yeast infection Yeast vaginitis Surgical History History of arthroscopy of left shoulder History of coronary angioplasty History of open heart surgery bi bypass Family History Other Heart disease Social History Smoking and tobacco status: former smoker Second hand smoke exposure: No Smoking risk assessment/counseling performed?: No Alcohol intake: never Desire information about alcohol rehabilitation?: No Counseling given: No Substance/Drug Use: never Desire information about substance/drug rehabilitation?: No Counseling given: No Physical Exam Const: GENERAL APPEARANCE: well kempt HENMT: COMMON NORMALS: normocephalic, atraumatic, hearing grossly normal bilaterally, external ears normal, EAC's normal, TM's normal bilaterally, Normal external nose present, Normal nasal mucous membranes and turbinates present, moist oral mucous membranes, oropharynx normal, dentition normal and gingiva normal HEAD & SCALP: normocephalic and atraumatic NOSE: Normal external nose present and Normal nasal mucous membranes and turbinates present EXTERNAL EAR: Yes external ears normal EXTERNAL AUDITORY CANAL: EAC's normal TYMPANIC MEMBRANE: TM's normal bilaterally Neck/C-Spine: COMMON NORMALS: no meningeal signs Lymph: LYMPHATIC: no lymphadenopathy noted Resp: COMMON NORMALS: normal respiratory effort, No retractions, No use of accessory muscles, clear to auscultation bilaterally and percussion normal AUSCULTATION: clear to auscultation bilaterally PERCUSSION: percussion normal GI: COMMON NORMALS: Normal to inspection, nondistended, normoactive bowel sounds present, Soft to palpation, non-tender, No hepatosplenomegaly present, no masses and no bruits PALPATION: Yes Soft to palpation and Yes No hepatosplenomegaly present Extremity: COMMON NORMALS: normal to inspection, full ROM, capillary refill normal, no joint enlargement, no clubbing, cyanosis or edema, no calf tenderness and no pedal edema Neuro: SENSORIUM/ORIENTATION: Yes Orientation impaired (Patient thinks she is in [place]) and Yes somnolent MENINGEAL SIGNS: Yes no meningeal signs, No Brudzinski's sign present and No Kernig's sign presnet CRANIAL NERVES: Yes CN normal except as noted SENSORY EXAM: Yes extremities; No sensory level loss detected MOTOR EXAM: 5/5 motor strength present throughout, No no tremor noted, No no asterixis, No Motor fasciculations not present and No Normal motor muscle tone present throughout Psych: APPEARANCE: Yes grossly normal and Yes well kempt ACTIVITY/MOTOR BEHAVIOR: Yes appropriate eye contact ATTENTION/CONCENTRATION: Yes attention grossly intact Skin: COMMON NORMALS: no rashes or lesions noted, no wounds, turgor normal, no jaundice, no petechiae and no mottling GENERAL SKIN EXAM: no rashes or lesions noted and turgor normal Course Reevaluation(s): Reevaluation #1: Discussed patient with Dr. Spaulding. She will be admitted for further evaluation and treatment Consultations: Consultation #1: Dr. Caal Vital Signs: Vital signs: Vital Signs Temperature 98 F 04/07/23 10:47 Pulse Rate 71 04/07/23 12:30 Respiratory Rate 18 04/07/23 12:30 Blood Pressure 166/78 04/07/23 12:30 Pulse Oximetry 99 04/07/23 12:30 Oxygen Delivery Me thod Room Air 04/07/23 10:47 MDM - Altered Mental Status Medical Decision Making Patient was made comfortable emergency room. Patient had a CT head, x-ray, labs. Was given IV fluid and IV antibiotics. Tova the antibiotic choice with the pharmacist. We agreed on meropenem due to multiple allergic reaction. Differential Diagnosis Likely altered mental status, hypoglycemia, hyponatremia, subarachnoid hemorrhage and sepsis (UTI, pneumonia, meningitis, brain bleed, electrolyte abnormalities) Lab Data 04/07/23 11:50 04/07/23 14:29 Radiology Impressions Chest X-Ray 04/07/23 10:57 IMPRESSION: No acute cardiopulmonary abnormality identified. Head CT 04/07/23 11:20 IMPRESSION: 1. Kikz-he-ddbdsnor senescent changes as above. 2. No acute intracranial abnormality. Laboratory Results WBC 4.3 10^3/uL (4.0-10.0) 04/07/23 11:50 RBC 4.80 10^6/uL (4.1-5.3) 04/07/23 11:50 Hgb 13.8 g/dL (11.5-15.3) 04/07/23 11:50 Hct 41.2 % (37.0-47.0) 04/07/23 11:50 MCV 85.8 fl (81-99) 04/07/23 11:50 MCH 28.8 pg (28.0-34.0) 04/07/23 11:50 MCHC 33.5 g/dL (30.0-36.0) 04/07/23 11:50 RDW 13.2 % (12.1-15.1) 04/07/23 11:50 Plt Count 112 10^3/cmm (130-400) L 04/07/23 11:50 MPV 11.1 fL (7.4-10.4) H 04/07/23 11:50 Neut % (Auto) 58.3 % 04/07/23 11:50 Lymph % (Auto) 33.0 % 04/07/23 11:50 [place]ite % (Auto) 4.8 % 04/07/23 11:50 Eos % (Auto) 3.0 % 04/07/23 11:50 Baso % (Auto) 0.7 % 04/07/23 11:50 Neut # (Auto) 2.52 10^3/uL (1.8-7.7) 04/07/23 11:50 Lymph # (Auto) 1.4 10^3/uL (0.8-4.8) 04/07/23 11:50 [place]ite # (Auto) 0.2 10^3/uL (0.2-0.9) 04/07/23 11:50 Eos # (Auto) 0.1 10^3/uL (0.0-0.8) 04/07/23 11:50 Baso # (Auto) 0.0 10^3/uL (0.0-0.1) 04/07/23 11:50 Nucleated RBC % (auto) 0 % 04/07/23 11:50 Nucleated RBCs # 0.0 /100WBC 04/07/23 11:50 Sodium 137 mmol/L (136-145) 04/07/23 14:29 Potassium 3.2 mmol/L (3.5-5.1) L 04/07/23 14:29 Chloride 101 mmol/L (98-107) 04/07/23 14:29 Carbon Dioxide 25 mmol/L (22-29) 04/07/23 14:29 Anion Gap 14.2 (5-19) 04/07/23 14:29 BUN 11 mg/dL (8-23) 04/07/23 14:29 Creatinine 0.6 mg/dL (0.5-0.9) 04/07/23 14:29 GFR Calculation 99.4 mL/min (90-130) 04/07/23 14:29 Glucose 242 mg/dL (65-115) H 04/07/23 14:29 Calculated Osmolality 291 mOsm/kg (285-295) 04/07/23 14:29 Calcium 8.6 mg/dL (8.5-10.5) 04/07/23 14:29 Total Bilirubin 1.6 mg/dL (0.15-1.2) H 04/07/23 14:29 AST 22 U/L (0-32) 04/07/23 14:29 ALT 16 U/L (0-33) 04/07/23 14:29 Alkaline Phosphatase 154 U/L (35-105) H 04/07/23 14:29 Total Protein 6.4 g/dL (6.6-8.7) L 04/07/23 14: Albumin 3.5 g/dL (3.5-5.2) 04/07/23 14: Globulin 2.9 g/dL (1.3-4.6) 04/07/23 14:29 Urine Color Yellow (Yellow) 04/07/23 12:33 Urine Appearance Hazy (CLEAR) A 04/07/23 12:33 Urine pH 5 (5-7) 04/07/23 12:33 Ur Specific [place] 1.020 (1.005-1.030) 04/07/23 12:33 Urine Protein 3+ (Negative) H 04/07/23 12:33 Urine Glucose (UA) 4+ (Normal) H 04/07/23 12:33 Urine Ketones 1+ (Negative) H 04/07/23 12:33 Urine Blood 3+ (Negative) H 04/07/23 12:33 Urine Nitrate Negative (Negative) 04/07/23 12:33 Urine Bilirubin 1+ (Negative) H 04/07/23 12:33 Urine Urobilinogen 1 mg/dL (Negative) H 04/07/23 12:33 Ur Leukocyte Esterase 1+ (Negative) H 04/07/23 12:33 Urine RBC 15-25 /hpf (0-2) H 04/07/23 12:33 Urine WBC 25-40 /hpf (0-5) H 04/07/23 12:33 Ur Squamous Epith Cells 0-4 /hpf (0-5) H 04/07/23 12:33 Amorphous Sediment Not Reportable 04/07/23 12:33 Urine Bacteria 1+ /hpf (NONE) H 04/07/23 12:33 Urine Mucus Trace /hpf 04/07/23 12:33 Critical Care Time Critical Care Time: Critical Care Time: Yes Total Critical Care Time: 40 Attestation: Time spent discussing patient with family the hospitalist. Time was spent to reevaluate patient multiple times. Discharge Plan Discharge Patient Disposition: Admitted As Inpatient Clinical Impression: Encephalopathy, Acute UTI Condition: Stable Coding Level of Care Code ED Seal Delivery Vehicle Officer for Page Kelly
[2023-04-07 11:58] LABS: Basophils % 0.7 %; Eosinophils # 0.1 10^3/uL (0.0-0.8); Hematocrit 41.2 % (37.0-47.0); Hemoglobin 13.8 g/dL (11.5-15.3); Lymphocytes # 1.4 10^3/uL (0.8-4.8); Mean Corpuscular HGB Conc 33.5 g/dL (30.0-36.0); Mean Corpuscular Hemoglobin 28.8 pg (28.0-34.0); Mean Corpuscular Volume 85.8 fl (81-99); Mean Platelet Volume 11.1 fL (7.4-10.4); Monocytes # 0.2 10^3/uL (0.2-0.9); Monocytes % 4.8 %; Neutrophils # 2.52 10^3/uL (1.8-7.7); Neutrophils % 58.3 %; Nucleated Red Blood Cells % 0 %; Platelet Count 112 10^3/cmm (130-400); Red Cell Distribution Width 13.2 % (12.1-15.1); White Blood Count 4.3 10^3/uL (4.0-10.0)
[2023-04-07] MEDS: sodium chloride 0.9% 1,000 ML 999 ML IV (12:17)
[2023-04-07 12:59] LABS: Bilirubin Urine 1+ (Negative); Blood Urine 3+ (Negative); Glucose Urine UA 4+ (Normal); Ketones Urine 1+ (Negative); Leukocyte Esterase Urine 1+ (Negative); Nitrate Urine Negative (Negative); Protein Urine 3+ (Negative); Urine Appearance Hazy (CLEAR); Urine Color Yellow (Yellow); Urobilinogen Urine 1 mg/dL (Negative); pH Urine 5 (5-7)
[2023-04-07 13:01] LABS: Add Urine Microscopic? YES
[2023-04-07 13:02] LABS: RBC Urine 15-25 /hpf (0-2); Squamous Epithelial Cell Urine 0-4 /hpf (0-5); WBC Urine 25-40 /hpf (0-5)
[2023-04-07 13:03] LABS: Add Urine Culture? Yes; Bacteria Urine 1+ /hpf; Mucus Urine TRACE /hpf
[2023-04-07] MEDS: acetaminophen 325 mg Tablet 650 MG PO ×2 (13:29→18:26)
[2023-04-07] MEDS: meropenem 1,000 MG in sodium chloride 0.9% (plus) 50 ML 100 MG IV (13:30)
[2023-04-07 15:10] LABS: Alanine Aminotransferase 16 U/L (0-33); Albumin Level 3.5 g/dL (3.5-5.2); Alkaline Phosphatase 154 U/L (35-105); Anion Gap 14.2 (5-19); Aspartate Amino Transferase 22 U/L (0-32); Blood Urea Nitrogen 11 mg/dL (8-23); Calcium 8.6 mg/dL (8.5-10.5); Carbon Dioxide 25 mmol/L (22-29); Chloride 101 mmol/L (98-107); Globulin 2.9 g/dL (1.3-4.6); Glomerular Filtration Rate 99.4 mL/min (90-130); Glucose 242 mg/dL (65-115); Osmolality Calculated 291 mOsm/kg (285-295); Potassium 3.2 mmol/L (3.5-5.1); Sodium 137 mmol/L (136-145); Total Bilirubin 1.6 mg/dL (0.15-1.2); Total Protein 6.4 g/dL (6.6-8.7)
--- NOTE | 2023-04-07 16:07 | PC.PHAR ---
pts states he takes care of the pts medications-pts states the pt is not taking aricept 5mg daily written in 01/24/23-carvedilol 6.25mg bid written 03/28/21-namenda 5mg daily written 01/24/23-pts states the pt is taking plavix 75mg daily rx bottle dated 07/05/22 90d/s-pts states the pt is taking lasix 20mg bid filled 03/18/23 14d/s pt also had another rx bottle dated 02/01/22 40mg bid-pts states the pt is no longer using the humalog insulin since taking glipizide 5mg bid filled 02/26/23 30d/s-pts states the pt is using levemir vial 40 units hs rx filled 02/19/23 50d/s 20 units hs-pt states his had a rx for zofran 4mg daily prn when [place] was in [place] states he gives it to her prn ext doesnt show when filled pts states the pt got out of the [place] middle of february 2023-states she was in [facility]-pts states the pt is taking lisinopril 5mg daily rx bottle brought in has 2.5mg daily dated 03/28/2021-pts states the pt is taking kcl 20meq daily for 14 days rx bottle dated 03/18/23 pts also had another rx bottle dated 07/05/22 90d/s 10meq daily-pts states the pt is out of zoloft 50mg daily for a week-states the pt was on 25mg daily but states when pt was in [place] that it was increased -no rx bottle was brought in for zoloft-notes are made in the pharmacy comments
--- NOTE | 2023-04-07 16:11 | PM.HP ---
Providers/Chief Complaint Admitting Physician: Deepak Caal MD Primary Care Provider: Deandra Flores MD Chief Complaint: AMS History of Present Illness Linda Joiner is a 68 year old female with a past medical history of dementia, history of acute delirium secondary to UTI, history of CABG, recent history of CAD underwent angiogram, left circumflex chronically occluded, medically managed, history of systolic CHF, history of insulin-dependent type 2 diabetes mellitus, history of portal hypertension, history of hypothyroidism, hepatic encephalopathy, history of liver cirrhosis, hyperlipidemia, who presents to [facility] due to altered mental status. Currently patient is alert to person, not to place, not to time, she can follow commands she is actually sitting up in bed I asked her why she is here in the hospital she does not know why, she tells me that her brought her here but is not exactly sure why, she did similar when she had for breakfast this morning she does not remember how she got to the hospital, denies any fevers, no chills, no cough, no abdominal pain, no flank pain, no dysuria, hematuria, she tells me she is hungry as she has not had nothing to eat, is not present, she is agreeable to hospital mission, she ripped out her IV, with the help of nursing staff she was repositioned in bed, she tells me she wants a sandwich to eat that is her only complaint Review of Systems Const: Denies: fever(s) or chills Eyes: Denies: change in vision ENMT: Denies: throat pain Card: Denies: chest pain Resp: Denies: dyspnea GI: Denies: abdominal pain or nausea : Denies: flank pain, difficulty voiding, dysuria or urinary frequency Musc: Denies: neck pain or back pain Skin/Breast: Denies: rash Neuro: Denies: headache(s) Psych: Denies: anxiety Medications/Allergies Home Medications Medication Instructions Recorded Confirmed Last Taken Type blood-glucose meter #1 ea 02/28/21 04/07/23 Unknown Rx glipizide 5 mg tablet 5 mg PO BID 07/28/21 04/07/23 04/06/23 History lovastatin 40 mg tablet 80 mg PO QPM 11/19/21 04/07/23 04/06/23 History nitroglycerin 0.4 mg sublingual 0.4 mg sublingual Q5M PRN Chest 04/05/22 04/07/23 Unknown History tablet (Nitrostat) Pain sertraline 50 mg tablet (Zoloft) 50 mg PO DAILY 04/05/22 04/07/23 1 Week Ago History ~03/31/23 phenylephrine 0.25 %-mineral oil 1 applic NE DAILY PRN Hemorrhoids 01/18/23 04/07/23 Unknown History 14 %-petrolatm 74.9 % rectal ointment (Preparation H) sennosides 8.6 mg tablet 8.6 mg PO DAILY PRN Constipation 01/18/23 04/07/23 Unknown History (Vegetable Laxative) zinc acetate 50 mg (zinc) capsule 50 mg PO DAILY 01/18/23 04/07/23 Unknown History clopidogrel 75 mg tablet 75 mg PO DAILY #30 tabs 01/24/23 04/07/23 04/06/23 Rx see pharmacy comment potassium chloride 10 mEq 10 meq PO DAILY PRN with lasix 01/24/23 01/23/23 Unknown Rx tablet,extended release only #30 tabs acetaminophen 500 mg tablet 1,000 mg PO Q4H PRN Pain 04/07/23 04/07/23 Unknown History aspirin 325 mg tablet 325 mg PO DAILY PRN Pain 04/07/23 04/07/23 Unknown History benzocaine 5 %-resorcinol 2 % 1 applic topical BID PRN unknown 04/07/23 04/07/23 Unknown History topical cream (Vagisil) cranberry 500 mg capsule 500 mg PO DAILY PRN unknown 04/07/23 04/07/23 Unknown History furosemide 20 mg tablet 20 mg PO BID 04/07/23 04/07/23 7 Days Ago History ~03/31/23 see pharmacy comment insulin detemir U-100 100 unit/mL 40 unit SUBCUT BEDTIME 04/07/23 04/07/23 04/06/23 History subcutaneous solution (Levemir U-100 Insulin) lisinopril 2.5 mg tablet 5 mg PO DAILY 04/07/23 04/07/23 04/06/23 History melatonin 5 mg tablet 10 mg PO BEDTIME 04/07/23 04/07/23 Unknown History ondansetron HCl 4 mg tablet 4 mg PO DAILY PRN Nausea And 04/07/23 04/07/23 Unknown History Vomiting potassium chloride 20 mEq 20 meq PO DAILY 04/07/23 04/07/23 04/06/23 History tablet,extended release(part/cryst) Allergies Allergy/AdvReac Type Severity Reaction Status Date / Time cefaclor [From Ceclor] Allergy unknown Verified 04/07/23 15:50 cephalexin Allergy Unknown Verified 04/07/23 15:50 codeine Allergy ADR-Vomitin Verified 04/07/23 15:50 g Penicillins Allergy unknown Verified 04/07/23 15:50 Sulfa (Sulfonamide Allergy unknown Verified 04/07/23 15:50 Antibiotics) ciprofloxacin [From Cipro] AdvReac rash Verified 04/07/23 15:50 PFSH Acute PFSH: Medical History Abdominal pain Acute delirium Acute non-ST elevation myocardial infarction (NSTEMI) Anticoagulated Anxiety and depression Arthritis Atherosclerosis of coronary artery of [place] heart without angina pectoris Breast cancer screening by mammogram Coronary artery disease Dementia Diabetes mellitus, type II Diabetic peripheral neuropathy associated with type 2 diabetes mellitus Essential hypertension GERD (gastroesophageal reflux disease) Gout Hepatic encephalopathy Hepatosplenomegaly Hypothyroid Infected abrasion of thumb Liver cirrhosis Mixed hyperlipidemia Mixed hyperlipidemia Nonalcoholic fatty liver disease Noncompliance Portal hypertension Rheumatoid arthritis Type 2 diabetes mellitus with hyperglycemia Urinary tract infection Vaginal yeast infection Yeast vaginitis Surgical History History of arthroscopy of left shoulder History of coronary angioplasty History of open heart surgery bi bypass Family History Other Heart disease Social History Smoking and tobacco status: former smoker Second hand smoke exposure: No Smoking risk assessment/counseling performed?: No Alcohol intake: never Desire information about alcohol rehabilitation?: No Counseling given: No Substance/Drug Use: never Desire information about substance/drug rehabilitation?: No Counseling given: No Vitals/I&O/Wt Last Vital Signs Temp 98 F 04/07/23 10:47 Pulse 71 04/07/23 12:30 Resp 18 04/07/23 12:30 BP 166/78 04/07/23 12:30 Pulse Ox 99 04/07/23 12:30 O2 Del Method Room Air 04/07/23 10:47 04/07/23 04/07/23 04/07/23 06:59 14:59 22:59 Intake Total 1050 / 1050 Balance 1050 / 1050 Physical Exam Const: COMMON NORMALS: no acute distress GENERAL APPEARANCE: cooperative ORIENTATION/CONSCIOUSNESS: Yes awake and Yes oriented to person; not oriented to place, not oriented to time and not confused HENMT: COMMON NORMALS: normocephalic and Normal external nose present HEAD & SCALP: normocephalic FACE & SINUS: normal facial exam NOSE: Normal external nose present Eye: COMMON NORMALS: Equal, round and reactive pupils present, EOMs intact bilaterally, conjunctivae normal and no scleral icterus CONJUNCTIVA: Yes conjunctivae normal PUPIL: Yes Equal, round and reactive pupils present Neck/C-Spine: COMMON NORMALS: full ROM, no lymphadenopathy, no meningeal signs, no JVD, Thyroid normal and No carotid bruits THYROID: Thyroid normal Lymph: LYMPHATIC: no lymphadenopathy noted Chest: COMMONS NORMALS: normal inspection of the chest Resp: COMMON NORMALS: normal respiratory effort, No retractions, No use of accessory muscles and clear to auscultation bilaterally AUSCULTATION: clear to auscultation bilaterally Cardio: COMMON NORMALS: regular rate, regular rhythm, S1 normal heart sound present, S2 normal heart sound present, No murmurs present (Cardio) and Peripheral pulses 2+ throughout RATE: regular rate RHYTHM: regular rhythm HEART SOUNDS: S1 normal heart sound present and S2 normal heart sound present PERIPHERAL PULSES: Peripheral pulses 2+ throughout GI: COMMON NORMALS: Normal to inspection, nondistended, normoactive bowel sounds present, Soft to palpation and non-tender PALPATION: Yes Soft to palpation : COMMON NORMALS: Yes no CVA tenderness BLADDER/KIDNEY EXAM: Yes no CVA tenderness Back/Pelvis: COMMON NORMALS: no CVA tenderness Extremity: COMMON NORMALS: normal to inspection, full ROM, capillary refill normal, no calf tenderness and no pedal edema Neuro: COMMON NORMALS: CN's II-XII intact bilaterally, moves all extremities and no focal motor deficits MENINGEAL SIGNS: Yes no meningeal signs Psych: COMMON NORMALS: cooperative and speech normal APPEARANCE: Yes well kempt THOUGHT PROCESS: Normal thought process present Skin: COMMON NORMALS: turgor normal and no jaundice GENERAL SKIN EXAM: turgor normal Data 04/07/23 11:50 04/07/23 14:29 A&P Assessment and plan (1) Encephalopathy: (2) Acute UTI: (3) Mixed hyperlipidemia: (4) GERD (gastroesophageal reflux disease): Qualifiers: Esophagitis presence: esophagitis presence not specified Qualified Code(s): K21.9 - Gastro-esophageal reflux disease without esophagitis (5) Hypothyroid: Qualifiers: Hypothyroidism type: acquired Qualified Code(s): E03.9 - Hypothyroidism, unspecified Plan Acute encephalopathy -Likely second to UTI -With history of liver cirrhosis we will obtain ammonia levels UTI -History of multiple UTIs in the past -Risk factors for ESBL -Start meropenem Type 2 diabetes mellitus -Levemir 10 units at bedtime -Low-dose sliding scale Hyperlipidemia CAD History of CHF, no evidence of fluid overload History of portal hypertension, liver cirrhosis Hypokalemia we will replace p.o. Hyperbilirubinemia Will monitor Protonix for GI prophylaxis Lovenox for DVT prophylaxis Full code Consistent carb diet Attestations Medical Necessity Statement*: Patient requires hospitalization, inpatient, greater than 2 midnights for acute encephalopathy, UTI Diagnoses Encephalopathy G93.40 Acute UTI N39.0 Mixed hyperlipidemia E78.2 GERD (gastroesophageal reflux disease) K21.9 Esophagitis presence: esophagitis presence not specified Hypothyroid E03.9 Hypothyroidism type: acquired
[2023-04-07 17:58] LABS: Estmated Average Glucose 229; Hemoglobin A1C 9.6 % (4.0-6.0)
[2023-04-07] MEDS: enoxaparin 40 mg/0.4 mL Syringe SUBCUT (18:25)
[2023-04-07] MEDS: carvedilol 6.25 mg Tablet PO (18:25)
[2023-04-07] MEDS: atorvastatin 40 mg Tablet 20 MG PO (18:26)
[2023-04-07] MEDS: potassium chloride ER 20 mEq Tablet 40 MEQ PO (18:26)
[2023-04-07 18:27] LABS: NT Pro B Type Natriuretic Pept 364 pg/mL (0-125); Procalcitonin 0.08 ng/mL (0-0.5); Thyroid Stimulating Hormone 2.08 uIU/mL (0.27-4.20)
[2023-04-07 18:38] LABS: C Reactive Protein 5.1 mg/L (0.0-4.9); Cholesterol 262 mg/dL (0-200); HDL Cholesterol 61 mg/dL (60-100); LDL Cholesterol Calculated 170 mg/dL (50-129); LDL HDL Ratio 2.79 RATIO (0.00-3.22); Triglycerides 156 mg/dL (0-150)
[2023-04-07 18:42] LABS: Glucose Point of Care 350 mg/dL (70-110)
[2023-04-07] MEDS: insulin lispro 100 unit/1 mL SUBCUT (18:42)
--- NOTE | 2023-04-07 20:55 | PC.NURSE ---
Attempted IV insertion x2 with no success. Patient tolerated well.
[2023-04-07 21:47] LABS: Glucose Point of Care 283 mg/dL (70-110)
[2023-04-07] MEDS: insulin glargine 100 units/1 mL 10 UNIT SUBCUT (22:15)
[2023-04-07 22:56] LABS: INR 1.08 (0.8-1.2)
[2023-04-07 22:58] LABS: Ammonia 26 umol/L (11-51); Lactic Sepsis W/Reflex 1.3 mmol/L (0.5-2.2)
[2023-04-07 23:18] LABS: Hepatitis A Antibody IgM Non-Reactive (Nonreactive); Hepatitis B Core IgM Non-Reactive (Nonreactive); Hepatitis B Surface Antigen Non-Reactive (Nonreactive); Hepatitis C Virus Antibody Non-Reactive (Nonreactive)
[2023-04-07 23:27] LABS: HIV 1 & 2 Antibody Non-Reactive (Non-Reactiv); HIV 1 & 2 Antigen Non-Reactive (Non-Reactiv)
[2023-04-08] VITALS (9 sets, daily range): BP systolic 138–182; BP diastolic 68–100; PULSE 55–69; RESP 16–17; TEMP 35.8–36.8; O2SAT 93–98
[2023-04-08 05:22] LABS: Basophils # 0.1 10^3/uL (0.0-0.1); Basophils % 1.2 %; Eosinophils # 0.1 10^3/uL (0.0-0.8); Eosinophils % 3.3 %; Hematocrit 40.1 % (37.0-47.0); Hemoglobin 13.3 g/dL (11.5-15.3); Lymphocytes # 1.9 10^3/uL (0.8-4.8); Mean Corpuscular HGB Conc 33.2 g/dL (30.0-36.0); Mean Corpuscular Hemoglobin 29.4 pg (28.0-34.0); Mean Corpuscular Volume 88.7 fl (81-99); Mean Platelet Volume 10.4 fL (7.4-10.4); Monocytes # 0.2 10^3/uL (0.2-0.9); Monocytes % 4.8 %; Neutrophils # 1.89 10^3/uL (1.8-7.7); Neutrophils % 45.2 %; Nucleated Red Blood Cells % 0 %; Platelet Count 108 10^3/cmm (130-400); Red Blood Count 4.52 10^6/uL (4.1-5.3); Red Cell Distribution Width 13.3 % (12.1-15.1); White Blood Count 4.2 10^3/uL (4.0-10.0)
[2023-04-08 05:43] LABS: Alanine Aminotransferase 15 U/L (0-33); Albumin Level 3.3 g/dL (3.5-5.2); Alkaline Phosphatase 143 U/L (35-105); Aspartate Amino Transferase 23 U/L (0-32); Blood Urea Nitrogen 13 mg/dL (8-23); Calcium 8.9 mg/dL (8.5-10.5); Carbon Dioxide 22 mmol/L (22-29); Chloride 102 mmol/L (98-107); Globulin 2.7 g/dL (1.3-4.6); Glomerular Filtration Rate 158.7 mL/min (90-130); Glucose 264 mg/dL (65-115); Magnesium 1.5 mg/dL (1.7-2.3); Osmolality Calculated 293 mOsm/kg (285-295); Phosphorus 2.8 mg/dL (2.5-4.5); Sodium 137 mmol/L (136-145); Total Bilirubin 1.8 mg/dL (0.15-1.2)
[2023-04-08 05:45] LABS: Anion Gap 16.6 (5-19); Potassium 3.6 mmol/L (3.5-5.1)
[2023-04-08 06:57] LABS: Glucose Point of Care 311 mg/dL (70-110)
[2023-04-08] MEDS: insulin lispro 100 unit/1 mL SUBCUT ×3 (09:17→18:11)
[2023-04-08] MEDS: donepezil 5 MG Tablet PO (09:18)
[2023-04-08] MEDS: memantine 5 mg tablet PO (09:18)
[2023-04-08] MEDS: sertraline 50 mg Tablet 25 MG PO (09:18)
[2023-04-08] MEDS: carvedilol 6.25 mg Tablet PO ×2 (09:18→17:52)
[2023-04-08] MEDS: clopidogrel 75 mg Tablet PO (09:18)
[2023-04-08] MEDS: insulin glargine 100 units/1 mL 10 UNIT SUBCUT ×2 (11:10→21:54)
[2023-04-08] MEDS: sodium chloride 0.9% 1,000 ML 50 ML IV (11:11)
[2023-04-08] MEDS: magnesium sulfate premix 2 GM/50 ML PIGGYBACK IV (11:11)
[2023-04-08 11:31] LABS: Glucose Point of Care 381 mg/dL (70-110)
--- NOTE | 2023-04-08 15:11 | PM.PN ---
Subjective Subjective: - Patient was seen this morning -She is alert to person, not to place, to time, -She removed all her IVs throughout the night -Another IV was placed this morning -She denies any fevers, no chills, abdominal pain -She does not know why she is here in the hospital Vitals/I&O/Wt Last Vital Signs Temp 96.5 F L 04/08/23 12:00 Pulse 60 04/08/23 12:00 Resp 16 04/08/23 12:00 BP 155/68 04/08/23 12:00 Pulse Ox 98 04/08/23 12:00 O2 Del Method Room Air 04/08/23 04:00 04/08/23 04/08/23 04/08/23 06:59 14:59 22:59 Intake Total 410 / 410 Balance 410 / 410 Weight last 48 hrs Weight 79.18 kg Physical Exam Const: COMMON NORMALS: no acute distress Resp: COMMON NORMALS: normal respiratory effort, No retractions, No use of accessory muscles and clear to auscultation bilaterally AUSCULTATION: clear to auscultation bilaterally Cardio: COMMON NORMALS: regular rate, regular rhythm, S1 normal heart sound present and S2 normal heart sound present RATE: regular rate RHYTHM: regular rhythm HEART SOUNDS: S1 normal heart sound present and S2 normal heart sound present GI: COMMON NORMALS: Normal to inspection, nondistended, normoactive bowel sounds present and non-tender Extremity: COMMON NORMALS: no calf tenderness and no pedal edema Data 04/08/23 04:40 04/08/23 04:40 Micro: Microbiology 04/07/23 22:26 Blood Culture - Preliminary Blood SPECIMEN COLLECTED 04/07/23 22:29 Blood Culture - Preliminary Blood SPECIMEN COLLECTED A&P Assessment and plan (1) Encephalopathy: (2) Acute UTI: (3) Mixed hyperlipidemia: (4) GERD (gastroesophageal reflux disease): Qualifiers: Esophagitis presence: esophagitis presence not specified Qualified Code(s): K21.9 - Gastro-esophageal reflux disease without esophagitis (5) Hypothyroid: Qualifiers: Hypothyroidism type: acquired Qualified Code(s): E03.9 - Hypothyroidism, unspecified (6) Dementia: (7) Diabetes mellitus, type II: Qualifiers: 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 to hours -Low-dose sliding scale Hyperlipidemia CAD History of CHF, no evidence of fluid overload History of portal hypertension, liver cirrhosis Hypokalemia we will replace p.o. 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
[2023-04-08] MEDS: atorvastatin 40 mg Tablet 20 MG PO (17:52)
[2023-04-08] MEDS: enoxaparin 40 mg/0.4 mL Syringe SUBCUT (17:52)
[2023-04-08 18:10] LABS: Glucose Point of Care 205 mg/dL (70-110)
[2023-04-08 21:47] LABS: Glucose Point of Care 266 mg/dL (70-110)
[2023-04-09] VITALS (8 sets, daily range): BP systolic 136–168; BP diastolic 70–91; PULSE 54–67; RESP 16–17; TEMP 36.3–36.7; O2SAT 89–96
[2023-04-09 06:16] LABS: Eosinophils # 0.1 10^3/uL (0.0-0.8); Eosinophils % 3.1 %; Hematocrit 41.1 % (37.0-47.0); Hemoglobin 13.9 g/dL (11.5-15.3); Lymphocytes # 1.8 10^3/uL (0.8-4.8); Lymphocytes % 41.8 %; Mean Corpuscular HGB Conc 33.8 g/dL (30.0-36.0); Mean Corpuscular Hemoglobin 28.7 pg (28.0-34.0); Mean Corpuscular Volume 84.9 fl (81-99); Mean Platelet Volume 9.9 fL (7.4-10.4); Monocytes # 0.2 10^3/uL (0.2-0.9); Neutrophils # 2.06 10^3/uL (1.8-7.7); Neutrophils % 48.9 %; Nucleated Red Blood Cells % 0 %; Platelet Count 128 10^3/cmm (130-400); Red Blood Count 4.84 10^6/uL (4.1-5.3); White Blood Count 4.2 10^3/uL (4.0-10.0)
[2023-04-09 06:55] LABS: Glucose Point of Care 223 mg/dL (70-110)
--- NOTE | 2023-04-09 07:03 | ECG_ITS ---
[facility] Test Date: 2023-04-09 Pat Name: Linda Joiner Department: Room: 278 Gender: Female Scullion Chief: : 1955 Requested By: Deepak Caal Order Number: [id number] Sylvie MD: Marimar Luevano M.D. Measurements Intervals [place] Rate: 60 P: 33 AR: 172 QRS: 26 QRSD: 93 T: 73 QT: 423 QTc: 423 Interpretive Statements SINUS RHYTHM SEPTAL MYOCARDIAL INFARCTION , OF INDETERMINATE AGE [40+ ms Q WAVE IN V1/V2] Compared to ECG 01/18/2023 05:09:02 Atrial premature complex(es) no longer present Myocardial infarct finding still present Electronically Signed On 04-09-2023 20:13:41 CDT by Marimar Luevano M.D. [email or web address]
[2023-04-09] MEDS: insulin glargine 100 units/1 mL 10 UNIT SUBCUT ×2 (08:08→21:19)
[2023-04-09] MEDS: clopidogrel 75 mg Tablet PO (08:08)
[2023-04-09] MEDS: insulin lispro 100 unit/1 mL SUBCUT ×2 (08:08→17:38)
[2023-04-09] MEDS: memantine 5 mg tablet PO (08:09)
[2023-04-09] MEDS: carvedilol 6.25 mg Tablet PO ×2 (08:09→17:37)
[2023-04-09] MEDS: sertraline 50 mg Tablet 25 MG PO (08:09)
[2023-04-09] MEDS: donepezil 5 MG Tablet PO (08:09)
[2023-04-09 09:11] LABS: Alanine Aminotransferase 16 U/L (0-33); Albumin Level 3.7 g/dL (3.5-5.2); Alkaline Phosphatase 154 U/L (35-105); Aspartate Amino Transferase 21 U/L (0-32); Blood Urea Nitrogen 13 mg/dL (8-23); Carbon Dioxide 25 mmol/L (22-29); Chloride 100 mmol/L (98-107); Globulin 2.3 g/dL (1.3-4.6); Glomerular Filtration Rate 122.7 mL/min (90-130); Glucose 236 mg/dL (65-115); Magnesium 1.6 mg/dL (1.7-2.3); Osmolality Calculated 290 mOsm/kg (285-295); Phosphorus 3.6 mg/dL (2.5-4.5); Sodium 136 mmol/L (136-145)
[2023-04-09 09:19] LABS: Anion Gap 14.5 (5-19); Potassium 3.5 mmol/L (3.5-5.1)
--- NOTE | 2023-04-09 10:08 | PC.CHAP ---
Pastoral Care Encounter/Spiritual Assessment Type of Contact [] Declined business taxes specialist visit [] Patient/Family/Request visit [] Outpatient visit [] Follow-up visit [] Physician referral [] Code/Alert [x] Routine visit [] Staff referral [] Actively dying [] Patient sleeping [x] Family support [] [] Out of room [] Palliative care [] [] Receiving care in room [] Pre-surgical visit [] Trauma [] Long length of stay [] ICU visit [] Other: Relational/Emotional Strength [x] Patient feels connected with others/family/visitors/staff [] Distress [] Loneliness/isolation [] Abandonment Spirituality of Patient [x] Person of [place] [x] Attends Restorationist of their [place] [x] Believes in Prayer [x] Reads Bible or Yazidism materials [] There are Spiritual issues to be addressed Mix Crusher Operator Interventions [x] Prayer [x] Active listening [] Non-anxious presence [x] Spiritual/emotional support [] Crisis/trauma care [] Spiritual counseling [] Bereavement support [] Provided bereavement packet [] Provided Bible/devotional materials [] Provided toy/stuffed animal, coloring book to patient or family member [] Provided Communion [] Anointing/[place] [] Salvation [x] Completed spiritual assessment [] Other: Impact on Illness or Injury [] Angry [] Fearful [] Anxious [] Often cries [] Exhaustion [] Unable to work [] Unable to attend yazidism [] Unable to walk/stand [] Unable to read [] Unable to drive [] Unable to eat/drink [] Unable to sleep [] Unable to be with family [] Patient intubated [] Other: Summary Time spent with patient 5 min
[2023-04-09] MEDS: ondansetron 2 mg/ML SDV 2 mL 4 MG IM (10:28)
[2023-04-09 11:53] LABS: Glucose Point of Care 221 mg/dL (70-110)
--- NOTE | 2023-04-09 12:13 | PC.NURSE ---
patient stated she hated broth and did not want more jello. was given pudding and tolerated
--- NOTE | 2023-04-09 15:30 | P.PN_ITS ---
Subjective Subjective: Overnight patient ripped out her IV, she is taken out multiple IVs, she was given 1 dose of IM Invanz, she seen this morning she is alert to person, not to place, not to time, she does not know why she is here in the hospital, she really does not have any complaints, no nausea, no vomiting no abdominal pain Vitals/I&O/Wt Last Vital Signs Temp 97.5 F L 04/09/23 15:19 Pulse 57 L 04/09/23 15:19 Resp 16 04/09/23 15:19 BP 163/82 04/09/23 15:19 Pulse Ox 96 04/09/23 15:19 O2 Del Method Room Air 04/09/23 15:19 04/09/23 04/09/23 04/09/23 06:59 14:59 22:59 Intake Total 1050 / 1050 Balance 1050 / 1050 Weight last 48 hrs Weight 79.18 kg Physical Exam Const: COMMON NORMALS: no acute distress ORIENTATION/CONSCIOUSNESS: Yes awake, Yes oriented to person and Yes confused; not oriented to place and not oriented to time Resp: COMMON NORMALS: normal respiratory effort, No retractions, No use of accessory muscles and clear to auscultation bilaterally AUSCULTATION: clear to auscultation bilaterally Cardio: COMMON NORMALS: regular rate, regular rhythm, S1 normal heart sound present and S2 normal heart sound present RATE: regular rate RHYTHM: regu lar rhythm HEART SOUNDS: S1 normal heart sound present and S2 normal heart sound present GI: COMMON NORMALS: Normal to inspection, nondistended, normoactive bowel sounds present and non-tender Extremity: COMMON NORMALS: no pedal edema Neuro: SENSORIUM/ORIENTATION: Yes oriented to person, No oriented to place and No oriented to time Data 04/09/23 06:02 04/09/23 08:10 Micro: Microbiology 04/07/23 22:26 Blood Culture - Preliminary Blood NEGATIVE TO DATE 04/07/23 22:29 Blood Culture - Preliminary Blood NEGATIVE TO DATE A&P Assessment and plan (1) Encephalopathy: (2) Acute UTI: (3) Mixed hyperlipidemia: (4) GERD (gastroesophageal reflux disease): Qualifiers: Esophagitis presence: esophagitis presence not specified Qualified Code(s): K21.9 - Gastro-esophageal reflux disease without esophagitis (5) Hypothyroid: Qualifiers: Hypothyroidism type: acquired Qualified Code(s): E03.9 - Hypothyroidism, unspecified (6) Dementia: (7) Diabetes mellitus, type II: Qualifiers: Diabetes mellitus retirement insulin use: with terminal gauger supervisor use Diabetes mellitus complication status: without complication Qualified Code(s): E11.9 - Type 2 diabetes mellitus without complications; Z79.4 - terminal gauger supervisor (current) use of insulin Plan Acute encephalopathy, back to baseline -Likely second to UTI Underlying dementia, monitor Hypomagnesemia, will replace p.o. UTI -History of multiple UTIs in the past -Risk factors for ESBL -Urine culture showing Enterococcus faecalis -We will de-escalate off meropenem Type 2 diabetes mellitus -Levemir 10 units q. to hours -Low-dose sliding scale Hyperlipidemia CAD History of CHF, no evidence of fluid overload History of portal hypertension, liver cirrhosis Hypokalemia we will replace p.o. Hyperbilirubinemia Will monitor Protonix for GI prophylaxis Lovenox for DVT prophylaxis Full code Consistent carb diet Attestations Medical Necessity Statement*: Patient requires hospitalization for acute encephalopathy UTI, dementia, Diagnoses Encephalopathy G93.40 Acute UTI N39.0 Mixed hyperlipidemia E78.2 GERD (gastroesophageal reflux disease) K21.9 Esophagitis presence: esophagitis presence not specified Hypothyroid E03.9 Hypothyroidism type: acquired Dementia F03.90 Diabetes mellitus, type II E11.9; Z79.4 Diabetes mellitus retirement insulin use: with retirement use Diabetes mellitus complication status: without complication
[2023-04-09 17:10] LABS: Glucose Point of Care 231 mg/dL (70-110)
[2023-04-09] MEDS: magnesium lactate 84 mg Tablet PO (17:36)
[2023-04-09] MEDS: atorvastatin 40 mg Tablet 20 MG PO (17:36)
[2023-04-09] MEDS: enoxaparin 40 mg/0.4 mL Syringe SUBCUT (17:37)
[2023-04-09] MEDS: nitrofurantoin SR (BID) 100 mg Capsule PO (18:09)
[2023-04-09 21:21] LABS: Glucose Point of Care 432 mg/dL (70-110)
[2023-04-09 21:21] LABS: Glucose Point of Care 407 mg/dL (70-110)
[2023-04-10] VITALS (9 sets, daily range): BP systolic 113–169; BP diastolic 62–85; PULSE 53–68; RESP 16–20; TEMP 36.6–36.9; O2SAT 95–97
[2023-04-10 05:16] LABS: Basophils # 0.1 10^3/uL (0.0-0.1); Basophils % 1.2 %; Eosinophils # 0.1 10^3/uL (0.0-0.8); Eosinophils % 2.7 %; Hematocrit 42.2 % (37.0-47.0); Hemoglobin 14.4 g/dL (11.5-15.3); Lymphocytes # 1.6 10^3/uL (0.8-4.8); Lymphocytes % 40.4 %; Mean Corpuscular HGB Conc 34.1 g/dL (30.0-36.0); Mean Corpuscular Hemoglobin 29.1 pg (28.0-34.0); Mean Corpuscular Volume 85.4 fl (81-99); Mean Platelet Volume 11.2 fL (7.4-10.4); Monocytes # 0.2 10^3/uL (0.2-0.9); Monocytes % 5.7 %; Neutrophils # 1.98 10^3/uL (1.8-7.7); Neutrophils % 49.5 %; Nucleated Red Blood Cells % 0.7 %; Platelet Count 230 10^3/cmm (130-400); Red Blood Count 4.94 10^6/uL (4.1-5.3); Red Cell Distribution Width 13.2 % (12.1-15.1)
[2023-04-10 05:54] LABS: Alanine Aminotransferase 15 U/L (0-33); Albumin Level 3.9 g/dL (3.5-5.2); Alkaline Phosphatase 158 U/L (35-105); Aspartate Amino Transferase 20 U/L (0-32); Blood Urea Nitrogen 13 mg/dL (8-23); Calcium 9.4 mg/dL (8.5-10.5); Carbon Dioxide 26 mmol/L (22-29); Chloride 99 mmol/L (98-107); Globulin 2.5 g/dL (1.3-4.6); Glomerular Filtration Rate 122.7 mL/min (90-130); Glucose 239 mg/dL (65-115); Magnesium 1.6 mg/dL (1.7-2.3); Osmolality Calculated 292 mOsm/kg (285-295); Phosphorus 3.8 mg/dL (2.5-4.5); Sodium 137 mmol/L (136-145); Total Bilirubin 1.6 mg/dL (0.15-1.2); Total Protein 6.4 g/dL (6.6-8.7)
[2023-04-10 05:56] LABS: Anion Gap 15.4 (5-19); Potassium 3.4 mmol/L (3.5-5.1)
[2023-04-10 06:30] LABS: Glucose Point of Care 249 mg/dL (70-110)
[2023-04-10] MEDS: nitrofurantoin SR (BID) 100 mg Capsule PO ×2 (08:47→17:33)
[2023-04-10] MEDS: magnesium lactate 84 mg Tablet PO (08:47)
[2023-04-10] MEDS: sertraline 50 mg Tablet 25 MG PO (08:47)
[2023-04-10] MEDS: carvedilol 6.25 mg Tablet PO (08:47)
[2023-04-10] MEDS: memantine 5 mg tablet PO (08:47)
[2023-04-10] MEDS: donepezil 5 MG Tablet PO (08:47)
[2023-04-10] MEDS: insulin glargine 100 units/1 mL 10 UNIT SUBCUT (08:48)
[2023-04-10] MEDS: insulin lispro 100 unit/1 mL SUBCUT ×3 (08:48→17:34)
[2023-04-10] MEDS: clopidogrel 75 mg Tablet PO (08:49)
--- NOTE | 2023-04-10 10:13 | PC.OT ---
OT jarvis attempted this AM. Patient declined therapy stating she was tired and had a headache. Patient is agreeable to attempting session in the PM. Leon Cooper OTR/L
[2023-04-10 10:56] LABS: Glucose Point of Care 413 mg/dL (70-110)
--- NOTE | 2023-04-10 11:25 | PC.SOCIAL ---
Imm update Imm updated with patient at bedside. Copy of page 2 provided. Patient verbalized understanding. Copy in chart initialed, dated and timed.
[2023-04-10 13:09] LABS: Glucose Point of Care 423 mg/dL (70-110)
[2023-04-10] MEDS: insulin lispro 100 unit/1 mL 10 UNIT SUBCUT (13:29)
[2023-04-10 14:37] LABS: Glucose Point of Care 396 mg/dL (70-110)
[2023-04-10 15:36] LABS: Glucose Point of Care 350 mg/dL (70-110)
[2023-04-10 17:05] LABS: Glucose Point of Care 245 mg/dL (70-110)
[2023-04-10] MEDS: enoxaparin 40 mg/0.4 mL Syringe SUBCUT (17:33)
[2023-04-10] MEDS: atorvastatin 40 mg Tablet 20 MG PO (17:33)
--- NOTE | 2023-04-10 17:47 | PM.PN ---
Subjective Subjective: - Patient was seen this morning -She is alert to person, not to place, not to time, -Her home family members bought her some Jose Jr., -She does not remember who brought it for her -She has no complaints Vitals/I&O/Wt Last Vital Signs Temp 97.9 F 04/10/23 15:39 Pulse 53 L 04/10/23 15:39 Resp 20 H 04/10/23 15:39 BP 154/85 04/10/23 15:39 Pulse Ox 97 04/10/23 15:39 O2 Del Method Room Air 04/10/23 17:20 04/10/23 04/10/23 04/10/23 06:59 14:59 22:59 Intake Total 600 / 600 Balance 600 / 600 Physical Exam Const: COMMON NORMALS: no acute distress ORIENTATION/CONSCIOUSNESS: Yes awake, Yes oriented to person and Yes confused; not oriented to place and not oriented to time Resp: COMMON NORMALS: normal respiratory effort, No retractions, No use of accessory muscles and clear to auscultation bilaterally AUSCULTATION: clear to auscultation bilaterally Cardio: COMMON NORMALS: regular rate, regular rhythm, S1 normal heart sound present and S2 normal heart sound present RATE: regular rate RHYTHM: regular rhythm HEART SOUNDS: S1 normal heart sound present and S2 normal heart sound present GI: COMMON NORMALS: Normal to inspection, nondistended, normoactive bowel sounds present and non-tender Extremity: COMMON NORMALS: no pedal edema Neuro: SENSORIUM/ORIENTATION: Yes oriented to person, No oriented to place and No oriented to time Psych: COMMON NORMALS: mental status grossly normal Data 04/10/23 04:32 04/10/23 04:32 Micro: Microbiology 04/07/23 12:33 Urine Culture - Final Urine,Clean Catch Enterococcus faecalis A&P Assessment and plan (1) Encephalopathy: (2) Acute UTI: (3) Mixed hyperlipidemia: (4) GERD (gastroesophageal reflux disease): Qualifiers: Esophagitis presence: esophagitis presence not specified Qualified Code(s): K21.9 - Gastro-esophageal reflux disease without esophagitis (5) Hypothyroid: Qualifiers: Hypothyroidism type: acquired Qualified Code(s): E03.9 - Hypothyroidism, unspecified (6) Dementia: (7) Diabetes mellitus, type II: Qualifiers: Diabetes mellitus care home insulin use: with care home use Diabetes mellitus complication status: without complication Qualified Code(s): E11.9 - Type 2 diabetes mellitus without complications; Z79.4 - care home (current) use of insulin Plan Acute encephalopathy, back to baseline -Likely second to UTI Underlying dementia, monitor Hypomagnesemia, will replace p.o. UTI -History of multiple UTIs in the past -Risk factors for ESBL -Urine culture showing Enterococcus faecalis -We will de-escalate off meropenem Type 2 diabetes mellitus -Levemir 10 units q. to hours -Low-dose sliding scale Hyperlipidemia CAD History of CHF, no evidence of fluid overload History of portal hypertension, liver cirrhosis Hypokalemia we will replace p.o. Hyperbilirubinemia Will monitor Protonix for GI prophylaxis Lovenox for DVT prophylaxis Full code Consistent carb diet Today with hyperglycemia, increase Lantus to 15 units twice daily, increase to moderate dose sliding scale, will give her another 10 units of subcu insulin, monitor blood sugar every hour for the next few hours Attestations Medical Necessity Statement*: Patient requires hospitalization due to dementia, UTI, Diagnoses Encephalopathy G93.40 Acute UTI N39.0 Mixed hyperlipidemia E78.2 GERD (gastroesophageal reflux disease) K21.9 Esophagitis presence: esophagitis presence not specified Hypothyroid E03.9 Hypothyroidism type: acquired Dementia F03.90 Diabetes mellitus, type II E11.9; Z79.4 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
[2023-04-10] MEDS: amlodipine 10 mg Tablet PO (17:56)
[2023-04-10] MEDS: insulin glargine 100 units/1 mL 15 UNIT SUBCUT (21:29)
[2023-04-10 21:47] LABS: Glucose Point of Care 235 mg/dL (70-110)
[2023-04-11] VITALS (8 sets, daily range): BP systolic 135–166; BP diastolic 60–84; PULSE 50–69; RESP 15–17; TEMP 36.4–36.9; O2SAT 93–97
[2023-04-11 06:22] LABS: Glucose Point of Care 171 mg/dL (70-110)
[2023-04-11] MEDS: donepezil 5 MG Tablet PO (09:52)
[2023-04-11] MEDS: clopidogrel 75 mg Tablet PO (09:52)
[2023-04-11] MEDS: pantoprazole DR 40 mg Tablet PO (09:52)
[2023-04-11] MEDS: nitrofurantoin SR (BID) 100 mg Capsule PO ×2 (09:52→18:19)
[2023-04-11] MEDS: memantine 5 mg tablet PO (09:52)
[2023-04-11] MEDS: magnesium lactate 84 mg Tablet PO (09:52)
[2023-04-11] MEDS: insulin glargine 100 units/1 mL 15 UNIT SUBCUT ×2 (09:52→21:12)
[2023-04-11] MEDS: sertraline 50 mg Tablet 25 MG PO (09:52)
[2023-04-11] MEDS: insulin lispro 100 unit/1 mL SUBCUT ×3 (09:53→18:12)
[2023-04-11 12:03] LABS: Glucose Point of Care 224 mg/dL (70-110)
[2023-04-11 15:30] LABS: SARS Covid-2 Antigen negative (Negative)
--- NOTE | 2023-04-11 16:01 | PM.PN ---
Subjective Subjective: Patient was seen this morning, denies any fevers, denies any chills, sitting in a chair, has no complaints Vitals/I&O/Wt Last Vital Signs Temp 97.6 F 04/11/23 12:00 Pulse 56 L 04/11/23 14:00 Resp 17 04/11/23 12:00 BP 166/80 04/11/23 12:00 Pulse Ox 97 04/11/23 12:00 O2 Del Method Room Air 04/11/23 12:00 04/11/23 04/11/23 04/11/23 06:59 14:59 22:59 Intake Total 200 / 1160 480 / 480 Balance 200 / 1160 480 / 480 Physical Exam Const: COMMON NORMALS: no acute distress ORIENTATION/CONSCIOUSNESS: Yes awake, Yes oriented to person and Yes oriented to place; not oriented to time Resp: COMMON NORMALS: normal respiratory effort, No retractions, No use of accessory muscles and clear to auscultation bilaterally AUSCULTATION: clear to auscultation bilaterally Cardio: COMMON NORMALS: regular rate, regular rhythm, S1 normal heart sound present and S2 normal heart sound present RATE: regular rate RHYTHM: regular rhythm HEART SOUNDS: S1 normal heart sound present and S2 normal heart sound present GI: COMMON NORMALS: Normal to inspection, nondistended, normoactive bowel sounds present, non-tender and no masses Extremity: COMMON NORMALS: no calf tenderness and no pedal edema Neuro: SENSORIUM/ORIENTATION: Yes oriented to person, Yes oriented to place and No oriented to time Psych: COMMON NORMALS: mental status grossly normal Data 04/10/23 04:32 04/10/23 04:32 A&P Assessment and plan (1) Encephalopathy: (2) Acute UTI: (3) Mixed hyperlipidemia: (4) GERD (gastroesophageal reflux disease): Qualifiers: Esophagitis presence: esophagitis presence not specified Qualified Code(s): K21.9 - Gastro-esophageal reflux disease without esophagitis (5) Hypothyroid: Qualifiers: Hypothyroidism type: acquired Qualified Code(s): E03.9 - Hypothyroidism, unspecified (6) Dementia: (7) Diabetes mellitus, type II: Qualifiers: Diabetes mellitus terminal computer operator insulin use: with terminal computer operator use Diabetes mellitus complication status: without complication Qualified Code(s): E11.9 - Type 2 diabetes mellitus without complications; Z79.4 - technician terminal and repeater (current) use of insulin Plan Acute encephalopathy, back to baseline -Likely second to UTI Underlying dementia, monitor Hypomagnesemia, will replace p.o. UTI -History of multiple UTIs in the past -Risk factors for ESBL -Urine culture showing Enterococcus faecalis -We will de-escalate off meropenem Type 2 diabetes mellitus -Levemir 10 units q. to hours -Low-dose sliding scale Hyperlipidemia CAD History of CHF, no evidence of fluid overload History of portal hypertension, liver cirrhosis Hypokalemia we will replace p.o. Hyperbilirubinemia Will monitor Protonix for GI prophylaxis Lovenox for DVT prophylaxis Full code Consistent carb diet plan for today up out of bed, monit blood sugars Attestations Medical Necessity Statement*: patient requires hospitalization for uti, weakness, blood sugar monitoring Diagnoses Encephalopathy G93.40 Acute UTI N39.0 Mixed hyperlipidemia E78.2 GERD (gastroesophageal reflux disease) K21.9 Esophagitis presence: esophagitis presence not specified Hypothyroid E03.9 Hypothyroidism type: acquired Dementia F03.90 Diabetes mellitus, type II E11.9; Z79.4 Diabetes mellitus intermediate insulin use: with terminal computer operator use Diabetes mellitus complication status: without complication
[2023-04-11 17:02] LABS: Glucose Point of Care 392 mg/dL (70-110)
[2023-04-11] MEDS: amlodipine 10 mg Tablet PO (18:11)
[2023-04-11] MEDS: enoxaparin 40 mg/0.4 mL Syringe SUBCUT (18:11)
[2023-04-11] MEDS: atorvastatin 40 mg Tablet 20 MG PO (18:11)
[2023-04-11 21:00] LABS: Glucose Point of Care 319 mg/dL (70-110)
[2023-04-12] VITALS: BP 136/81; PULSE 67; RESP 14; TEMP 37; O2SAT 95
[2023-04-12 04:00] VITALS: BP 143/75; PULSE 59; RESP 14; TEMP 36.4; O2SAT 95
[2023-04-12 06:00] VITALS: PULSE 64
[2023-04-12 06:53] LABS: Glucose Point of Care 192 mg/dL (70-110)
[2023-04-12 07:54] VITALS: BP 147/71; PULSE 65; RESP 11; TEMP 36.6; O2SAT 96
[2023-04-12] MEDS: magnesium lactate 84 mg Tablet PO (10:26)
[2023-04-12] MEDS: donepezil 5 MG Tablet PO (10:26)
[2023-04-12] MEDS: clopidogrel 75 mg Tablet PO (10:27)
[2023-04-12] MEDS: nitrofurantoin SR (BID) 100 mg Capsule PO (10:27)
[2023-04-12] MEDS: memantine 5 mg tablet PO (10:27)
[2023-04-12] MEDS: pantoprazole DR 40 mg Tablet PO (10:27)
[2023-04-12] MEDS: insulin glargine 100 units/1 mL 15 UNIT SUBCUT (10:27)
[2023-04-12] MEDS: insulin lispro 100 unit/1 mL SUBCUT (10:31)
[2023-04-12] MEDS: sertraline 50 mg Tablet 25 MG PO (10:38)
[2023-04-12 10:56] LABS: Glucose Point of Care 273 mg/dL (70-110)
--- NOTE | 2023-04-12 11:14 | PM.DCS ---
Discharge Providers Date of Admission: 04/07/23 15:32 Date of Discharge: April 12, 2023 Attending Provider at Admission: Deepak Caal MD Attending Provider at Discharge: Deepak Caal MD Primary Care Provider: Deandra Flores MD Diagnoses at Discharge Discharge Diagnosis (1) Encephalopathy: Status: Acute (2) Acute UTI: Status: Acute (3) Mixed hyperlipidemia: Status: Acute (4) GERD (gastroesophageal reflux disease): Status: Acute Qualifiers: Esophagitis presence: esophagitis presence not specified Qualified Code(s): K21.9 - Gastro-esophageal reflux disease without esophagitis (5) Hypothyroid: Status: Acute Qualifiers: Hypothyroidism type: acquired Qualified Code(s): E03.9 - Hypothyroidism, unspecified (6) Dementia: Status: Acute (7) Diabetes mellitus, type II: Status: Acute Qualifiers: Diabetes mellitus senior living insulin use: with senior living use Diabetes mellitus complication status: without complication Qualified Code(s): E11.9 - Type 2 diabetes mellitus without complications; Z79.4 - assisted (current) use of insulin Reason for Visit Reason for Visit: [facility] Hospital Course Hospital Course Linda Joiner is a 68 year old female with a past medical history of dementia, history of acute delirium secondary to UTI, history of CABG, recent history of CAD underwent angiogram, left circumflex chronically occluded, medically managed, history of systolic CHF, history of insulin-dependent type 2 diabetes mellitus, history of portal hypertension, history of hypothyroidism, hepatic encephalopathy, history of liver cirrhosis, hyperlipidemia, who presents to [facility] due to altered mental status.? Currently patient is alert to person, not to place, not to time, she can follow commands she is actually sitting up in bed I asked her why she is here in the hospital she does not know why, she tells me that her brought her here but is not exactly sure why, she did similar when she had for breakfast this morning she does not remember how she got to the hospital, denies any fevers, no chills, no cough, no abdominal pain, no flank pain, no dysuria, hematuria, she tells me she is hungry as she has not had nothing to eat, is not present, she is agreeable to hospital mission, she ripped out her IV, with the help of nursing staff she was repositioned in bed, she tells me she wants a sandwich to eat that is her only complaint Patient was admitted to [facility] for acute encephalopathy secondary to UTI, managed with broad-spectrum antibiotic therapy, urine cultures showing Enterococcus faecalis, she completed her antibiotic therapy as inpatient For type 2 diabetes mellitus, she was discharged on, levemir 15 units twice daily, with a low-dose sliding scale. For her CAD, continue home medications. For her dementia, deconditioning, she was discharged to long term facility. Physical Exam Const: COMMON NORMALS: no acute distress ORIENTATION/CONSCIOUSNESS: Yes awake, Yes oriented to person and Yes oriented to place; not oriented to time Resp: COMMON NORMALS: normal respiratory effort, No retractions, No use of accessory muscles and clear to auscultation bilaterally AUSCULTATION: clear to auscultation bilaterally Cardio: COMMON NORMALS: regular rate, regular rhythm, S1 normal heart sound present and S2 normal heart sound present RATE: regular rate RHYTHM: regular rhythm HEART SOUNDS: S1 normal heart sound present and S2 normal heart sound present GI: COMMON NORMALS: Normal to inspection, nondistended, normoactive bowel sounds present and non-tender Extremity: COMMON NORMALS: no pedal edema Neuro: SENSORIUM/ORIENTATION: Yes oriented to person, Yes oriented to place and No oriented to time Psych: COMMON NORMALS: mental status grossly normal Discharge Data Studies Completed and Pending Completed Studies During Hospitalization Category Date Time Status CT head wo con* [id number] Stat Cat Scan 04/07/23 11:20 Completed XR chest 1V portable [id number] Stat Exams 04/07/23 10:57 Completed Pending at discharge Category Date Time Status Blood Culture Stat Lab 04/07/23 22:26 Results Radiology Impressions Chest X-Ray 04/07/23 10:57 IMPRESSION: No acute cardiopulmonary abnormality identified. Head CT 04/07/23 11:20 IMPRESSION: 1. [id number] senescent changes as above. 2. No acute intracranial abnormality. Laboratory Results WBC 4.0 10^3/uL (4.0-10.0) 04/10/23 04:32 RBC 4.94 10^6/uL (4.1-5.3) 04/10/23 04:32 Hgb 14.4 g/dL (11.5-15.3) 04/10/23 04:32 Hct 42.2 % (37.0-47.0) 04/10/23 04:32 MCV 85.4 fl (81-99) 04/10/23 04:32 MCH 29.1 pg (28.0-34.0) 04/10/23 04:32 MCHC 34.1 g/dL (30.0-36.0) 04/10/23 04:32 RDW 13.2 % (12.1-15.1) 04/10/23 04:32 Plt Count 230 10^3/cmm (130-400) D 04/10/23 04:32 MPV 11.2 fL (7.4-10.4) H 04/10/23 04:32 Neut % (Auto) 49.5 % 04/10/23 04:32 Lymph % (Auto) 40.4 % 04/10/23 04:32 [place] % (Auto) 5.7 % 04/10/23 04:32 Eos % (Auto) 2.7 % 04/10/23 04:32 Baso % (Auto) 1.2 % 04/10/23 04:32 Neut # (Auto) 1.98 10^3/uL (1.8-7.7) 04/10/23 04:32 Lymph # (Auto) 1.6 10^3/uL (0.8-4.8) 04/10/23 04:32 [place] # (Auto) 0.2 10^3/uL (0.2-0.9) 04/10/23 04:32 Eos # (Auto) 0.1 10^3/uL (0.0-0.8) 04/10/23 04:32 Baso # (Auto) 0.1 10^3/uL (0.0-0.1) 04/10/23 04:32 Nucleated RBC % (auto) 0.7 % 04/10/23 04:32 Nucleated RBCs # 0.0 /100WBC 04/10/23 04:32 PT 14.30 SECONDS (12.1-14.9) 04/07/23 22:29 INR 1.08 (0.8-1.2) 04/07/23 22:29 Sodium 137 mmol/L (136-145) 04/10/23 04:32 Potassium 3.4 mmol/L (3.5-5.1) L 04/10/23 04:32 Chloride 99 mmol/L (98-107) 04/10/23 04:32 Carbon Dioxide 26 mmol/L (22-29) 04/10/23 04:32 Anion Gap 15.4 (5-19) 04/10/23 04:32 BUN 13 mg/dL (8-23) 04/10/23 04:32 Creatinine 0.5 mg/dL (0.5-0.9) 04/10/23 04:32 GFR Calculation 122.7 mL/min (90-130) 04/10/23 04:32 Glucose 239 mg/dL (65-115) H 04/10/23 04:32 POC Glucose 273 mg/dL (70-110) H 04/12/23 10:44 Estimat Average Glucose 229 04/07/23 11:50 Hemoglobin A1c 9.6 % (4.0-6.0) H 04/07/23 11:50 Calculated Osmolality 292 mOsm/kg (285-295) 04/10/23 04:32 Lactic Acid 1.3 mmol/L (0.5-2.2) 04/07/23 22:29 Calcium 9.4 mg/dL (8.5-10.5) 04/10/23 04:32 Phosphorus 3.8 mg/dL (2.5-4.5) 04/10/23 04:32 Magnesium 1.6 mg/dL (1.7-2.3) L 04/10/23 04:32 Total Bilirubin 1.6 mg/dL (0.15-1.2) H 04/10/23 04:32 AST 20 U/L (0-32) 04/10/23 04:32 ALT 15 U/L (0-33) 04/10/23 04:32 Alkaline Phosphatase 158 U/L (35-105) H 04/10/23 04:32 Ammonia 26 umol/L (11-51) 04/07/23 22:29 C-Reactive Protein 5.1 mg/L (0.0-4.9) H 04/07/23 14:40 NT-Pro-B Natriuret Pep 364 pg/mL (0-125) H 04/07/23 14:40 Total Protein 6.4 g/dL (6.6-8.7) L 04/10/23 04:32 Albumin 3.9 g/dL (3.5-5.2) 04/10/23 04:32 Globulin 2.5 g/dL (1.3-4.6) 04/10/23 04:32 Triglycerides 156 mg/dL (0-150) H 04/07/23 14:40 Cholesterol 262 mg/dL (0-200) H 04/07/23 14:40 LDL Cholesterol, Calc 170 mg/dL (50-129) H 04/07/23 14:40 HDL Cholesterol 61 mg/dL (60-100) 04/07/23 14:40 LDL/HDL Ratio 2.79 RATIO (0.00-3.22) 04/07/23 14:40 Cholesterol/HDL Ratio 4.30 mg/dL (0.0-4.40) 04/07/23 14:40 Procalcitonin 0.08 ng/mL (0-0.5) 04/07/23 14:40 TSH 2.08 uIU/mL (0.27-4.20) 04/07/23 14:40 Urine Color Yellow (Yellow) 04/07/23 12:33 Urine Appearance Hazy (CLEAR) A 04/07/23 12:33 Urine pH 5 (5-7) 04/07/23 12:33 Ur Specific [place] 1.020 (1.005-1.030) 04/07/23 12:33 Urine Protein 3+ (Negative) H 04/07/23 12:33 Urine Glucose (UA) 4+ (Normal) H 04/07/23 12:33 Urine Ketones 1+ (Negative) H 04/07/23 12:33 Urine Blood 3+ (Negative) H 04/07/23 12:33 Urine Nitrate Negative (Negative) 04/07/23 12:33 Urine Bilirubin 1+ (Negative) H 04/07/23 12:33 Urine Urobilinogen 1 mg/dL (Negative) H 04/07/23 12:33 Ur Leukocyte Esterase 1+ (Negative) H 04/07/23 12:33 Urine RBC 15-25 /hpf (0-2) H 04/07/23 12:33 Urine WBC 25-40 /hpf (0-5) H 04/07/23 12:33 Ur Squamous Epith Cells 0-4 /hpf (0-5) H 04/07/23 12:33 Amorphous Sediment Not Reportable 04/07/23 12:33 Urine Bacteria 1+ /hpf (NONE) H 04/07/23 12:33 Urine Mucus Trace /hpf 04/07/23 12:33 Hepatitis A IgM Ab Non-reactive (Nonreactive) 04/07/23 22:29 Hep Bs Antigen Non-reactive (Nonreactive) 04/07/23 22:29 Hep B Core IgM Ab Non-reactive (Nonreactive) 04/07/23 22:29 Hepatitis C Antibody Non-reactive (Nonreactive) 04/07/23 22:29 HIV 1&2 Ab & HIV 1 Ag Non-reactive (Non-Reactiv) 04/07/23 22:29 HIV 1&2 Antibody Non-reactive (Non-Reactiv) 04/07/23 22:29 SARS-CoV-2 Ag (Rapid) negative (Negative) 04/11/23 15:10 Vitals Last Vital Signs Temp 97.9 F 04/12/23 07:54 Pulse 65 04/12/23 07:54 Resp 11 L 04/12/23 07:54 BP 147/71 04/12/23 07:54 Pulse Ox 96 04/12/23 07:54 O2 Del Method Room Air 04/12/23 04:00 Discharge Plan Discharge Patient Disposition: Xfer SNF Condition: Stable Prescriptions: New memantine 5 mg Tablet 5 mg PO DAILY 30 Days Qty: 30 0RF magnesium L-lactate [Magtab] 84 mg tablet extended release 84 mg PO DAILY 30 Days Qty: 30 0RF donepezil 5 mg Tablet 5 mg PO DAILY 30 Days Qty: 30 0RF amlodipine 10 mg Tablet 10 mg PO Q24H 30 Days Qty: 30 0RF insulin aspart U-100 [Novolog FlexPen U-100 Insulin] 100 unit/mL (3 mL) insulin pen See Rx Instructions .ROUTE .COMPLEX Qty: 15 0RF Rx Instructions: inject subcut, TID, after meals, based on low dose sliding scale Continued (DME) blood-glucose meter Kit See Rx Instructions .ROUTE .MEDSUPPLY Qty: 1 0RF Rx Instructions: As directed sertraline [Zoloft] 50 mg tablet 50 mg PO DAILY nitroglycerin [Nitrostat] 0.4 mg tablet, sublingual 0.4 mg sublingual Q5M PRN (Reason: Chest Pain) Rx Instructions: do not exceed 3 doses per episode lovastatin 40 mg tablet 80 mg PO QPM sennosides [Vegetable Laxative] 8.6 mg Tablet 8.6 mg PO DAILY PRN (Reason: Constipation) zinc acetate 50 mg (zinc) Capsule 50 mg PO DAILY Preparation H 0.25-14-74.9 % Ointment 1 applic CO DAILY PRN (Reason: Hemorrhoids) clopidogrel 75 mg Tablet 75 mg PO DAILY Qty: 30 0RF Zofran 4 mg Tablet 4 mg PO DAILY PRN (Reason: Nausea And Vomiting) Vagisil 5-2 % Cream 1 applic TOPICAL BID PRN (Reason: unknown) Tylenol Ex Str Rapid Release 500 mg Tablet 1,000 mg PO Q4H PRN (Reason: Pain) cranberry 500 mg Capsule 500 mg PO DAILY PRN (Reason: unknown) melatonin 5 mg Tablet 10 mg PO BEDTIME potassium chloride 20 mEq tablet,ER particles/crystals 20 meq PO DAILY 30 Days Qty: 30 0RF Changed furosemide 20 mg tablet 20 mg PO DAILY 30 Days Qty: 30 0RF Levemir U-100 Insulin 100 unit/mL solution 15 unit SUBCUT Q12H Qty: 10 0RF Discontinued glipizide 5 mg tablet 5 mg PO BID aspirin 325 mg Tablet 325 mg PO DAILY PRN (Reason: Pain) lisinopril 2.5 mg tablet 5 mg PO DAILY Discharge Orders: Discharge Order (Routine); Ordered 04/12/23 Ordered By: Deepak Caal Referrals: Deandra Flores MD [Primary Care Provider] - Discharge Diet: Cardiac Discharge Activity: Resume usual activity Patient Instructions: Hyponatremia (ED), Benzodiazepine Use Disorder (ED), Dementia (ED), Non-diabetic Hypoglycemia (ED), Hypoglycemia in a Person with Diabetes (ED), Concussion (ED), Alcohol Intoxication (ED), Subarachnoid Hemorrhage (GEN), Altered Mental Status (ED), Opioid Safety Discharge Attestations Time Spent in Discharge Care*: greater than 30 min Quality Metrics Clinical Quality Measures [ No reported AMI, CVA or VTE this stay] Coding Level of Care Code 39826 Total time (in minutes) for Discharge: 45 Diagnoses Encephalopathy G93.40 Acute UTI N39.0 Mixed hyperlipidemia E78.2 GERD (gastroesophageal reflux disease) K21.9 Esophagitis presence: esophagitis presence not specified Hypothyroid E03.9 Hypothyroidism type: acquired Dementia F03.90 Diabetes mellitus, type II E11.9; Z79.4 Diabetes mellitus senior living insulin use: with rn long term care use Diabetes mellitus complication status: without complication
--- NOTE | 2023-04-12 11:35 | PC.SOCIAL ---
IMM Update pg 2 of IMM updated and reviewed w/ patient's via phone. Copy in chart dated, and initialed.
== END 2023-04-12 12:20 | disposition skilled nursing facility (03) | DRG 690 ==
LOC: ER 15:31 → MEDSURG 16:01
PROVIDERS: Emergency Medicine; Admitting Provider Family Medicine; Emergency Provider Family Medicine; PCP Family Medicine; Visit Provider Family Medicine
DX: N39.0 Urinary tract infection, site not specified (principal); G93.49 Other encephalopathy; I50.22 Chronic systolic (congestive) heart failure; F03.90 Unspecified dementia, unspecified severity, without behavioral disturbance, psychotic disturbance, mood disturbance, and anxiety; Z95.1 Presence of aortocoronary bypass graft; I25.10 Atherosclerotic heart disease of native coronary artery without angina pectoris; I11.0 Hypertensive heart disease with heart failure; Z87.891 Personal history of nicotine dependence; Z79.4 Long term (current) use of insulin; K74.60 Unspecified cirrhosis of liver; E78.2 Mixed hyperlipidemia; B95.2 Enterococcus as the cause of diseases classified elsewhere; Z79.82 Long term (current) use of aspirin; E83.42 Hypomagnesemia; F32.A Depression, unspecified; K21.9 Gastro-esophageal reflux disease without esophagitis; Z79.02 Long term (current) use of antithrombotics/antiplatelets; F41.9 Anxiety disorder, unspecified; E11.42 Type 2 diabetes mellitus with diabetic polyneuropathy; E87.6 Hypokalemia; E80.6 Other disorders of bilirubin metabolism; Z87.440 Personal history of urinary (tract) infections
CPT/HCPCS: 36415; 36416; 70450; 71045; 80053; 80061; 80074; 81001; 82140; 82962; 83036; 83605; 83735; 83880; 84100; 84145; 84443; 85025; 85610; 86140; 87040; 87077; 87086; 87186; 87426; 87806; 92523; 92610; 93005; 94664; 96365; 96372; 97110; 97116; 97161; 97166; 97530; 97535; 99285; J1335; J1650; J1815; J2185; J2405; J3475; J7030; Q3014

== ENCOUNTER → 2023-07-02 08:06 | Outpatient (BNVA) | payer MEDICARE, SELFPAY | PROVIDERS: PCP Internal Medicine; Visit Provider Podiatrist Foot & Ankle Surgery | DX: L60.3 Nail dystrophy (principal); Z79.4 Long term (current) use of insulin; L97.512 Non-pressure chronic ulcer of other part of right foot with fat layer exposed; E11.621 Type 2 diabetes mellitus with foot ulcer | CPT/HCPCS: 11042; 11721 ==

== ENCOUNTER 2023-07-23 15:15 | Emergency (ER) | payer MEDICARE, MEDICAID, SELFPAY ==
[2023-07-23 15:22] VITALS: BP 137/62; PULSE 62; TEMP 36.9; O2SAT 97; BMI 30.7
--- NOTE | 2023-07-23 15:42 | XRR_ITS ---
PROCEDURE INFORMATION: Exam: XR Right Hip Exam date and time: 07/23/2023 3:47 PM Age: 68 years old Clinical indication: Injury or trauma; Fall; Blunt trauma (contusions or hematomas); Right; Hip TECHNIQUE: Imaging protocol: Radiologic exam of the right hip. Views: 1 view hip with pelvis when performed. COMPARISON: CT chest abdpel w/*[id number] 01/17/2023 9:16 PM FINDINGS: Bones/joints: Unremarkable. No acute fracture. Soft tissues: Unremarkable. XR/XR hip RT 2-3V wo/w pel* [id number] IMPRESSION: No acute findings. If there is desire for further evaluation, a CT scan could be performed.
--- NOTE | 2023-07-23 16:04 | XRR_ITS ---
PROCEDURE INFORMATION: Exam: XR Chest Exam date and time: 07/23/2023 4:09 PM Age: 68 years old Clinical indication: Cough and dyspnea; Additional info: Dyspnea/cough TECHNIQUE: Imaging protocol: Radiologic exam of the chest. Views: 1 view. COMPARISON: CR XR chest 1V portable [id number] 04/07/2023 11:07 AM FINDINGS: Lungs: Unremarkable. No consolidation. Pleural spaces: Unremarkable. No pleural effusion. No pneumothorax. Heart/Mediastinum: Unremarkable. No cardiomegaly. Bones/joints: There has been a sternotomy. XR/XR chest 1V portable [id number] IMPRESSION: There are no acute concerning abnormalities.
[2023-07-23 16:30] LABS: Basophils % 0.6 %; Eosinophils # 0.2 10^3/uL (0.0-0.8); Eosinophils % 3.7 %; Hematocrit 39.2 % (36-47); Lymphocytes # 1.6 10^3/uL (0.8-4.8); Lymphocytes % 32.6 %; Mean Corpuscular HGB Conc 33.4 g/dL (30-55); Mean Corpuscular Hemoglobin 30.3 pg (27-33); Mean Corpuscular Volume 90.7 fl (85-98); Mean Platelet Volume 9.6 fL (7.4-10.4); Monocytes # 0.3 10^3/uL (0.2-0.9); Monocytes % 6.4 %; Neutrophils # 2.72 10^3/uL (1.8-7.7); Neutrophils % 56.3 %; Nucleated Red Blood Cells % 0 %; Platelet Count 124 10^3/cmm (157-399); Red Blood Count 4.32 10^6/uL (3.85-5.65); Red Cell Distribution Width 13.1 % (12.1-15.1); White Blood Count 4.84 10^3/uL (3.29-11.43)
--- NOTE | 2023-07-23 16:30 | CTR_ITS ---
PROCEDURE INFORMATION: Exam: CT Right Lower Extremity Without Contrast, Hip Exam date and time: 07/23/2023 4:46 PM Age: 68 years old Clinical indication: Injury or trauma; Fall; Blunt trauma; Hip; Right; Additional info: Trauma/pain TECHNIQUE: Imaging protocol: CT of the right lower extremity without contrast was performed. Exam focused on the hip. Radiation optimization: All CT scans at this facility use at least one of these dose optimization techniques: automated exposure control; mA and/or kV adjustment per patient size (includes targeted exams where dose is matched to clinical indication); or iterative reconstruction. REPORTING DATA: Count of CT and Cardiac NM exams in prior 12 months: This patient has received 3 known CTs and 0 known cardiac nuclear medicine studies in the 12 months prior to the current study. COMPARISON: CR XR hip RT 2-3V wo/w pel* [id number] 07/23/2023 3:47 PM RADIATION DOSE METRICS: Total DLP (mGy-cm): 465 FINDINGS: Bones/joints: Normal. No acute fracture or dislocation. Soft tissues: Normal. CT/CT hip RT wo con* [id number] IMPRESSION: There is no evidence for acute fracture or malalignment.
[2023-07-23 16:43] LABS: Alanine Aminotransferase 20 U/L (0-33); Albumin Level 3.6 g/dL (3.5-5.2); Alkaline Phosphatase 144 U/L (35-105); Anion Gap 12.2 (5-19); Aspartate Amino Transferase 24 U/L (0-32); Blood Urea Nitrogen 22 mg/dL (8-23); Calcium 9.3 mg/dL (8.5-10.5); Carbon Dioxide 29 mmol/L (22-29); Chloride 99 mmol/L (98-107); Globulin 2.7 g/dL (1.3-4.6); Glomerular Filtration Rate 71.3 mL/min (90-130); Glucose 224 mg/dL (65-115); Osmolality Calculated 292 mOsm/kg (285-295); Potassium 4.2 mmol/L (3.5-5.1); Sodium 136 mmol/L (136-145); Total Bilirubin 1.3 mg/dL (0.15-1.2); Total Protein 6.3 g/dL (6.6-8.7)
--- NOTE | 2023-07-23 16:49 | ED_ITS ---
HPI - Fall General: Chief Complaint: Fall Stated Complaint: Fall Time Seen by Provider: 07/23/23 15:27 Source: patient Mode of arrival: EMS History of Present Illness: 68-year-old female who presents to the emergency room after a fall. Patient was found to [facility] complaining of right hip pain after a fall she slid out of her recliner landed on her right side. No loss consciousness not strike her head. No other reported injuries patient given fentanyl in route. On arrival here she has a slightly shortened externally rotated right leg and is complaining of right hip pain. MD complaint: fall Onset (ago): minute(s) Fall from: chair Place fall occurred: correction/SNF Loss of consciousness: None Prolonged down time: no Symptoms prior to fall: none Context: tripped/slipped Location of injury: other (Right hip) Associated symptoms-after fall: Denies abdominal pain, chest pain or neck pain Review of Systems Const: Denies: fever(s) or chills Card: Denies: chest pain Resp: Denies: dyspnea GI: Denies: abdominal pain : Denies: dysuria, urinary frequency or urinary urgency Musc: Denies: neck pain or back pain Skin/Breast: Denies: rash PFSH ED PFSH: Medical History Abdominal pain Acute delirium Acute non-ST elevation myocardial infarction (NSTEMI) Anticoagulated Anxiety and depression Arthritis Atherosclerosis of coronary artery of [place] heart without angina pectoris Breast cancer screening by mammogram Coronary artery disease Dementia Diabetes mellitus, type II Diabetic peripheral neuropathy associated with type 2 diabetes mellitus Essential hypertension GERD (gastroesophageal reflux disease) Gout Hepatic encephalopathy Hepatosplenomegaly Hypothyroid Infected abrasion of thumb Liver cirrhosis Mixed hyperlipidemia Mixed hyperlipidemia Nonalcoholic fatty liver disease Noncompliance Portal hypertension Rheumatoid arthritis Type 2 diabetes mellitus with hyperglycemia Urinary tract infection Vaginal yeast infection Yeast vaginitis Surgical History History of arthroscopy of left shoulder History of coronary angioplasty History of open heart surgery bi bypass Family History Other Heart disease Social History Smoking and tobacco/nicotine status: former use of tobacco/nicotine Second hand smoke exposure: No Alcohol intake: never Substance/Drug Use: never Physical Exam Const: EXAM LIMITATIONS: altered mental status GENERAL APPEARANCE: cooperative and comfortable ORIENTATION/CONSCIOUSNESS: Yes awake, Yes oriented to person, Yes oriented to place and Yes oriented to time HENMT: COMMON NORMALS: normocephalic, atraumatic and hearing grossly normal bilaterally HEAD & SCALP: normocephalic and atraumatic Resp: COMMON NORMALS: normal respiratory effort, No retractions, No use of accessory muscles and clear to auscultation bilaterally AUSCULTATION: clear to auscultation bilaterally Cardio: COMMON NORMALS: regular rate, regular rhythm and No murmurs present (Cardio) RATE: regular rate RHYTHM: regular rhythm GI: COMMON NORMALS: Soft to palpation and No hepatosplenomegaly present AUSCULTATION: Yes normoactive bowel sounds PALPATION: Yes Soft to palpation, No Tenderness to palpation present (GI), No Guarding due to palpation present (GI) and Yes No hepatosplenomegaly present Extremity: COMMON NORMALS: normal to inspection, capillary refill normal, no clubbing, cyanosis or edema, no calf tenderness and no pedal edema OTHER: Tenderness to palpation along the right greater trochanter. Neuro: SENSORIUM/ORIENTATION: Yes oriented to person, Yes oriented to place and Yes oriented to time Skin: COMMON NORMALS: no rashes or lesions noted GENERAL SKIN EXAM: no ra shes or lesions noted Course Vital Signs: Vital signs: Vital Signs Temperature 98.5 F 07/23/23 15:22 Pulse Rate 62 07/23/23 15:22 Blood Pressure 137/62 07/23/23 15:22 Pulse Oximetry 97 07/23/23 15:22 Oxygen Delivery Me thod Room Air 07/23/23 15:22 MDM - Fall Medical Decision Making No acute fracture. He is concerned about a faint occult fracture on the plain film CT shows no acute fracture patient has no other injuries exam otherwise normal discharge back to correction Medical Records I reviewed the patient's medical records. Lab Data I reviewed the patient's lab results. 07/23/23 16:20 07/23/23 16:20 Radiology Impressions Hip/Pelvis X-Ray 07/23/23 15:42 IMPRESSION: No acute findings. If there is desire for further evaluation, a CT scan could be performed. Chest X-Ray 07/23/23 16:04 IMPRESSION: There are no acute concerning abnormalities. Hip CT 07/23/23 16:30 IMPRESSION: There is no evidence for acute fracture or malalignment. Laboratory Results WBC 4.84 10^3/uL (3.29-11.43) 07/23/23 16:20 RBC 4.32 10^6/uL (3.85-5.65) 07/23/23 16:20 Hgb 13.10 g/dL (11.27-16.99) 07/23/23 16:20 Hct 39.2 % (36-47) 07/23/23 16:20 MCV 90.7 fl (85-98) 07/23/23 16:20 MCH 30.3 pg (27-33) 07/23/23 16:20 MCHC 33.4 g/dL (30-55) 07/23/23 16:20 RDW 13.1 % (12.1-15.1) 07/23/23 16:20 Plt Count 124 10^3/cmm (157-399) L 07/23/23 16:20 MPV 9.6 fL (7.4-10.4) 07/23/23 16:20 Neut % (Auto) 56.3 % 07/23/23 16:20 Lymph % (Auto) 32.6 % 07/23/23 16:20 [place] % (Auto) 6.4 % 07/23/23 16:20 Eos % (Auto) 3.7 % 07/23/23 16:20 Baso % (Auto) 0.6 % 07/23/23 16:20 Neut # (Auto) 2.72 10^3/uL (1.8-7.7) 07/23/23 16:20 Lymph # (Auto) 1.6 10^3/uL (0.8-4.8) 07/23/23 16:20 [place] # (Auto) 0.3 10^3/uL (0.2-0.9) 07/23/23 16:20 Eos # (Auto) 0.2 10^3/uL (0.0-0.8) 07/23/23 16:20 Baso # (Auto) 0.0 10^3/uL (0.0-0.1) 07/23/23 16:20 Nucleated RBC % (auto) 0 % 07/23/23 16:20 Nucleated RBCs # 0.0 /100WBC 07/23/23 16:20 PT 14.20 SECONDS (12.1-14.9) 07/23/23 16:20 INR 1.07 (0.8-1.2) 07/23/23 16:20 APTT 30.4 SECONDS (23.9-36.7) 07/23/23 16:20 Sodium 136 mmol/L (136-145) 07/23/23 16:20 Potassium 4.2 mmol/L (3.5-5.1) 07/23/23 16:20 Chloride 99 mmol/L (98-107) 07/23/23 16:20 Carbon Dioxide 29 mmol/L (22-29) 07/23/23 16:20 Anion Gap 12.2 (5-19) 07/23/23 16:20 BUN 22 mg/dL (8-23) 07/23/23 16:20 Creatinine 0.8 mg/dL (0.5-0.9) 07/23/23 16:20 GFR Calculation 71.3 mL/min (90-130) L 07/23/23 16:20 Glucose 224 mg/dL (65-115) H 07/23/23 16:20 Calculated Osmolality 292 mOsm/kg (285-295) 07/23/23 16:20 Calcium 9.3 mg/dL (8.5-10.5) 07/23/23 16:20 Total Bilirubin 1.3 mg/dL (0.15-1.2) H 07/23/23 16:20 AST 24 U/L (0-32) 07/23/23 16:20 ALT 20 U/L (0-33) 07/23/23 16:20 Alkaline Phosphatase 144 U/L (35-105) H 07/23/23 16:20 Total Protein 6.3 g/dL (6.6-8.7) L 07/23/23 16:20 Albumin 3.6 g/dL (3.5-5.2) 07/23/23 16:20 Globulin 2.7 g/dL (1.3-4.6) 07/23/23 16:20 All radiology interpretation(s) finalized by discharge Discharge Plan Discharge Patient Disposition: Home Clinical Impression: Fall, Hip pain Condition: Stable Prescriptions: No Action (DME) blood-glucose meter Kit See Rx Instructions .ROUTE .MEDSUPPLY Qty: 1 0RF Rx Instructions: As directed sertraline [Zoloft] 50 mg tablet 50 mg PO DAILY nitroglycerin [Nitrostat] 0.4 mg tablet, sublingual 0.4 mg sublingual Q5M PRN (Reason: Chest Pain) Rx Instructions: do not exceed 3 doses per episode sennosides [Vegetable Laxative] 8.6 mg Tablet 8.6 mg PO DAILY PRN (Reason: Constipation) zinc acetate 50 mg (zinc) Capsule 50 mg PO DAILY Preparation H 0.25-14-74.9 % Ointment 1 applic NC DAILY PRN (Reason: Hemorrhoids) clopidogrel 75 mg Tablet 75 mg PO DAILY Qty: 30 0RF ondansetron HCl 4 mg Tablet 4 mg PO DAILY PRN (Reason: Nausea And Vomiting) Vagisil 5-2 % Cream 1 applic TOPICAL BID PRN (Reason: unknown) acetaminophen 500 mg Tablet 1,000 mg PO Q4H PRN (Reason: Pain) cranberry 500 mg Capsule 500 mg PO DAILY PRN (Reason: urinary burning) melatonin 5 mg Tablet 10 mg PO BEDTIME furosemide 20 mg tablet 20 mg PO DAILY 30 Days Qty: 30 0RF donepezil 5 mg tablet 5 mg PO DAILY potassium chloride 20 mEq/15 mL liquid 20 meq PO DAILY Milk of Magnesia 400 mg/5 mL Suspension 30 ml PO DAILY PRN (Reason: Constipation) amlodipine 10 mg tablet 10 mg PO DAILY Fleet Enema 19-7 gram/118 mL Enema 118 ml NC DAILY PRN (Reason: Constipation) mupirocin 2 % ointment 1 applic TOPICAL BID Miralax 17 gram/dose Powder 4 g PO DAILY benzocaine 20 % Gel 1 applic MUCOUS MEMBRANE BID PRN (Reason: Mouth Irritation) Humalog KwikPen Insulin 100 unit/mL Insulin Pen 5 unit SUBCUT TID Rx Instructions: per sliding scale memantine 5 mg tablet 5 mg PO DAILY Biofreeze (menthol) 4 % Gel 1 applic TOPICAL TID PRN (Reason: Pain) Tresiba FlexTouch U-100 100 unit/mL (3 mL) insulin pen 55 unit SUBCUT DAILY Artificial Tears (cmc) 1 % Drops 1 drp OPHTHALMIC (EYE) QID PRN (Reason: Dry Eye(S)) Discharge Orders: Discharge ED (Routine); Ordered 07/23/23 Ordered By: Chema Simeon Referrals: Cyril Ramirez DO [Primary Care Provider] - Discharge Diet: Usual diet Patient Instructions: Opioid Safety, Pain Management Coding Level of Care Code ED Residential [employer] for [facility]
[2023-07-23 17:06] LABS: INR 1.07 (0.8-1.2)
[2023-07-23 17:07] LABS: Partial Thromboplastin Time 30.4 SECONDS (23.9-36.7)
[2023-07-23] MEDS: ondansetron 2 mg/ML SDV 2 mL 4 MG IVP (17:58)
[2023-07-23] MEDS: morphine 4 mg/mL SDV 1 mL 2 MG IVP (17:59)
[2023-07-23 19:16] VITALS: BP 98/85; PULSE 81; O2SAT 99
[2023-07-23 19:19] VITALS: BP 98/85; PULSE 81; O2SAT 98
== END 2023-07-23 19:23 | disposition home or self-care (01) ==
PROVIDERS: Emergency Provider Family Medicine; PCP Internal Medicine
DX: M25.551 Pain in right hip (principal); Z79.02 Long term (current) use of antithrombotics/antiplatelets; Z79.4 Long term (current) use of insulin; Z87.891 Personal history of nicotine dependence; I25.2 Old myocardial infarction; I25.10 Atherosclerotic heart disease of native coronary artery without angina pectoris; E11.42 Type 2 diabetes mellitus with diabetic polyneuropathy; E78.2 Mixed hyperlipidemia; Z98.61 Coronary angioplasty status; W07.XXXA Fall from chair, initial encounter; Y92.129 Unspecified place in nursing home as the place of occurrence of the external cause
CPT/HCPCS: 36415; 71045; 73502; 73700; 80053; 85025; 85610; 85730; 99285; J2270; J2405

== ENCOUNTER → 2023-07-24 12:52 | Outpatient (BNVA) | payer MEDICARE, MEDICAID, SELFPAY | PROVIDERS: PCP Internal Medicine; Visit Provider Podiatrist Foot & Ankle Surgery | DX: Z79.4 Long term (current) use of insulin; E11.621 Type 2 diabetes mellitus with foot ulcer; L97.512 Non-pressure chronic ulcer of other part of right foot with fat layer exposed | CPT/HCPCS: 99213 ==

== ENCOUNTER → 2023-10-30 15:16 | Outpatient (BNVA) | payer MEDICARE, MEDICAID, SELFPAY | PROVIDERS: PCP Internal Medicine; Visit Provider Podiatrist Foot & Ankle Surgery | DX: L60.3 Nail dystrophy (principal); E11.9 Type 2 diabetes mellitus without complications; Z79.4 Long term (current) use of insulin; I73.9 Peripheral vascular disease, unspecified | CPT/HCPCS: 11721 ==

== ENCOUNTER 2024-01-22 14:52 | Emergency (ER) | payer MEDICARE, MEDICAID, SELFPAY ==
[2024-01-22 15:01] VITALS: BP 134/82; PULSE 86; RESP 18; TEMP 36.8; O2SAT 93
--- NOTE | 2024-01-22 15:04 | CTR_ITS ---
PROCEDURE INFORMATION: Exam: CT Head Without Contrast Exam date and time: 01/22/2024 3:49 PM Age: 68 years old Clinical indication: Injury or trauma; Fall; Blunt trauma (contusions or hematomas); Additional info: Fall hit head TECHNIQUE: Imaging protocol: Computed tomography of the head without contrast. Radiation optimization: All CT scans at this facility use at least one of these dose optimization techniques: automated exposure control; mA and/or kV adjustment per patient size (includes targeted exams where dose is matched to clinical indication); or iterative reconstruction. COMPARISON: CT head wo con* [id number] 04/07/2023 12:01 PM RADIATION DOSE METRICS: Total DLP (mGy-cm): 2205.8 FINDINGS: Brain: Moderate nonspecific white matter low attenuation which may be related to microvascular ischemic changes. No acute confluent lobar ischemic infarct. No acute intracranial hemorrhage. Cerebral ventricles: The ventricles and sulci are prominent in size compatible with moderate atrophy. Paranasal sinuses: Visualized sinuses are unremarkable. No fluid levels. Mastoid air cells: Visualized mastoid air cells are well aerated. Bones: Unremarkable. No acute fracture. Soft tissues: Visualized soft tissues are unremarkable. CT/CT head wo con* [id number] IMPRESSION: No acute intracranial abnormality. If symptoms persist, consider further evaluation with MRI, if MRI is clinically safe to obtain.
--- NOTE | 2024-01-22 15:04 | XR_ITS ---
WS: [id number] XR hip RT 2-3V wo/w pel* [id number] REASON FOR EXAM: fall hip pain FINDINGS: No acute fracture of the right hip. Findings of osteoarthritis, moderate, in the right hip joint. Bony pelvis is intact. XR/XR hip RT 2-3V wo/w pel* [id number] IMPRESSION: No acute abnormality.
--- NOTE | 2024-01-22 15:07 | W.ED.EXTPRO ---
HPI - Extremity Problem General: Chief complaint: Extremity Injury, Lower Stated complaint: fall Time Seen by Provider: 01/22/24 15:04 History of Present Illness: Patient is brought in by EMS from [facility] with complaints of ground-level fall complaining of right hip and femur pain also had pain. Patient denies being on any blood thinners. Patient does have dementia. Upon patient's record patient may be on Plavix. Review of Systems General: Reports: 10 or more systems reviewed and unremarkable except in HPI and below PFSH ED PFSH: Medical History Acute non-ST elevation myocardial infarction (NSTEMI) Atherosclerosis of coronary artery of [place] heart without angina pectoris Portal hypertension Acute delirium Noncompliance Diabetic peripheral neuropathy associated with type 2 diabetes mellitus Dementia Nonalcoholic fatty liver disease Hepatic encephalopathy Coronary artery disease Hepatosplenomegaly Liver cirrhosis Vaginal yeast infection Abdominal pain Breast cancer screening by mammogram Urinary tract infection Yeast vaginitis Rheumatoid arthritis Infected abrasion of thumb Gout Arthritis Mixed hyperlipidemia Type 2 diabetes mellitus with hyperglycemia Mixed hyperlipidemia GERD (gastroesophageal reflux disease) Anxiety and depression Diabetes mellitus, type II Hypothyroid Essential hypertension Anticoagulated Surgical History History of coronary angioplasty History of open heart surgery bi bypass History of arthroscopy of left shoulder Family History Other Heart disease Social History Smoking and tobacco/nicotine status: former use of tobacco/nicotine Second hand smoke exposure: No Alcohol intake: never Substance/Drug Use: never Physical Exam Const: COMMON NORMALS: no acute distress, average body habitus, healthy appearing, alert and well nourished HENMT: COMMON NORMALS: normocephalic, external ears normal, Normal external nose present, moist oral mucous membranes and oropharynx normal; head/scalp not atraumatic (Lump on right side of head no crepitus noted) HEAD & SCALP: normocephalic; not atraumatic (Lump on right side of head no crepitus noted) NOSE: Normal external nose present EXTERNAL EAR: Yes external ears normal Eye: COMMON NORMALS: Equal, round and reactive pupils present, EOMs intact bilaterally, conjunctivae normal and no scleral icterus CONJUNCTIVA: Yes conjunctivae normal PUPIL: Yes Equal, round and reactive pupils present Neck/C-Spine: COMMON NORMALS: full ROM, no lymphadenopathy, supple, no meningeal signs, no JVD and Thyroid normal THYROID: Thyroid normal Chest: COMMONS NORMALS: normal inspection of the chest and normal palpation of entire chest wall Resp: COMMON NORMALS: normal respiratory effort, No retractions, No use of accessory muscles and clear to auscultation bilaterally AUSCULTATION: clear to auscultation bilaterally Cardio: COMMON NORMALS: no JVD, regular rate, regular rhythm, S1 normal heart sound present, S2 normal heart sound present, No gallops present (Cardio), No clicks present (Cardio), No murmurs present (Cardio) and No rub (Cardio) RATE: regular rate RHYTHM: regular rhythm HEART SOUNDS: S1 normal heart sound present and S2 normal heart sound present GI: COMMON NORMALS: Normal to inspection, nondistended, normoactive bowel sounds present, Soft to palpation, non-tender, No hepatosplenomegaly present and no masses PALPATION: Yes Soft to palpation and Yes No hepatosplenomegaly present Neuro: SENSORIUM/ORIENTATION: Yes alert MENINGEAL SIGNS: Yes no meningeal signs Course Vital Signs: Vital signs: Vital Signs Temperature 98.2 F 01/22/24 15:01 Pulse Rate 86 01/22/24 15:01 Respiratory Rate 18 01/22/24 15:01 Blood Pressure 134/82 01/22/24 15:01 Pulse Oximetry 93 01/22/24 15:01 Oxygen Delivery Me thod Room Air 01/22/24 15:01 MDM - Extremity (Nontraumatic) Medical Decision Making X-rays obtained of right hip, femur, pelvis head CT and they are read by the radiologist with no acute abnormalities. Patient be discharged back to the facility with a small dose of hydrocodone for pain as needed. Differential Diagnosis Unlikely herpes zoster, gout, cellulitis, superficial thrombophlebitis, deep venous thrombosis of upper extremity, lower extremity edema or deep vein thrombosis of lower extremity Medical Records I reviewed the patient's medical records. Lab Data I reviewed the patient's lab results. Radiology Impressions Head CT 01/22/24 15:04 IMPRESSION: No acute intracranial abnormality. If symptoms persist, consider further evaluation with MRI, if MRI is clinically safe to obtain. Hip/Pelvis X-Ray 01/22/24 15:04 IMPRESSION: No acute abnormality. Femur X-Ray 01/22/24 15:08 IMPRESSION: No acute abnormality. All radiology interpretation(s) finalized by discharge Discharge Plan Discharge Patient Disposition: Home Clinical Impression: Fall, Contusion of hip, right Condition: Stable Prescriptions: New hydrocodone-acetaminophen 5-325 mg tablet 1 tab PO Q6H PRN (Reason: pain) Qty: 14 0RF No Action (DME) blood-glucose meter Kit See Rx Instructions .ROUTE .MEDSUPPLY Qty: 1 0RF Rx Instructions: As directed nitroglycerin [Nitrostat] 0.4 mg tablet, sublingual 0.4 mg sublingual Q5M PRN (Reason: Chest Pain) Rx Instructions: do not exceed 3 doses per episode (DME) BD AutoShield Duo Pen Needle 30 gauge x 3/16 needle See Rx Instructions .ROUTE .MEDSUPPLY Qty: 100 Rx Instructions: As directed sennosides [Vegetable Laxative] 8.6 mg Tablet 8.6 mg PO DAILY PRN (Reason: Constipation) zinc acetate 50 mg (zinc) Capsule 50 mg PO DAILY Preparation H 0.25-14-74.9 % Ointment 1 applic DC DAILY PRN (Reason: Hemorrhoids) clopidogrel 75 mg Tablet 75 mg PO DAILY Qty: 30 0RF ondansetron HCl 4 mg Tablet 4 mg PO DAILY PRN (Reason: Nausea And Vomiting) Vagisil 5-2 % Cream See Rx Instructions .ROUTE .COMPLEX PRN (Reason: unknown) Rx Instructions: APPLY TO EXTERNAL PERINEAL AREA TOPICALLY EVERY 12 HOURS NEEDED FOR ITCHING OR BURNING. acetaminophen 500 mg Tablet 1,000 mg PO TID PRN (Reason: Pain) cranberry 500 mg Capsule 500 mg PO DAILY PRN (Reason: urinary burning) furosemide 20 mg tablet 20 mg PO DAILY 30 Days Qty: 30 0RF potassium chloride 20 mEq/15 mL liquid 20 meq PO DAILY magnesium hydroxide [Milk of Magnesia] 400 mg/5 mL Suspension 30 ml PO DAILY PRN (Reason: Constipation) Fleet Enema 19-7 gram/118 mL Enema 118 ml DC DAILY PRN (Reason: Constipation) polyethylene glycol 3350 [Miralax] 17 gram/dose Powder 17 g PO DAILY PRN (Reason: Constipation) benzocaine 20 % Gel 1 applic MUCOUS MEMBRANE BID PRN (Reason: Mouth Irritation) insulin lispro [Humalog KwikPen Insulin] 100 unit/mL Insulin Pen See Rx Instructions .ROUTE .COMPLEX Rx Instructions: GIVE 25 UNITS SUBCUTANEOUSLY 3 TIMES DAILY AND PER SLIDING SCALE: BS 200-249= 2 UNITS, 250-299= 3 UNITS, 300-349= 4 UNITS, 350-399= 5 UNITS, 400-449= 6 UNITS, IF BS GREATER THAN 450 OR LESS THAN 50-NOTIFY PHYSICIAN. memantine 5 mg tablet 5 mg PO BID Biofreeze (menthol) 4 % Gel 1 applic TOPICAL Q8H PRN (Reason: Pain) insulin degludec [Tresiba FlexTouch U-100] 100 unit/mL (3 mL) insulin pen 75 unit SUBCUT DAILY Artificial Tears (cmc) 1 % Drops 2 drp OPHTHALMIC (EYE) Q6H PRN (Reason: Dry Eye(S)) donepezil 10 mg tablet 10 mg PO DAILY famotidine 20 mg tablet 20 mg PO DAILY PRN (Reason: HARTBURN OR INDIGESTION) bisacodyl 10 mg Suppository 10 mg DC DAILY PRN (Reason: Constipation) melatonin 3 mg Tablet 3 mg PO BEDTIME spironolactone 25 mg tablet 25 mg PO DAILY Discharge Orders: Discharge ED (Routine); Ordered 01/22/24 Ordered By: Orlando Aldana Referrals: Cyril Ramirez DO [Primary Care Provider] - 1 week Patient Instructions: Hip Contusion (ED) Activity Restrictions/Additional Instructions: The x-rays of your right hip, pelvis right femur and CT scan of your head were all read as no acute fractures. This means you have a contusion. He had been provided a short course of hydrocodone to use as needed for pain. Please follow-up with your primary care provider within the next 7 to 10 days for further evaluation and treatment as needed. Coding Level of Care Code ED Linen Sorter for Page Kelly
--- NOTE | 2024-01-22 15:08 | XR_ITS ---
WS: [id number] XR femur RT min 2V* [id number] REASON FOR EXAM: fall pain FINDINGS: The right femur is intact with no fracture identified. No focal bone lesion. No soft tissue abnormality. XR/XR femur RT min 2V* [id number] IMPRESSION: No acute abnormality.
--- NOTE | 2024-01-22 15:29 | PC.PHAR ---
Addendum entered by Jena Bear 01/22/24 15:37: PER NURSING STAFF- ADDED FAMOTIDINE 20MG. DC'D AMLODIPINE 10MG, LOVASTATIN 40MG, AND SERTRALINE 50MG. DONEPIEZIL DOSAGE CHANGED FROM 5 MG TO 10MG, MELATONIN 5 MG CHANGED TO 3MG. HUMALOG VERIFIED 25 UNITS 3 TIMES DAILY PLUS SLIDING SCALE. Original Note: PT IS FROM [facility] [phone]
[2024-01-22 17:06] VITALS: RESP 18; O2SAT 96
[2024-01-22] MEDS: morphine 4 mg/mL SDV 1 mL IM (17:06)
[2024-01-22 17:08] VITALS: RESP 18
[2024-01-22 18:20] VITALS: RESP 18; O2SAT 98
== END 2024-01-22 18:24 | disposition home or self-care (01) ==
PROVIDERS: Emergency Provider Emergency Medicine; PCP Internal Medicine
DX: S70.01XA Contusion of right hip, initial encounter (principal); Z79.02 Long term (current) use of antithrombotics/antiplatelets; Z79.4 Long term (current) use of insulin; Z87.891 Personal history of nicotine dependence; I25.2 Old myocardial infarction; I25.10 Atherosclerotic heart disease of native coronary artery without angina pectoris; E11.40 Type 2 diabetes mellitus with diabetic neuropathy, unspecified; F03.90 Unspecified dementia, unspecified severity, without behavioral disturbance, psychotic disturbance, mood disturbance, and anxiety; E78.2 Mixed hyperlipidemia; I10 Essential (primary) hypertension; Z98.61 Coronary angioplasty status; W18.30XA Fall on same level, unspecified, initial encounter; Y92.129 Unspecified place in nursing home as the place of occurrence of the external cause
CPT/HCPCS: 70450; 73502; 73552; 99284; J2270

== ENCOUNTER → 2024-01-23 07:55 | Outpatient (BNVA) | payer MEDICARE, MEDICAID, SELFPAY | PROVIDERS: PCP Internal Medicine; Visit Provider Podiatrist Foot & Ankle Surgery | DX: L60.3 Nail dystrophy (principal); Z79.4 Long term (current) use of insulin; I73.9 Peripheral vascular disease, unspecified; L60.0 Ingrowing nail; E11.69 Type 2 diabetes mellitus with other specified complication | CPT/HCPCS: 99213 ==

== ENCOUNTER → 2024-02-26 13:53 | Outpatient (BNVA) | payer MEDICARE, MEDICAID, SELFPAY | PROVIDERS: PCP Internal Medicine; Visit Provider Podiatrist Foot & Ankle Surgery | DX: L60.0 Ingrowing nail (principal); L60.3 Nail dystrophy; I73.9 Peripheral vascular disease, unspecified; E08.21 Diabetes mellitus due to underlying condition with diabetic nephropathy; Z79.4 Long term (current) use of insulin | CPT/HCPCS: 11730 ==

== ENCOUNTER → 2024-03-31 14:39 | Outpatient (BNVA) | payer MEDICARE, MEDICAID, SELFPAY | PROVIDERS: PCP Internal Medicine; Visit Provider Podiatrist Foot & Ankle Surgery | DX: E08.29 Diabetes mellitus due to underlying condition with other diabetic kidney complication (principal); L60.3 Nail dystrophy; I73.9 Peripheral vascular disease, unspecified; Z79.4 Long term (current) use of insulin | CPT/HCPCS: 99213 ==

== ENCOUNTER 2025-01-17 20:55 | Emergency (ER) | payer MEDICARE, MEDICAID, SELFPAY ==
[2025-01-17] VITALS (7 sets, daily range): BP systolic 96–132; BP diastolic 54–81; PULSE 61–68; RESP 16–18; TEMP 36.4; O2SAT 94–96
--- NOTE | 2025-01-17 21:21 | CTR_ITS ---
PROCEDURE INFORMATION: Exam: CT Head Without Contrast Exam date and time: 01/17/2025 9:27 PM Age: 69 years old Clinical indication: Injury or trauma; Blunt trauma (contusions or hematomas); C/O persistent head and neck pain from a ground level fall yesterday. ; Additional info: Fall head inj TECHNIQUE: Imaging protocol: Computed tomography of the head without contrast. Radiation optimization: All CT scans at this facility use at least one of these dose optimization techniques: automated exposure control; mA and/or kV adjustment per patient size (includes targeted exams where dose is matched to clinical indication); or iterative reconstruction. COMPARISON: CT head wo con* [id number] 01/22/2024 3:49 PM RADIATION DOSE METRICS: Total DLP (mGy-cm): 1052.61 FINDINGS: Brain: No acute intracranial hemorrhage, abnormal extra-axial fluid collection, mass effect, or midline shift. Moderate periventricular and subcortical white matter hypodensities including similar-appearing prominent left centrum semiovale/owens radiata area of decreased attenuation on series 13, image 23, findings are most compatible with changes of moderate burden chronic small-vessel disease. Cerebral ventricles: The ventricular system is within normal limits of variation for the patient's age. Paranasal sinuses: Visualized paranasal sinuses are grossly unremarkable. No air fluid levels. Mastoid air cells: Visualized mastoid air cells are well aerated. Bones: No acute fracture. Soft tissues: Grossly unremarkable. Vasculature: Atheromatous changes are seen within the intracranial portions of the bilateral internal carotid arteries and V4 segments of the bilateral vertebral arteries. CT/CT head wo con* [id number] IMPRESSION: 1. No acute intracranial findings. 2. Chronic/incidental findings as described above.
--- NOTE | 2025-01-17 21:21 | CTR_ITS ---
PROCEDURE INFORMATION: Exam: CT Cervical Spine Without Contrast Exam date and time: 01/17/2025 9:29 PM Age: 69 years old Clinical indication: Injury or trauma; Blunt trauma; C/O persistent head and neck pain from a ground level fall yesterday. ; Additional info: Fall neck pain TECHNIQUE: Imaging protocol: Computed tomography of the cervical spine without contrast. Radiation optimization: All CT scans at this facility use at least one of these dose optimization techniques: automated exposure control; mA and/or kV adjustment per patient size (includes targeted exams where dose is matched to clinical indication); or iterative reconstruction. COMPARISON: CT head wo con* [id number] 01/17/2025 9:27 PM RADIATION DOSE METRICS: Total DLP (mGy-cm): 415.97 FINDINGS: Bones: No acute cervical spine fracture or spondylolisthesis. 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 Multilevel intervertebral disc space narrowing along with posterior disc osteophyte complexes, uncovertebral joint hypertrophic changes, and facet arthropathy appears to result in up to moderate stenosis of the neural foramina (worst on the left at C5-C6) and minimal spinal canal stenosis. Lungs: Right apical atelectasis and/or scarring, the partially imaged left upper lung field is grossly clear. Soft tissues: Grossly unremarkable. CT/CT cervical spin wo con* [id number] IMPRESSION: 1. No acute cervical spine fracture or spondylolisthesis. 2. Cervical spondylosis as described above.
--- NOTE | 2025-01-17 22:45 | W.ED.FALL ---
HPI - Fall General: Chief Complaint: Fall Stated Complaint: fall- head and neck pain Time Seen by Provider: 01/17/25 20:56 History of Present Illness: 69-year-old female snf patient presenting with headache and neck pain. She presumably had a fall yesterday. Notes what snf told EMS crew. The patient herself does not remember. She complains of a chronic head and neck pain. She says her head and neck always hurt. Related Data Home Medications ?Medication ?Instructions ?Recorded ?Confirmed nitroglycerin 0.4 mg sublingual 0.4 mg sublingual Q5M PRN Chest 04/05/22 03/31/24 tablet (Nitrostat) Pain phenylephrine 0.25 %-mineral oil 1 applic TN DAILY PRN Hemorrhoids 01/18/23 03/31/24 14 %-petrolatm 74.9 % rectal ointment (Preparation H) sennosides 8.6 mg tablet 8.6 mg PO DAILY PRN Constipation 01/18/23 03/31/24 (Vegetable Laxative) zinc acetate 50 mg (zinc) capsule 50 mg PO DAILY 01/18/23 03/31/24 acetaminophen 500 mg tablet 1,000 mg PO TID PRN Pain 04/07/23 03/31/24 benzocaine 5 %-resorcinol 2 % See Rx Instructions .Route 04/07/23 03/31/24 topical cream (Vagisil) .COMPLEX PRN unknown cranberry 500 mg capsule 500 mg PO DAILY PRN urinary burning 04/07/23 03/31/24 ondansetron HCl 4 mg tablet 4 mg PO DAILY PRN Nausea And 04/07/23 03/31/24 Vomiting benzocaine 20 % mucosal gel 1 applic mucous membrane BID PRN 07/23/23 03/31/24 Mouth Irritation carboxymethylcellulose sodium 1 % 2 drp ophthalmic (eye) Q6H PRN Dry 07/23/23 03/31/24 eye drops (Artificial Tears Eye(S) (carboxymethylcellulose)) insulin degludec 100 unit/mL (3 75 unit SUBCUT DAILY 07/23/23 03/31/24 mL) subcutaneous pen (Tresiba FlexTouch U-100 insulin) insulin lispro 100 unit/mL See Rx Instructions .Route .COMPLEX 07/23/23 03/31/24 subcutaneous pen (Humalog KwikPen (U-100) Insulin) magnesium hydroxide 400 mg/5 mL 30 ml PO DAILY PRN Constipation 07/23/23 03/31/24 oral suspension (Milk of Magnesia) memantine 5 mg tablet 5 mg PO BID 07/23/23 03/31/24 menthol 4 % topical gel (Biofreeze 1 applic topical Q8H PRN Pain 07/23/23 03/31/24 (menthol)) polyethylene glycol 3350 17 17 g PO DAILY PRN Constipation 07/23/23 03/31/24 gram/dose oral powder (Miralax) potassium chloride 20 mEq/15 mL 20 meq PO DAILY 07/23/23 03/31/24 oral liquid sodium phosphates 19 gram-7 118 ml TN DAILY PRN Constipation 07/23/23 03/31/24 gram/118 mL enema (Fleet Enema) pen needle,diabetic dual safty 30 #100 ea 07/24/23 03/31/24 gauge x 3/16 (BD AutoShield Duo Pen Needle) bisacodyl 10 mg rectal suppository 10 mg TN DAILY PRN Constipation 01/22/24 03/31/24 donepezil 10 mg tablet 10 mg PO DAILY 01/22/24 03/31/24 famotidine 20 mg tablet 20 mg PO DAILY PRN HARTBURN OR 01/22/24 03/31/24 INDIGESTION melatonin 3 mg tablet 3 mg PO BEDTIME 01/22/24 03/31/24 spironolactone 25 mg tablet 25 mg PO DAILY 01/22/24 03/31/24 Previous Rx's ?Medication ?Instructions ?Recorded blood-glucose meter #1 ea 02/28/21 clopidogrel 75 mg tablet 75 mg PO DAILY #30 tabs 01/24/23 furosemide 20 mg tablet 20 mg PO DAILY 30 days #30 tabs 04/12/23 hydrocodone 5 mg-acetaminophen 325 1 tab PO Q6H PRN pain #14 tabs 01/22/24 mg tablet doxycycline hyclate 100 mg capsule 100 mg PO BID 7 days #14 caps 01/23/24 mupirocin 2 % topical ointment 1 applic topical BID 2 weeks #22 01/23/24 grams Allergies Allergy/AdvReac Type Severity Reaction Status Date / Time cefaclor (From [facility]) Allergy unknown Verified 03/31/24 14:45 cephalexin Allergy Unknown Verified 03/31/24 14:45 codeine Allergy ADR-Vomitin Verified 03/31/24 14:45 g Penicillins Allergy unknown Verified 03/31/24 14:45 Sulfa (Sulfonamide Allergy unknown Verified 03/31/24 14:45 Antibiotics) ciprofloxacin (From Cipro) AdvReac rash Verified 03/31/24 14:45 PFSH ED PFSH: Medical History Acute non-ST elevation myocardial infarction (NSTEMI) Atherosclerosis of coronary artery of [place] heart without angina pectoris Portal hypertension Acute delirium Noncompliance Diabetic peripheral neuropathy associated with type 2 diabetes mellitus Dementia Nonalcoholic fatty liver disease Hepatic encephalopathy Coronary artery disease Hepatosplenomegaly Liver cirrhosis Vaginal yeast infection Abdominal pain Breast cancer screening by mammogram Urinary tract infection Yeast vaginitis Rheumatoid arthritis Infected abrasion of thumb Gout Arthritis Mixed hyperlipidemia Type 2 diabetes mellitus with hyperglycemia Mixed hyperlipidemia GERD (gastroesophageal reflux disease) Anxiety and depression Diabetes mellitus, type II Hypothyroid Essential hypertension Anticoagulated Surgical History History of coronary angioplasty History of open heart surgery bi bypass History of arthroscopy of left shoulder Family History Other Heart disease Social History Smoking and tobacco/nicotine status: former use of tobacco/nicotine Second hand smoke exposure: No Alcohol intake: never Substance/Drug Use: never Physical Exam Const: COMMON NORMALS: no acute distress GENERAL APPEARANCE: cooperative and comfortable; not in distress and not ill appearing ORIENTATION/CONSCIOUSNESS: Yes awake, Yes oriented to person and Yes oriented to place HENMT: COMMON NORMALS: normocephalic, atraumatic and Normal external nose present HEAD & SCALP: normocephalic and atraumatic NOSE: Normal external nose present Eye: COMMON NORMALS: Equal, round and reactive pupils present and EOMs intact bilaterally PUPIL: Yes Equal, round and reactive pupils present Neck/C-Spine: COMMON NORMALS: supple Chest: CHEST: Yes Symmetrical chest wall rise Resp: COMMON NORMALS: normal respiratory effort, No use of accessory muscles and clear to auscultation bilaterally AUSCULTATION: clear to auscultation bilaterally Cardio: COMMON NORMALS: regular rate and regular rhythm RATE: regular rate RHYTHM: regular rhythm Neuro: SENSORIUM/ORIENTATION: Yes oriented to person and Yes oriented to place Course Vital Signs: Vital signs: Vital Signs Temperature 97.6 F 01/17/25 20:55 Pulse Rate 74 01/18/25 02:54 Respiratory Rate 18 01/17/25 23:13 Blood Pressure 144/98 01/18/25 02:54 Pulse Oximetry 95 01/18/25 02:54 Oxygen Delivery Me thod Room Air 01/17/25 20:55 MDM - Fall Medical Decision Making 69-year-old female whose only complaint is chronic head and neck pain. Head CT and cervical spine CT showed no acute disease. She moves her neck freely without wincing in pain. She will be allowed discharge. To return for any new concerning symptoms. Lab Data Radiology Impressions Cervical Spine CT 01/17/25 21:21 IMPRESSION: 1. No acute cervical spine fracture or spondylolisthesis. 2. Cervical spondylosis as described above. Head CT 01/17/25 21:21 IMPRESSION: 1. No acute intracranial findings. 2. Chronic/incidental findings as described above. All radiology interpretation(s) finalized by discharge Discharge Plan Discharge Patient Disposition: Home Clinical Impression: Dementia, Fall, Headache disorder Condition: Stable Prescriptions: No Action (DME) blood-glucose meter Kit See Rx Instructions .ROUTE .MEDSUPPLY Qty: 1 0RF Rx Instructions: As directed nitroglycerin [Nitrostat] 0.4 mg tablet, sublingual 0.4 mg sublingual Q5M PRN (Reason: Chest Pain) Rx Instructions: do not exceed 3 doses per episode (DME) BD AutoShield Duo Pen Needle 30 gauge x 3/16 needle See Rx Instructions .ROUTE .MEDSUPPLY Qty: 100 Rx Instructions: As directed doxycycline hyclate 100 mg capsule 100 mg PO BID 7 Days Qty: 14 0RF mupirocin 2 % ointment 1 applic topical BID 14 Days Qty: 22 0RF sennosides [Vegetable Laxative] 8.6 mg Tablet 8.6 mg PO DAILY PRN (Reason: Constipation) zinc acetate 50 mg (zinc) Capsule 50 mg PO DAILY Preparation H 0.25-14-74.9 % Ointment 1 applic TN DAILY PRN (Reason: Hemorrhoids) clopidogrel 75 mg Tablet 75 mg PO DAILY Qty: 30 0RF ondansetron HCl 4 mg Tablet 4 mg PO DAILY PRN (Reason: Nausea And Vomiting) Vagisil 5-2 % Cream See Rx Instructions .ROUTE .COMPLEX PRN (Reason: unknown) Rx Instructions: APPLY TO EXTERNAL PERINEAL AREA TOPICALLY EVERY 12 HOURS NEEDED FOR ITCHING OR BURNING. acetaminophen 500 mg Tablet 1,000 mg PO TID PRN (Reason: Pain) cranberry 500 mg Capsule 500 mg PO DAILY PRN (Reason: urinary burning) furosemide 20 mg tablet 20 mg PO DAILY 30 Days Qty: 30 0RF potassium chloride 20 mEq/15 mL liquid 20 meq PO DAILY magnesium hydroxide [Milk of Magnesia] 400 mg/5 mL Suspension 30 ml PO DAILY PRN (Reason: Constipation) Fleet Enema 19-7 gram/118 mL Enema 118 ml TN DAILY PRN (Reason: Constipation) polyethylene glycol 3350 [Miralax] 17 gram/dose Powder 17 g PO DAILY PRN (Reason: Constipation) benzocaine 20 % Gel 1 applic MUCOUS MEMBRANE BID PRN (Reason: Mouth Irritation) insulin lispro [Humalog KwikPen Insulin] 100 unit/mL Insulin Pen See Rx Instructions .ROUTE .COMPLEX Rx Instructions: GIVE 25 UNITS SUBCUTANEOUSLY 3 TIMES DAILY AND PER SLIDING SCALE: BS 200-249= 2 UNITS, 250-299= 3 UNITS, 300-349= 4 UNITS, 350-399= 5 UNITS, 400-449= 6 UNITS, IF BS GREATER THAN 450 OR LESS THAN 50-NOTIFY PHYSICIAN. memantine 5 mg tablet 5 mg PO BID Biofreeze (menthol) 4 % Gel 1 applic TOPICAL Q8H PRN (Reason: Pain) insulin degludec [Tresiba FlexTouch U-100] 100 unit/mL (3 mL) insulin pen 75 unit SUBCUT DAILY Artificial Tears (cmc) 1 % Drops 2 drp OPHTHALMIC (EYE) Q6H PRN (Reason: Dry Eye(S)) donepezil 10 mg tablet 10 mg PO DAILY famotidine 20 mg tablet 20 mg PO DAILY PRN (Reason: HARTBURN OR INDIGESTION) bisacodyl 10 mg Suppository 10 mg TN DAILY PRN (Reason: Constipation) melatonin 3 mg Tablet 3 mg PO BEDTIME spironolactone 25 mg tablet 25 mg PO DAILY hydrocodone-acetaminophen 5-325 mg tablet 1 tab PO Q6H PRN (Reason: pain) Qty: 14 0RF Discharge Orders: Discharge ED (Routine); Ordered 01/17/25 Ordered By: Devon Fulton Referrals: Cyril Ramirez DO [Primary Care Provider] - 1-3 days Patient Instructions: Fall Prevention for Older Adults (ED), Head Injury (ED), Opioid Safety, Pain Management Activity Restrictions/Additional Instructions: Return for any problems. Print Language: Palauan Coding Level of Care Code ED Diamond Assorter for Page Kelly
[2025-01-17] MEDS: oxyCODONE-APAP 5-325 mg Tablet 1 TAB PO (23:13)
[2025-01-18 02:54] VITALS: BP 144/98; PULSE 74; O2SAT 95
== END 2025-01-18 00:45 | disposition home or self-care (01) ==
PROVIDERS: Emergency Provider Emergency Medicine; PCP Internal Medicine
DX: R51.9 Headache, unspecified (principal); F03.90 Unspecified dementia, unspecified severity, without behavioral disturbance, psychotic disturbance, mood disturbance, and anxiety; W19.XXXA Unspecified fall, initial encounter; Z79.4 Long term (current) use of insulin; Z87.891 Personal history of nicotine dependence; E11.9 Type 2 diabetes mellitus without complications; I10 Essential (primary) hypertension; E78.2 Mixed hyperlipidemia; I25.10 Atherosclerotic heart disease of native coronary artery without angina pectoris
CPT/HCPCS: 70450; 72125; 99284; J9999

== ENCOUNTER → 2025-03-01 09:04 | Outpatient (BNVA) | payer MEDICARE, MEDICAID, SELFPAY | PROVIDERS: PCP Internal Medicine; Visit Provider Podiatrist Foot & Ankle Surgery | DX: E11.8 Type 2 diabetes mellitus with unspecified complications (principal); I73.9 Peripheral vascular disease, unspecified; E11.21 Type 2 diabetes mellitus with diabetic nephropathy; Z79.4 Long term (current) use of insulin | CPT/HCPCS: 99213 ==

== ENCOUNTER → 2025-06-17 09:24 | Outpatient (BNVA) | payer MEDICARE, MEDICAID, SELFPAY | PROVIDERS: PCP Internal Medicine; Visit Provider Podiatrist Foot & Ankle Surgery | DX: E11.21 Type 2 diabetes mellitus with diabetic nephropathy (principal); L60.3 Nail dystrophy; L60.0 Ingrowing nail; I73.9 Peripheral vascular disease, unspecified; Z79.4 Long term (current) use of insulin | CPT/HCPCS: 11721 ==

== ENCOUNTER → 2025-09-07 10:29 | Outpatient (BNVA) | payer MEDICARE, MEDICAID, SELFPAY | PROVIDERS: PCP Internal Medicine; Visit Provider Podiatrist Foot & Ankle Surgery | DX: E08.21 Diabetes mellitus due to underlying condition with diabetic nephropathy (principal); L60.3 Nail dystrophy; I73.9 Peripheral vascular disease, unspecified; Z79.4 Long term (current) use of insulin | CPT/HCPCS: 11721 ==